=== PATIENT | female | born 1945 | race Caucasian/White ===

== ENCOUNTER 2017-01-19 19:21 | Emergency (ER) | payer MEDICARE, BC ==
[2017-01-19] MEDS ORDERED: ACETAMINOPHEN TAB 325 MG TAB PO STA (19:52)
--- NOTE | 2017-01-19 20:11 | ED ---
Lower Extremity Injury HPI - General Chief Complaint: Extremity Injury, Lower Stated Complaint: fall, rt knee pain Time Seen by Provider: 01/19/17 19:44 Source: patient, EMS Mode of arrival: EMS Limitations: no limitations - History of Present Illness Initial Comments: 71-year-old female patient presents to emergency department today for evaluation of right knee and upper leg pain after a fall 2 days ago. Patient states that she was getting into her car, states that her right leg gave out on her, and she fell striking her right knee on the door of the vehicle. She states that initially she did have some minor pain to the area however since walking on over the last 2 days the pain has increased. Patient states that she is having the most any pain to the right lateral aspect of the knee. She states that it does hurt to flex the knee. States pain worsens with ambulation and weightbearing. States that she has been feeling more weak to her lower extremities especially the right side over the last few weeks which has contributed to the increase in the number of falls. States that her last fall prior to 2 days ago was a week prior however she denies any injuries from that fall. Patient denies hitting her head or losing consciousness during the fall. Denies any other injuries. Patient denies any headache, neck pain, back pain , chest pain, shortness of breath, dizziness, abdominal pain, nausea, vomiting, or difficulties with bowel movements. - Related Data Home Medications Medication Instructions Recorded Confirmed Budesonide-Formot 160-4.5 Mcg 2 puff INHALATION RT-BID 01/19/17 01/19/17 [Symbicort 160-4.5 Mcg Inhaler] Cholecalciferol [Vitamin D3] 1,000 unit PO DAILY 01/19/17 01/19/17 Fenofibrate Nanocrystallized 48 mg PO DAILY 01/19/17 01/19/17 [Fenofibrate] Gabapentin [Neurontin] 300 mg PO BID 01/19/17 01/19/17 Glimepiride [Amaryl] 4 mg PO AC-BID 01/19/17 01/19/17 Insulin Glargine,Hum.rec.anlog 65 unit SQ HS 01/19/17 01/19/17 [Lantus Solostar] Ipratropium/Albuterol Sulfate 2 puff INHALATION RT-QID PRN 01/19/17 01/19/17 [Combivent Respimat Inhaler] Ramipril [Altace] 2.5 mg PO DAILY 01/19/17 01/19/17 Simvastatin [Zocor] 80 mg PO DAILY 01/19/17 01/19/17 metFORMIN HCL [Glucophage] 1,000 mg PO BID 01/19/17 01/19/17 Allergies Allergy/AdvReac Type Severity Reaction Status Date / Time No Known Allergies Allergy Verified 01/19/17 20:56 Review of Systems ROS Statement: Those systems with pertinent positive or pertinent negative responses have been documented in the HPI. ROS Other: All systems not noted in ROS Statement are negative. Past Medical History Past Medical History: Diabetes Mellitus, Deep Vein Thrombosis (DVT), Hyperlipidemia, Myocardial Infarction (CA) History of Any Multi-Drug Resistant Organisms: None Reported Past Surgical History: Heart Catheterization Past Psychological History: No Psychological Hx Reported Smoking Status: Current every day smoker Past Alcohol Use History: None Reported Past Drug Use History: None Reported General Exam Limitations: no limitations General appearance: alert, in no apparent distress Head exam: Present: atraumatic, normocephalic, normal inspection Eye exam: Present: normal appearance, PERRL, EOMI. Absent: scleral icterus, conjunctival injection, periorbital swelling ENT exam: Present: normal exam, normal oropharynx, mucous membranes moist Neck exam: Present: normal inspection, full ROM, other (Nontender, no step-off, no deformity to firm midline palpation of the posterior cervical spine. Full range of motion without pain or limitation.). Absent: tenderness, meningismus, lymphadenopathy Respiratory exam: Present: normal lung sounds bilaterally. Absent: respiratory distress, wheezes, rales, rhonchi, stridor Cardiovascular Exam: Present: regular rate, normal rhythm, normal heart sounds. Absent: systolic murmur, diastolic murmur, rubs, gallop, clicks GI/Abdominal exam: Present: soft, normal bowel sounds. Absent: distended, tenderness, guarding, rebound, rigid Extremities exam: Present: full ROM (Increased pain with flexion and extension of the right knee.), tenderness (Tenderness over the right lateral aspect of the right knee. Tenderness over the right femur.), normal capillary refill, other (It is pink, warm, and dry. Cap refill less than 3 seconds.). Absent: normal inspection (Small abrasion noted to the right anterior knee over the patella.), pedal edema, joint swelling, calf tenderness Back exam: Present: normal inspection, other (Nontender, no step-off, no deformity to firm midline palpation of the thoracic and lumbar vertebrae. Full range of motion without pain or limitation.). Absent: tenderness, vertebral tenderness Neurological exam: Present: alert, oriented X3, CN II-XII intact Psychiatric exam: Present: normal affect, normal mood Skin exam: Present: warm, dry, intact, normal color. Absent: rash Course Vital Signs 01/19/17 01/19/17 01/19/17 19:31 20:45 23:27 Temperature 98.9 F 97.9 F Pulse Rate 70 77 70 Respiratory 18 16 18 Rate Blood Pressure 134/63 164/92 165/78 O2 Sat by Pulse 93 L 96 93 L Oximetry Medical Decision Making - Medical Decision Making 71-year-old female patient presented to emergency department today for evaluation of right knee pain after a fall injury 2 days ago. Patient reported frequent falls at home and weakness in her legs. Lab work was performed and showed no acute abnormalities. X-ray of the right knee was obtained and showed no acute osseous abnormalities. While in the department patient did have an acute episode of vomiting, where her color turned pale. Patient states this does occur at least once per week. X-ray of the abdomen was reviewed and showed no acute intra-abdominal abnormalities and overall nonobstructive bowel gas pattern. Chest x-ray was negative for any acute cardio pulmonary process. Urinalysis did have some abnormalities however was contaminated, this has been sent for culture. Patient will be discharged home at this time with instructions to rest, ice, and elevate the right lower extremity. She is given an Yeyo wrap for support. She is instructed to follow-up with her primary care physician for recheck in 1-2 days. Did discuss with her the possibility of obtaining a walker, she agreed to discuss with her primary care physician. Patient is instructed to return immediately for any new, worsening, or concerning symptoms. Patient verbalizes understanding and agrees with this plan. - Lab Data Result diagrams: 01/19/17 20:37 01/19/17 20:37 Lab Results 01/19/17 01/19/17 01/19/17 Range/Units 20:37 20:37 20:37 WBC 12.4 H (3.8-10.6) k/uL RBC 4.86 (3.80-5.40) m/uL Hgb 15.1 (11.4-16.0) gm/dL Hct 45.8 (34.0-46.0) % MCV 94.2 (80.0-100.0) fL MCH 31.2 (25.0-35.0) pg MCHC 33.1 (31.0-37.0) g/dL RDW 14.5 (11.5-15.5) % Plt Count 254 (150-450) k/uL Neutrophils % 79 % Lymphocytes % 14 % Monocytes % 4 % Eosinophils % 1 % Basophils % 1 % Neutrophils # 9.8 H (1.3-7.7) k/uL Lymphocytes # 1.7 (1.0-4.8) k/uL Monocytes # 0.5 (0-1.0) k/uL Eosinophils # 0.2 (0-0.7) k/uL Basophils # 0.1 (0-0.2) k/uL PT (9.0-12.0) sec INR (<1.2) APTT (22.0-30.0) sec Sodium 143 (137-145) mmol/L Potassium 4.4 (3.5-5.1) mmol/L Chloride 101 (98-107) mmol/L Carbon Dioxide 31 H (22-30) mmol/L Anion Gap 11 mmol/L BUN 26 H (7-17) mg/dL Creatinine 1.50 H (0.52-1.04) mg/dL Est GFR (MDRD) Af Amer 41 (>60 ml/min/1.73 sqM) Est GFR (MDRD) Non-Af 34 (>60 ml/min/1.73 sqM) Glucose 145 H (74-99) mg/dL Calcium 9.9 (8.4-10.2) mg/dL Total Bilirubin 0.4 (0.2-1.3) mg/dL AST 19 (14-36) U/L ALT 20 (9-52) U/L Alkaline Phosphatase 102 (38-126) U/L Total Creatine Kinase 57 (30-135) U/L CK-MB (CK-2) 1.5 (0.0-2.4) ng/mL CK-MB (CK-2) Rel Index 2.6 Troponin I <0.012 (0.000-0.034) ng/mL Total Protein 6.8 (6.3-8.2) g/dL Albumin 4.0 (3.5-5.0) g/dL Amylase 41 (30-110) U/L Lipase 120 (23-300) U/L Urine Color Urine Appearance (Clear) Urine pH (5.0-8.0) Ur Specific [place] (1.001-1.035) Urine Protein (Negative) Urine Glucose (UA) (Negative) Urine Ketones (Negative) Urine Blood (Negative) Urine Nitrite (Negative) Urine Bilirubin (Negative) Urine Urobilinogen (<2.0) mg/dL Ur Leukocyte Esterase (Negative) Urine RBC (0-5) /hpf Urine WBC (0-5) /hpf Ur Squamous Epith Cells (0-4) /hpf Amorphous Sediment (None) /hpf Urine Bacteria (None) /hpf Hyaline Casts (0-2) /lpf Urine Mucus (None) /hpf 01/19/17 01/19/17 Range/Units 20:37 22:34 WBC (3.8-10.6) k/uL RBC (3.80-5.40) m/uL Hgb (11.4-16.0) gm/dL Hct (34.0-46.0) % MCV (80.0-100.0) fL MCH (25.0-35.0) pg MCHC (31.0-37.0) g/dL RDW (11.5-15.5) % Plt Count (150-450) k/uL Neutrophils % % Lymphocytes % % Monocytes % % Eosinophils % % Basophils % % Neutrophils # (1.3-7.7) k/uL Lymphocytes # (1.0-4.8) k/uL Monocytes # (0-1.0) k/uL Eosinophils # (0-0.7) k/uL Basophils # (0-0.2) k/uL PT 11.1 (9.0-12.0) sec INR 1.1 (<1.2) APTT 22.2 (22.0-30.0) sec Sodium (137-145) mmol/L Potassium (3.5-5.1) mmol/L Chloride (98-107) mmol/L Carbon Dioxide (22-30) mmol/L Anion Gap mmol/L BUN (7-17) mg/dL Creatinine (0.52-1.04) mg/dL Est GFR (MDRD) Af Amer (>60 ml/min/1.73 sqM) Est GFR (MDRD) Non-Af (>60 ml/min/1.73 sqM) Glucose (74-99) mg/dL Calcium (8.4-10.2) mg/dL Total Bilirubin (0.2-1.3) mg/dL AST (14-36) U/L ALT (9-52) U/L Alkaline Phosphatase (38-126) U/L Total Creatine Kinase (30-135) U/L CK-MB (CK-2) (0.0-2.4) ng/mL CK-MB (CK-2) Rel Index Troponin I (0.000-0.034) ng/mL Total Protein (6.3-8.2) g/dL Albumin (3.5-5.0) g/dL Amylase (30-110) U/L Lipase (23-300) U/L Urine Color Yellow Urine Appearance Cloudy H (Clear) Urine pH 7.0 (5.0-8.0) Ur Specific [place] 1.020 (1.001-1.035) Urine Protein Trace H (Negative) Urine Glucose (UA) Negative (Negative) Urine Ketones Negative (Negative) Urine Blood Trace H (Negative) Urine Nitrite Negative (Negative) Urine Bilirubin Negative (Negative) Urine Urobilinogen 2.0 (<2.0) mg/dL Ur Leukocyte Esterase Large H (Negative) Urine RBC 17 H (0-5) /hpf Urine WBC 7 H (0-5) /hpf Ur Squamous Epith Cells 6 H (0-4) /hpf Amorphous Sediment Rare H (None) /hpf Urine Bacteria Few H (None) /hpf Hyaline Casts 2 (0-2) /lpf Urine Mucus Rare H (None) /hpf - Radiology Data Radiology results: report reviewed, image reviewed 3 views of the right knee were obtained and showed no fracture or dislocation. There is a small knee joint effusion. There is mild spurring on the superior patella. There is calcification of the tibial tubercle. There is vascular calcification. Joint spaces are fairly normal. Impression by Dr. Calderon shows small joint effusion. No fracture seen. Oh tibial tubercle osteochondrosis. 4 views of the right femur were obtained and showed no fracture nor dislocation. Hip joint knee joint. Intact. There is spurring on the patella. There is vascular calcification. No acute abnormality of the right femur. Frontal and lateral views of the chest were obtained and showed the heart and mediastinum are normal. Lungs are clear. Diaphragm is normal. Bony thorax is intact. Thoracic aorta is atheromatous. Impression by Dr. Collins shows no active cardiopulmonary disease. Normal heart. No change. KUB of the abdomen was obtained and showed no sign of intestinal obstruction or pneumoperitoneum. Fecal pattern is normal. There is no sign of a mass. There are no pathologic calcifications over the kidneys. Impression by Dr. Collins shows nonacute abdomen. Disposition Clinical Impression: Effusion, right knee, Frequent falls Disposition: HOME SELF-CARE Condition: Good Instructions: Fall Prevention for Older Adults (ED), Knee Pain (ED) Additional Instructions: Follow-up with her primary care physician for recheck in 1-2 days. Rest, ice, elevate the right lower extremity. Yeyo wrap for comfort. Discussed with primary care physician the need for a walker. Return immediately for any new, worsening, or concerning symptoms. Referrals: Srinath Shepard DO [Primary Care Provider] - 1-2 days Time of Disposition: 23:09
--- NOTE | 2017-01-19 20:23 | XR ---
EXAMINATION TYPE: XR femur RT DATE OF EXAM: 01/19/2017 COMPARISON: NONE HISTORY: Fell 2 days ago. Pain. TECHNIQUE: 4 views FINDINGS: I see no fracture nor dislocation. Hip joint and knee joint appear intact. There is spurrin g on the patella. There is vascular calcification. IMPRESSION: No acute abnormality of the right femur.
--- NOTE | 2017-01-19 20:27 | XR ---
EXAMINATION TYPE: XR knee complete RT DATE OF EXAM: 01/19/2017 COMPARISON: NONE HISTORY: Fell 2 days ago with pain TECHNIQUE: 3 views FINDINGS: I see no fracture nor dislocation. There is a small knee joint effusion. There is mild spur ring on the superior patella. There is calcification at the tibial tubercle. There is vascular calcif ication. Joint spaces are fairly normal. IMPRESSION: Small joint effusion. No fracture seen. 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
--- NOTE | 2017-01-19 20:28 | XR ---
EXAMINATION TYPE: XR chest 2V DATE OF EXAM: 01/19/2017 COMPARISON: 12/28/2011 HISTORY: Fell 2 days ago TECHNIQUE: Frontal and lateral views of the chest are obtained. FINDINGS: Heart and mediastinum are normal. Lungs are clear. Diaphragm is normal. Bony thorax is int act. Thoracic aorta is atheromatous. IMPRESSION: No active cardiopulmonary disease. Normal heart. No change.
[2017-01-19] MEDS ORDERED: ONDANSETRON 4 MG/2 ML VIAL IVP STA (20:50)
[2017-01-19 21:03] LABS: Basophils # (A) 0.1 k/uL (0-0.2); Basophils % (A) 1 %; CH 32.2; CHCM 34.3; Eosinophils # (A) 0.2 k/uL (0-0.7); Eosinophils % (A) 1 %; HCT 45.8 % (34.0-46.0); HDW 2.46; HGB 15.1 gm/dL (11.4-16.0); Luc # (Auto) 0.17; Luc % (Auto) 1; Lymphocytes # (A) 1.7 k/uL (1.0-4.8); Lymphocytes % (A) 14 %; MCH 31.2 pg (25.0-35.0); MCHC 33.1 g/dL (31.0-37.0); MCV 94.2 fL (80.0-100.0); Mean Platelet Volume 8.2; Monocytes # (A) 0.5 k/uL (0-1.0); Monocytes % (A) 4 %; Neutrophils # (A) 9.8 k/uL (1.3-7.7); Neutrophils % (A) 79 %; RBC 4.86 m/uL (3.80-5.40); RDW 14.5 % (11.5-15.5); WBC 12.4 k/uL (3.8-10.6); WBC (Perox) 12.14
[2017-01-19 21:21] LABS: Calcium 9.9 mg/dL (8.4-10.2); Creatine Kinase 57 U/L (30-135); Potassium 4.4 mmol/L (3.5-5.1); Total Bilirubin 0.4 mg/dL (0.2-1.3); Total Protein 6.8 g/dL (6.3-8.2)
--- NOTE | 2017-01-19 21:23 | XR ---
EXAMINATION TYPE: XR KUB DATE OF EXAM: 01/19/2017 COMPARISON: NONE HISTORY: Vomiting TECHNIQUE: 2 views FINDINGS: There is no sign of intestinal obstruction or pneumoperitoneum. Fecal pattern is normal. Th ere is no sign of a mass. There are no pathologic calcifications over the kidneys. IMPRESSION: Nonacute abdomen.
[2017-01-19 21:27] LABS: INR 1.1 (<1.2); Partial Thromboplastin Time 22.2 sec (22.0-30.0); Prothrombin Time 11.1 sec (9.0-12.0)
[2017-01-19 21:34] LABS: Creatine Kinase MB 1.5 ng/mL (0.0-2.4); Troponin I <0.012 ng/mL (0.000-0.034)
[2017-01-19 22:45] LABS: Amorphous Sediment,Urine Rare /hpf; Appearance,Urine Cloudy (Clear); Bacteria,Urine Few /hpf; Bilirubin,Urine Negative (Negative); Glucose,Urine (UA) Negative (Negative); Ketones,Urine Negative (Negative); Leukocyte Esterase,Urine Large (Negative); Mucus,Urine Rare /hpf; Nitrite,Urine Negative (Negative); Particle Count 44047; Protein,Urine Trace (Negative); RBC,Urine 17 /hpf (0-5); Squamous Epithelial Cell,Urine 6 /hpf (0-4); UA Billing (MACRO vs. MICRO) MICRO; WBC,Urine 7 /hpf (0-5)
[2017-01-19 23:28] VITALS: BP 165/78; PULSE 70; RESP 18; TEMP 97.9
== END 2017-01-19 23:28 | disposition home or self-care (01) ==
LOC: EC 19:21 → SUPCPDRO 19:21 → EC 23:28
DX: S80.211A Abrasion, right knee, initial encounter (principal); M25.461 Effusion, right knee; M76.891 Other specified enthesopathies of right lower limb, excluding foot; R29.6 Repeated falls; I99.8 Other disorder of circulatory system; I70.0 Atherosclerosis of aorta; E78.5 Hyperlipidemia, unspecified; I25.2 Old myocardial infarction; F17.200 Nicotine dependence, unspecified, uncomplicated; Z79.4 Long term (current) use of insulin; Z79.51 Long term (current) use of inhaled steroids; Z79.84 Long term (current) use of oral hypoglycemic drugs; Z79.899 Other long term (current) drug therapy; W01.198A Fall on same level from slipping, tripping and stumbling with subsequent striking against other object, initial encounter; Y93.89 Activity, other specified; Z53.20 Procedure and treatment not carried out because of patient's decision for unspecified reasons
CPT/HCPCS: 36415; 71020; 74000; 80053; 81001; 82150; 82550; 82553; 83690; 84484; 85025; 85610; 85730; 93005; 99284

== ENCOUNTER → 2017-03-29 | Outpatient (CLI) | payer MEDICARE, BC ==
[2017-03-29 10:56] LABS: CH 31.3; HCT 46.4 % (34.0-46.0); HDW 2.47; HGB 15.1 gm/dL (11.4-16.0); MCHC 32.5 g/dL (31.0-37.0); MCV 98.4 fL (80.0-100.0); Mean Platelet Volume 7.1; RBC 4.71 m/uL (3.80-5.40); RDW 14.1 % (11.5-15.5); WBC 11.7 k/uL (3.8-10.6)
[2017-03-29 11:07] LABS: Potassium 4.5 mmol/L (3.5-5.1)
== END | disposition home or self-care (01) ==
LOC: LABPAT 10:25
PROVIDERS: ATTEND Internal Medicine Interventional Cardiology
DX: Z01.812 Encounter for preprocedural laboratory examination (principal); I25.10 Atherosclerotic heart disease of native coronary artery without angina pectoris
CPT/HCPCS: 36415; 80051; 82565; 84520; 85027

== ENCOUNTER 2017-04-02 08:47 | Day surgery (SDC) | payer MEDICARE, BC ==
[~2017-04-02 08:47] MED LIST: ALPRAZolam 0.25 MG TAB PO PRN; ALPRAZolam 0.5 MG TAB PO PRN; ASPIRIN 325 MG TAB PO STA; NITROGLYCERIN SL TABS 0.4 MG TAB SUBLINGUAL PRN; SODIUM CHLORIDE 0.9% 1,000 ML in EMPTY BAG 1 BAG IV ONE
[2017-04-02 09:28] LABS: Glucose,Whole Blood 178 mg/dL (75-99)
[2017-04-02 10:15] LABS: Calcium 9.5 mg/dL (8.4-10.2); Potassium 4.4 mmol/L (3.5-5.1)
[2017-04-02] MEDS ORDERED: diphenhydrAMINE 50 MG/ML 1 ML VIAL IVP ONE (12:35)
[2017-04-02] MEDS ORDERED: fentaNYL (PF) 50 MCG/ML 2 ML AMP IVP ONE (12:35)
[2017-04-02] MEDS: LIDOCAINE 2% INJ 20 MG/ML SQ ONE ×4 (12:38→12:49)
[2017-04-02] MEDS ORDERED: VERAPAMIL SYRINGE (5 MG/10 ML) INTRAARTER ONE (12:45)
[2017-04-02] MEDS ORDERED: HEPARIN SODIUM 1,000 UN/ML (10ML VL) IV ONE (12:59)
[2017-04-02] MEDS ORDERED: IODIXANOL 320 MG/ML 100 ML INTRAARTER ONE (13:09)
[2017-04-02] MEDS ORDERED: RX INFO: IV CONTRAST WAS GIVEN 1 EACH MISC MISCELLANE PRN (13:16)
[2017-04-02] MEDS ORDERED: IPRATROPIUM-ALBUTEROL 3 ML NEB INHALATION PRN ×2 (13:17→15:09)
[2017-04-02] MEDS ORDERED: METOPROLOL TARTRATE 25 MG TAB PO STA (13:25)
[2017-04-02] MEDS ORDERED: ATORVASTATIN 80 MG TAB PO STA (13:25)
[2017-04-02] MEDS ORDERED: ISOSORBIDE MONONITRATE ER 30 MG TAB.ER.24H PO STA (13:25)
[2017-04-02] MEDS ORDERED: SODIUM CHLORIDE 0.9% 1,000 ML IV SCH (13:30)
--- NOTE | 2017-04-02 14:25 | CC ---
CARDIAC CATHETERIZATION REPORT Mrs. Casas is a 72-year-old female with known history of hypertension, hyperlipidemia, diabetes mellitus, chronic tobacco use and a prior history of percutaneous revascularization of right coronary artery as well as peripheral venous disease, status post endarterectomy, who presented with symptoms of dyspnea and peripheral edema and was evaluated to undergo total knee arthroplasty and was found to have an abnormal myocardial perfusion imaging and in view of that recommendation made regarding cardiac catheterization. The procedure. risks and complications were discussed with the patient who is in full understanding and agreement. PROCEDURE: Patient was brought to the [facility] in a fasting semi-sedated state after receiving fentanyl and Benadryl after achieving moderate conscious sedated state. Using Xylocaine anesthesia and Seldinger technique, a 6-Grenadian sheath was introduced in the right radial artery. The wire was advanced to the ascending aorta, but there was inability to advance the catheter because of tortuosity and calcification in the right subclavian. At that time, the wire and the catheter were removed and using Xylocaine anesthesia and Seldinger technique, a 6-Grenadian sheath was introduced in the right femoral artery. Selective right and left angiography performed using 6-Grenadian right and left chest catheter. Multiple views of the coronary artery including hemiaxial views were obtained. Following that, a 6-Grenadian tight pigtail catheter was introduced into the left ventricle and a 30 degree pressure were calculated. Following that, catheter and sheaths were removed. Hemostasis was obtained with deployment of an Angio- Seal in the right femoral artery and TR band in the right radial artery. FINDINGS: 1. FLUOROSCOPY: There was severe calcification involving the coronary arteries. 2. LEFT MAIN: This is a large-sized vessel bifurcating into left circumflex, left anterior descending artery. Left main coronary artery is without any significant obstructive disease. 3. LEFT ANTERIOR DESCENDING ARTERY: This is a large-sized vessel reaching toward the apex, tapers down distal third giving rise to a small diagonal branch. Left anterior descending artery is heavily calcified, has a 95% to 99% stenosis at the ostium with moderate disease of 30% in the mid segment. The rest of the vessel has no high-grade stenosis. 4. LEFT CIRCUMFLEX: This is a nondominant vessel giving rise to two obtuse marginal branches. The first one is very proximal, has a 30% to 40% plaque proximally. The rest of the vessel has mild intimal disease without any evidence of high-grade stenosis. 5. RIGHT CORONARY ARTERY: This is a large-sized vessel, dominant, bifurcating into the PDA and PLV. The right coronary artery in mid segment. It is stented and is patent. No evidence of free stenosis. There is intimal disease in the proximal and distal segment to the stent up to 30%. 6. COLLATERALS: There is collaterals from the right PDA toward the septal kiln fireman. 7. LEFT VENTRICULOGRAM: Left ventriculogram is not performed. 8. HEMODYNAMICS: There was no gradient across the aortic valve; the left ventricular diastolic pressure is 24 mmHg. CONCLUSION: 1. Heavily calcified coronary arteries. 2. Severe stenosis involving the ostium of the left anterior descending artery. 3. Mild to moderate disease in the circumflex and mild disease in the right coronary artery. RECOMMENDATION: In view of finding anatomy, I have recommended proceeding with coronary artery bypass grafting with bypass to the LAD. Those findings and recommendations were discussed with the patient and her family who are in full understanding and agreement. Duration of the procedure is 32 minutes. MMBERHANE / HAMILTONN: [id number] /
--- NOTE | 2017-04-02 14:30 | LTR ---
DATE OF SERVICE: 04/02/2017 RE: Elenita Casas Dear Dr. Shepard; I had the pleasure to perform cardiac catheterization on Mrs. Casas at [facility] on April 02, 2017 and a full copy of the procedure note will be forwarded to you. In brief, she was found to have heavily calcified coronary artery with severe ostial LAD lesion. In view of her anatomy and her multiple risk factors, I have recommended proceeding with coronary bypass grafting. I will keep you updated on her progress and thank you again for allowing me to participate in this patient's care. Please feel free to call for any questions. Sincerely yours, MD JUNIOR Bazan / NEIDA: [id number] /
[2017-04-02 14:46] LABS: Glucose,Whole Blood 157 mg/dL (75-99)
[2017-04-02] MEDS ORDERED: MD COMMUNICATION TO PHARMACY 1 EACH MISC PO ONE (14:55)
--- NOTE | 2017-04-02 15:37 | P.GSCN ---
History of Present Illness Consult date: 04/02/17 Reason for Consult: Coronary artery disease, surgical revascularization recommendations. Requesting physician: Pauline Bee History of present illness: This 72-year-old female patient with a previous medical history of myocardial infarction and drug-eluting stent to the RCA placed in 2009, peripheral artery disease with right carotid endarterectomy in 2011, hypertension, hyperlipidemia , type 2 diabetes mellitus, current tobacco dependence, family history of early coronary artery disease, and noncompliance presented today to [facility] for heart catheterization. Apparently she needs a total knee replacement and needed cardiac clearance. She had presented to Dr. Bee's office, had a stress test which demonstrated anterior wall defect suggesting stress-induced ischemia of the left anterior descending artery. Subsequently she was recommended to have a heart catheterization which was completed today and demonstrated stenosis in the proximal LAD of 95-99%, mid LAD of 40%, mid right coronary artery with a patent stent with segments proximal and distal to the stent with 30% stenosis, and 30-40% stenosis in the first obtuse marginal artery. Dr. Dominguez from cardiothoracic surgery was consulted regarding surgical revascularization. Review of Systems 14 point review of systems was completed and was negative except as noted. - Constitutional Reports as per HPI, Reports fatigue - Cardiovascular Reports as per HPI, Reports dyspnea on exertion, Reports edema, Reports leg edema - Respiratory Reports cough - Musculoskeletal Musculoskeleta Comment(s): Walks with a walker Past Medical History Past Medical History: Coronary Artery Disease (CAD), Diabetes Mellitus, Hyperlipidemia, Hypertension, Myocardial Infarction (OR) Last Myocardial Infarction Date:: 2007 History of Any Multi-Drug Resistant Organisms: None Reported Past Surgical History: Appendectomy, Heart Catheterization With Stent, Hysterectomy Additional Past Surgical History / Comment(s): Colonoscopy. Drug-eluting stent placed to the RCA in 2009. Right carotid endarterectomy in 2011. Past Anesthesia/Blood Transfusion Reactions: No Reported Reaction Past Psychological History: No Psychological Hx Reported Smoking Status: Current every day smoker Past Alcohol Use History: None Reported Past Drug Use History: None Reported Additional Drug Use History / Comment(s): Smokes half pack per day for the last 60 years - Past Family History Mother Family Medical History: No Reported History Father Family Medical History: Coronary Artery Disease (CAD) Medications and Allergies Home Medications Medication Instructions Recorded Confirmed Type Budesonide-Formot 160-4.5 Mcg 2 puff INHALATION RT-BID 01/19/17 04/02/17 History [Symbicort 160-4.5 Mcg Inhaler] Cholecalciferol [Vitamin D3] 1,000 unit PO DAILY 01/19/17 04/02/17 History Glimepiride [Amaryl] 4 mg PO AC-BID 01/19/17 04/02/17 History Insulin Glargine,Hum.rec.anlog 65 unit SQ HS 01/19/17 04/02/17 History [Lantus Solostar] Ipratropium/Albuterol Sulfate 2 puff INHALATION RT-QID PRN 01/19/17 04/02/17 History [Combivent Respimat Inhaler] Ramipril [Altace] 2.5 mg PO DAILY 01/19/17 04/02/17 History Simvastatin [Zocor] 80 mg PO DAILY 01/19/17 04/02/17 History metFORMIN HCL [Glucophage] 1,000 mg PO BID 01/19/17 04/02/17 History Allergies Allergy/AdvReac Type Severity Reaction Status Date / Time No Known Allergies Allergy Verified 03/28/17 15:31 Surgical - Exam Vital Signs Temp Pulse Resp BP Pulse Ox 94 F L 71 16 137/65 94 L 04/02/17 09:46 04/02/17 09:46 04/02/17 09:46 04/02/17 09:46 04/02/17 09:46 - General well developed, well nourished, no distress, no pain, obese - Eyes PERRL, normal ocular movement - ENT no hearing loss - Neck no masses, trachea midline - Respiratory Lungs sounds diminished with expiratory wheezes present bilaterally. Respirations even, nonlabored. Positive coarse cough. Currently on 3 L nasal cannula oxygen saturation 96%. - Cardiovascular S1, S2 present. Regular rate and rhythm, normal sinus rhythm on telemetry. Palpable peripheral pulses bilaterally. 2+ pitting edema to bilateral lower extremities. No varicosities noted. - Abdomen Abdomen: soft, non tender, bowel sounds - Genitourinary Deferred - Rectum Deferred - Integumentary no rash, no growths - Neurologic normal coordination, normal sensation - Musculoskeletal Current and bedrest post cardiac catheterization. Equal strength bilaterally. - Psychiatric oriented to time, oriented to person, oriented to place, speech is normal, memory intact Results - Labs 04/02/17 09:45 Abnormal Lab Results - Last 24 Hours (Table) 04/02/17 04/02/17 04/02/17 Range/Units 09:25 09:45 14:20 BUN 23 H (7-17) mg/dL Creatinine 1.42 H (0.52-1.04) mg/dL Glucose 195 H (74-99) mg/dL POC Glucose (mg/dL) 178 H 157 H (75-99) mg/dL Diabetes panel 04/02/17 Range/Units 09:45 Sodium 139 (137-145) mmol/L Potassium 4.4 (3.5-5.1) mmol/L Chloride 102 (98-107) mmol/L Carbon Dioxide 27 (22-30) mmol/L BUN 23 H (7-17) mg/dL Creatinine 1.42 H (0.52-1.04) mg/dL Glucose 195 H (74-99) mg/dL Calcium 9.5 (8.4-10.2) mg/dL Calcium panel 04/02/17 Range/Units 09:45 Calcium 9.5 (8.4-10.2) mg/dL Pituitary panel 04/02/17 Range/Units 09:45 Sodium 139 (137-145) mmol/L Potassium 4.4 (3.5-5.1) mmol/L Chloride 102 (98-107) mmol/L Carbon Dioxide 27 (22-30) mmol/L BUN 23 H (7-17) mg/dL Creatinine 1.42 H (0.52-1.04) mg/dL Glucose 195 H (74-99) mg/dL Calcium 9.5 (8.4-10.2) mg/dL Adrenal panel 04/02/17 Range/Units 09:45 Sodium 139 (137-145) mmol/L Potassium 4.4 (3.5-5.1) mmol/L Chloride 102 (98-107) mmol/L Carbon Dioxide 27 (22-30) mmol/L BUN 23 H (7-17) mg/dL Creatinine 1.42 H (0.52-1.04) mg/dL Glucose 195 H (74-99) mg/dL Calcium 9.5 (8.4-10.2) mg/dL Assessment and Plan (1) Coronary artery disease Current Visit: Yes Status: Acute Code(s): I25.10 - ATHSCL HEART DISEASE OF [place] CORONARY ARTERY W/O ANG PCTRS SNOMED Code(s): 13482451 (2) Peripheral artery disease Current Visit: Yes Status: Chronic Code(s): I73.9 - PERIPHERAL VASCULAR DISEASE, UNSPECIFIED SNOMED Code(s): 699384837 (3) Hypertension Current Visit: Yes Status: Chronic Code(s): I10 - ESSENTIAL (PRIMARY) HYPERTENSION SNOMED Code(s): 28522913 (4) Type 2 diabetes mellitus Current Visit: Yes Status: Chronic Code(s): E11.9 - TYPE 2 DIABETES MELLITUS WITHOUT COMPLICATIONS SNOMED Code(s): 24825741 (5) Tobacco dependence Current Visit: Yes Status: Chronic Code(s): F17.200 - NICOTINE DEPENDENCE, UNSPECIFIED, UNCOMPLICATED SNOMED Code(s): 01408350 (6) COPD (chronic obstructive pulmonary disease) Current Visit: Yes Status: Chronic Code(s): J44.9 - CHRONIC OBSTRUCTIVE PULMONARY DISEASE, UNSPECIFIED SNOMED Code(s): 17613479 (7) History of myocardial infarction Current Visit: No Status: Resolved Code(s): I25.2 - OLD MYOCARDIAL INFARCTION SNOMED Code(s): 928695123 (8) History of heart artery stent Current Visit: Yes Status: Chronic Code(s): Z95.5 - PRESENCE OF CORONARY ANGIOPLASTY IMPLANT AND GRAFT SNOMED Code(s): 823612941 (9) Hyperlipidemia Current Visit: Yes Status: Chronic Code(s): E78.5 - HYPERLIPIDEMIA, UNSPECIFIED SNOMED Code(s): 07894137 (10) Family history of coronary artery disease Current Visit: Yes Status: Chronic Code(s): Z82.49 - FAMILY HX OF ISCHEM HEART DIS AND OTH DIS OF THE CIRC SYS SNOMED Code(s): 052333820 (11) History of right-sided carotid endarterectomy Current Visit: No Status: Resolved Code(s): Z98.890 - OTHER SPECIFIED POSTPROCEDURAL STATES SNOMED Code(s): 289503391 (12) Obesity (BMI 35.0-39.9 without comorbidity) Current Visit: Yes Status: Chronic Code(s): E66.9 - OBESITY, UNSPECIFIED SNOMED Code(s): 866044996 Plan: The patient was seen and examined at the bedside in the extended stay unit. Chart/diagnostics were reviewed. Cardiac catheterization films were reviewed by Dr. Bee with Dr. Dominguez. Preoperative teaching initiated. Preoperative testing ordered. Plan is for off-pump coronary artery bypass graft surgery with the left internal mammary artery to the left anterior descending artery early next week, pending testing results. Patient has been on Effient, last dose 04/01/2017. Needs to be off Effient for 5-7 days prior to surgery. Recommend continuing aspirin, beta apple, statin. Hold CAROLINE inhibitor 48 hours prior to surgery. Encouraged patient to quit smoking, however patient states she has no intention of quitting smoking. Thank you Dr. Bee for this consult. We look forward to working with you in the care of your patient. Time with Patient: Greater than 30
[2017-04-02 16:20] LABS: Basophils % (A) 0 %; CH 31.2; CHCM 32.9; Eosinophils # (A) 0.2 k/uL (0-0.7); Eosinophils % (A) 2 %; HCT 44.2 % (34.0-46.0); HDW 2.59; HGB 14.2 gm/dL (11.4-16.0); Luc # (Auto) 0.17; Luc % (Auto) 2; Lymphocytes # (A) 1.7 k/uL (1.0-4.8); Lymphocytes % (A) 18 %; MCH 30.7 pg (25.0-35.0); MCHC 32.2 g/dL (31.0-37.0); MCV 95.5 fL (80.0-100.0); Mean Platelet Volume 7.1; Monocytes # (A) 0.4 k/uL (0-1.0); Monocytes % (A) 4 %; Neutrophils # (A) 6.8 k/uL (1.3-7.7); Neutrophils % (A) 74 %; RBC 4.63 m/uL (3.80-5.40); RDW 14.2 % (11.5-15.5); WBC 9.2 k/uL (3.8-10.6); WBC (Perox) 9.72
[2017-04-02 16:26] LABS: INR 1.2 (<1.2); Partial Thromboplastin Time 23.8 sec (22.0-30.0); Prothrombin Time 11.8 sec (9.0-12.0)
[2017-04-02 16:40] LABS: Calcium 9.3 mg/dL (8.4-10.2); Magnesium 1.9 mg/dL (1.6-2.3); Total Bilirubin 0.4 mg/dL (0.2-1.3); Total Protein 6.5 g/dL (6.3-8.2)
--- NOTE | 2017-04-02 17:45 | P.OP ---
Date of Procedure: 04/02/17 Preoperative Diagnosis: Lung cancer, recurrent right malignant pleural effusion Postoperative Diagnosis: Same Procedure(s) Performed: Right Pleurx catheter implant with fluoroscopy guidance Implants: Pleurx catheter Anesthesia: MAC Surgeon: Devyn Dominguez Green House Manager #1: Myron Cummins Estimated Blood Loss (ml): 1 IV fluids (ml): 200 Urine output (ml): 0 Pathology: none sent Condition: stable Disposition: PACU Indications for Procedure: 72-year-old female diagnosed with adenocarcinoma of the lung with a positive cytology in the right pleural fluid in January at that time she had 500 mL of pleural fluid drained. Hence at this time with shortness of breath. She is noted to have a recurrent right pleural effusion. Options for repeat thoracentesis versus Pleurx catheter were discussed with the patient. Decision was reached usually with the patient to proceed with Pleurx catheter implant. Operative Findings: Drained 900 mL of serous pleural fluid Description of Procedure: The patient was brought to the operating room, placed supine on the operating table, IV sedation was given, the right arm was kept out at 90 and the left arm was tucked. The left chest and upper abdomen were sterilely prepped and draped. 2% lidocaine was used to anesthetize an area in the midaxillary line around the sixth interspace. Skinny needle demonstrated pleural fluid at this level. 18-gauge needle was placed into the pleural fluid and a guidewire was advanced under fluoroscopic guidance. This site was then enlarged to 1.5 cm and he counterincision was made after instillation of local anesthesia in the right upper quadrant 1 cm long. The Pleurx catheter was tunneled from the abdominal incision to the chest incision with the cuff positioned just under the skin at the exit site. Introducer and dilator were placed over the guidewire and through the introducer sheath first catheter was advanced into the right pleural space. Introducer sheath was removed. Good placement of the catheter was confirmed on fluoroscopy. The catheter was connected to suction and a total of 800 mL was drained. There was an additional 100 mL that it drained out during the placement. The chest site was closed with a 4-0 Vicryl suture and some skin glue. At the exit site with a 2-0 silk. Standard Pleurx dressing was applied. She was transferred to recovery in stable condition.
[2017-04-02 17:58] VITALS: BMI 34.0
[2017-04-02] MEDS: GLIMEPIRIDE 4 MG TAB PO SCH (18:06)
[2017-04-02 18:19] VITALS: RESP 18
[2017-04-02] MEDS: SYMBICORT 160-4.5 MCG INHALER INHALATION SCH (20:36)
[2017-04-02] MEDS ORDERED: INSULIN DETEMIR 100 UNIT/ML 10 ML VIAL SQ SCH (21:00)
[2017-04-02 21:10] LABS: Glucose,Whole Blood 259 mg/dL (75-99)
[2017-04-02] MEDS: IPRATROPIUM-ALBUTEROL 3 ML NEB INHALATION PRN (21:32)
[2017-04-03 06:01] LABS: Glucose,Whole Blood 87 mg/dL (75-99)
[2017-04-03] MEDS: GLIMEPIRIDE 4 MG TAB PO SCH (06:46)
[2017-04-03 06:56] LABS: Calcium 9.8 mg/dL (8.4-10.2); Potassium 4.3 mmol/L (3.5-5.1)
[2017-04-03] MEDS: SYMBICORT 160-4.5 MCG INHALER INHALATION SCH (08:26)
[2017-04-03] MEDS: IPRATROPIUM-ALBUTEROL 3 ML NEB INHALATION PRN (08:26)
--- NOTE | 2017-04-03 08:45 | P.PN ---
Subjective Progress Note Date: 04/03/17 Principal diagnosis: Multivessel coronary artery disease, peripheral arterial disease with history of right-sided carotid endarterectomy, diabetes mellitus type 2, tobacco dependence, chronic obstructive pulmonary disease, history of myocardial infarction, history of heart stent, hyperlipidemia, hypertension, family history of coronary artery disease less than 60 years of age, obesity with a BMI of 34.8 and obstructive sleep apnea. This is a 72-year-old female patient who is followed by Dr. Srinath Shepard on an outpatient basis. The patient has history of multiple medical problems including a history of myocardial infarction with drug-eluting stent placement to her right coronary artery in 2009, peripheral arterial disease status post right carotid endarterectomy in 2011, hypertension, hyperlipidemia, and 2 diabetes mellitus, current tobacco dependence, family history of early coronary artery disease, and noncompliance. She recently underwent a stress test which showed an anterior wall defect suggesting stress-induced ischemia. She was recommended to undergo a cardiac catheterization and on 04/02/2017 an elective left heart catheterization was performed by Dr. Bee. Her Heart catheterization results demonstrated a 95-99% stenosis to her proximal left anterior descending coronary artery, a 40% stenosis to her mid LAD, a patent stent to her right coronary artery, 30% inter-stent stenosis to her distal right coronary artery, and a 30-40% stenosis to her first obtuse marginal coronary artery. Subsequently Dr. Dominguez from cardiothoracic surgery was consulted for discussion regarding myocardial revascularization. Patient is sitting up to the bedside chair eating her breakfast. She is in no acute distress. She denies any complaints of chest pain although she does report that she possibly has episodes of shortness of breath. She also reports she has no intention of quitting smoking preoperatively or postoperatively. Objective - Vital Signs Vital signs: Vital Signs Temp 97.5 F L 04/03/17 04:00 Pulse 74 04/03/17 04:00 Resp 18 04/03/17 04:00 BP 129/74 04/03/17 04:00 Pulse Ox 94 L 04/03/17 04:00 Intake & Output 04/02/17 04/03/17 04/03/17 18:59 06:59 18:59 Intake Total 325 240 Output Total 120 1 Balance 205 239 Weight 79 kg 80.9 kg Intake: IV 325 Sodium Chloride 0.9% 1, 0 000 ml @ 100 mls/hr IV . Q10H [facility] Rx#:[id number] Oral 240 Output: Urine 120 Stool 1 Other: # Voids 1 - Constitutional General appearance: Present: cooperative, no acute distress, obese - EENT Eyes: Present: PERRLA ENT: Present: hearing grossly normal - Neck Details: No JVD, no lymphadenopathy. - Respiratory Details: Lung sounds with tight expiratory wheezes throughout, diminished her bilateral bases. Respirations are symmetrical and nonlabored. Oxygen saturation are 92% on room air. - Cardiovascular Details: Regular rhythm and rate. S1 and S2 present, negative for S3, gallop or murmur. Remote telemetry showing normal sinus rhythm heart rate 82. +2 edema and erythema to her bilateral lower extremities. - Gastrointestinal Gastrointestinal Comment(s): Abdomen is soft, nontender and nondistended. Active bowel sounds to all 4, quadrants. Tolerating oral intake. - Genitourinary Genitourinary Comment(s): Urine output adequate. - Integumentary Integumentary Comment(s): Erythema to her bilateral lower extremities. Integumentary: Present: flushed - Neurologic Neurologic Comment(s): No focal deficits. Neurologic: Present: CNII-XII intact - Musculoskeletal Musculoskeletal: Present: generalized weakness, strength equal bilaterally - Psychiatric Psychiatric: Present: A&O x's 3, appropriate affect, intact judgment & insight - Allied health notes Allied health notes reviewed: nursing - Labs CBC & Chem 7: 04/02/17 16:08 04/03/17 05:55 Labs: Abnormal Lab Results - Last 24 Hours (Table) 04/02/17 04/02/17 04/02/17 Range/Units 09:25 09:45 14:20 INR (<1.2) BUN 23 H (7-17) mg/dL Creatinine 1.42 H (0.52-1.04) mg/dL Glucose 195 H (74-99) mg/dL POC Glucose (mg/dL) 178 H 157 H (75-99) mg/dL Hemoglobin A1c (4.0-6.0) % Triglycerides (<150) mg/dL Crossmatch 04/02/17 04/02/17 04/02/17 Range/Units 16:08 16:08 16:08 INR 1.2 H (<1.2) BUN 20 H (7-17) mg/dL Creatinine 1.40 H (0.52-1.04) mg/dL Glucose 158 H (74-99) mg/dL POC Glucose (mg/dL) (75-99) mg/dL Hemoglobin A1c 8.5 H (4.0-6.0) % Triglycerides 205 H (<150) mg/dL Crossmatch 04/02/17 04/02/17 04/03/17 Range/Units 16:08 20:36 05:55 INR (<1.2) BUN 22 H (7-17) mg/dL Creatinine 1.50 H (0.52-1.04) mg/dL Glucose (74-99) mg/dL POC Glucose (mg/dL) 259 H (75-99) mg/dL Hemoglobin A1c (4.0-6.0) % Triglycerides (<150) mg/dL Crossmatch See Detail Microbiology - Last 24 Hours (Table) 04/02/17 18:00 Nasal Screen MRSA/MSSA ([facility]) - Preliminary Nasal Swab Assessment and Plan (1) Family history of premature coronary artery disease Current Visit: Yes Status: Acute Code(s): Z82.49 - FAMILY HX OF ISCHEM HEART DIS AND OTH DIS OF THE CIRC SYS SNOMED Code(s): 371129670 (2) Coronary artery disease Current Visit: Yes Status: Acute Code(s): I25.10 - ATHSCL HEART DISEASE OF [place] CORONARY ARTERY W/O ANG PCTRS SNOMED Code(s): 22694841 (3) COPD (chronic obstructive pulmonary disease) Current Visit: Yes Status: Chronic Code(s): J44.9 - CHRONIC OBSTRUCTIVE PULMONARY DISEASE, UNSPECIFIED SNOMED Code(s): 08689866 (4) History of heart artery stent Current Visit: Yes Status: Chronic Code(s): Z95.5 - PRESENCE OF CORONARY ANGIOPLASTY IMPLANT AND GRAFT SNOMED Code(s): 089147153 (5) Hyperlipidemia Current Visit: Yes Status: Chronic Code(s): E78.5 - HYPERLIPIDEMIA, UNSPECIFIED SNOMED Code(s): 09082666 (6) Hypertension Current Visit: Yes Status: Chronic Code(s): I10 - ESSENTIAL (PRIMARY) HYPERTENSION SNOMED Code(s): 06478049 (7) Obesity (BMI 35.0-39.9 without comorbidity) Current Visit: Yes Status: Chronic Code(s): E66.9 - OBESITY, UNSPECIFIED SNOMED Code(s): 316235754 (8) Peripheral artery disease Current Visit: Yes Status: Chronic Code(s): I73.9 - PERIPHERAL VASCULAR DISEASE, UNSPECIFIED SNOMED Code(s): 276682488 (9) Tobacco dependence Current Visit: Yes Status: Chronic Code(s): F17.200 - NICOTINE DEPENDENCE, UNSPECIFIED, UNCOMPLICATED SNOMED Code(s): 38293214 (10) Type 2 diabetes mellitus Current Visit: Yes Status: Chronic Code(s): E11.9 - TYPE 2 DIABETES MELLITUS WITHOUT COMPLICATIONS SNOMED Code(s): 47216356 Plan: 1. Preoperative myocardial revascularization teaching reinforced. 2. The importance of smoking cessation reviewed and discussed with the patient. 3. Preoperative workup in progress. 4. She will be scheduled for open heart surgery (CABG 1 VELARDE to the LAD) on , 04/12/2017. 5. Cardiology management and recommendations per Dr. Bee. 6. Pulmonary management and recommendations per Dr. Parsons. 7. Hold Effient. 8. Medical management per Dr. Shepard. 9. More recommendations as patient progresses. May discharge home after preoperative workup has been completed and when okay with Dr. Bee. Time with Patient: Greater than 30
[2017-04-03] MEDS ORDERED: ASPIRIN 81 MG PO SCH (09:00)
[2017-04-03] MEDS ORDERED: ATORVASTATIN 80 MG TAB PO SCH (09:00)
[2017-04-03] MEDS ORDERED: ISOSORBIDE MONONITRATE ER 30 MG TAB.ER.24H PO SCH (09:00)
[2017-04-03] MEDS ORDERED: METOPROLOL TARTRATE 25 MG TAB PO SCH (09:00)
[2017-04-03] MEDS ORDERED: LISINOPRIL 10 MG TAB PO SCH (09:00)
--- NOTE | 2017-04-03 09:25 | PN ---
PROGRESS NOTE Mrs. Casas is a 72-year-old female with known history of hypertension, hyperlipidemia, diabetes mellitus, chronic tobacco use, peripheral vascular disease who had an abnormal myocardial perfusion imaging underwent cardiac catheterization, was found to have critical ostial LAD lesion. She has been evaluated by Dr. Dominguez for surgical intervention that will be scheduled next week because the patient has been on Effient. She is doing well this morning. She denies any chest pain. Her breathing is stable. She denies any dizziness or palpitation. She denies any nausea. She continues to be at this time on aspirin once a day, Lipitor 80 mg daily, glimepiride 4 mg twice a day, insulin, isosorbide mononitrate 30 mg daily, lisinopril 10 mg daily, metoprolol tartrate 25 mg twice a day. PHYSICAL EXAMINATION: Blood pressure 129/70 with a heart rate in the 70s. LUNGS: Clear with decreased air exchange bilaterally. HEART: Regular rate and rhythm. S1, S2. No S3 with systolic murmur. ABDOMEN: Soft, obese, nontender. EXTREMITIES: +1 edema. RIGHT GROIN: No hematoma. Right radial pulse is intact. LAB DATA: Lab data revealed BUN and creatinine 22 and 1.5. Potassium 4.3. IMPRESSION: 1. Severe ostial left anterior descending artery lesion. 2. Chronic tobacco use with chronic obstructive lung disease. 3. Hypertension. 4. Hyperlipidemia. 5. Diabetes mellitus. 6. Peripheral vascular disease. 7. Chronic kidney disease. RECOMMENDATION: Patient will be discharged home today to be re-admitted to undergo coronary artery bypass grafting next week. Depending on her progress, further recommendation will be made. MMODL / IJN: [id number] /
[2017-04-03 09:40] LABS: Appearance,Urine Clear (Clear); Bacteria,Urine Occasional /hpf; Bilirubin,Urine Negative (Negative); Glucose,Urine (UA) Negative (Negative); Ketones,Urine Negative (Negative); Leukocyte Esterase,Urine Moderate (Negative); Nitrite,Urine Positive (Negative); PH, Urine 6.5 (5.0-8.0); Particle Count 47150; Protein,Urine Negative (Negative); Specific Gravity,Urine 1.008 (1.001-1.035); Squamous Epithelial Cell,Urine <1 /hpf (0-4); UA Billing (MACRO vs. MICRO) MICRO; Urobilinogen,Urine <2.0 mg/dL (<2.0); WBC,Urine 16 /hpf (0-5)
[2017-04-03 10:30] VITALS: BP 128/60; PULSE 73; TEMP 96.2
[2017-04-03 11:36] LABS: Glucose,Whole Blood 152 mg/dL (75-99)
--- NOTE | 2017-04-03 11:46 | XR ---
EXAMINATION TYPE: XR chest 2V DATE OF EXAM: 04/03/2017 COMPARISON: 01/19/2017 HISTORY: Preoperative evaluation for coronary artery bypass. TECHNIQUE: Frontal and lateral views of the chest are obtained. FINDINGS: There is no focal air space opacity, pleural effusion, or pneumothorax seen. Somewhat pro minent coarsened interstitial lung markings are similar to the prior and chronic appearing. The cardi ac silhouette size is within normal limits. Multilevel mild degenerative changes of the thoracic sp ine and acromioclavicular joints are noted as well as minimal generalized osseous demineralization. IMPRESSION: No acute cardiopulmonary process.
--- NOTE | 2017-04-03 11:49 | US ---
EXAMINATION TYPE: US carotid duplex BILAT DATE OF EXAM: 04/03/2017 COMPARISON: NONE CLINICAL HISTORY: Ankle Brachial Index (SONIA) . CABG EXAM MEASUREMENTS: RIGHT: Peak Systolic Velocity (PSV) cm/sec ----- Right CCA: 52.9 ----- Right ICA: 73.9 ----- Right ECA: 132.2 ICA/CCA ratio: 1.4 RIGHT: End Diastole cm/sec ----- Right CCA: 8.4 ----- Right ICA: 15.4 ----- Right ECA: 6.6 LEFT: Peak Systolic Velocity (PSV) cm/sec ----- Left CCA: 76.2 ----- Left ICA: 115.2 ----- Left ECA: 202.8 ICA/CCA ratio: 1.5 LEFT: End Diastole cm/sec ----- Left CCA: 11.2 ----- Left ICA: 22.9 ----- Left ECA: 9.6 VERTEBRALS (direction of flow): Right Vertebral: Antegrade Left Vertebral: Antegrade Rhythm: Normal Bilateral intimal thickening, plaque: bilateral CCA, bulb and proximal ICA, elevated velocities: righ t mid ECA and left mid ECA, no significant stenosis. IMPRESSION: 1. Bilateral moderate grayscale plaquing at the carotid bulbs and left common carotid artery without elevated velocities to indicate hemodynamically significant stenosis. Stenosis is estimated at approx imately 50%. 2. Stenosis of 50-70% of the external carotid arteries likely due to the plaquing at the carotid bulb s.
[2017-04-03] MEDS ORDERED: CHOLECALCIFEROL 1,000 UNIT TAB PO SCH (12:00)
--- NOTE | 2017-04-03 12:17 | P.CNPUL ---
History of Present Illness Consult date: 04/03/17 Requesting physician: Devyn Dominguez Reason for consult: COPD Chief complaint: Shortness of breath History of present illness: This is a very pleasant 72-year-old female patient who follows with Dr. Shepard as her primary care physician. She has a history of hypertension, hyperlipidemia, diabetes mellitus, chronic and ongoing tobacco dependence, peripheral vascular disease with previous endarterectomy. She has had complaints of knee pain and was scheduled to undergo a total knee arthroplasty and was seen at cardiology for preop clearance. Her stress test revealed reversible ischemia and she was recommended cardiac catheterization which was performed yesterday by Dr. Bee. She was found to have heavily calcified coronary arteries and severe stenosis involving the ostium of the left anterior descending artery. There is also mild to moderate disease in the circumflex and mild disease in the right coronary artery. She is recommended coronary artery bypass grafting which is to be done next week. Presently, she is seen in consultation on the selective care unit. She is awake and alert in no acute distress. She states she has been smoking for over 50 years and has no intentions of quitting at this point. She denies being oxygen dependent. She is on Symbicort and Combivent in the outpatient setting. She also takes nebulized treatments as needed. She's not been seen by a product introduction manager in the past. The average FEV1 value on the bedside spirometer revealed 58%. Her chest x-ray reveals evidence of chronic obstructive pulmonary disease but no acute cardiopulmonary process. No leukocytosis. Creatinine 1.50. Carotid Dopplers revealed less than 70% stenosis. Urine is positive for nitrates and moderate leukocytes. Review of Systems 14 point review of system was conducted. All negative other than as mentioned in the HPI. Past Medical History Past Medical History: Coronary Artery Disease (CAD), Diabetes Mellitus, Hyperlipidemia, Hypertension, Myocardial Infarction ([place]) Last Myocardial Infarction Date:: 2007 History of Any Multi-Drug Resistant Organisms: None Reported Past Surgical History: Appendectomy, Heart Catheterization With Stent, Hysterectomy Additional Past Surgical History / Comment(s): Colonoscopy. Drug-eluting stent placed to the RCA in 2009. Right carotid endarterectomy in 2011. Past Anesthesia/Blood Transfusion Reactions: No Reported Reaction Smoking Status: Current every day smoker - Past Family History Mother Family Medical History: No Reported History Father Family Medical History: Coronary Artery Disease (CAD) Medications and Allergies Home Medications Medication Instructions Recorded Confirmed Type Budesonide-Formot 160-4.5 Mcg 2 puff INHALATION RT-BID 01/19/17 04/02/17 History [Symbicort 160-4.5 Mcg Inhaler] Cholecalciferol [Vitamin D3] 1,000 unit PO DAILY 01/19/17 04/02/17 History Glimepiride [Amaryl] 4 mg PO AC-BID 01/19/17 04/02/17 History Insulin Glargine,Hum.rec.anlog 65 unit SQ HS 01/19/17 04/02/17 History [Lantus Solostar] Ipratropium/Albuterol Sulfate 2 puff INHALATION RT-QID PRN 01/19/17 04/02/17 History [Combivent Respimat Inhaler] Ramipril [Altace] 2.5 mg PO DAILY 01/19/17 04/02/17 History Aspirin 81 mg PO DAILY chew 04/03/17 Rx Atorvastatin [Lipitor] 80 mg PO DAILY #90 tab 04/03/17 Rx Isosorbide Mononitrate ER [Imdur] 30 mg PO DAILY #30 tab.er.24h 04/03/17 Rx Metoprolol Tartrate [Lopressor] 25 mg PO BID #180 tab 04/03/17 Rx Nitroglycerin Sl Tabs [Nitrostat] 0.4 mg SUBLINGUAL Q5M PRN #25 tab 04/03/17 Rx Allergies Allergy/AdvReac Type Severity Reaction Status Date / Time No Known Allergies Allergy Verified 03/28/17 15:31 Physical Exam Vitals: Vital Signs Temp Pulse Pulse Pulse Resp BP Pulse Ox 04/03/17 08:36 76 18 04/03/17 08:26 76 18 90 L 04/03/17 08:00 96.2 F L 73 18 128/60 92 L 04/03/17 04:00 97.5 F L 74 18 129/74 94 L 04/03/17 00:00 97.1 F L 82 18 140/74 93 L 04/02/17 20:59 80 04/02/17 20:40 80 04/02/17 20:00 97.4 F L 76 18 132/78 92 L 04/02/17 17:01 97.3 F L 77 18 133/54 95 04/02/17 16:29 70 16 155/73 92 L 04/02/17 15:23 70 04/02/17 15:15 68 04/02/17 15:14 70 16 98 04/02/17 15:04 68 16 150/70 97 04/02/17 14:30 70 16 150/70 97 04/02/17 14:01 71 16 164/73 96 04/02/17 13:46 70 16 164/70 97 04/02/17 13:32 71 16 173/73 97 04/02/17 13:15 75 16 186/80 97 Intake and Output 04/02/17 04/03/17 04/03/17 22:59 06:59 14:59 Intake Total 240 Output Total 120 1 Balance -120 239 Intake: Oral 240 Output: Urine 120 Stool 1 Other: # Voids 1 1 Weight 79 kg 80.9 kg GENERAL EXAM: Alert, active, comfortable in no apparent distress. HEAD: Normocephalic. EYES: Normal reaction of pupils, equal size. NOSE: Clear with pink turbinates. THROAT: No erythema or exudates. NECK: No masses, no JVD. CHEST: No chest wall deformity. LUNGS: Equal air entry with no crackles, wheeze, rhonchi or dullness. CVS: S1 and S2 normal with no audible murmur, regular rhythm. ABDOMEN: No hepatosplenomegaly, normal bowel sounds, no guarding or rigidity. SPINE: No scoliosis or deformity SKIN: No rashes CENTRAL NERVOUS SYSTEM: No focal deficits, tone is normal in all 4 extremities. EXTREMITIES: There is no peripheral edema. No clubbing, no cyanosis. Peripheral pulses are intact. Results - Laboratory Findings CBC and BMP: 04/02/17 16:08 04/03/17 05:55 PT/INR, D-dimer PT 11.8 sec (9.0-12.0) 04/02/17 16:08 INR 1.2 (<1.2) H 04/02/17 16:08 Abnormal lab findings: Abnormal Labs 04/02/17 04/02/17 04/02/17 09:25 09:45 14:20 INR BUN 23 H Creatinine 1.42 H Glucose 195 H POC Glucose (mg/dL) 178 H 157 H Hemoglobin A1c Triglycerides Urine Nitrite Ur Leukocyte Esterase Urine WBC Urine Bacteria Crossmatch 04/02/17 04/02/17 04/02/17 16:08 16:08 16:08 INR 1.2 H BUN 20 H Creatinine 1.40 H Glucose 158 H POC Glucose (mg/dL) Hemoglobin A1c 8.5 H Triglycerides 205 H Urine Nitrite Ur Leukocyte Esterase Urine WBC Urine Bacteria Crossmatch 04/02/17 04/02/17 04/03/17 16:08 20:36 05:55 INR BUN 22 H Creatinine 1.50 H Glucose POC Glucose (mg/dL) 259 H Hemoglobin A1c Triglycerides Urine Nitrite Ur Leukocyte Esterase Urine WBC Urine Bacteria Crossmatch See Detail 04/03/17 04/03/17 09:20 11:27 INR BUN Creatinine Glucose POC Glucose (mg/dL) 152 H Hemoglobin A1c Triglycerides Urine Nitrite Positive H Ur Leukocyte Esterase Moderate H Urine WBC 16 H Urine Bacteria Occasional H Crossmatch - Diagnostic Findings Chest x-ray: image reviewed Assessment and Plan Assessment: Impression: #1 Coronary artery disease with significant heavily calcified coronary arteries , stiff severe stenosis involving the ostium of the LAD, mild to moderate disease in the circumflex and mild disease in the RCA. Chronic artery bypass grafting is pending for next week. Previous history of coronary artery disease with stenting to the RCA. #2 Hypertension. #3 Hyperlipidemia. #4 Diabetes mellitus, type II. #5 Chronic and ongoing tobacco dependence of greater than 60 years 1 pack per day. #6 Chronic obstructive pulmonary disease treated with Symbicort and Combivent restroom and in the outpatient setting. #7 Peripheral vascular disease. #8 Carotid artery disease with previous right carotid endarterectomy. Plan: The patient was seen and evaluated by Dr. Parsons. Her chest x-ray and labs were reviewed. She does have significant chronic obstructive pulmonary disease secondary to chronic and ongoing tobacco dependence. She is at moderate risk for developing postoperative complications including prolonged prolonged ventilation, atelectasis, pneumonia. She is educated regarding the importance of complete smoking cessation though she is quite adamant she will not be quitting. She is also educated regarding the use of the incentive spirometer and cough and deep breathing exercises. She will continue her Symbicort, Combivent and nebulized treatments in the outpatient setting encouraged to utilize up to 4 times a day prior to her surgery. We will follow her in the postoperative period. I, the cosigning physician, have performed a history and physical examination on the patient. Lung sounds are clear. Maintaining good O2 saturations in the 90s on room air. She is educated to utilize nebulized treatments in the outpatient setting prior to her surgery. She is educated regarding the use his incentive spirometer. I have discussed the assessment and plan of care with my nurse practitioner, Eloise Mcgee. I attest the above documented note as dictated by her. Time with Patient: Greater than 30
--- NOTE | 2017-04-11 10:17 | P.VSCSTY ---
Greater Saphenous Vein Mapping This is bilateral lower extremity greater saphenous vein mapping. Date of service 04/02/2017 Vein quality and ultrasound appearance normal wall. Vein size groin right 9.6 x 8.9 groin left 7.1 x 8.5 High thigh right 8.3 x 6.9 high thigh left 8.0 x 7.6 Mid thigh right 6.2 x 5.5 mid thigh left 6.2 x 6.1 Above-knee right 5.6 x 4.6 above- knee left 6.6 x 5.6 Below knee right 4.2 x 4.3 below-knee left 4.5 x 4.8 Mid calf right 3.8 x 3.5 mid calf left 4.8 x 4.0 Ankle right 3.4 x 2.7 ankle left 3.7 x 3.3 Impression usable bilateral greater saphenous vein. Lower legs are better than thighs in size relationship to coronaries..
--- NOTE | 2017-04-25 15:39 | P.PN ---
Progress Note - Text Progress Note Date: 05/03/17 5 meter walk test completed: #1 8.04 sec #2 9.40 sec #3 8.60 sec
== END 2017-04-03 14:16 | disposition home or self-care (01) ==
LOC: CATHCVL 08:47 → 6SEL 16:09 → CATHCVL 04-03 14:16
PROVIDERS: ATTEND Internal Medicine Interventional Cardiology
DX: I25.10 Atherosclerotic heart disease of native coronary artery without angina pectoris (principal); I25.84 Coronary atherosclerosis due to calcified coronary lesion; I10 Essential (primary) hypertension; I65.22 Occlusion and stenosis of left carotid artery; F17.210 Nicotine dependence, cigarettes, uncomplicated; E78.2 Mixed hyperlipidemia; E11.51 Type 2 diabetes mellitus with diabetic peripheral angiopathy without gangrene; Z79.4 Long term (current) use of insulin; J44.9 Chronic obstructive pulmonary disease, unspecified; I25.2 Old myocardial infarction; Z95.5 Presence of coronary angioplasty implant and graft; E78.5 Hyperlipidemia, unspecified; Z82.49 Family history of ischemic heart disease and other diseases of the circulatory system; Z79.82 Long term (current) use of aspirin; Z79.51 Long term (current) use of inhaled steroids; Z79.899 Other long term (current) drug therapy
CPT/HCPCS: 94640 ×4; 94760; 94150; 93458; 86900; 86901; 83880; 80061; 80053; 80048; 80074; 84443; 83735; 85025; 85610; 85730; 86850; 86920; 81001; 87070; 87086; 87077; 87186; 83036; 71020; 93970; 93880; C1760; C1894 ×2; C1769; J2001; J1200; Q9967; J3010; J1644

== ENCOUNTER 2017-05-22 13:05 | Inpatient (IN) | payer BC, MEDICARE ==
[2017-05-22] MEDS ORDERED: SODIUM CHLORIDE 0.9% 1,000 ML IV STA ×2 (13:56)
[2017-05-22 13:58] LABS: Glucose,Whole Blood 578 mg/dL (75-99)
[2017-05-22 14:29] LABS: Basophils % (A) 0 %; Eosinophils # (A) 0.1 k/uL (0-0.7); Eosinophils % (A) 1 %; HCT 44.8 % (34.0-46.0); HGB 14.6 gm/dL (11.4-16.0); Lymphocytes # (A) 0.5 k/uL (1.0-4.8); Lymphocytes % (A) 5 %; MCH 30.7 pg (25.0-35.0); MCHC 32.6 g/dL (31.0-37.0); MCV 94.1 fL (80.0-100.0); Mean Platelet Volume 8.3; Monocytes # (A) 0.3 k/uL (0-1.0); Monocytes % (A) 3 %; Neutrophils # (A) 9.1 k/uL (1.3-7.7); Neutrophils % (A) 91 %; Platelet Count 242 k/uL (150-450); RBC 4.76 m/uL (3.80-5.40); RDW 13.2 % (11.5-15.5)
[2017-05-22] MEDS ORDERED: INSULIN REGULAR 100 UNIT/ML VIAL IV ONE (14:32)
[2017-05-22 14:37] LABS: ALT 30 U/L (9-52); AST 16 U/L (14-36); Albumin 3.7 g/dL (3.5-5.0); Alkaline Phosphatase 226 U/L (38-126); Anion Gap 12 mmol/L; Blood Urea Nitrogen 36 mg/dL (7-17); Calcium 9.7 mg/dL (8.4-10.2); Carbon Dioxide 28 mmol/L (22-30); Chloride 89 mmol/L (98-107); Sodium 129 mmol/L (137-145); Total Bilirubin 0.9 mg/dL (0.2-1.3); Total Protein 6.3 g/dL (6.3-8.2)
--- NOTE | 2017-05-22 14:44 | ED ---
Dizziness HPI - General Chief Complaint: Dizziness Stated Complaint: High Sugar Time Seen by Provider: 05/22/17 13:42 Source: patient, RN notes reviewed, old records reviewed Mode of arrival: wheelchair Limitations: no limitations - History of Present Illness Initial Comments: 72-year-old female presents emergency Department a chief complaint of dizziness and fatigue and weakness for the past 3 days. She reports she is a in splint dependent diabetic, but has not been taking her insulinfor the past week. She reports that she has no specific reason why besides forgetting take her insulin. Patient also CABG completed in March 2017. patient reports that she has had no falls, denies any specific pain or injuries at this time. She denies any worsening shortness of breath, or chest pain. - Related Data Home Medications Medication Instructions Recorded Confirmed Budesonide-Formot 160-4.5 Mcg 2 puff INHALATION RT-BID 01/19/17 05/22/17 [Symbicort 160-4.5 Mcg Inhaler] Cholecalciferol [Vitamin D3] 2,000 unit PO DAILY 01/19/17 05/22/17 Ipratropium/Albuterol Sulfate 2 puff INHALATION RT-QID PRN 01/19/17 05/22/17 [Combivent Respimat Inhaler] Aspirin 325 mg PO DAILY 04/09/17 05/22/17 Ipratropium-Albuterol Nebulize 3 ml INHALATION RT-QID PRN 04/12/17 05/22/17 [Duoneb 0.5 mg-3 mg/3 ml Soln] Benzocaine/Menthol Lozeng [Cepacol 1 lozenge MUCOUS MEM Q2H PRN 05/22/17 lozenge] HYDROcodone/APAP 5-325MG [Lamar 1 - 2 tab PO Q4HR PRN 05/22/17 05/22/17 5-325] Insulin Aspart [NovoLOG Flexpen] 10 units SQ AC-TID 05/22/17 05/22/17 Insulin Detemir [Levemir Flextouch] 65 units SQ HS 05/22/17 05/22/17 Sennosides-Docusate Sodium 2 tab PO HS 05/22/17 05/22/17 [Senokot-S] Previous Rx's Medication Instructions Recorded Atorvastatin [Lipitor] 80 mg PO DAILY #90 tab 04/03/17 Clopidogrel [Plavix] 75 mg PO DAILY tab 04/19/17 Lisinopril [Zestril] 20 mg PO DAILY@1200 tab 04/19/17 Magnesium Hydroxide [Milk of 2,400 mg PO BID PRN ml 04/19/17 Magnesia Concentrate] Metoprolol Tartrate [Lopressor] 75 mg PO BID tab 04/19/17 Nystatin 100,000 Unit/gm Powd 1 applic TOPICAL BID applic 04/19/17 [Mycostatin Powder] Pantoprazole [Protonix] 40 mg PO AC-BRKFST tablet. 04/19/17 predniSONE 40 mg PO DAILY tab 04/19/17 Allergies Allergy/AdvReac Type Severity Reaction Status Date / Time No Known Allergies Allergy Verified 05/22/17 14:15 Review of Systems ROS Statement: Those systems with pertinent positive or pertinent negative responses have been documented in the HPI. ROS Other: All systems not noted in ROS Statement are negative. Past Medical History Past Medical History: Coronary Artery Disease (CAD), COPD, Diabetes Mellitus, Hyperlipidemia, Hypertension, Myocardial Infarction ([place]), Osteoarthritis ([place]) Additional Past Medical History / Comment(s): STATES 2 "BAD" DISCS IN HER BACK, ARTHRITIS KNEE, SOB WITH ACTIVITY AND TALKING, STATES SWELLING LOWER EXTREMITIES., STATES DR. PROCTOR PRESCRIBED LEVAQUIN FOR UTI. Last Myocardial Infarction Date:: 2007 History of Any Multi-Drug Resistant Organisms: None Reported Past Surgical History: Appendectomy, Coronary Bypass/CABG, Heart Catheterization With Stent, Hysterectomy Additional Past Surgical History / Comment(s): Colonoscopy. Drug-eluting stent placed to the RCA in 2009. Right carotid endarterectomy in 2011. Past Anesthesia/Blood Transfusion Reactions: No Reported Reaction Date of Last Stent Placement:: 2009 Past Psychological History: No Psychological Hx Reported Smoking Status: Former smoker Past Alcohol Use History: None Reported Past Drug Use History: None Reported - Past Family History Mother Family Medical History: No Reported History Father Family Medical History: Coronary Artery Disease (CAD) General Exam - General Exam Comments Initial Comments: this patient is a 72-year-old female. Patient does not appear to be in any acute distress or she seems somewhat tired and fatigued playing in the bed. Limitations: no limitations General appearance: alert Head exam: Present: atraumatic, normocephalic, normal inspection Eye exam: Present: normal appearance, PERRL, EOMI. Absent: scleral icterus, conjunctival injection, periorbital swelling ENT exam: Present: normal exam, mucous membranes moist Neck exam: Present: normal inspection. Absent: tenderness, meningismus, lymphadenopathy Respiratory exam: Present: normal lung sounds bilaterally. Absent: respiratory distress, wheezes, rales, rhonchi, stridor Cardiovascular Exam: Present: regular rate, normal rhythm, normal heart sounds. Absent: systolic murmur, diastolic murmur, rubs, gallop, clicks GI/Abdominal exam: Present: soft, normal bowel sounds. Absent: distended, tenderness, guarding, rebound, rigid Neurological exam: Present: alert, oriented X3, CN II-XII intact Psychiatric exam: Present: normal affect, normal mood Skin exam: Present: warm, dry, intact, normal color. Absent: rash Course Vital Signs 05/22/17 05/22/17 05/22/17 13:29 15:00 16:00 Temperature 97.9 F Pulse Rate 86 87 88 Respiratory 18 20 20 Rate Blood Pressure 136/62 141/67 130/74 O2 Sat by Pulse 98 98 99 Oximetry 05/22/17 05/22/17 17:00 17:26 Temperature 98.0 F Pulse Rate 73 Respiratory 18 Rate Blood Pressure 134/74 O2 Sat by Pulse 99 Oximetry Medical Decision Making - Medical Decision Making This patient is a 72 year old female with CC of dizziness, fatigue, adn elevated blood sugar for one week. She reports she does not stay hydrated. She relates she has not taken her medications this week because she forgets to take them. She has no focal neurodeficits, and complains of no pain. She was given IV fluids and lab work obtained. Patient blood sugar was over 600, given IV insulin and fluid boluses. Acetone negative. Patient has elevation of BUN/CR compared to previous lab work. Patient CXR was reviewed and normal. Patient started on insulin drip. Discussed with cardiac history and dizziness, with new acute kidney injury I would like to keep the patient for monitoring. Repeat Troponins, and acess kidney function in morning. Dsicussed importance of taking her medications. She is informed and agreeable to admission. Patient case discussed with Dr. Villarreal, whom discussed with patient PCP. Patient will be admitted. - Lab Data Result diagrams: 05/22/17 14:10 05/22/17 14:10 Lab Results 05/22/17 05/22/17 05/22/17 Range/Units 13:31 14:10 14:10 WBC 10.0 (3.8-10.6) k/uL RBC 4.76 (3.80-5.40) m/uL Hgb 14.6 (11.4-16.0) gm/dL Hct 44.8 (34.0-46.0) % MCV 94.1 (80.0-100.0) fL MCH 30.7 (25.0-35.0) pg MCHC 32.6 (31.0-37.0) g/dL RDW 13.2 (11.5-15.5) % Plt Count 242 (150-450) k/uL Neutrophils % 91 % Lymphocytes % 5 % Monocytes % 3 % Eosinophils % 1 % Basophils % 0 % Neutrophils # 9.1 H (1.3-7.7) k/uL Lymphocytes # 0.5 L (1.0-4.8) k/uL Monocytes # 0.3 (0-1.0) k/uL Eosinophils # 0.1 (0-0.7) k/uL Basophils # 0.0 (0-0.2) k/uL PT (9.0-12.0) sec INR (<1.2) Sodium 129 L (137-145) mmol/L Potassium 5.0 (3.5-5.1) mmol/L Chloride 89 L (98-107) mmol/L Carbon Dioxide 28 (22-30) mmol/L Anion Gap 12 mmol/L BUN 36 H (7-17) mg/dL Creatinine 1.58 H (0.52-1.04) mg/dL Est GFR (MDRD) Af Amer 39 (>60 ml/min/1.73 sqM) Est GFR (MDRD) Non-Af 32 (>60 ml/min/1.73 sqM) Glucose 689 H* (74-99) mg/dL POC Glucose (mg/dL) 578 H (75-99) mg/dL POC Glu Burglary Investigator ID Harleen Romero Plasma Lactic Acid John (0.7-2.0) mmol/L Calcium 9.7 (8.4-10.2) mg/dL Total Bilirubin 0.9 (0.2-1.3) mg/dL AST 16 (14-36) U/L ALT 30 (9-52) U/L Alkaline Phosphatase 226 H (38-126) U/L Troponin I (0.000-0.034) ng/mL Total Protein 6.3 (6.3-8.2) g/dL Albumin 3.7 (3.5-5.0) g/dL Urine Color Urine Appearance (Clear) Urine pH (5.0-8.0) Ur Specific L[place]y (1.001-1.035) Urine Protein (Negative) Urine Glucose (UA) (Negative) Urine Ketones (Negative) Urine Blood (Negative) Urine Nitrite (Negative) Urine Bilirubin (Negative) Urine Urobilinogen (<2.0) mg/dL Ur Leukocyte Esterase (Negative) Acetone, Qual Negative (Negative) 05/22/17 05/22/17 05/22/17 Range/Units 14:10 14:10 14:10 WBC (3.8-10.6) k/uL RBC (3.80-5.40) m/uL Hgb (11.4-16.0) gm/dL Hct (34.0-46.0) % MCV (80.0-100.0) fL MCH (25.0-35.0) pg MCHC (31.0-37.0) g/dL RDW (11.5-15.5) % Plt Count (150-450) k/uL Neutrophils % % Lymphocytes % % Monocytes % % Eosinophils % % Basophils % % Neutrophils # (1.3-7.7) k/uL Lymphocytes # (1.0-4.8) k/uL Monocytes # (0-1.0) k/uL Eosinophils # (0-0.7) k/uL Basophils # (0-0.2) k/uL PT 11.4 (9.0-12.0) sec INR 1.2 H (<1.2) Sodium (137-145) mmol/L Potassium (3.5-5.1) mmol/L Chloride (98-107) mmol/L Carbon Dioxide (22-30) mmol/L Anion Gap mmol/L BUN (7-17) mg/dL Creatinine (0.52-1.04) mg/dL Est GFR (MDRD) Af Amer (>60 ml/min/1.73 sqM) Est GFR (MDRD) Non-Af (>60 ml/min/1.73 sqM) Glucose (74-99) mg/dL POC Glucose (mg/dL) (75-99) mg/dL POC Glu Burglary Investigator ID Plasma Lactic Acid John 1.4 (0.7-2.0) mmol/L Calcium (8.4-10.2) mg/dL Total Bilirubin (0.2-1.3) mg/dL AST (14-36) U/L ALT (9-52) U/L Alkaline Phosphatase (38-126) U/L Troponin I 0.027 (0.000-0.034) ng/mL Total Protein (6.3-8.2) g/dL Albumin (3.5-5.0) g/dL Urine Color Urine Appearance (Clear) Urine pH (5.0-8.0) Ur Specific [place]y (1.001-1.035) Urine Protein (Negative) Urine Glucose (UA) (Negative) Urine Ketones (Negative) Urine Blood (Negative) Urine Nitrite (Negative) Urine Bilirubin (Negative) Urine Urobilinogen (<2.0) mg/dL Ur Leukocyte Esterase (Negative) Acetone, Qual (Negative) 05/22/17 05/22/17 05/22/17 Range/Units 14:27 14:53 15:50 WBC (3.8-10.6) k/uL RBC (3.80-5.40) m/uL Hgb (11.4-16.0) gm/dL Hct (34.0-46.0) % MCV (80.0-100.0) fL MCH (25.0-35.0) pg MCHC (31.0-37.0) g/dL RDW (11.5-15.5) % Plt Count (150-450) k/uL Neutrophils % % Lymphocytes % % Monocytes % % Eosinophils % % Basophils % % Neutrophils # (1.3-7.7) k/uL Lymphocytes # (1.0-4.8) k/uL Monocytes # (0-1.0) k/uL Eosinophils # (0-0.7) k/uL Basophils # (0-0.2) k/uL PT (9.0-12.0) sec INR (<1.2) Sodium (137-145) mmol/L Potassium (3.5-5.1) mmol/L Chloride (98-107) mmol/L Carbon Dioxide (22-30) mmol/L Anion Gap mmol/L BUN (7-17) mg/dL Creatinine (0.52-1.04) mg/dL Est GFR (MDRD) Af Amer (>60 ml/min/1.73 sqM) Est GFR (MDRD) Non-Af (>60 ml/min/1.73 sqM) Glucose (74-99) mg/dL POC Glucose (mg/dL) >600 H 528 H (75-99) mg/dL POC Glu Burglary Investigator ID Pako TavarezKristofer Box Plasma Lactic Acid John (0.7-2.0) mmol/L Calcium (8.4-10.2) mg/dL Total Bilirubin (0.2-1.3) mg/dL AST (14-36) U/L ALT (9-52) U/L Alkaline Phosphatase (38-126) U/L Troponin I (0.000-0.034) ng/mL Total Protein (6.3-8.2) g/dL Albumin (3.5-5.0) g/dL Urine Color Yellow Urine Appearance Clear (Clear) Urine pH 5.0 (5.0-8.0) Ur Specific [place] 1.016 (1.001-1.035) Urine Protein Negative (Negative) Urine Glucose (UA) 4+ H (Negative) Urine Ketones Negative (Negative) Urine Blood Negative (Negative) Urine Nitrite Negative (Negative) Urine Bilirubin Negative (Negative) Urine Urobilinogen <2.0 (<2.0) mg/dL Ur Leukocyte Esterase Negative (Negative) Acetone, Qual (Negative) 05/22/17 14:44 EKG shows normal sinus rhythm, left axis deviation, septal infarct, and area infarct that are age indeterminate. A sugar of 83 bpm. DE interval 180 ms. QRS duration 84 ms. QT QTC 376/441 ms. No evidence of ST elevation at this time. - Radiology Data Radiology results: report reviewed Chest x-rays reviewed negative for any acute process. Disposition Clinical Impression: Hyperglycemia, RAMONA (acute kidney injury), Fatigue Disposition: ADMITTED IP TO THIS [facility] Condition: Stable Time of Disposition: 16:36
[2017-05-22 14:46] LABS: Glucose,Whole Blood >600 mg/dL (75-99)
[2017-05-22 14:47] LABS: Glucose 689 mg/dL (74-99)
[2017-05-22 15:01] LABS: Appearance,Urine Clear (Clear); Bilirubin,Urine Negative (Negative); Blood,Urine Negative (Negative); Color,Urine Yellow; Glucose,Urine (UA) 4+ (Negative); Ketones,Urine Negative (Negative); Leukocyte Esterase,Urine Negative (Negative); Nitrite,Urine Negative (Negative); Protein,Urine Negative (Negative); Specific Gravity,Urine 1.016 (1.001-1.035); Urobilinogen,Urine <2.0 mg/dL (<2.0)
--- NOTE | 2017-05-22 15:09 | XR ---
EXAMINATION TYPE: XR chest 2V DATE OF EXAM: 05/22/2017 COMPARISON: 04/19/2017 INDICATION: Dizziness TECHNIQUE: Frontal and lateral views of the chest are obtained. FINDINGS: The heart size is normal. The pulmonary vasculature is normal. The lungs are clear. Previous right basilar infiltrate and pleural effusion is resolved. IMPRESSION: 1. No acute pulmonary process.
[2017-05-22 15:11] LABS: INR 1.2 (<1.2); Prothrombin Time 11.4 sec (9.0-12.0)
[2017-05-22 15:51] LABS: Glucose,Whole Blood 528 mg/dL (75-99)
[2017-05-22] MEDS ORDERED: NALOXONE 0.4 MG/ML 1 ML VIAL IV PRN (16:36)
[2017-05-22] MEDS ORDERED: traMADol 50 MG TAB PO PRN (16:36)
[2017-05-22] MEDS ORDERED: ACETAMINOPHEN TAB 325 MG TAB PO PRN (16:36)
[2017-05-22] MEDS ORDERED: ONDANSETRON 4 MG/2 ML VIAL IVP PRN (16:36)
[2017-05-22] MEDS ORDERED: HYDROmorphone 2 MG/ML 1 ML SYRINGE IVP PRN (16:36)
[2017-05-22] MEDS ORDERED: Potassium Replacement Protocol 1 EACH MISC MISCELLANE PRN (16:38)
[2017-05-22] MEDS ORDERED: Magnesium Replacement Protocol 1 EACH MISC MISCELLANE PRN (16:38)
[2017-05-22] MEDS: SODIUM CHLORIDE 0.9% 1,000 ML IV SCH ×2 (17:13→21:17)
[2017-05-22] MEDS: INSULIN REGULAR 100 UNIT in SODIUM CHLORIDE 0.9% 100 ML IV SCH (17:14)
[2017-05-22 17:21] LABS: Glucose,Whole Blood 457 mg/dL (75-99)
[2017-05-22 17:55] VITALS: BMI 35.2
[2017-05-22 19:20] LABS: Glucose,Whole Blood 297 mg/dL (75-99)
[2017-05-22] MEDS ORDERED: FAMOTIDINE 20 MG TAB PO SCH (21:00)
[2017-05-22 21:13] LABS: Creatine Kinase MB 1.4 ng/mL (0.0-2.4); Troponin I 0.031 ng/mL (0.000-0.034)
[2017-05-22 21:16] LABS: Glucose,Whole Blood 154 mg/dL (75-99)
[2017-05-22 23:05] LABS: Glucose,Whole Blood 113 mg/dL (75-99)
[2017-05-23] MEDS: SODIUM CHLORIDE 0.9% 250 ML IV SCH ×8 (00:38→08:24)
[2017-05-23 01:05] LABS: Glucose,Whole Blood 107 mg/dL (75-99)
[2017-05-23 02:57] LABS: Glucose,Whole Blood 133 mg/dL (75-99)
[2017-05-23 03:52] LABS: Creatine Kinase MB 1.7 ng/mL (0.0-2.4)
[2017-05-23 05:04] LABS: Glucose,Whole Blood 142 mg/dL (75-99)
[2017-05-23] MEDS: SODIUM CHLORIDE 0.9% 1,000 ML IV SCH ×6 (05:31→22:34)
[2017-05-23 05:53] LABS: Calcium 9.1 mg/dL (8.4-10.2); Potassium 3.8 mmol/L (3.5-5.1)
[2017-05-23 06:53] LABS: Glucose,Whole Blood 100 mg/dL (75-99)
[2017-05-23 08:02] LABS: Glucose,Whole Blood 102 mg/dL (75-99)
[2017-05-23] MEDS: INSULIN REGULAR 100 UNIT in SODIUM CHLORIDE 0.9% 100 ML IV SCH (08:25)
[2017-05-23] MEDS ORDERED: MAGNESIUM HYDROXIDE 2,400 MG/10 ML CUP PO PRN (08:26)
[2017-05-23] MEDS ORDERED: NON-FORMULARY DRUG (Ipratropium/Albuterol Sulfate [Combivent Respimat Inhaler] 2 PUFF) INHALATION PRN (08:26)
[2017-05-23] MEDS ORDERED: BENZOCAINE/MENTHOL LOZENG 1 EACH LOZENGE MUCOUS MEM PRN (08:26)
[2017-05-23] MEDS ORDERED: HYDROcodone/APAP 5-325MG 1 EACH TAB PO PRN ×2 (08:26→08:32)
[2017-05-23] MEDS: ATORVASTATIN 80 MG TAB PO SCH (09:26)
[2017-05-23] MEDS: ASPIRIN 325 MG TAB PO SCH (09:26)
[2017-05-23] MEDS: CLOPIDOGREL 75 MG TAB PO SCH (09:27)
[2017-05-23] MEDS: NYSTATIN 100,000 UNIT/GM POWD 15 GM TOPICAL SCH ×2 (09:27→20:26)
[2017-05-23] MEDS: METOPROLOL TARTRATE 25 MG TAB PO SCH ×2 (09:27→20:25)
[2017-05-23 11:09] LABS: Glucose,Whole Blood 307 mg/dL (75-99)
[2017-05-23] MEDS: CHOLECALCIFEROL 1,000 UNIT TAB PO SCH (11:24)
[2017-05-23] MEDS: INSULIN ASPART 100 UNIT/ML 1 ML 10 ML VIAL SQ SCH ×5 (11:24→20:45)
[2017-05-23] MEDS: LISINOPRIL 20 MG TAB PO SCH (11:24)
--- NOTE | 2017-05-23 12:13 | P.HPIM ---
History of Present Illness H&P Date: 05/23/17 Chief Complaint: Hyperglycemia 72-year-old female presents to emergency room on 05/22/2017 with a chief complaint of generalized fatigue and dizziness. The patient does report that she quit taking all of her medications recently. In the emergency room, a chest x-ray was completed which was negative for an acute process. EKG was completed revealing sinus rhythm. Her blood sugar was found to be 689. Additional laboratory results reveal WBC of 10, hemoglobin 14.6, platelet count 242, INR 1.2, sodium 129, potassium 5.0, BUN 36, and creatinine 1.58. Troponins are 0.027, 0.031, and 0.049. Acetone was negative. Urinalysis reveals 4+ glucose but otherwise unremarkable. She was admitted to the hospital under the care of Dr. Proctor. The patient has a history of coronary artery disease with previous stent placement and also CABG in March 2017. She has a history of diabetes mellitus, hyperlipidemia, hypertension, and osteoarthritis. The patient recently quit smoking cigarettes after smoking a half a pack a day for 60 years. The patient was seen and examined at the bedside on rounds with Dr. Proctor. The patient does report that she quit taking all of her medications recently and also has stopped checking her blood sugar at home. She states that she feels she is on too many medications since her open heart surgery in March and feels that she has become too overwhelmed with her new medications. Patient does report that she feels depressed, but denies suicidal ideations and is refusing psychiatric consultation at this time. She is open to speak with a social media developer regarding her depression and noncompliance of medications. She is also open to speaking with semiautomatic stitcher operator. The patient was placed on an insulin drip and her blood sugars are now running in the 100s. She denies chest pain or pressure. Denies nausea or vomiting. Blood pressure was slightly elevated this morning at 160/72. She is on room air with an oxygen saturation of 96%. She is afebrile. Review of Systems GENERAL: Positive for generalized weakness and fatigue. Patient denies fever. Denies chills. EYES: Denies blurred vision. Denies vision changes. Denies eye pain. EARS, NOSE, MOUTH, & THROAT: Denies headache. Denies sore throat. Denies ear pain. RESPIRATORY: Denies cough. Denies shortness of breath. Denies sputum production. Denies hemoptysis. CARDIOVASCULAR: Denies chest pain or pressure. Denies palpitations. Denies arrhythmias. GASTROINTESTINAL: Denies abdominal pain. Denies diarrhea. Denies constipation. Denies nausea. Denies vomiting. Denies heartburn. Denies blood in the stool. GENITOURINARY: Denies urinary frequency. Denies burning. Denies dysuria. Denies cloudy urine. Denies blood in the urine. MUSCULOSKELETAL: Denies myalgias. Denies joint swelling. Denies decreased range of motion beyond patients baseline. INTEGUMENTARY: Denies pruitis. Denies rash. PSYCHIATRIC: Positive for feelings of being overwhelmed and depression. Denies suicidal or homicial ideations. ENDOCRINE: Denies weight change. Denies polydipsia. Denies polyuria. HEMATOLOGIC: Denies bleeding disorders. Past Medical History Past Medical History: Coronary Artery Disease (CAD), COPD, Diabetes Mellitus, Hyperlipidemia, Hypertension, Myocardial Infarction (LA), Osteoarthritis (OA) Additional Past Medical History / Comment(s): STATES 2 "BAD" DISCS IN HER BACK, ARTHRITIS KNEE, SOB WITH ACTIVITY AND TALKING, STATES SWELLING LOWER EXTREMITIES., STATES DR. PROCTOR PRESCRIBED LEVAQUIN FOR UTI. Last Myocardial Infarction Date:: 2007 History of Any Multi-Drug Resistant Organisms: None Reported Past Surgical History: Appendectomy, Coronary Bypass/CABG, Heart Catheterization With Stent, Hysterectomy Additional Past Surgical History / Comment(s): Colonoscopy. Drug-eluting stent placed to the RCA in 2009. Right carotid endarterectomy in 2011. Past Anesthesia/Blood Transfusion Reactions: No Reported Reaction Date of Last Stent Placement:: 2009 Past Psychological History: No Psychological Hx Reported Smoking Status: Former smoker Past Alcohol Use History: None Reported Past Drug Use History: None Reported - Past Family History Mother Family Medical History: No Reported History Father Family Medical History: Coronary Artery Disease (CAD) Medications and Allergies Home Medications Medication Instructions Recorded Confirmed Type Budesonide-Formot 160-4.5 Mcg 2 puff INHALATION RT-BID 01/19/17 05/22/17 History [Symbicort 160-4.5 Mcg Inhaler] Cholecalciferol [Vitamin D3] 2,000 unit PO DAILY 01/19/17 05/22/17 History Ipratropium/Albuterol Sulfate 2 puff INHALATION RT-QID PRN 01/19/17 05/22/17 History [Combivent Respimat Inhaler] Atorvastatin [Lipitor] 80 mg PO DAILY #90 tab 04/03/17 05/22/17 Rx Aspirin 325 mg PO DAILY 04/09/17 05/22/17 History Ipratropium-Albuterol Nebulize 3 ml INHALATION RT-QID PRN 04/12/17 05/22/17 History [Duoneb 0.5 mg-3 mg/3 ml Soln] Clopidogrel [Plavix] 75 mg PO DAILY tab 04/19/17 05/22/17 Rx Lisinopril [Zestril] 20 mg PO DAILY@1200 tab 04/19/17 05/22/17 Rx Magnesium Hydroxide [Milk of 2,400 mg PO BID PRN ml 04/19/17 05/22/17 Rx Magnesia Concentrate] Metoprolol Tartrate [Lopressor] 75 mg PO BID tab 04/19/17 05/22/17 Rx Nystatin 100,000 Unit/gm Powd 1 applic TOPICAL BID applic 04/19/17 05/22/17 Rx [Mycostatin Powder] Pantoprazole [Protonix] 40 mg PO AC-BRKFST tablet. 04/19/17 05/22/17 Rx predniSONE 40 mg PO DAILY tab 04/19/17 05/22/17 Rx Benzocaine/Menthol Lozeng [Cepacol 1 lozenge MUCOUS MEM Q2H PRN 05/22/17 History lozenge] HYDROcodone/APAP 5-325MG [[place] 1 - 2 tab PO Q4HR PRN 05/22/17 05/22/17 History 5-325] Insulin Aspart [NovoLOG Flexpen] 10 units SQ AC-TID 05/22/17 05/22/17 History Insulin Detemir [Levemir Flextouch] 65 units SQ HS 05/22/17 05/22/17 History Sennosides-Docusate Sodium 2 tab PO HS 05/22/17 05/22/17 History [Senokot-S] Allergies Allergy/AdvReac Type Severity Reaction Status Date / Time No Known Allergies Allergy Verified 05/22/17 14:15 Physical Exam Vitals: Vital Signs Temp Pulse Pulse Resp BP BP Pulse Ox 05/23/17 08:00 97.3 F L 92 17 160/72 96 05/23/17 00:56 97.2 F L 65 20 126/64 90 L 05/22/17 22:00 69 16 05/22/17 19:10 97.6 F 69 16 95/55 97 05/22/17 17:26 98.0 F 05/22/17 17:00 73 18 134/74 99 05/22/17 16:00 88 20 130/74 99 05/22/17 15:00 87 20 141/67 98 05/22/17 13:29 97.9 F 86 18 136/62 98 Intake and Output 05/22/17 05/23/17 05/23/17 22:59 06:59 14:59 Intake Total 2579.418 6.000 1530 Output Total 150 180 Balance 2579.418 -855.710 7111 Intake: Intake, IV Titration 2579.418 6.000 1050 Amount Insulin Regular 100 unit 30.418 6.000 In Sodium Chloride 0.9% 100 ml @ 0.1 UNITS/KG/HR 8.24 mls/hr IV .[id number] REBECCA Rx#:[id number] Sodium Chloride 0.9% 1, 200 800 000 ml @ 100 mls/hr IV . Q10H REBECCA Rx#:[id number] Sodium Chloride 0.9% 1, 1200 000 ml @ 200 mls/hr IV . Q5H REBECCA Rx#:[id number] Sodium Chloride 0.9% 1, 150 000 ml @ 75 mls/hr IV . [id number] STA Rx#:[id number] Sodium Chloride 0.9% 1, 999 000 ml @ 999 mls/hr IV . Q1H1M STA Rx#:[id number] Sodium Chloride 0.9% 250 250 ml @ 999 mls/hr IV .Q16M REBECCA Rx#:[id number] Oral 480 Output: Urine 150 180 Other: Voiding Method Bedside Commode # Voids 1 # Bowel Movements 1 Weight 81.647 kg GENERAL: This is a 72-year-old female in no apparent distress at the time of examination. Pleasant and cooperative. HEENT: Head is atraumatic, normocephalic. Pupils are equal, round, and reactive to light. Sclerae anicteric. Conjunctivae are clear. Mucus membranes of the mouth are moist. Neck is supple. RESPIRATORY: Clear to ausculation. No wheezes, rales, or rhonchi. No use of accessory muscles. Patient maintaining oxygen saturation greater than 92%. No chest wall tenderness is noted on palpation or with deep breathing. CARDIOVASCULAR: Regular rate and rhythm. S1 and S2 noted. No JVD noted. No S3 or S4 noted. GASTROINTESTINAL: No distention noted. Abdomen soft and round. Normal active bowel sounds auscultated x 4 quadrants. No pain or tenderness noted upon palpation. INTEGUMENTARY: No cyanosis. No jaundice. No rashes noted. No cellulitis noted. EXTREMITIES: 2+ peripheral pulses. No evidence of peripheral edema. No calf tenderness noted. NEUROLOGIC: Cranial nerves II-XII intact. PSYCHIATRIC: Awake, alert, and oriented X 3. Flat affect. Results CBC & Chem 7: 05/22/17 14:10 05/23/17 05:16 Labs: Abnormal Lab Results - Last 24 Hours (Table) 05/22/17 05/22/17 05/22/17 Range/Units 13:31 14:10 14:10 Neutrophils # 9.1 H (1.3-7.7) k/uL Lymphocytes # 0.5 L (1.0-4.8) k/uL INR (<1.2) Sodium 129 L (137-145) mmol/L Chloride 89 L (98-107) mmol/L BUN 36 H (7-17) mg/dL Creatinine 1.58 H (0.52-1.04) mg/dL Glucose 689 H* (74-99) mg/dL POC Glucose (mg/dL) 578 H (75-99) mg/dL Alkaline Phosphatase 226 H (38-126) U/L Troponin I (0.000-0.034) ng/mL Urine Glucose (UA) (Negative) 05/22/17 05/22/17 05/22/17 Range/Units 14:10 14:27 14:53 Neutrophils # (1.3-7.7) k/uL Lymphocytes # (1.0-4.8) k/uL INR 1.2 H (<1.2) Sodium (137-145) mmol/L Chloride (98-107) mmol/L BUN (7-17) mg/dL Creatinine (0.52-1.04) mg/dL Glucose (74-99) mg/dL POC Glucose (mg/dL) >600 H (75-99) mg/dL Alkaline Phosphatase (38-126) U/L Troponin I (0.000-0.034) ng/mL Urine Glucose (UA) 4+ H (Negative) 05/22/17 05/22/17 05/22/17 Range/Units 15:50 17:13 19:10 Neutrophils # (1.3-7.7) k/uL Lymphocytes # (1.0-4.8) k/uL INR (<1.2) Sodium (137-145) mmol/L Chloride (98-107) mmol/L BUN (7-17) mg/dL Creatinine (0.52-1.04) mg/dL Glucose (74-99) mg/dL POC Glucose (mg/dL) 528 H 457 H 297 H (75-99) mg/dL Alkaline Phosphatase (38-126) U/L Troponin I (0.000-0.034) ng/mL Urine Glucose (UA) (Negative) 05/22/17 05/22/17 05/23/17 Range/Units 21:13 23:03 01:01 Neutrophils # (1.3-7.7) k/uL Lymphocytes # (1.0-4.8) k/uL INR (<1.2) Sodium (137-145) mmol/L Chloride (98-107) mmol/L BUN (7-17) mg/dL Creatinine (0.52-1.04) mg/dL Glucose (74-99) mg/dL POC Glucose (mg/dL) 154 H 113 H 107 H (75-99) mg/dL Alkaline Phosphatase (38-126) U/L Troponin I (0.000-0.034) ng/mL Urine Glucose (UA) (Negative) 05/23/17 05/23/17 05/23/17 Range/Units 02:55 05:01 05:16 Neutrophils # (1.3-7.7) k/uL Lymphocytes # (1.0-4.8) k/uL INR (<1.2) Sodium (137-145) mmol/L Chloride (98-107) mmol/L BUN 28 H (7-17) mg/dL Creatinine 1.28 H (0.52-1.04) mg/dL Glucose 137 H (74-99) mg/dL POC Glucose (mg/dL) 133 H 142 H (75-99) mg/dL Alkaline Phosphatase (38-126) U/L Troponin I (0.000-0.034) ng/mL Urine Glucose (UA) (Negative) 05/23/17 05/23/17 05/23/17 Range/Units 05:16 06:47 07:59 Neutrophils # (1.3-7.7) k/uL Lymphocytes # (1.0-4.8) k/uL INR (<1.2) Sodium (137-145) mmol/L Chloride (98-107) mmol/L BUN (7-17) mg/dL Creatinine (0.52-1.04) mg/dL Glucose (74-99) mg/dL POC Glucose (mg/dL) 100 H 102 H (75-99) mg/dL Alkaline Phosphatase (38-126) U/L Troponin I 0.049 H* (0.000-0.034) ng/mL Urine Glucose (UA) (Negative) 05/23/17 Range/Units 11:04 Neutrophils # (1.3-7.7) k/uL Lymphocytes # (1.0-4.8) k/uL INR (<1.2) Sodium (137-145) mmol/L Chloride (98-107) mmol/L BUN (7-17) mg/dL Creatinine (0.52-1.04) mg/dL Glucose (74-99) mg/dL POC Glucose (mg/dL) 307 H (75-99) mg/dL Alkaline Phosphatase (38-126) U/L Troponin I (0.000-0.034) ng/mL Urine Glucose (UA) (Negative) Thrombosis Risk Factor Assmnt - Choose All That Apply Any of the Below Risk Factors Present?: Yes Each Factor Represents 1 point: Obesity (BMI >25) Other Risk Factors: Yes Each Risk Factor Represents 2 Points: Age 61-74 years Other congenital or acquired thrombophilia - If yes, enter type in comment: No Thrombosis Risk Factor Assessment Total Risk Factor Score: 3 Thrombosis Risk Factor Assessment Level: Moderate Risk Assessment and Plan Plan: ASSESSMENT: Hyperglycemia with blood sugars in the 600s, present on admission, secondary to noncompliance Diabetes mellitus, type II, currently uncontrolled, most recent hemoglobin A1c 8.9%, awaiting results of repeat A1c Acute on chronic kidney disease, stage III, creatinine 1.58/GFR 32 on admission , baseline 1.0-1.2 Abnormal troponins, possibly secondary to RAMONA, denies chest pain or discomfort, r/o acute coronary syndrome Hyponatremia, likely secondary to hyperglycemia, corrected sodium 138 Coronary artery disease with previous stent to RCA in 2009 and CABG in 03/2017 x1 with VELARDE to LAD Depression, unspecified Medical noncompliance Chronic obstructive pulmonary disease, no evidence of acute exacerbation Essential hypertension Hyperlipidemia History of right carotid endarterectomy in 2011 History of nicotine dependence, in remission, patient smoked half PPD for 60 years Obesity: BMI 35.2 PLAN: -Consult cardiology secondary to abnormal troponins given patient's extensive cardiac history -Discontinue insulin drip -Capillary blood glucose Accu-Cheks before meals and at bedtime -NovoLog sliding scale coverage before meals and at bedtime -Resume patient's home dose of Lantus and 10 units of NovoLog with meals -Await results of hemoglobin A1c -Recheck kidney function in a.m. -Continue normal saline at 75 mL an hour -Home meds as appropriate -Monitor labs -Monitor for worsening depression. Patient currently refusing to speak with the psychiatrist or counselor -Patient offered to begin medication for depression. Currently refusing at this time -Consult social work secondary to depression and noncompliance -Consult semiautomatic stitcher operator -GI prophylaxis: Protonix 40 mg by mouth daily -DVT prophylaxis: Heparin 5000 units subcu every 8 hours -Monitor vital signs and address as appropriate -Discharge planning: Patient currently lives independently -Further recommendations pending patient's course Nurse practitioner note has been reviewed by physician. Signing provider agrees with the documented findings, assessment, and plan of care.
[2017-05-23] MEDS: IPRATROPIUM-ALBUTEROL 3 ML NEB INHALATION PRN (12:24)
[2017-05-23] MEDS: HEPARIN SODIUM,PORCINE 5,000 UNIT/ML 1 ML VIAL SQ SCH ×2 (16:04→23:46)
[2017-05-23 17:01] LABS: Glucose,Whole Blood 169 mg/dL (75-99)
[2017-05-23 19:44] LABS: Hemoglobin A1C 11.7 % (4.0-6.0)
[2017-05-23] MEDS: SYMBICORT 160-4.5 MCG INHALER INHALATION SCH (20:18)
[2017-05-23] MEDS: SENNOSIDES-DOCUSATE SODIUM 1 EACH TAB PO SCH (20:26)
[2017-05-23 20:49] LABS: Glucose,Whole Blood 186 mg/dL (75-99)
[2017-05-23] MEDS ORDERED: INSULIN DETEMIR 100 UNIT/ML 10 ML VIAL SQ SCH (21:00)
[2017-05-24 07:31] LABS: Glucose,Whole Blood 55 mg/dL (75-99)
[2017-05-24] MEDS: SYMBICORT 160-4.5 MCG INHALER INHALATION SCH ×2 (07:35→19:26)
[2017-05-24 07:51] LABS: Glucose,Whole Blood 59 mg/dL (75-99)
[2017-05-24 08:11] LABS: Glucose,Whole Blood 113 mg/dL (75-99)
[2017-05-24] MEDS: INSULIN ASPART 100 UNIT/ML 1 ML 10 ML VIAL SQ SCH ×8 (08:23→20:29)
[2017-05-24] MEDS: PANTOPRAZOLE 40 MG TABLET PO SCH (08:24)
[2017-05-24] MEDS: HEPARIN SODIUM,PORCINE 5,000 UNIT/ML 1 ML VIAL SQ SCH ×3 (08:24→23:47)
--- NOTE | 2017-05-24 08:40 | P.PN ---
Subjective Progress Note Date: 05/24/17 72-year-old female presents to emergency room on 05/22/2017 with a chief complaint of generalized fatigue and dizziness. The patient does report that she quit taking all of her medications recently. In the emergency room, a chest x-ray was completed which was negative for an acute process. EKG was completed revealing sinus rhythm. Her blood sugar was found to be 689. Additional laboratory results reveal WBC of 10, hemoglobin 14.6, platelet count 242, INR 1.2, sodium 129, potassium 5.0, BUN 36, and creatinine 1.58. Troponins are 0.027, 0.031, and 0.049. Acetone was negative. Urinalysis reveals 4+ glucose but otherwise unremarkable. She was admitted to the hospital under the care of Dr. Shepard. The patient has a history of coronary artery disease with previous stent placement and also CABG in March 2017. She has a history of diabetes mellitus, hyperlipidemia, hypertension, and osteoarthritis. The patient recently quit smoking cigarettes after smoking a half a pack a day for 60 years. 05/23/2017 The patient was seen and examined at the bedside on rounds with Dr. Shepard. The patient does report that she quit taking all of her medications recently and also has stopped checking her blood sugar at home. She states that she feels she is on too many medications since her open heart surgery in March and feels that she has become too overwhelmed with her new medications. Patient does report that she feels depressed, but denies suicidal ideations and is refusing psychiatric consultation at this time. She is open to speak with a psych social worker regarding her depression and noncompliance of medications. She is also open to speaking with ict educator. The patient was placed on an insulin drip and her blood sugars are now running in the 100s. She denies chest pain or pressure. Denies nausea or vomiting. Blood pressure was slightly elevated this morning at 160/72. She is on room air with an oxygen saturation of 96%. She is afebrile. 05/24/2017 Patient seen and examined at the bedside in rounds with Dr. Shepard. She had an episode of hypoglycemia this morning with a blood sugar of 55. She was treated with orange juice and her repeat sugar was 113. Per nursing staff, the patient refused to get out of bed yesterday, ambulate, or bathe herself. She is currently sitting up in the chair and nursing care attendant states she is going to set the patient up to bathe herself this morning. Patient states she is annoyed with providers this morning and does not want to answer any more questions. She denies chest pain or pressure. Denies shortness of breath. Vital signs remain stable. She denies additional concerns or complaints at this time. Objective - Vital Signs Vital signs: Vital Signs Temp 98.0 F 05/24/17 08:22 Pulse 76 05/24/17 08:22 Resp 20 05/24/17 08:22 BP 112/65 05/24/17 08:22 Pulse Ox 96 05/24/17 08:22 Intake & Output 05/23/17 05/24/17 05/24/17 18:59 06:59 18:59 Intake Total 1710 1200 Output Total 180 Balance 1530 1200 Weight 81.647 kg Intake: Intake, IV Titration 1050 1200 Amount Sodium Chloride 0.9% 1, 800 000 ml @ 100 mls/hr IV . Q10H RE[facility]CCA Rx#:[id number] Sodium Chloride 0.9% 1, 1200 000 ml @ 75 mls/hr IV . [id number] REBECCA Rx#:[id number] Sodium Chloride 0.9% 250 250 ml @ 999 mls/hr IV .Q16M REBECCA Rx#:[id number] Oral 660 Output: Urine 180 Other: # Voids 1 3 1 # Bowel Movements 1 - Exam GENERAL: This is a 72-year-old female in no apparent distress at the time of examination. Pleasant and cooperative. HEENT: Head is atraumatic, normocephalic. Pupils are equal, round, and reactive to light. Sclerae anicteric. Conjunctivae are clear. Mucus membranes of the mouth are moist. Neck is supple. RESPIRATORY: Clear to ausculation. No wheezes, rales, or rhonchi. No use of accessory muscles. Patient maintaining oxygen saturation greater than 92%. No chest wall tenderness is noted on palpation or with deep breathing. CARDIOVASCULAR: Regular rate and rhythm. S1 and S2 noted. No JVD noted. No S3 or S4 noted. GASTROINTESTINAL: No distention noted. Abdomen soft and round. Normal active bowel sounds auscultated x 4 quadrants. No pain or tenderness noted upon palpation. INTEGUMENTARY: No cyanosis. No jaundice. No rashes noted. No cellulitis noted. EXTREMITIES: 2+ peripheral pulses. No evidence of peripheral edema. No calf tenderness noted. NEUROLOGIC: Cranial nerves II-XII intact. PSYCHIATRIC: Awake, alert, and oriented X 3. Flat affect. - Labs CBC & Chem 7: 05/22/17 14:10 05/23/17 05:16 Labs: Abnormal Lab Results - Last 24 Hours (Table) 05/23/17 05/23/17 05/23/17 Range/Units 05:16 11:04 16:58 POC Glucose (mg/dL) 307 H 169 H (75-99) mg/dL Hemoglobin A1c 11.7 H (4.0-6.0) % 05/23/17 05/24/17 05/24/17 Range/Units 20:29 07:28 07:47 POC Glucose (mg/dL) 186 H 55 L 59 L (75-99) mg/dL Hemoglobin A1c (4.0-6.0) % 05/24/17 Range/Units 08:09 POC Glucose (mg/dL) 113 H (75-99) mg/dL Hemoglobin A1c (4.0-6.0) % Assessment and Plan Plan: ASSESSMENT: Hyperglycemia with blood sugars in the 600s, present on admission, secondary to noncompliance, improving Diabetes mellitus, type II, currently uncontrolled, hemoglobin A1c 11.7% Isolated incident of hypoglycemia, likely secondary to decreased oral intake and insulin administration Acute on chronic kidney disease, stage III, creatinine 1.58/GFR 32 on admission , baseline 1.0-1.2 Abnormal troponins, possibly secondary to RAMONA, denies chest pain or discomfort, r/o acute coronary syndrome Hyponatremia, likely secondary to hyperglycemia, corrected sodium 138 Coronary artery disease with previous stent to RCA in 2009 and CABG in 03/2017 x1 with VELARDE to LAD Depression, unspecified Medical noncompliance Chronic obstructive pulmonary disease, no evidence of acute exacerbation Essential hypertension Hyperlipidemia History of right carotid endarterectomy in 2011 History of nicotine dependence, in remission, patient smoked half PPD for 60 years Obesity: BMI 35.2 PLAN: -Cardiology consulted secondary to abnormal troponins given patient's extensive cardiac history. Await further recommendations and input -Discontinue Levemir to 50 units at bedtime. Continue home dose of 10 units of NovoLog with meals -Capillary blood glucose Accu-Cheks before meals and at bedtime -And Lexapro [address] Shepard -Monitor for worsening depression. Patient currently refusing to speak with a psychiatrist or counselor -Continue normal saline at 75 mL an hour. Recheck Bun/Cr in AM -Home meds as appropriate -Monitor labs -Social work consulted secondary to depression and noncompliance -asthma educator consulted secondary to uncontrolled diabetes mellitus -Consult physical therapy for evaluation -GI prophylaxis: Protonix 40 mg by mouth daily -DVT prophylaxis: Heparin 5000 units subcu every 8 hours -Monitor vital signs and address as appropriate -Discharge planning: Patient currently lives independently -Further recommendations pending patient's course -Anticipate discharge home within the next 24-48 hours Nurse practitioner note has been reviewed by physician. Signing provider agrees with the documented findings, assessment, and plan of care.
[2017-05-24] MEDS: CLOPIDOGREL 75 MG TAB PO SCH (09:31)
[2017-05-24] MEDS: ATORVASTATIN 80 MG TAB PO SCH (09:31)
[2017-05-24] MEDS: ASPIRIN 325 MG TAB PO SCH (09:31)
[2017-05-24] MEDS: METOPROLOL TARTRATE 25 MG TAB PO SCH ×2 (09:32→20:28)
[2017-05-24] MEDS: NYSTATIN 100,000 UNIT/GM POWD 15 GM TOPICAL SCH ×2 (09:32→20:28)
[2017-05-24] MEDS: ESCITALOPRAM 10 MG TAB PO SCH (09:32)
[2017-05-24 11:07] LABS: Glucose,Whole Blood 248 mg/dL (75-99)
--- NOTE | 2017-05-24 12:13 | P.CRDCN ---
History of Present Illness Consult date: 05/24/17 History of present illness: Mrs. Casas is a pleasant 72-year-old female with past medical history significant for coronary artery disease with subsequent single vessel bypass graft for 90% ostial lesion of LAD with VELARDE-LAD 03/2017, previous stent placed to the mid RCA 2009, right carotid endarterectomy 2011, COPD, diabetes mellitus, dyslipidemia, hypertension and former tobacco use. She follows with Dr. Bee in the office. She presented to the hospital with complaints of generalized fatigue and dizziness. She was found to be severely hyperglycemic and admitted that she stopped taking all of her medications recently. We've been asked to see her in consultation secondary to mild rise in troponin levels. At the time of my exam she is seen sitting up in the chair resting comfortably in no acute distress. She denies chest pain, shortness of breath, dizziness, palpitations, diaphoresis, nausea or vomiting. She states she has had no symptoms suggestive of angina since her bypass surgery. She has however felt increasingly depressed and negative towards life. This she stopped taking her medications. She has followed up with Dr. Brown for routine postsurgical follow-up seems to be recovering well. Incision of the chest is clean dry and intact with no signs of infection or dehiscence. She was initially placed on insulin drip and her sugars became much better controlled she is not just receiving insulin via sliding scale. EKG on arrival reveals sinus mechanism with evidence of old septal and inferior infarct which is consistent with old EKG. There are no new ST or T-wave abnormalities evident. Chest x-ray negative for acute cardiopulmonary process. Laboratory data has been reviewed, creatinine 1.28, UUN 28, troponin values as follows 0.027, 0.031 and 0.049, potassium 3.8, hemoglobin 14.6, platelets 242. Current cardiac medications include Lopressor 75 mg twice a day, lisinopril 20 mg daily, Plavix 75 mg daily, atorvastatin 80 mg daily and aspirin 325 mg daily. Review of Systems CONSTITUTIONAL: Denies fever. Denies chills. EYES: Denies blurred vision. Denies vision changes. Denies eye pain. EARS, NOSE, MOUTH & THROAT: Denies headache. Denies sore throat. Denies ear pain. CARDIOVASCULAR: Denies chest pain. Denies shortness of breath. Denies orthopnea. Denies PND. Denies palpitations. RESPIRATORY: Denies cough. GASTROINTESTINAL: Denies abdominal pain. Denies diarrhea. Denies constipation. Denies nausea. Denies vomiting. MUSCULOSKELETAL: Denies myalgias. INTEGUMENTARY: Denies pruitis. Denies rash. NEUROLOGIC: Denies numbness. Denies tingling. Denies weakness. PSYCHIATRIC: Denies anxiety. Complains of depression. ENDOCRINE: Complains of fatigue. Denies weight change. Denies polydipsia. Denies polyurina. GENITOURINARY: Denies burning, hematuria or urgency with micturation. HEMATOLOGIC: Denies history of anemia. Denies bleeding. Past Medical History Past Medical History: Coronary Artery Disease (CAD), COPD, Diabetes Mellitus, Hyperlipidemia, Hypertension, Myocardial Infarction (LA), Osteoarthritis (OA) Additional Past Medical History / Comment(s): STATES 2 "BAD" DISCS IN HER BACK, ARTHRITIS KNEE, SOB WITH ACTIVITY AND TALKING, STATES SWELLING LOWER EXTREMITIES., STATES DR. PROCTOR PRESCRIBED LEVAQUIN FOR UTI. Last Myocardial Infarction Date:: 2007 History of Any Multi-Drug Resistant Organisms: None Reported Past Surgical History: Appendectomy, Coronary Bypass/CABG, Heart Catheterization With Stent, Hysterectomy Additional Past Surgical History / Comment(s): Colonoscopy. Drug-eluting stent placed to the RCA in 2009. Right carotid endarterectomy in 2011. Past Anesthesia/Blood Transfusion Reactions: No Reported Reaction Date of Last Stent Placement:: 2009 Past Psychological History: No Psychological Hx Reported Smoking Status: Former smoker Past Alcohol Use History: None Reported Past Drug Use History: None Reported - Past Family History Mother Family Medical History: No Reported History Father Family Medical History: Coronary Artery Disease (CAD) Medications and Allergies Home Medications Medication Instructions Recorded Confirmed Type Budesonide-Formot 160-4.5 Mcg 2 puff INHALATION RT-BID 01/19/17 05/22/17 History [Symbicort 160-4.5 Mcg Inhaler] Cholecalciferol [Vitamin D3] 2,000 unit PO DAILY 01/19/17 05/22/17 History Ipratropium/Albuterol Sulfate 2 puff INHALATION RT-QID PRN 01/19/17 05/22/17 History [Combivent Respimat Inhaler] Atorvastatin [Lipitor] 80 mg PO DAILY #90 tab 04/03/17 05/22/17 Rx Aspirin 325 mg PO DAILY 04/09/17 05/22/17 History Ipratropium-Albuterol Nebulize 3 ml INHALATION RT-QID PRN 04/12/17 05/22/17 History [Duoneb 0.5 mg-3 mg/3 ml Soln] Clopidogrel [Plavix] 75 mg PO DAILY tab 04/19/17 05/22/17 Rx Lisinopril [Zestril] 20 mg PO DAILY@1200 tab 04/19/17 05/22/17 Rx Magnesium Hydroxide [Milk of 2,400 mg PO BID PRN ml 04/19/17 05/22/17 Rx Magnesia Concentrate] Metoprolol Tartrate [Lopressor] 75 mg PO BID tab 04/19/17 05/22/17 Rx Nystatin 100,000 Unit/gm Powd 1 applic TOPICAL BID applic 04/19/17 05/22/17 Rx [Mycostatin Powder] Pantoprazole [Protonix] 40 mg PO AC-BRKFST tablet. 04/19/17 05/22/17 Rx predniSONE 40 mg PO DAILY tab 04/19/17 05/22/17 Rx Benzocaine/Menthol Lozeng [Cepacol 1 lozenge MUCOUS MEM Q2H PRN 05/22/17 History lozenge] HYDROcodone/APAP 5-325MG [[place] 1 - 2 tab PO Q4HR PRN 05/22/17 05/22/17 History 5-325] Insulin Aspart [NovoLOG Flexpen] 10 units SQ AC-TID 05/22/17 05/22/17 History Insulin Detemir [Levemir Flextouch] 65 units SQ HS 05/22/17 05/22/17 History Sennosides-Docusate Sodium 2 tab PO HS 05/22/17 05/22/17 History [Senokot-S] Allergies Allergy/AdvReac Type Severity Reaction Status Date / Time No Known Allergies Allergy Verified 05/22/17 14:15 Physical Exam Vitals: Vital Signs Temp Pulse Pulse Resp BP BP Pulse Ox 05/24/17 08:22 98.0 F 76 20 112/65 96 05/24/17 07:38 96 05/24/17 01:20 97.7 F 72 16 140/58 96 05/23/17 20:00 98.3 F 73 16 118/53 95 05/23/17 14:05 98.2 F 71 16 109/72 92 L 05/23/17 12:35 78 05/23/17 12:25 76 Intake and Output 05/23/17 05/24/17 05/24/17 22:59 06:59 14:59 Intake Total 600 600 400 Balance 600 600 400 Intake: Intake, IV Titration 600 600 Amount Sodium Chloride 0.9% 1, 600 600 000 ml @ 75 mls/hr IV . [id number] [facility] Rx#:[id number] Oral 400 Other: # Voids 3 3 1 Blood pressure 112/65 heart rate 76 afebrile GENERAL: This is a 72-year-old female in no apparent distress at the time of my examination. Obese. HEENT: Head is atraumatic, normocephalic. Pupils are equal, round. Sclerae anicteric. Conjunctivae are clear. Mucous membranes of the mouth are moist. Neck is supple. There is no jugular venous distention. No carotid bruit is heard. LUNGS: Faint expiratory wheezes bilaterally, no rales or rhonchi. No chest wall tenderness is noted on palpation or with deep breathing. Diminished bilaterally possibly secondary to body habitus. Anterior midsternal incision clean dry and intact. Minimal redness around the site secondary to healing process. HEART: Regular rate and rhythm with systolic ejection murmur at the base, no rubs or gallops. S1 and S2 heard. ABDOMEN: Soft, nontender. Bowel sounds are heard. No organomegaly noted. EXTREMITIES: 1+ peripheral pulses with 1+ pitting peripheral edema bilateral with discoloration noted and no calf tenderness noted. NEUROLOGIC: Patient is awake, alert and oriented x3. Results 05/22/17 14:10 05/23/17 05:16 Current Medications Generic Name Dose Route Start Last Admin Trade Name Freq PRN Reason Stop Dose Admin Acetaminophen 650 mg 05/22/17 16:36 Tylenol Tab PO Q6HR PRN Mild Pain or Fever > 100.5 Hydrocodone Bitart/Acetaminophen 1 each 05/23/17 08:26 [place] 5-325 PO Q4HR PRN Moderate to Severe Pain Hydrocodone Bitart/Acetaminophen 2 each 05/23/17 08:32 [place] 5-325 PO Q4HR PRN Severe Pain Albuterol/Ipratropium 3 ml 05/23/17 08:26 05/23/17 12:24 Duoneb 0.5 Mg-3 Mg/3 Ml Soln INHALATION 3 ml RT-QID PRN Administration sob Aspirin 325 mg 05/23/17 09:00 05/24/17 09:31 Aspirin PO 325 mg DAILY [facility] Administration Atorvastatin Calcium 80 mg 05/23/17 09:00 05/24/17 09:31 Lipitor PO 80 mg DAILY [facility] Administration Benzocaine/Menthol 1 each 05/23/17 08:26 Cepacol Lozenge MUCOUS MEM Q2H PRN Sore Throat Budesonide/Formoterol Fumarate 2 puff 05/23/17 20:00 05/24/17 07:35 Symbicort 160-4.5 Mcg Inhaler INHALATION Not Given RT-BID [facility] Cholecalciferol 2,000 unit 05/23/17 12:00 05/23/17 11:24 Vitamin D3 PO 2,000 unit 1200 [facility] Administration Clopidogrel Bisulfate 75 mg 05/23/17 09:00 05/24/17 09:31 Plavix PO 75 mg DAILY [facility] Administration Escitalopram Oxalate 10 mg 05/24/17 09:00 05/24/17 09:32 Lexapro PO 10 mg DAILY [facility] Administration Heparin Sodium (Porcine) 5,000 unit 05/23/17 16:00 05/24/17 08:24 Heparin SQ 5,000 unit Q8HR [facility] Administration Hydromorphone HCl 1 mg 05/22/17 16:36 Dilaudid IVP Q3HR PRN Severe Pain Sodium Chloride 1,000 mls @ 75 mls/hr 05/23/17 08:45 05/23/17 22:34 Saline 0.9% IV Not Given .[id number] [facility] Insulin Aspart 10 unit 05/23/17 12:30 05/24/17 08:23 Novolog SQ Not Given AC-TID [facility] Insulin Aspart 0 unit 05/23/17 12:30 05/24/17 08:23 Novolog SQ Not Given ACHS [facility] Protocol Insulin Detemir 50 unit 05/24/17 21:00 Levemir SQ HS [facility] Lisinopril 20 mg 05/23/17 12:00 05/23/17 11:24 Zestril PO 20 mg DAILY@1200 [facility] Administration Magnesium Hydroxide 2,400 mg 05/23/17 08:26 Milk Of Magnesia PO BID PRN Constipation Metoprolol Tartrate 75 mg 05/23/17 09:00 05/24/17 09:32 Lopressor PO 75 mg BID [facility] Administration Miscellaneous Information 1 each 05/22/17 16:38 Magnesium Per Protocol MISCELLANE DAILY PRN Per Protocol Protocol Miscellaneous Information 1 each 05/22/17 16:38 Potassium Per Protocol MISCELLANE DAILY PRN Per Protocol Naloxone HCl 0.2 mg 05/22/17 16:36 Narcan IV Q2M PRN Opioid Reversal Nystatin 1 applic 05/23/17 09:00 05/24/17 09:32 Mycostatin Powder TOPICAL Not Given BID [facility] Ondansetron HCl 4 mg 05/22/17 16:36 Zofran IVP Q8HR PRN Nausea And Vomiting Pantoprazole Sodium 40 mg 05/24/17 07:30 05/24/17 08:24 Protonix PO 40 mg AC-BRKFST [facility] Administration Senna/Docusate Sodium 2 each 05/23/17 21:00 05/23/17 20:26 Senokot-S PO Not Given HS [facility] Tramadol HCl 50 mg 05/22/17 16:36 Ultram PO Q6H PRN Moderate Pain Intake and Output 05/23/17 05/24/17 05/24/17 22:59 06:59 14:59 Intake Total 600 600 400 Balance 600 600 400 Intake: Intake, IV Titration 600 600 Amount Sodium Chloride 0.9% 1, 600 600 000 ml @ 75 mls/hr IV . [id number] [facility] Rx#:[id number] Oral 400 Other: # Voids 3 3 1 05/22/17 14:10 05/23/17 05:16 Assessment and Plan Assessment: ASSESSMENT 1. Mild troponin elevation of unclear significance 2. Hyperglycemia secondary to noncompliance 3. Diabetes mellitus 4. Coronary artery disease with recent single vessel bypass grafting 5. Hypertension 6. Dyslipidemia 7. Acute kidney injury 8. Obesity PLAN Continue with aspirin, atorvastatin, Plavix, lisinopril and the Lopressor as previously ordered. Troponin elevation of unclear significance of may be secondary to acute kidney injury. She has no symptoms suggestive of angina or coronary ischemia. Importance of medication compliance has been discussed and she is agreeable. Follow-up with Dr. Bee in 2-3 weeks. Nurse Practitioner note has been reviewed, I agree with a documented findings and plan of care. Patient was seen and examined.
[2017-05-24] MEDS: CHOLECALCIFEROL 1,000 UNIT TAB PO SCH (13:44)
[2017-05-24] MEDS: LISINOPRIL 20 MG TAB PO SCH (13:44)
[2017-05-24] MEDS: SODIUM CHLORIDE 0.9% 1,000 ML IV SCH ×2 (13:45→23:48)
[2017-05-24 16:55] LABS: Glucose,Whole Blood 92 mg/dL (75-99)
[2017-05-24 19:36] LABS: Glucose,Whole Blood 60 mg/dL (75-99)
[2017-05-24 20:02] LABS: Glucose,Whole Blood 74 mg/dL (75-99)
[2017-05-24] MEDS: SENNOSIDES-DOCUSATE SODIUM 1 EACH TAB PO SCH (20:28)
[2017-05-24] MEDS ORDERED: INSULIN DETEMIR 100 UNIT/ML 10 ML VIAL SQ SCH (21:00)
[2017-05-25 01:29] VITALS: RESP 17
[2017-05-25 07:11] LABS: Glucose,Whole Blood 103 mg/dL (75-99)
[2017-05-25 07:24] LABS: Basophils % (A) 1 %; Eosinophils # (A) 0.2 k/uL (0-0.7); Eosinophils % (A) 2 %; HCT 42.9 % (34.0-46.0); HGB 13.8 gm/dL (11.4-16.0); Lymphocytes # (A) 1.4 k/uL (1.0-4.8); Lymphocytes % (A) 23 %; MCH 30.1 pg (25.0-35.0); MCHC 32.1 g/dL (31.0-37.0); MCV 93.7 fL (80.0-100.0); Mean Platelet Volume 8.2; Monocytes # (A) 0.4 k/uL (0-1.0); Monocytes % (A) 6 %; Neutrophils # (A) 4.2 k/uL (1.3-7.7); Neutrophils % (A) 67 %; Platelet Count 205 k/uL (150-450); RBC 4.58 m/uL (3.80-5.40); RDW 13.2 % (11.5-15.5); WBC 6.4 k/uL (3.8-10.6)
[2017-05-25 07:32] LABS: Calcium 9.2 mg/dL (8.4-10.2); Potassium 4.2 mmol/L (3.5-5.1)
[2017-05-25] MEDS: INSULIN ASPART 100 UNIT/ML 1 ML 10 ML VIAL SQ SCH ×4 (07:42→12:13)
[2017-05-25] MEDS: IPRATROPIUM-ALBUTEROL 3 ML NEB INHALATION PRN (07:56)
[2017-05-25] MEDS: SYMBICORT 160-4.5 MCG INHALER INHALATION SCH (07:56)
[2017-05-25] MEDS: CLOPIDOGREL 75 MG TAB PO SCH (08:07)
[2017-05-25] MEDS: HEPARIN SODIUM,PORCINE 5,000 UNIT/ML 1 ML VIAL SQ SCH (08:07)
[2017-05-25] MEDS: METOPROLOL TARTRATE 25 MG TAB PO SCH (08:07)
[2017-05-25] MEDS: PANTOPRAZOLE 40 MG TABLET PO SCH (08:07)
[2017-05-25] MEDS: ASPIRIN 325 MG TAB PO SCH (08:07)
[2017-05-25] MEDS: NYSTATIN 100,000 UNIT/GM POWD 15 GM TOPICAL SCH (08:07)
[2017-05-25] MEDS: ESCITALOPRAM 10 MG TAB PO SCH (08:07)
[2017-05-25] MEDS: ATORVASTATIN 80 MG TAB PO SCH (08:07)
[2017-05-25 09:31] VITALS: BP 161/83; PULSE 60; TEMP 98
[2017-05-25 11:10] LABS: Glucose,Whole Blood 263 mg/dL (75-99)
--- NOTE | 2017-05-25 11:12 | P.DS ---
Providers Date of admission: 05/22/17 16:46 Expected date of discharge: 05/25/17 Attending physician: Srinath Shepard Consults: 05/23/17 12:07 Consult Physician Routine Consulting Provider: Keo Michele Consult Reason/Comments: abnormal troponins, Hx of CABG 03/2017 Do you want consulting provider notified?: Already Contacted Primary care physician: Srinath Shepard [facility] Course: 72-year-old female presents to emergency room on 05/22/2017 with a chief complaint of generalized fatigue and dizziness. The patient does report that she quit taking all of her medications recently. In the emergency room, a chest x-ray was completed which was negative for an acute process. EKG was completed revealing sinus rhythm. Her blood sugar was found to be 689. Additional laboratory results reveal WBC of 10, hemoglobin 14.6, platelet count 242, INR 1.2, sodium 129, potassium 5.0, BUN 36, and creatinine 1.58. Troponins are 0.027, 0.031, and 0.049. Acetone was negative. Urinalysis reveals 4+ glucose but otherwise unremarkable. She was admitted to the hospital under the care of Dr. Shepard. The patient has a history of coronary artery disease with previous stent placement and also CABG in March 2017. She has a history of diabetes mellitus, hyperlipidemia, hypertension, and osteoarthritis. The patient recently quit smoking cigarettes after smoking a half a pack a day for 60 years. The patient does report that she quit taking all of her medications recently and also has stopped checking her blood sugar at home. She states that she feels she is on too many medications since her open heart surgery in March and feels that she has become too overwhelmed with her new medications. Patient does report that she feels depressed, but denies suicidal ideations and is refusing psychiatric consultation at this time. Social work and software educator were consulted during hospitalization. She was started on Lexapro [address] Shepard. The patient was placed on an insulin drip secondary to hyperglycemia initially during hospitalization. She was transitioned to sliding scale along with her home dose of Lantus and 10 units of NovoLog 3 times a day with meals. She did have an episode of hypoglycemia secondary to decreased oral intake. The patient was not eating much initially but her oral intake has increased at this time. The patient Levemir dose was decreased from 65 units to 50 units. The patient will be discharged home on 50 units of Levemir at night until her oral intake is back to normal. Cardiology was consulted secondary to abnormal troponins. No intervention at this time per their service. Mild rise in troponins may be secondary to acute kidney injury. She received IV hydration during hospitalization and her creatinine is down to 1.13. The patient states she is feeling better and is agreeable to taking Lexapro on an outpatient basis. She verbalized understanding of importance of taking her medications along with checking her blood sugar and administering her insulin and states she will be complaint after discharge from the hospital. She states her depression is stable and she denied suicidal ideations. Patient was deemed stable for discharge per Dr. Shepard. The patient will be discharged home on 50 units of Levemir at night along with her normal dose of 10 units of NovoLog 3 times a day with meals until her oral intake is back to normal at which time the patient may increase her Levemir to her previous dose of 65 units. She is to follow up on an outpatient basis. Discharge diagnosis Hyperglycemia with blood sugars in the 600s, present on admission, secondary to noncompliance, resolved at time of discharge Diabetes mellitus, type II, currently uncontrolled, hemoglobin A1c 11.7% Isolated incident of hypoglycemia, likely secondary to decreased oral intake and insulin administration, resolved Acute on chronic kidney disease, stage III, creatinine 1.58/GFR 32 on admission , baseline 1.0-1.2 Abnormal troponins, possibly secondary to RAMONA, denies chest pain or discomfort, acute coronary syndrome ruled out Hyponatremia, likely secondary to hyperglycemia, corrected sodium 138 Coronary artery disease with previous stent to RCA in 2009 and CABG in 03/2017 x1 with VELARDE to LAD Depression, unspecified Medical noncompliance Chronic obstructive pulmonary disease, no evidence of acute exacerbation Essential hypertension Hyperlipidemia History of right carotid endarterectomy in 2011 History of nicotine dependence, in remission, patient smoked half PPD for 60 years Obesity: BMI 35.2 Nurse practitioner note has been reviewed by physician. Signing provider agrees with the documented findings, assessment, and plan of care. Patient Condition at Discharge: Stable Plan - Discharge Summary Discharge Rx Participant: Yes New Discharge Prescriptions: New Escitalopram [Lexapro] 10 mg PO DAILY #30 tab Insulin Detemir [Levemir] 50 unit SQ HS syr Continue Cholecalciferol [Vitamin D3] 2,000 unit PO DAILY Budesonide-Formot 160-4.5 Mcg [Symbicort 160-4.5 Mcg Inhaler] 2 puff INHALATION RT-BID Ipratropium/Albuterol Sulfate [Combivent Respimat Inhaler] 2 puff INHALATION RT-QID PRN PRN Reason: Shortness Of Breath Atorvastatin [Lipitor] 80 mg PO DAILY #90 tab Aspirin 325 mg PO DAILY Ipratropium-Albuterol Nebulize [Duoneb 0.5 mg-3 mg/3 ml Soln] 3 ml INHALATION RT-QID PRN PRN Reason: sob Clopidogrel [Plavix] 75 mg PO DAILY tab Lisinopril [Zestril] 20 mg PO DAILY@1200 tab Magnesium Hydroxide [Milk of Magnesia Concentrate] 2,400 mg PO BID PRN ml PRN Reason: Constipation Metoprolol Tartrate [Lopressor] 75 mg PO BID tab Nystatin 100,000 Unit/gm Powd [Mycostatin Powder] 1 applic TOPICAL BID applic Pantoprazole [Protonix] 40 mg PO AC-BRKFST tablet. Insulin Aspart [NovoLOG Flexpen] 10 units SQ AC-TID HYDROcodone/APAP 5-325MG [[place] 5-325] 1 - 2 tab PO Q4HR PRN PRN Reason: Severe Pain Benzocaine/Menthol Lozeng [Cepacol lozenge] 1 lozenge MUCOUS MEM Q2H PRN PRN Reason: Sore Throat Sennosides-Docusate Sodium [Senokot-S] 2 tab PO HS Discontinued predniSONE 40 mg PO DAILY tab Insulin Detemir [Levemir Flextouch] 65 units SQ HS Discharge Medication List Budesonide-Formot 160-4.5 Mcg [Symbicort 160-4.5 Mcg Inhaler] 2 puff INHALATION RT-BID 01/19/17 [History] Cholecalciferol [Vitamin D3] 2,000 unit PO DAILY 01/19/17 [History] Ipratropium/Albuterol Sulfate [Combivent Respimat Inhaler] 2 puff INHALATION RT- QID PRN 01/19/17 [History] Atorvastatin [Lipitor] 80 mg PO DAILY #90 tab 04/03/17 [Rx] Aspirin 325 mg PO DAILY 04/09/17 [History] Ipratropium-Albuterol Nebulize [Duoneb 0.5 mg-3 mg/3 ml Soln] 3 ml INHALATION RT -QID PRN 04/12/17 [History] Clopidogrel [Plavix] 75 mg PO DAILY tab 04/19/17 [Rx] Lisinopril [Zestril] 20 mg PO DAILY@1200 tab 04/19/17 [Rx] Magnesium Hydroxide [Milk of Magnesia Concentrate] 2,400 mg PO BID PRN ml 04/19 [Rx] Metoprolol Tartrate [Lopressor] 75 mg PO BID tab 04/19/17 [Rx] Nystatin 100,000 Unit/gm Powd [Mycostatin Powder] 1 applic TOPICAL BID applic 04/19/17 [Rx] Pantoprazole [Protonix] 40 mg PO AC-BRKFST tablet. 04/19/17 [Rx] Benzocaine/Menthol Lozeng [Cepacol lozenge] 1 lozenge MUCOUS MEM Q2H PRN [History] HYDROcodone/APAP 5-325MG [[place] 5-325] 1 - 2 tab PO Q4HR PRN 05/22/17 [History] Insulin Aspart [NovoLOG Flexpen] 10 units SQ AC-TID 05/22/17 [History] Sennosides-Docusate Sodium [Senokot-S] 2 tab PO HS 05/22/17 [History] Escitalopram [Lexapro] 10 mg PO DAILY #30 tab 05/25/17 [Rx] Insulin Detemir [Levemir] 50 unit SQ HS syr 05/25/17 [Rx] Follow up Appointment(s)/Referral(s): Srinath Shepard DO [Primary Care Provider] - 1 Week Activity/Diet/Wound Care/Special Instructions: Continue to check your blood sugar before meals and at night Continue to take 10 units of novolog with breakfast, lunch, and dinner Take 50 units of Levemir at night. Once your appetite improves and your oral intake increases, you may increase your dose of Levemir back to 65 units at night if your blood sugars are elevated Discharge Disposition: HOME WITH HOME HEALTH SERVICES
[2017-05-25] MEDS: LISINOPRIL 20 MG TAB PO SCH (12:13)
[2017-05-25] MEDS: CHOLECALCIFEROL 1,000 UNIT TAB PO SCH (12:13)
== END 2017-05-25 12:30 | disposition home health service (06) | DRG 638 ==
LOC: EC 13:05 → 3SUR 16:46
PROVIDERS: ADMIT Family Medicine; ATTEND Family Medicine
DX: E11.65 Type 2 diabetes mellitus with hyperglycemia (principal); N17.9 Acute kidney failure, unspecified; J44.9 Chronic obstructive pulmonary disease, unspecified; E11.22 Type 2 diabetes mellitus with diabetic chronic kidney disease; E87.1 Hypo-osmolality and hyponatremia; E66.9 Obesity, unspecified; Z68.35 Body mass index [BMI] 35.0-35.9, adult; F32.9 Major depressive disorder, single episode, unspecified; E78.5 Hyperlipidemia, unspecified; M19.91 Primary osteoarthritis, unspecified site; Z91.14 Patient's other noncompliance with medication regimen; Z91.19 Patient's noncompliance with other medical treatment and regimen; I12.9 Hypertensive chronic kidney disease with stage 1 through stage 4 chronic kidney disease, or unspecified chronic kidney disease; N18.3 Chronic kidney disease, stage 3 (moderate); I25.2 Old myocardial infarction; I25.10 Atherosclerotic heart disease of native coronary artery without angina pectoris; Z79.51 Long term (current) use of inhaled steroids; Z79.82 Long term (current) use of aspirin; Z79.02 Long term (current) use of antithrombotics/antiplatelets; Z79.52 Long term (current) use of systemic steroids; Z79.4 Long term (current) use of insulin; Z79.899 Other long term (current) drug therapy; Z87.891 Personal history of nicotine dependence; Z95.5 Presence of coronary angioplasty implant and graft; Z95.1 Presence of aortocoronary bypass graft; Z90.710 Acquired absence of both cervix and uterus
CPT/HCPCS: 36415; 71046; 80048; 80053; 81003; 82009; 82550; 82553; 83036; 83605; 84484; 85025; 85610; 93005; 94640; 94760; 96360; 96361; 99285

== ENCOUNTER 2017-06-07 09:06 | Inpatient (IN) | payer MEDICARE ==
[2017-06-07] MEDS ORDERED: IPRATROPIUM-ALBUTEROL 3 ML NEB INHALATION STA (09:09)
[2017-06-07] MEDS ORDERED: SODIUM CHLORIDE 0.9% 1,000 ML IV STA ×3 (09:09→13:13)
[2017-06-07] MEDS ORDERED: SODIUM CHLORIDE 0.9% 500 ML IV STA (09:09)
[2017-06-07 10:05] LABS: Basophils # (A) 0.1 k/uL (0-0.2); Basophils % (A) 1 %; Eosinophils # (A) 0.1 k/uL (0-0.7); Eosinophils % (A) 1 %; HCT 44.4 % (34.0-46.0); HGB 14.2 gm/dL (11.4-16.0); Hypochromasia Slight; Lymphocytes # (A) 0.3 k/uL (1.0-4.8); Lymphocytes % (A) 2 %; MCH 29.7 pg (25.0-35.0); MCV 92.9 fL (80.0-100.0); Mean Platelet Volume 8.5; Monocytes # (A) 0.3 k/uL (0-1.0); Monocytes % (A) 3 %; Neutrophils # (A) 10.6 k/uL (1.3-7.7); Neutrophils % (A) 93 %; Platelet Count 242 k/uL (150-450); RBC 4.78 m/uL (3.80-5.40); RDW 14.5 % (11.5-15.5); WBC 11.5 k/uL (3.8-10.6)
[2017-06-07 10:17] LABS: ALT 20 U/L (9-52); AST 20 U/L (14-36); Albumin 3.6 g/dL (3.5-5.0); Alkaline Phosphatase 189 U/L (38-126); Anion Gap 13 mmol/L; Blood Urea Nitrogen 20 mg/dL (7-17); Calcium 9.7 mg/dL (8.4-10.2); Carbon Dioxide 28 mmol/L (22-30); Chloride 94 mmol/L (98-107); Glucose 377 mg/dL (74-99); Magnesium 1.5 mg/dL (1.6-2.3); Potassium 3.9 mmol/L (3.5-5.1); Sodium 135 mmol/L (137-145); Total Bilirubin 1.1 mg/dL (0.2-1.3); Total Protein 6.3 g/dL (6.3-8.2)
[2017-06-07 10:40] LABS: Poikilocytosis (M) Present
[2017-06-07 10:47] LABS: Creatine Kinase MB 1.6 ng/mL (0.0-2.4)
--- NOTE | 2017-06-07 11:17 | XR ---
EXAMINATION TYPE: XR chest 1V portable DATE OF EXAM: 06/07/2017 COMPARISON: Prior chest x-ray 05/22/2017 HISTORY: Pain TECHNIQUE: Single frontal view of the chest is obtained. FINDINGS: Patient is rotated. Heart remains enlarged. Patient is post median sternotomy and there ar e overlying cardiac leads. No evident pneumothorax or pleural effusion. Interstitium is increased. Di fficult to exclude retrocardiac density. IMPRESSION: Findings may be indicative of pulmonary venous hypertension and interstitial edema in a patient with COPD. Correlate, consider follow-up PA and lateral chest x-ray to exclude left lower lob e airspace disease.
--- NOTE | 2017-06-07 11:20 | CT ---
EXAMINATION TYPE: CT brain titi whitley DATE OF EXAM: 06/07/2017 COMPARISON: January 11, 2016 HISTORY: Pain (patient not responsive) CT DLP: [address] of the brain was performed. The ventricles, basal cisterns and sulci overlying the cerebral convexities demonstrate moderate to s evere enlargement. Correlate for normal pressure hydrocephalus. There is no evidence for intracranial hemorrhage or sulcal effacement. There is decreased attenuatio n about the periventricular white matter and deep white matter of both cerebral hemispheres, compatib le with chronic small vessel ischemia. No mass effects are seen. If symptoms persist consider MRI. Osseous calvarium is intact. IMPRESSION: 1. Age related atrophic and chronic small vessel ischemic change without acute intracranial process seen at this time. 2. Correlate for normal pressure hydrocephalus. CT Cervical Spine: Unenhanced CT of the cervical spine was performed with bone and soft tissue window settings submitted . Coronal and sagittal reconstruction is obtained. There is normal alignment and prevertebral soft tissues. No evidence for acute cervical fracture . Scattered degenerative disc disease and spondylosis. Biapical scarring. IMPRESSION: 1. No evidence for acute fracture or subluxation of the cervical spine.
[2017-06-07 11:28] LABS: Appearance,Urine Clear (Clear); Bilirubin,Urine Negative (Negative); Blood,Urine Negative (Negative); Color,Urine Yellow; Glucose,Urine (UA) 4+ (Negative); Hyaline Casts,Urine 6 /lpf (0-2); Ketones,Urine Negative (Negative); Leukocyte Esterase,Urine Negative (Negative); Mucus,Urine Rare /hpf; Nitrite,Urine Negative (Negative); PH, Urine 6.5 (5.0-8.0); Protein,Urine 1+ (Negative); RBC,Urine 1 /hpf (0-5); Specific Gravity,Urine 1.018 (1.001-1.035); Squamous Epithelial Cell,Urine 1 /hpf (0-4); Urobilinogen,Urine <2.0 mg/dL (<2.0); WBC,Urine 6 /hpf (0-5); White Blood Cell Casts,Urine 4 /lpf (0)
--- NOTE | 2017-06-07 11:40 | ED ---
Altered Mental Status HPI - General Chief Complaint: Altered Mental Status Stated Complaint: Altered Mental Status Time Seen by Provider: 06/07/17 09:06 Source: patient, family, EMS, RN notes reviewed Mode of arrival: EMS Limitations: altered mental status - History of Present Illness Initial Comments: This is a 72-year-old female was brought in by EMS for evaluation of weakness and confusion. Patient apparently found by family members landing on the kitchen floor naked that. Patient is not sure how she got there. She was found sitting on a stool when EMS arrived. She was very slow to respond normally she is awake and alert as time progressed in route the patient did recover some of her mentation. She was found have a blood glucose of 365. She apparently had cardiac bypass surgery and 04/12/17. She complains of no chest pain fevers chills or sweats she is having history of COPD and does complain shortness of breath. She denies any headache or neck pain at this time. No back or hip pain. MD Complaint: altered mental status, weakness, other - Related Data Home Medications Medication Instructions Recorded Confirmed Budesonide-Formot 160-4.5 Mcg 2 puff INHALATION RT-BID 01/19/17 06/07/17 [Symbicort 160-4.5 Mcg Inhaler] Cholecalciferol [Vitamin D3] 2,000 unit PO DAILY 01/19/17 06/07/17 Ipratropium/Albuterol Sulfate 2 puff INHALATION RT-QID PRN 01/19/17 06/07/17 [Combivent Respimat Inhaler] Aspirin 325 mg PO DAILY 04/09/17 06/07/17 Ipratropium-Albuterol Nebulize 3 ml INHALATION RT-QID PRN 04/12/17 06/07/17 [Duoneb 0.5 mg-3 mg/3 ml Soln] Benzocaine/Menthol Lozeng [Cepacol 1 lozenge MUCOUS MEM Q2H PRN 05/22/17 lozenge] HYDROcodone/APAP 5-325MG [[place] 1 - 2 tab PO Q4HR PRN 05/22/17 06/07/17 5-325] Insulin Aspart [NovoLOG Flexpen] 10 units SQ AC-TID 05/22/17 06/07/17 Sennosides-Docusate Sodium 2 tab PO HS 05/22/17 06/07/17 [Senokot-S] Previous Rx's Medication Instructions Recorded Atorvastatin [Lipitor] 80 mg PO DAILY #90 tab 04/03/17 Clopidogrel [Plavix] 75 mg PO DAILY tab 04/19/17 Lisinopril [Zestril] 20 mg PO DAILY@1200 tab 04/19/17 Magnesium Hydroxide [Milk of 2,400 mg PO BID PRN ml 04/19/17 Magnesia Concentrate] Metoprolol Tartrate [Lopressor] 75 mg PO BID tab 04/19/17 Nystatin 100,000 Unit/gm Powd 1 applic TOPICAL BID applic 04/19/17 [Mycostatin Powder] Pantoprazole [Protonix] 40 mg PO AC-BRKFST tablet. 04/19/17 Escitalopram [Lexapro] 10 mg PO DAILY #30 tab 05/25/17 Insulin Detemir [Levemir] 50 unit SQ HS syr 05/25/17 Allergies Allergy/AdvReac Type Severity Reaction Status Date / Time No Known Allergies Allergy Verified 06/07/17 09:17 Review of Systems ROS Statement: Those systems with pertinent positive or pertinent negative responses have been documented in the HPI. ROS Other: All systems not noted in ROS Statement are negative. Limitations: ROS unobtainable due to patients medical condition Past Medical History Past Medical History: Coronary Artery Disease (CAD), COPD, Diabetes Mellitus, Hyperlipidemia, Hypertension, Myocardial Infarction ([place]), Osteoarthritis (OA) Additional Past Medical History / Comment(s): STATES 2 "BAD" DISCS IN HER BACK, ARTHRITIS KNEE, SOB WITH ACTIVITY AND TALKING, STATES SWELLING LOWER EXTREMITIES., STATES DR. PROCTOR PRESCRIBED LEVAQUIN FOR UTI. Last Myocardial Infarction Date:: 2007 History of Any Multi-Drug Resistant Organisms: None Reported Past Surgical History: Appendectomy, Coronary Bypass/CABG, Heart Catheterization With Stent, Hysterectomy Additional Past Surgical History / Comment(s): Colonoscopy. Drug-eluting stent placed to the RCA in 2009. Right carotid endarterectomy in 2011. Past Anesthesia/Blood Transfusion Reactions: No Reported Reaction Date of Last Stent Placement:: 2009 Past Psychological History: No Psychological Hx Reported Smoking Status: Former smoker Past Alcohol Use History: None Reported Past Drug Use History: None Reported - Past Family History Mother Family Medical History: No Reported History Father Family Medical History: Coronary Artery Disease (CAD) General Exam - General Exam Comments Initial Comments: Is a well-developed elderly appearing female she is awake and alert at this time. She is somewhat lethargic Limitations: altered mental status General appearance: alert, lethargic Head exam: Present: atraumatic, normocephalic, normal inspection Eye exam: Present: normal appearance, PERRL, EOMI. Absent: scleral icterus, conjunctival injection, periorbital swelling ENT exam: Present: mucous membranes dry Neck exam: Present: normal inspection. Absent: tenderness, meningismus, lymphadenopathy Respiratory exam: Present: decreased breath sounds Cardiovascular Exam: Present: tachycardia GI/Abdominal exam: Present: soft, normal bowel sounds. Absent: distended, tenderness, guarding, rebound, rigid Extremities exam: Present: normal inspection, full ROM, normal capillary refill. Absent: tenderness, pedal edema, joint swelling, calf tenderness Back exam: Present: normal inspection Neurological exam: Present: alert, oriented X3, CN II-XII intact Psychiatric exam: Present: normal affect, normal mood Skin exam: Present: warm, dry, intact, normal color. Absent: rash Course Vital Signs 06/07/17 06/07/17 06/07/17 09:15 09:52 10:00 Temperature 96.8 F L Pulse Rate 113 H 114 H 115 H Respiratory 20 16 Rate Blood Pressure 111/54 O2 Sat by Pulse Oximetry 06/07/17 11:08 Temperature Pulse Rate 116 H Respiratory 16 Rate Blood Pressure 126/62 O2 Sat by Pulse 93 L Oximetry - Reevaluation(s) Reevaluation #1: 06/07/17 12:45 I did reevaluate the patient she'll occasionally she is more alert and feels somewhat better. Reevaluation #2: 06/07/17 13:05 Patient remains stable at this time she states she does feel improved from my previous evaluation. Medical Decision Making - Medical Decision Making I did discuss findings with the patient and with Dr. Proctor patient will be admitted - Lab Data Result diagrams: 06/07/17 09:53 06/07/17 09:53 Lab Results 06/07/17 06/07/17 06/07/17 Range/Units 09:53 09:53 09:53 WBC 11.5 H (3.8-10.6) k/uL RBC 4.78 (3.80-5.40) m/uL Hgb 14.2 (11.4-16.0) gm/dL Hct 44.4 (34.0-46.0) % MCV 92.9 (80.0-100.0) fL MCH 29.7 (25.0-35.0) pg MCHC 32.0 (31.0-37.0) g/dL RDW 14.5 (11.5-15.5) % Plt Count 242 (150-450) k/uL Neutrophils % 93 % Lymphocytes % 2 % Monocytes % 3 % Eosinophils % 1 % Basophils % 1 % Neutrophils # 10.6 H (1.3-7.7) k/uL Lymphocytes # 0.3 L (1.0-4.8) k/uL Monocytes # 0.3 (0-1.0) k/uL Eosinophils # 0.1 (0-0.7) k/uL Basophils # 0.1 (0-0.2) k/uL Manual Slide Review Performed Hypochromasia Slight Poikilocytosis (manual Present Sodium 135 L (137-145) mmol/L Potassium 3.9 (3.5-5.1) mmol/L Chloride 94 L (98-107) mmol/L Carbon Dioxide 28 (22-30) mmol/L Anion Gap 13 mmol/L BUN 20 H (7-17) mg/dL Creatinine 1.07 H (0.52-1.04) mg/dL Est GFR (MDRD) Af Amer >60 (>60 ml/min/1.73 sqM) Est GFR (MDRD) Non-Af 50 (>60 ml/min/1.73 sqM) Glucose 377 H (74-99) mg/dL Plasma Lactic Acid John 2.7 H* (0.7-2.0) mmol/L Calcium 9.7 (8.4-10.2) mg/dL Magnesium 1.5 L (1.6-2.3) mg/dL Total Bilirubin 1.1 (0.2-1.3) mg/dL AST 20 (14-36) U/L ALT 20 (9-52) U/L Alkaline Phosphatase 189 H (38-126) U/L Total Creatine Kinase (30-135) U/L CK-MB (CK-2) (0.0-2.4) ng/mL CK-MB (CK-2) Rel Index Total Protein 6.3 (6.3-8.2) g/dL Albumin 3.6 (3.5-5.0) g/dL Urine Color Urine Appearance (Clear) Urine pH (5.0-8.0) Ur Specific [place] (1.001-1.035) Urine Protein (Negative) Urine Glucose (UA) (Negative) Urine Ketones (Negative) Urine Blood (Negative) Urine Nitrite (Negative) Urine Bilirubin (Negative) Urine Urobilinogen (<2.0) mg/dL Ur Leukocyte Esterase (Negative) Urine RBC (0-5) /hpf Urine WBC (0-5) /hpf Ur Squamous Epith Cells (0-4) /hpf Hyaline Casts (0-2) /lpf WBC Casts (0) /lpf Urine Mucus (None) /hpf Acetone, Qual (Negative) 06/07/17 06/07/17 06/07/17 Range/Units 09:53 09:53 11:08 WBC (3.8-10.6) k/uL RBC (3.80-5.40) m/uL Hgb (11.4-16.0) gm/dL Hct (34.0-46.0) % MCV (80.0-100.0) fL MCH (25.0-35.0) pg MCHC (31.0-37.0) g/dL RDW (11.5-15.5) % Plt Count (150-450) k/uL Neutrophils % % Lymphocytes % % Monocytes % % Eosinophils % % Basophils % % Neutrophils # (1.3-7.7) k/uL Lymphocytes # (1.0-4.8) k/uL Monocytes # (0-1.0) k/uL Eosinophils # (0-0.7) k/uL Basophils # (0-0.2) k/uL Manual Slide Review Hypochromasia Poikilocytosis (manual Sodium (137-145) mmol/L Potassium (3.5-5.1) mmol/L Chloride (98-107) mmol/L Carbon Dioxide (22-30) mmol/L Anion Gap mmol/L BUN (7-17) mg/dL Creatinine (0.52-1.04) mg/dL Est GFR (MDRD) Af Amer (>60 ml/min/1.73 sqM) Est GFR (MDRD) Non-Af (>60 ml/min/1.73 sqM) Glucose (74-99) mg/dL Plasma Lactic Acid John (0.7-2.0) mmol/L Calcium (8.4-10.2) mg/dL Magnesium (1.6-2.3) mg/dL Total Bilirubin (0.2-1.3) mg/dL AST (14-36) U/L ALT (9-52) U/L Alkaline Phosphatase (38-126) U/L Total Creatine Kinase 63 (30-135) U/L CK-MB (CK-2) 1.6 (0.0-2.4) ng/mL CK-MB (CK-2) Rel Index 2.5 Total Protein (6.3-8.2) g/dL Albumin (3.5-5.0) g/dL Urine Color Yellow Urine Appearance Clear (Clear) Urine pH 6.5 (5.0-8.0) Ur Specific [place] 1.018 (1.001-1.035) Urine Protein 1+ H (Negative) Urine Glucose (UA) 4+ H (Negative) Urine Ketones Negative (Negative) Urine Blood Negative (Negative) Urine Nitrite Negative (Negative) Urine Bilirubin Negative (Negative) Urine Urobilinogen <2.0 (<2.0) mg/dL Ur Leukocyte Esterase Negative (Negative) Urine RBC 1 (0-5) /hpf Urine WBC 6 H (0-5) /hpf Ur Squamous Epith Cells 1 (0-4) /hpf Hyaline Casts 6 H (0-2) /lpf WBC Casts 4 (0) /lpf Urine Mucus Rare H (None) /hpf Acetone, Qual Negative (Negative) - EKG Data -: EKG Interpreted by Ak EKG shows normal: sinus rhythm (Sinus rhythm with a rate of 110 MS interval 168 QRS 72 QT since QTC 322/435 left atrial enlargement nonspecific inferior changes poor R-wave progression. Some artifact is present.) - Radiology Data Radiology results: report reviewed (Review the imaging shows no definite acute findings. There is some question of NPH on the CAT scan.), image reviewed Critical Care Time Critical Care Time: Yes Critical Care Time: 32 minutes of critical care time which includes monitoring the EMS run and discussed with paramedics history physical labs x-rays several reevaluation of the patient. Review of old charting that was available. Discussion with the admitting physician admission orders and documentation of the above. Patient does have elevated lactic acid also evidence of dehydration COPD exacerbation and hyperglycemia. Disposition Clinical Impression: Altered mental status, Encephalopathy, COPD exacerbation, Dehydration, Lactic acidosis, Hypomagnesemia syndrome, Hyperglycemia Disposition: ADMITTED IP TO THIS [facility] Condition: Stable Referrals: Srinath Proctor DO [Primary Care Provider] - 1-2 days
[2017-06-07] MEDS ORDERED: MAGNESIUM SULFATE-D5W PMX 1 GM in DEXTROSE/WATER 1 100ML.BAG IVPB ONE (12:21)
[2017-06-07] MEDS ORDERED: cefTRIAXone IN SWFI 1,000 MG/10 ML SYRINGE IVP STA (12:21)
[2017-06-07] MEDS ORDERED: BENZOCAINE/MENTHOL LOZENG 1 EACH LOZENGE MUCOUS MEM PRN (13:10)
[2017-06-07] MEDS ORDERED: HYDROcodone/APAP 5-325MG 1 EACH TAB PO PRN (13:10)
[2017-06-07] MEDS ORDERED: MAGNESIUM HYDROXIDE 2,400 MG/10 ML CUP PO PRN (13:10)
[2017-06-07 14:44] LABS: Ammonia <9 umol/L (<30)
[2017-06-07] MEDS ORDERED: ONDANSETRON 4 MG/2 ML VIAL IVP PRN (14:57)
[2017-06-07 14:59] LABS: Lactic Acid, Venous 3.6 mmol/L (0.7-2.0)
[2017-06-07] MEDS: IPRATROPIUM-ALBUTEROL 3 ML NEB INHALATION SCH ×2 (16:28→20:59)
[2017-06-07 16:41] LABS: Glucose,Whole Blood 321 mg/dL (75-99)
--- NOTE | 2017-06-07 17:17 | P.CNPUL ---
History of Present Illness Consult date: 06/07/17 History of present illness: This is a 72-year-old female was brought in by EMS for evaluation of weakness and confusion. Patient apparently found by family members landing on the kitchen floor naked that. Patient is not sure how she got there. She was found sitting on a stool when EMS arrived. She was very slow to respond normally she is awake and alert as time progressed in route the patient did recover some of her mentation. She was found have a blood glucose of 365. I saw the patient and I also interviewed the daughter. Apparently the patient is not getting the appropriate medical care and since her bypass surgery in her health has been declining to the point where the patient has not been very strict blood pressure control and she has been taken and her vacation on a regular basis. In the emergency department, the patient had a CAT scan of the head that showed no acute abnormalities. Computed tomography scan of the spine showed no evidence of any acute fracture. Chest x-ray showed pulmonary vascular congestion and some interstitial edema. Pneumonia is doubtful although it's a possibility left lower lobe. The patient has some mild leukocytosis. Her initial lactic acid level was 2.5 and came up to 3.6. UA is negative. Influenza screen is negative. White cell count is minimally elevated at 11.5 and there is 93% neutrophilia. No significant anion gap metabolic acidosis. Anion gap is a 13. Bicarb level is at 28. Patient was awake. At a time of my evaluation she was moving all 4 extremities. No slurred speech. She was slow in answering questions. She denied having any chest pain. She was having some labored breathing over this improved as I was evaluating this patient and she became progressively more comfortable. No cough. No chest pain. No pleurisy. No hemoptysis. There is some swelling in the lower extremity especially on the right. No evidence of cellulitis. No evidence of any open wounds. No reported aspiration by family members. No head trauma. Review of Systems Constitutional: Reports fatigue, Reports lethargy, Reports weakness Eyes: denies blurred vision, denies bulging eye, denies decreased vision Ears: deny: decreased hearing, ear discharge, earache Ears, nose, mouth and throat: Denies headache, Denies sore throat Cardiovascular: Reports decreased exercise tolerance, Reports dyspnea on exertion, Reports shortness of breath Respiratory: Reports dyspnea Gastrointestinal: Reports diarrhea Genitourinary: Denies dysuria, Denies hematuria Musculoskeletal: Reports muscle weakness Musculoskeletal: bilateral: ankle swelling, absent: ankle pain, ankle stiffness Integumentary: Denies pruritus, Denies rash Neurological: Reports change in mentation, Reports gait dysfunction, Reports weakness Psychiatric: Denies anxiety, Denies depression Endocrine: Reports high blood sugars, Reports polydipsia Hematologic/Lymphatic: Reports as per HPI Allergic/Immunologic: Reports as per HPI Past Medical History Past Medical History: Asthma, Coronary Artery Disease (CAD), COPD, Diabetes Mellitus, Hyperlipidemia, Hypertension, Memory Impairment, Myocardial Infarction ([place]), Osteoarthritis (OA), Renal Disease Additional Past Medical History / Comment(s): Coronary artery disease with previous bypass surgery, the patient underwent VELARDE to LAD and she has also had previous stent to RCA. The surgery was done in March 2017, stage III chronic kidney disease/failure, diabetes mellitus type 2 poorly controlled, medical noncompliance, depression, COPD FEV1 of 57% of predicted, hypertension, hyperlipidemia, carotid artery disease with previous endarterectomy on the right back in 2011, obesity with BMI of 35.2, smoker, degenerative arthritis, chronic back pain, history of urine checked infections, Last Myocardial Infarction Date:: 2009 History of Any Multi-Drug Resistant Organisms: None Reported Past Surgical History: Appendectomy, Coronary Bypass/CABG, Heart Catheterization , Heart Catheterization With Stent, Hysterectomy Additional Past Surgical History / Comment(s): 04/12/17 CABG 1 vessel, drug- eluting stent placed to the RCA in 2009, right carotid endarterectomy in 2011, colonoscopy.. Past Anesthesia/Blood Transfusion Reactions: No Reported Reaction Date of Last Stent Placement:: 2009 Smoking Status: Former smoker - Past Family History Mother Family Medical History: No Reported History Father Family Medical History: Coronary Artery Disease (CAD) Medications and Allergies Home Medications Medication Instructions Recorded Confirmed Type Budesonide-Formot 160-4.5 Mcg 2 puff INHALATION RT-BID 01/19/17 06/07/17 History [Symbicort 160-4.5 Mcg Inhaler] Cholecalciferol [Vitamin D3] 2,000 unit PO DAILY 01/19/17 06/07/17 History Ipratropium/Albuterol Sulfate 2 puff INHALATION RT-QID PRN 01/19/17 06/07/17 History [Combivent Respimat Inhaler] Atorvastatin [Lipitor] 80 mg PO DAILY #90 tab 04/03/17 06/07/17 Rx Aspirin 325 mg PO DAILY 04/09/17 06/07/17 History Ipratropium-Albuterol Nebulize 3 ml INHALATION RT-QID PRN 04/12/17 06/07/17 History [Duoneb 0.5 mg-3 mg/3 ml Soln] Clopidogrel [Plavix] 75 mg PO DAILY tab 04/19/17 06/07/17 Rx Lisinopril [Zestril] 20 mg PO DAILY@1200 tab 04/19/17 06/07/17 Rx Magnesium Hydroxide [Milk of 2,400 mg PO BID PRN ml 04/19/17 06/07/17 Rx Magnesia Concentrate] Metoprolol Tartrate [Lopressor] 75 mg PO BID tab 04/19/17 06/07/17 Rx Nystatin 100,000 Unit/gm Powd 1 applic TOPICAL BID applic 04/19/17 06/07/17 Rx [Mycostatin Powder] Pantoprazole [Protonix] 40 mg PO AC-BRKFST tablet. 04/19/17 06/07/17 Rx Benzocaine/Menthol Lozeng [Cepacol 1 lozenge MUCOUS MEM Q2H PRN 05/22/17 History lozenge] HYDROcodone/APAP 5-325MG [[place] 1 - 2 tab PO Q4HR PRN 05/22/17 06/07/17 History 5-325] Insulin Aspart [NovoLOG Flexpen] 10 units SQ AC-TID 05/22/17 06/07/17 History Sennosides-Docusate Sodium 2 tab PO HS 05/22/17 06/07/17 History [Senokot-S] Escitalopram [Lexapro] 10 mg PO DAILY #30 tab 05/25/17 06/07/17 Rx Insulin Detemir [Levemir] 50 unit SQ HS syr 05/25/17 06/07/17 Rx Allergies Allergy/AdvReac Type Severity Reaction Status Date / Time No Known Allergies Allergy Verified 06/07/17 09:17 Physical Exam Vitals: Vital Signs Temp Pulse Pulse Resp BP BP Pulse Ox 06/07/17 16:00 88 20 06/07/17 14:52 99.3 F 88 20 114/67 98 06/07/17 13:23 114 H 18 114/55 94 L 06/07/17 11:08 116 H 16 126/62 93 L 06/07/17 10:00 115 H 16 06/07/17 09:52 114 H 06/07/17 09:15 96.8 F L 113 H 20 111/54 Intake and Output 06/07/17 06/07/17 06/07/17 06:59 14:59 22:59 Other: Weight 81.647 kg Patient Weight 06/08/17 06:59 Weight 81.647 kg Gen. appearance the patient seemed to be quite lethargic and weak at this point. She was communicating hours she was slow in answering questions. She did not know why she was there and she did not know the exact sequence of events that led her come to the hospital. She was able to recognize her daughter the bedside. She is moving all 4 extremities.Head exam was generally normal. There was no scleral icterus or corneal arcus. Mucous membranes were moist.Neck was supple and without jugular venous distension, thyromegaly, or carotid bruits. Carotids were easily palpable bilaterally. There was no adenopathy. Patient has a Mallampati class IV and there is no goiter or neck masses. Lungs sounds are diminished otherwise clear. No crackles or wheezes or rhonchi. Heart sounds are regular, sternum stable clean and intact. Normal S1-S2. No cervical murmurs appreciated.Abdominal exam revealed normal bowel sounds. The abdomen was soft, non-tender, and without masses, organomegaly, or appreciable enlargement of the abdominal aorta. Extremities are swollen especially in the right lower extremity with +1 pitting edema. No cyanosis. No clubbing. No open wounds or sores. Neurologically, or OA1 at best and the patient is moving all 4 extremities and the neurologic exam is nonfocal and the patient is following some simple commands. No facial asymmetry. Tongue is midline. Pupils are equal and reactive to light. Results - Laboratory Findings CBC and BMP: 06/07/17 09:53 06/07/17 09:53 Abnormal lab findings: Abnormal Labs 06/07/17 06/07/17 06/07/17 09:53 09:53 09:53 WBC 11.5 H Neutrophils # 10.6 H Lymphocytes # 0.3 L Sodium 135 L Chloride 94 L BUN 20 H Creatinine 1.07 H Glucose 377 H Plasma Lactic Acid John 2.7 H* Magnesium 1.5 L Alkaline Phosphatase 189 H Urine Protein Urine Glucose (UA) Urine WBC Hyaline Casts Urine Mucus 06/07/17 06/07/17 11:08 13:56 WBC Neutrophils # Lymphocytes # Sodium Chloride BUN Creatinine Glucose Plasma Lactic Acid John 3.6 H* Magnesium Alkaline Phosphatase Urine Protein 1+ H Urine Glucose (UA) 4+ H Urine WBC 6 H Hyaline Casts 6 H Urine Mucus Rare H - Diagnostic Findings Chest x-ray: image reviewed Assessment and Plan Plan: Assessment 1 altered mentation currently under investigation. Rule out underlying septic event. Possibilities may include a left lower lobe early pneumonia. Patient had also bout of diarrhea an underlying C. diff colitis may be a consideration. Altered mentation due to a TIA/CVA cannot be completely excluded. Currently The Head Was Negative. At This Point in Time the Patient Is Resting Comfortably in Bed. Neurologic Exam Is Nonfocal. The Patient Will Be Covered with Empiric Antibiotics. 2 COPD with an FEV1 of 57% of Predicted 3 Obesity with a BMI of 35.2 4 Coronary Artery Disease with Bypass Surgery in 2017 with VELARDE to LAD 5 Previous Coronary Intervention and Stenting to RCA 6 Diabetes Mellitus with Poor Blood Sugar Control 7 Dementia 8 Poor Medication Compliance Possibly Secondary to Underlying Dementia 9 hypertension 10 hyperlipidemia 11 that disease with previous endarterectomy on the right 12 degenerative arthritis 13 chronic back pain 14 lactic acidosis Plan IV fluids. IV Zosyn as an empiric antibiotic coverage. Blood cultures. Urine culture. Follow-up chest x-ray in a.m. Monitor respiratory status. Monitor lactic acid level. Blood sugar control with a sliding scale coverage. This continued IV Solu-Medrol. We'll continue to follow.
[2017-06-07 17:59] LABS: Glucose,Whole Blood 315 mg/dL (75-99)
[2017-06-07] MEDS ORDERED: methylPREDNISolone SOD SUCCI 125 MG/2 ML VIAL IV SCH (18:00)
[2017-06-07] MEDS: INSULIN ASPART 100 UNIT/ML 1 ML 10 ML VIAL SQ SCH ×4 (18:23→22:26)
[2017-06-07] MEDS: PIPERACILLIN-TAZOBACTAM 3.375 GM in DEXTROSE/WATER 1 50ML.BAG IVPB SCH (19:07)
[2017-06-07 20:00] LABS: Glucose,Whole Blood 432 mg/dL (75-99)
[2017-06-07 20:29] LABS: Glucose,Whole Blood 331 mg/dL (75-99)
[2017-06-07] MEDS: SYMBICORT 160-4.5 MCG INHALER INHALATION SCH ×2 (20:59→21:18)
[2017-06-07] MEDS: INSULIN DETEMIR 100 UNIT/ML 10 ML VIAL SQ SCH (22:24)
[2017-06-07 22:26] LABS: Glucose,Whole Blood 273 mg/dL (75-99)
[2017-06-07] MEDS: METOPROLOL TARTRATE 25 MG TAB PO SCH (22:29)
[2017-06-07] MEDS: SENNOSIDES-DOCUSATE SODIUM 1 EACH TAB PO SCH (22:32)
[2017-06-07] MEDS ORDERED: NALOXONE 0.4 MG/ML 1 ML VIAL IV PRN (23:32)
[2017-06-08] MEDS: IPRATROPIUM-ALBUTEROL 3 ML NEB INHALATION SCH ×6 (00:16→20:44)
[2017-06-08] MEDS: NYSTATIN 100,000 UNIT/GM POWD 15 GM TOPICAL SCH ×3 (00:28→22:06)
[2017-06-08] MEDS ORDERED: MAGNESIUM SULFATE-D5W PMX 1 GM in DEXTROSE/WATER 1 100ML.BAG IVPB ONE (01:00)
[2017-06-08] MEDS: PIPERACILLIN-TAZOBACTAM 3.375 GM in DEXTROSE/WATER 1 50ML.BAG IVPB SCH ×3 (03:15→17:46)
[2017-06-08] MEDS: SODIUM CHLORIDE 0.9% 1,000 ML IV SCH ×2 (03:54→12:22)
[2017-06-08 04:47] LABS: HCT 37.5 % (34.0-46.0); HGB 12.3 gm/dL (11.4-16.0); Hypochromasia Slight; MCH 30.5 pg (25.0-35.0); MCHC 32.9 g/dL (31.0-37.0); MCV 92.8 fL (80.0-100.0); Mean Platelet Volume 8.5; Platelet Count 206 k/uL (150-450); RBC 4.04 m/uL (3.80-5.40); RDW 14.5 % (11.5-15.5); WBC 15.1 k/uL (3.8-10.6)
[2017-06-08 04:58] LABS: Calcium 8.7 mg/dL (8.4-10.2); Magnesium 2.2 mg/dL (1.6-2.3); Phosphorus 4.1 mg/dL (2.5-4.5); Potassium 4.5 mmol/L (3.5-5.1)
[2017-06-08 06:23] LABS: Anisocytosis (M) Present; Band Neutrophils % 55 %; Eosinophils # (M) 0.15 k/uL (0-0.7); Lymphocytes # (M) 1.06 k/uL (1.0-4.8); Metamyelocytes % 2 %; Myelocytes # (M) 0.15 k/uL (0); Myelocytes % 1 %; Neutrophils % (M) 32 %; Nucleated Red Blood Cells 0 /100 WBC (0-0); Total Cells Counted 200
[2017-06-08 06:24] LABS: Polychromasia Present
[2017-06-08 06:26] LABS: Toxic Vacuolation Present
[2017-06-08] MEDS: SYMBICORT 160-4.5 MCG INHALER INHALATION SCH ×2 (07:20→20:44)
[2017-06-08 07:36] LABS: Glucose,Whole Blood 134 mg/dL (75-99)
[2017-06-08] MEDS: CHOLECALCIFEROL 1,000 UNIT TAB PO SCH (08:08)
[2017-06-08] MEDS: ATORVASTATIN 80 MG TAB PO SCH (08:08)
[2017-06-08] MEDS: ASPIRIN 325 MG TAB PO SCH (08:08)
[2017-06-08] MEDS: PANTOPRAZOLE 40 MG TABLET PO SCH (08:09)
[2017-06-08] MEDS: CLOPIDOGREL 75 MG TAB PO SCH (08:09)
[2017-06-08] MEDS: ESCITALOPRAM 10 MG TAB PO SCH (08:09)
[2017-06-08] MEDS: METOPROLOL TARTRATE 25 MG TAB PO SCH ×2 (08:10→22:06)
[2017-06-08] MEDS: INSULIN ASPART 100 UNIT/ML 1 ML 10 ML VIAL SQ SCH ×7 (08:11→21:18)
--- NOTE | 2017-06-08 09:02 | XR ---
EXAMINATION TYPE: XR chest 1V portable DATE OF EXAM: 06/08/2017 COMPARISON: 06/07/2017 HISTORY: Chest pain TECHNIQUE: Single frontal view of the chest is obtained. FINDINGS: There is redemonstration of mild pulmonary vascular congestion and cardiomegaly with left basilar retrocardiac opacity favored to represent a small left pleural effusion. Old healed right lat eral rib fracture is noted. Post CABG changes the chest are seen. Mild acromio clavicular arthropathy is present. IMPRESSION: Mild pulmonary vascular congestion and left basilar opacity favored to represent a small pleural effusion with associated atelectasis are likely on the basis of congestive heart failure. Le ft basilar opacity could alternatively represent pneumonia.
[2017-06-08] MEDS ORDERED: VANCOMYCIN IV PER PHARMACY 1 EACH MISC MISCELLANE PRN (10:53)
[2017-06-08] MEDS ORDERED: VANCOMYCIN 1,250 MG in SODIUM CHLORIDE 0.9% 250 ML IVPB ONE (12:00)
[2017-06-08] MEDS ORDERED: LISINOPRIL 20 MG TAB PO SCH (12:00)
--- NOTE | 2017-06-08 12:16 | HP ---
HISTORY AND PHYSICAL DATE OF ADMISSION: 06/08/2017 The patient is a pleasant debilitated 72-year-old white female who I had to move from the floor to the intensive care last evening for weakness, confusion, apparent lactic acidosis and impending sepsis. The patient was apparently found by a son lying on her kitchen floor naked. The patient is not sure how she got there and does not remember passing out. She was subsequently brought to the emergency via EMS and admitted to the hospital. She has recovered some of her mental status, but does not know the circumstances leading up to this situation. She was found to have blood sugars greater than 365, which I suspect the patient has continued her noncompliant diabetic control. I am not sure if patient had been taking her medications appropriately and she has not followed up in the office since her last discharge from the hospital. The patient has recently undergone a thoracotomy with coronary artery bypass graft. Of note on admission, her lactic acid was 2.5 and climbed to 3.6. Influenza screen has been negative so far. Urinalysis is negative. Blood cultures had grown out a gram-positive cocci at this time with no significant nidus of infection. REVIEW OF SYSTEMS: Review of systems is taken from the chart. Patient is answering questions, but is half sleeping this morning. She reported fatigue, weakness, and not ambulating well since her bypass surgery. EYES: Denies any blurred vision. EARS: Denies any hearing loss. Denies any sore throat, cough, or congestion. Admits to shortness of breath. Is a long-time smoker. Denies any gastrointestinal bleeding or hemorrhaging. Denies any urinary tract infection. She does admit when her sugars are high, she does urinate more frequently. She admits to weakness and poor ambulation. She has been doing a lot of sitting. PAST MEDICAL HISTORY: Past medical history is significant for diabetes, coronary artery disease, COPD, neuropathy, osteoarthritis, recent myocardial infarction, hyperlipidemia, chronic kidney disease. PAST SURGICAL HISTORY: Past surgical history is coronary artery bypass graft, heart catheterization, hysterectomy, appendectomy, colonoscopy. SOCIAL: Positive for tobacco. She states she has quit, but she was a heavy smoker up to 2 packs a day for many years. She denies any alcohol. She is currently . FAMILY HISTORY: Father no reported history. Mother had coronary artery disease and diabetes. MEDICATIONS: 1. Symbicort. 2. Vitamin D. 3. Combivent. 4. Lipitor. 5. DuoNeb. 6. Plavix. 7. Zestril. 8. Milk of magnesia. 9. Lopressor. 10.Nystatin powder to skin folds. 11.Protonix. 12.Cepacol lozenges. 13.Gunlock. 14.NovoLog 10 units a.c. meals t.i.d. 15.Senokot. 16.Lexapro. 17.Levemir. PHYSICAL EXAM: VITALS: Reported T-max of 99.3 with increased pulse up to 116 with blood pressure 114/55 and pulse ox as low as 93%. GENERAL: She is awake, but quite lethargic and weak. She seems to be sleeping a lot and slow to answer. She is answering appropriately, however. She did not remember how she got on the kitchen floor, but she did remember being on the floor. She states she was too weak to regain ambulation at that point. NECK: Supple. No JVD. HEART: Regular rate and rhythm. Mid-line sternotomy scar looks intact. She has minimal complaint about where the wires are located. EXTREMITIES: No cyanosis, clubbing or jaundice. LUNGS: Diminished breath sounds bilateral. ABDOMEN: Obese, nontender. Patient is moving all 4 extremities and there is no localized neurological deficit noted. IMPRESSION: 1. Status post syncope with fall. 2. Lactic acidosis. 3. Left lower lobe pneumonia. 4. Acute sepsis with gram positive cocci. 5. Chronic obstructive pulmonary disease. 6. Coronary artery bypass graft with coronary artery disease in March 2017. 7. Diabetes type 2, insulin requiring with very poor noncompliant diabetic control. 8. Acute depression secondary to multiple comorbidities and general failing health. PLAN: Admit patient to the ICU with ICU management by Dr. Parsons. Infectious Disease consultation. Continue to follow patient's overall guarded prognosis. Panculture. Empiric antibiotics in the form of Zosyn. Continue to follow patient's overall poor condition. May need outreach and education social worker consultation for placement until patient is well. Dr. Green's group will be covering at 4:00 today 06/08/2017. MMODL / IJN: [id number] /
[2017-06-08 12:48] LABS: Glucose,Whole Blood 114 mg/dL (75-99)
--- NOTE | 2017-06-08 15:44 | P.PN ---
Subjective Progress Note Date: 06/08/17 This is a 72-year-old female was brought in by EMS for evaluation of weakness and confusion. Patient apparently found by family members landing on the kitchen floor naked that. Patient is not sure how she got there. She was found sitting on a stool when EMS arrived. She was very slow to respond normally she is awake and alert as time progressed in route the patient did recover some of her mentation. She was found have a blood glucose of 365. I saw the patient and I also interviewed the daughter. Apparently the patient is not getting the appropriate medical care and since her bypass surgery in her health has been declining to the point where the patient has not been very strict blood pressure control and she has been taken and her vacation on a regular basis. In the emergency department, the patient had a CAT scan of the head that showed no acute abnormalities. Computed tomography scan of the spine showed no evidence of any acute fracture. Chest x-ray showed pulmonary vascular congestion and some interstitial edema. Pneumonia is doubtful although it's a possibility left lower lobe. The patient has some mild leukocytosis. Her initial lactic acid level was 2.5 and came up to 3.6. UA is negative. Influenza screen is negative. White cell count is minimally elevated at 11.5 and there is 93% neutrophilia. No significant anion gap metabolic acidosis. Anion gap is a 13. Bicarb level is at 28. Patient was awake. At a time of my evaluation she was moving all 4 extremities. No slurred speech. She was slow in answering questions. She denied having any chest pain. She was having some labored breathing over this improved as I was evaluating this patient and she became progressively more comfortable. No cough. No chest pain. No pleurisy. No hemoptysis. There is some swelling in the lower extremity especially on the right. No evidence of cellulitis. No evidence of any open wounds. No reported aspiration by family members. No head trauma. On 06/08/2017 I'm seeing this patient for a follow-up. As mentioned, the patient was seen on the medical floor and subsequently she got transferred to the intensive care unit due to concerns of her elevated lactic acid level. The patient got resuscitated IV fluids. The patient was covered with IV Zosyn. The patient felt much more alert and awake during this morning evaluation. In fact upon talking to her she did not remember that I saw yesterday evening. However today, she was able to recognize me and she was much more alert and communicative and verbal and lucid. She denied having any specific complaints. No cough or sputum production. No chest pain. Legs were swollen and there was some erythema over the anterior aspect of the lower extremities bilaterally which raises the possibility of questionable cellulitis. The blood cultures showing gram-positive cocci in chains. Urine analysis was negative and urine cultures are still pending for now. The chest x-ray showing cardiomegaly with some limited retrocardiac left basilar pulmonary infiltration. The white cell count is slightly elevated at 15.1. That is however significant bandemia up to 55%. There is also an acute kidney injury with a creatinine came up to 1.4. In terms of her fluid balance the patient has received more than 3 L of IV fluids and she is currently on 100 mL an hour of normal saline. The lactic acid level is down to 1.9 Objective - Vital Signs Vital signs: Vital Signs Temp 98.2 F 06/08/17 08:00 Pulse 83 06/08/17 12:00 Resp 20 06/08/17 12:00 BP 93/48 06/08/17 12:00 Pulse Ox 94 L 06/08/17 12:00 Intake & Output 06/07/17 06/08/17 06/08/17 18:59 06:59 18:59 Intake Total 1087.5 800 Output Total 595 110 Balance 492.5 690 Weight 81.647 kg 73.9 kg Intake: IV 700 Sodium Chloride 0.9% 1, 700 000 ml @ 100 mls/hr IV . Q10H REBECCA Rx#:[id number] Intake, IV Titration 837.5 100 Amount Magnesium Sulfate-D5w Pmx 100 1 gm In Dextrose/Water 1 100ml.bag @ 100 mls/hr IVPB ONCE ONE Rx#: [id number] Piperacillin-Tazobactam 3 37.5 .375 gm In Dextrose/Water 1 50ml.bag @ 12.5 mls/hr IVPB Q8H REBECCA Rx#: [id number] Sodium Chloride 0.9% 1, 700 100 000 ml @ 100 mls/hr IV . Q10H REBECCA Rx#:[id number] Oral 250 Output: Urine 595 110 Other: Voiding Method Indwelling Catheter Indwelling Catheter # Bowel Movements 2 - Exam Gen. appearance the patient is alert and awake and following commands and answering questions appropriately. Head exam was generally normal. There was no scleral icterus or corneal arcus. Mucous membranes were moist.Neck was supple and without jugular venous distension, thyromegaly, or carotid bruits. Carotids were easily palpable bilaterally. There was no adenopathy. Patient has a Mallampati class IV and there is no goiter or neck masses. Lungs sounds are diminished otherwise clear. No crackles or wheezes or rhonchi. Heart sounds are regular, sternum stable clean and intact. Normal S1-S2. No cervical murmurs appreciated.Abdominal exam revealed normal bowel sounds. The abdomen was soft, non-tender, and without masses, organomegaly, or appreciable enlargement of the abdominal aorta. Extremities are swollen especially in the right lower extremity with +1 pitting edema. No cyanosis. No clubbing. No open wounds or sores. Neurologically, o awake and alert and the patient's encephalopathy is present much recovered. - Labs CBC & Chem 7: 06/08/17 04:23 06/08/17 04:23 Labs: Abnormal Lab Results - Last 24 Hours (Table) 06/07/17 06/07/17 06/07/17 Range/Units 16:26 17:50 19:28 WBC (3.8-10.6) k/uL Neutrophils # (Manual) (1.3-7.7) k/uL Metamyelocytes # (Man) (0) k/uL Myelocytes # (Manual) (0) k/uL Sodium (137-145) mmol/L BUN (7-17) mg/dL Creatinine (0.52-1.04) mg/dL Glucose (74-99) mg/dL POC Glucose (mg/dL) 321 H 315 H (75-99) mg/dL Plasma Lactic Acid John 3.9 H* (0.7-2.0) mmol/L 06/07/17 06/07/17 06/07/17 Range/Units 19:53 20:26 22:23 WBC (3.8-10.6) k/uL Neutrophils # (Manual) (1.3-7.7) k/uL Metamyelocytes # (Man) (0) k/uL Myelocytes # (Manual) (0) k/uL Sodium (137-145) mmol/L BUN (7-17) mg/dL Creatinine (0.52-1.04) mg/dL Glucose (74-99) mg/dL POC Glucose (mg/dL) 432 H 331 H 273 H (75-99) mg/dL Plasma Lactic Acid John (0.7-2.0) mmol/L 06/08/17 06/08/17 06/08/17 Range/Units 04:23 04:23 07:34 WBC 15.1 H (3.8-10.6) k/uL Neutrophils # (Manual) 13.10 H (1.3-7.7) k/uL Metamyelocytes # (Man) 0.30 H (0) k/uL Myelocytes # (Manual) 0.15 H (0) k/uL Sodium 135 L (137-145) mmol/L BUN 29 H (7-17) mg/dL Creatinine 1.40 H (0.52-1.04) mg/dL Glucose 172 H (74-99) mg/dL POC Glucose (mg/dL) 134 H (75-99) mg/dL Plasma Lactic Acid John (0.7-2.0) mmol/L 06/08/17 Range/Units 12:45 WBC (3.8-10.6) k/uL Neutrophils # (Manual) (1.3-7.7) k/uL Metamyelocytes # (Man) (0) k/uL Myelocytes # (Manual) (0) k/uL Sodium (137-145) mmol/L BUN (7-17) mg/dL Creatinine (0.52-1.04) mg/dL Glucose (74-99) mg/dL POC Glucose (mg/dL) 114 H (75-99) mg/dL Plasma Lactic Acid John (0.7-2.0) mmol/L Microbiology - Last 24 Hours (Table) 06/07/17 22:50 Urine Culture - Preliminary Urine,Catheterized 06/07/17 09:53 Blood Culture Gram Stain - Preliminary Blood 06/07/17 09:53 Blood Culture - Final Blood Assessment and Plan Plan: Assessment 1 altered mentation currently under investigation. Rule out underlying septic event. Possibilities may include a left lower lobe early pneumonia. Patient had also bout of diarrhea an underlying C. diff colitis may be a consideration. Altered mentation due to a TIA/CVA cannot be completely excluded. Currently The Head Was Negative. At This Point in Time the Patient Is Resting Comfortably in Bed. Neurologic Exam Is Nonfocal. The Patient Will Be Covered with Empiric Antibiotics. On the patient's mentation is completely improved. It is suspected that the altered mentation was probably related to underlying septic event. Infected finger patient was septic knowing that on today's blood work she has developed some leukocytosis and bandemia and furthermore the blood cultures positive for gram-positive cocci. She has been adequately resuscitated. She was given IV Zosyn and the patient will be also started on vancomycin as an empiric antibiotic coverage. Meanwhile, the exact source of the sepsis is not known. Pneumonia is likely possibility. Soft tissue infection/cellulitis is another possibility. Urinary source is a possibility although is felt to be less likely. 2 COPD with an FEV1 of 57% of Predicted 3 acute kidney injury, nonoliguric, we'll monitor renal function and urine output 4 Coronary Artery Disease with Bypass Surgery in 2017 with VELARDE to LAD, Previous Coronary Intervention and Stenting to RCA 5 acute lactic acidosis, improving 6 Diabetes Mellitus with Poor Blood Sugar Control 7 Dementia 8 Poor Medication Compliance Possibly Secondary to Underlying Dementia 9 hypertension 10 hyperlipidemia 11 carotid artery disease with previous endarterectomy on the right 12 degenerative arthritis 13 chronic back pain 14 lactic acidosis, improving 15 Obesity with a BMI of 35.2 Plan IV fluids. Continue the IV fluids at 100 mL an hour. Monitor urine output. Continue Zosyn. Add vancomycin. Stop lisinopril and monitor renal function. Obtain ultrasound the kidneys. Monitor mentation. Obtain Doppler of the lower extremity. Consider Sinemet for lower extremity and monitor the legs closely. We'll continue to follow make further recommendations based on her overall progress.
[2017-06-08 16:55] LABS: Hemoglobin A1C 12.2 % (4.0-6.0)
[2017-06-08 17:36] LABS: Glucose,Whole Blood 108 mg/dL (75-99)
--- NOTE | 2017-06-08 19:06 | P.CONS ---
History of Present Illness - Reason for Consult Consult date: 06/08/17 - Chief Complaint Patient found unconscious on the floor - History of Present Illness 72-year-old woman who presents to the emergency center by EMS after the family found the patient confused laying naked on the kitchen floor. The patient was unable to relate how she got it kitchen because a family was concerned EMS was called. Apparently the family had gotten her sitting up the time EMS arrived. She was still very confused and had evidence of an elevated blood sugar. The patient has a known history of coronary artery disease status post coronary artery bypass grafting procedure in March 2017. Apparently she has not been taking good care of herself and that she is not compliant with her medications and has not been monitoring her blood sugars or her blood pressure. Upon arrival stat computed tomography scan failed reveal evidence of any acute intracranial abnormalities. Patient was given some resuscitation was having initial some improvement. However she had worsening lactic acidosis and her mental status was still somewhat poor and constantly was transferred to the intensive care unit. With further fluid resuscitation she resolved her lactic acidosis and since then has had some improvement of her mental status. She is regaining some appetite is denying nausea but has developed several loose stools. The patient remains a poor historian does not relate to the events of what happened at the time of her admission. But does relate she feels somewhat better. Does not recall fevers, chills or rigors before becoming ill. No notation of any pain in her chest, sputum production or other acute change Review of Systems ROS unobtainable: due to mental status Past Medical History Past Medical History: Asthma, Coronary Artery Disease (CAD), COPD, Diabetes Mellitus, Hyperlipidemia, Hypertension, Memory Impairment, Myocardial Infarction (VA), Osteoarthritis (OA), Renal Disease Additional Past Medical History / Comment(s): Coronary artery disease with previous bypass surgery, the patient underwent VELARDE to LAD and she has also had previous stent to RCA. The surgery was done in March 2017, stage III chronic kidney disease/failure, diabetes mellitus type 2 poorly controlled, medical noncompliance, depression, COPD FEV1 of 57% of predicted, hypertension, hyperlipidemia, carotid artery disease with previous endarterectomy on the right back in 2011, obesity with BMI of 35.2, smoker, degenerative arthritis, chronic back pain, history of urine checked infections, Last Myocardial Infarction Date:: 2009 History of Any Multi-Drug Resistant Organisms: None Reported Past Surgical History: Appendectomy, Coronary Bypass/CABG, Heart Catheterization , Heart Catheterization With Stent, Hysterectomy Additional Past Surgical History / Comment(s): 04/12/17 CABG 1 vessel, drug- eluting stent placed to the RCA in 2009, right carotid endarterectomy in 2011, colonoscopy.. Past Anesthesia/Blood Transfusion Reactions: No Reported Reaction Date of Last Stent Placement:: 2009 Smoking Status: Former smoker - Past Family History Mother Family Medical History: No Reported History Father Family Medical History: Coronary Artery Disease (CAD) Medications and Allergies Home Medications and Allergies Comment(s): Current Medications Hydrocodone Bitart/Acetaminophen ([place] 5-325) 1 each PO Q4HR PRN PRN Reason: Severe Pain Albuterol/Ipratropium (Duoneb 0.5 Mg-3 Mg/3 Ml Soln) 3 ml INHALATION RT-Q4H [facility] Last Admin: 06/08/17 16:17 Dose: Not Given Aspirin (Aspirin) 325 mg PO DAILY [facility] Last Admin: 06/08/17 08:08 Dose: 325 mg Atorvastatin Calcium (Lipitor) 80 mg PO DAILY [facility] Last Admin: 06/08/17 08:08 Dose: 80 mg Benzocaine/Menthol (Cepacol Lozenge) 1 each MUCOUS MEM Q2H PRN PRN Reason: Sore Throat Budesonide/Formoterol Fumarate (Symbicort 160-4.5 Mcg Inhaler) 2 puff INHALATION RT-BID [facility] Last Admin: 06/08/17 07:20 Dose: Not Given Cholecalciferol (Vitamin D3) 2,000 unit PO DAILY [facility] Last Admin: 06/08/17 08:08 Dose: 2,000 unit Clopidogrel Bisulfate (Plavix) 75 mg PO DAILY [facility] Last Admin: 06/08/17 08:09 Dose: 75 mg Escitalopram Oxalate (Lexapro) 10 mg PO DAILY [facility] Last Admin: 06/08/17 08:09 Dose: 10 mg Piperacillin/Tazobactam/ (Dextrose 3.375 gm/ IV Solution) 50 mls @ 12.5 mls/hr IVPB Q8H [facility] Last Admin: 06/08/17 17:46 Dose: 12.5 mls/hr Sodium Chloride (Saline 0.9%) 1,000 mls @ 100 mls/hr IV .Q10H [facility] Last Admin: 06/08/17 12:22 Dose: 100 mls/hr Vancomycin HCl 1,250 mg/ (Sodium Chloride) 250 mls @ 125 mls/hr IVPB Q48H [facility] Insulin Aspart (Novolog) 10 unit SQ AC-TID [facility] Last Admin: 06/08/17 17:46 Dose: 10 unit Insulin Aspart (Novolog) 0 unit SQ ACHS REBECCA PRN Reason: Protocol Last Admin: 06/08/17 17:38 Dose: Not Given Insulin Detemir (Levemir) 50 unit SQ [facility] Last Admin: 06/07/17 22:24 Dose: 50 unit Magnesium Hydroxide (Milk Of Magnesia) 2,400 mg PO BID PRN PRN Reason: Constipation Metoprolol Tartrate (Lopressor) 75 mg PO BID [facility] Last Admin: 06/08/17 08:10 Dose: 75 mg Naloxone HCl (Narcan) 0.2 mg IV Q2M PRN PRN Reason: Opioid Reversal Nystatin (Mycostatin Powder) 1 applic TOPICAL BID [facility] Last Admin: 06/08/17 08:10 Dose: 1 applic Ondansetron HCl (Zofran) 4 mg IVP Q6HR PRN PRN Reason: Nausea And Vomiting Pantoprazole Sodium (Protonix) 40 mg PO AC-BRKFST [facility] Last Admin: 06/08/17 08:09 Dose: 40 mg Senna/Docusate Sodium (Senokot-S) 2 each PO [facility] Last Admin: 06/07/17 22:32 Dose: 2 each Home Medications Medication Instructions Recorded Confirmed Type Budesonide-Formot 160-4.5 Mcg 2 puff INHALATION RT-BID 01/19/17 06/07/17 History [Symbicort 160-4.5 Mcg Inhaler] Cholecalciferol [Vitamin D3] 2,000 unit PO DAILY 01/19/17 06/07/17 History Ipratropium/Albuterol Sulfate 2 puff INHALATION RT-QID PRN 01/19/17 06/07/17 History [Combivent Respimat Inhaler] Atorvastatin [Lipitor] 80 mg PO DAILY #90 tab 04/03/17 06/07/17 Rx Aspirin 325 mg PO DAILY 04/09/17 06/07/17 History Ipratropium-Albuterol Nebulize 3 ml INHALATION RT-QID PRN 04/12/17 06/07/17 History [Duoneb 0.5 mg-3 mg/3 ml Soln] Clopidogrel [Plavix] 75 mg PO DAILY tab 04/19/17 06/07/17 Rx Lisinopril [Zestril] 20 mg PO DAILY@1200 tab 04/19/17 06/07/17 Rx Magnesium Hydroxide [Milk of 2,400 mg PO BID PRN ml 04/19/17 06/07/17 Rx Magnesia Concentrate] Metoprolol Tartrate [Lopressor] 75 mg PO BID tab 04/19/17 06/07/17 Rx Nystatin 100,000 Unit/gm Powd 1 applic TOPICAL BID applic 04/19/17 06/07/17 Rx [Mycostatin Powder] Pantoprazole [Protonix] 40 mg PO AC-BRKFST tablet. 04/19/17 06/07/17 Rx Benzocaine/Menthol Lozeng [Cepacol 1 lozenge MUCOUS MEM Q2H PRN 05/22/17 History lozenge] HYDROcodone/APAP 5-325MG [[place] 1 - 2 tab PO Q4HR PRN 05/22/17 06/07/17 History 5-325] Insulin Aspart [NovoLOG Flexpen] 10 units SQ AC-TID 05/22/17 06/07/17 History Sennosides-Docusate Sodium 2 tab PO HS 05/22/17 06/07/17 History [Senokot-S] Escitalopram [Lexapro] 10 mg PO DAILY #30 tab 05/25/17 06/07/17 Rx Insulin Detemir [Levemir] 50 unit SQ HS syr 05/25/17 06/07/17 Rx Allergies Allergy/AdvReac Type Severity Reaction Status Date / Time No Known Allergies Allergy Verified 06/07/17 09:17 Physical Exam Vitals: Vital Signs Temp Pulse Pulse Resp BP BP BP 06/08/17 18:40 97.3 F L 75 18 109/60 06/08/17 15:53 98.6 F 85 20 123/66 06/08/17 12:00 83 20 93/48 06/08/17 11:00 101 H 27 H 119/63 06/08/17 10:00 80 17 124/58 06/08/17 09:00 83 15 127/60 06/08/17 08:00 98.2 F 84 18 127/65 06/08/17 07:00 90 17 113/58 18 06:50 87 23 113/58 06/08/17 06:40 91 20 113/58 18 06:30 81 17 113/58 18 06:20 83 16 113/58 06/08/17 06:10 94 22 121/62 06/08/17 06:00 87 28 H 113/58 06/08/17 05:50 86 17 18 05:40 87 15 90/49 18 05:30 92 17 90/49 06/08/17 05:20 88 8 L 90/49 06/08/17 05:10 85 16 100/58 06/08/17 05:00 88 33 H 100/58 06/08/17 04:50 87 15 100/58 06/08/17 04:40 86 16 105/49 06/08/17 04:30 87 15 105/49 06/08/17 04:20 92 33 H 105/49 06/08/17 04:10 96 32 H 115/58 18 04:00 98.8 F 87 16 115/58 18 03:50 88 17 115/58 18 03:40 87 16 97/44 06/08/17 03:30 89 16 97/44 06/08/17 03:20 85 17 78/41 06/08/17 03:10 87 18 110/51 06/08/17 03:00 88 17 110/51 06/08/17 02:50 90 16 110/51 06/08/17 02:40 87 17 98/56 06/08/17 02:30 87 15 98/56 06/08/17 02:20 83 16 71/41 06/08/17 02:10 84 16 103/46 06/08/17 02:00 82 16 103/46 06/08/17 01:50 85 17 103/46 06/08/17 01:40 85 16 86/50 06/08/17 01:30 87 16 86/50 06/08/17 01:20 92 22 86/50 06/08/17 01:10 86 18 75/38 06/08/17 01:00 87 20 75/38 06/08/17 00:50 86 17 84/36 06/08/17 00:40 90 17 125/65 06/08/17 00:31 96 06/08/17 00:30 96 19 125/65 06/08/17 00:20 92 16 125/65 06/08/17 00:17 96 06/08/17 00:10 96 17 116/57 06/08/17 00:00 98.5 F 96 20 116/57 06/07/17 23:50 102 H 18 116/57 06/07/17 23:46 100 19 116/57 06/07/17 23:40 96 18 104/47 06/07/17 23:30 100 21 104/47 06/07/17 23:20 96 17 104/47 06/07/17 23:10 101 H 17 123/58 06/07/17 23:00 101 H 16 123/58 06/07/17 22:50 104 H 18 123/58 06/07/17 22:40 105 H 17 110/48 06/07/17 22:30 103 H 17 110/48 06/07/17 22:20 102 H 17 98/46 06/07/17 22:10 103 H 17 97/43 06/07/17 22:00 97.3 F L 109 H 23 97/43 06/07/17 21:50 111 H 17 97/43 06/07/17 21:40 112 H 18 93/49 06/07/17 21:30 113 H 18 93/49 06/07/17 21:21 115 H 20 93/49 06/07/17 21:04 110 H 06/07/17 21:03 06/07/17 20:00 114 H 102/56 06/07/17 19:49 99.3 F 116 H 18 91/58 06/07/17 19:35 99.3 F 118 H 14 81/47 06/07/17 19:30 118 H 06/07/17 19:25 116 H 88/49 06/07/17 19:20 98.8 F 112 H 88/54 06/07/17 19:09 90 24 Pulse Ox 06/08/17 18:40 92 L 06/08/17 15:53 95 06/08/17 12:00 94 L 06/08/17 11:00 96 06/08/17 10:00 94 L 06/08/17 09:00 93 L 06/08/17 08:00 95 06/08/17 07:00 94 L 06/08/17 06:50 96 06/08/17 06:40 96 06/08/17 06:30 94 L 06/08/17 06:20 93 L 06/08/17 06:10 92 L 06/08/17 06:00 92 L 06/08/17 05:50 93 L 06/08/17 05:40 94 L 06/08/17 05:30 94 L 06/08/17 05:20 97 06/08/17 05:10 96 06/08/17 05:00 95 06/08/17 04:50 96 06/08/17 04:40 95 06/08/17 04:30 94 L 06/08/17 04:20 06/08/17 04:10 94 L 06/08/17 04:00 94 L 06/08/17 03:50 95 06/08/17 03:40 95 06/08/17 03:30 96 06/08/17 03:20 94 L 06/08/17 03:10 95 06/08/17 03:00 95 06/08/17 02:50 96 06/08/17 02:40 96 06/08/17 02:30 06/08/17 02:20 94 L 06/08/17 02:10 94 L 06/08/17 02:00 94 L 06/08/17 01:50 96 06/08/17 01:40 95 06/08/17 01:30 94 L 06/08/17 01:20 93 L 06/08/17 01:10 92 L 06/08/17 01:00 94 L 06/08/17 00:50 95 06/08/17 00:40 94 L 06/08/17 00:31 06/08/17 00:30 97 06/08/17 00:20 98 06/08/17 00:17 06/08/17 00:10 94 L 06/08/17 00:00 94 L 06/07/17 23:50 94 L 06/07/17 23:46 94 L 06/07/17 23:40 95 06/07/17 23:30 96 06/07/17 23:20 97 06/07/17 23:10 95 06/07/17 23:00 96 06/07/17 22:50 96 06/07/17 22:40 96 06/07/17 22:30 96 06/07/17 22:20 96 06/07/17 22:10 97 06/07/17 22:00 94 L 06/07/17 21:50 95 06/07/17 21:40 93 L 06/07/17 21:30 95 06/07/17 21:21 94 L 06/07/17 21:04 06/07/17 21:03 98 06/07/17 20:00 92 L 06/07/17 19:49 95 06/07/17 19:35 95 06/07/17 19:30 06/07/17 19:25 94 L 06/07/17 19:20 95 06/07/17 19:09 Intake and Output 06/08/17 06/08/17 06/08/17 06:59 14:59 22:59 Intake Total 1087.5 800 Output Total 245 110 175 Balance 842.5 690 -175 Intake: IV 700 Sodium Chloride 0.9% 1, 700 000 ml @ 100 mls/hr IV . Q10H [facility] Rx#:[id number] Intake, IV Titration 837.5 100 Amount Magnesium Sulfate-D5w Pmx 100 1 gm In Dextrose/Water 1 100ml.bag @ 100 mls/hr IVPB ONCE ONE Rx#: [id number] Piperacillin-Tazobactam 3 37.5 .375 gm In Dextrose/Water 1 50ml.bag @ 12.5 mls/hr IVPB Q8H [facility] Rx#: [id number] Sodium Chloride 0.9% 1, 700 100 000 ml @ 100 mls/hr IV . Q10H [facility] Rx#:[id number] Oral 250 Output: Urine 245 110 175 Other: Voiding Method Indwelling Catheter Indwelling Catheter Indwelling Catheter # Bowel Movements 2 1 Weight 73.9 kg 72-year-old woman who has mild obesity is sitting up in the intensive care unit sipping some T stating that she feels somewhat better remains a very poor historian HEENT: Anicteric conjunctiva are pink and moist nasal mucosa grossly intact without significant lesions, there is no thrush. Neck: The neck is supple without significant lymphadenopathy or thyromegaly. Lungs: Symmetrical air entry is noted. Crackles at left base are noted. No bronchial sounds are noted or egophony. Heart: Irregular with an audible S1 and S2 soft S4 no murmur click or rub. , PMI was nondisplaced. Abdomen: Mildly obese, Positive bowel sounds soft and nontender without palpable masses or organomegaly. There was no guarding or rebound. Has a liquid stool while being examined without complaints of pain Extremities: The upper extremities have excellent pulses they are symmetric, no significant petechiae or telangiectasia. No splinter hemorrhages were noted. Lower extremity is evidence of some chronic venous stasis evidence of some chronic skin changes especially in the right lower extremity. There is evidence of some mild erythema with no open ulcerations or drainage on the right pretibial area. Very dry skin to the heels is noted and there is a fissure on the right heel without drainage or tenderness. Neuro: Awake alert oriented to person person and place. Does not have gross focal sensory motor deficits on exam. Still has vague personality Results CBC & Chem 7: 06/08/17 04:23 06/08/17 04:23 Labs: Abnormal Lab Results - Last 24 Hours (Table) 06/07/17 06/07/17 06/07/17 Range/Units 19:28 19:53 20:26 WBC (3.8-10.6) k/uL Neutrophils # (Manual) (1.3-7.7) k/uL Metamyelocytes # (Man) (0) k/uL Myelocytes # (Manual) (0) k/uL Sodium (137-145) mmol/L BUN (7-17) mg/dL Creatinine (0.52-1.04) mg/dL Glucose (74-99) mg/dL POC Glucose (mg/dL) 432 H 331 H (75-99) mg/dL Plasma Lactic Acid John 3.9 H* (0.7-2.0) mmol/L 06/07/17 06/08/17 06/08/17 Range/Units 22:23 04:23 04:23 WBC 15.1 H (3.8-10.6) k/uL Neutrophils # (Manual) 13.10 H (1.3-7.7) k/uL Metamyelocytes # (Man) 0.30 H (0) k/uL Myelocytes # (Manual) 0.15 H (0) k/uL Sodium 135 L (137-145) mmol/L BUN 29 H (7-17) mg/dL Creatinine 1.40 H (0.52-1.04) mg/dL Glucose 172 H (74-99) mg/dL POC Glucose (mg/dL) 273 H (75-99) mg/dL Plasma Lactic Acid John (0.7-2.0) mmol/L 06/08/17 06/08/17 06/08/17 Range/Units 07:34 12:45 17:33 WBC (3.8-10.6) k/uL Neutrophils # (Manual) (1.3-7.7) k/uL Metamyelocytes # (Man) (0) k/uL Myelocytes # (Manual) (0) k/uL Sodium (137-145) mmol/L BUN (7-17) mg/dL Creatinine (0.52-1.04) mg/dL Glucose (74-99) mg/dL POC Glucose (mg/dL) 134 H 114 H 108 H (75-99) mg/dL Plasma Lactic Acid John (0.7-2.0) mmol/L Microbiology - Last 24 Hours (Table) 06/07/17 09:53 Blood Culture Gram Stain - Preliminary Blood 06/07/17 22:50 Urine Culture - Preliminary Urine,Catheterized 06/07/17 09:53 Blood Culture - Final Blood Laboratory Results WBC 15.1 k/uL (3.8-10.6) H 06/08/17 04:23 RBC 4.04 m/uL (3.80-5.40) 06/08/17 04:23 Hgb 12.3 gm/dL (11.4-16.0) 06/08/17 04:23 Hct 37.5 % (34.0-46.0) 06/08/17 04:23 MCV 92.8 fL (80.0-100.0) 06/08/17 04:23 MCH 30.5 pg (25.0-35.0) 06/08/17 04:23 MCHC 32.9 g/dL (31.0-37.0) 06/08/17 04:23 RDW 14.5 % (11.5-15.5) 06/08/17 04:23 Plt Count 206 k/uL (150-450) 06/08/17 04:23 Neutrophils % 93 % 06/07/17 09:53 Neutrophils % (Manual) 32 % 06/08/17 04:23 Band Neutrophils % 55 % 06/08/17 04:23 Lymphocytes % 2 % 06/07/17 09:53 Lymphocytes % (Manual) 7 % 06/08/17 04:23 Monocytes % 3 % 06/07/17 09:53 Monocytes % (Manual) 4 % 06/08/17 04:23 Eosinophils % 1 % 06/07/17 09:53 Eosinophils % (Manual) 1 % 06/08/17 04:23 Basophils % 1 % 06/07/17 09:53 Metamyelocytes % 2 % 06/08/17 04:23 Myelocytes % 1 % 06/08/17 04:23 Neutrophils # 10.6 k/uL (1.3-7.7) H 06/07/17 09:53 Neutrophils # (Manual) 13.10 k/uL (1.3-7.7) H 06/08/17 04:23 Lymphocytes # 0.3 k/uL (1.0-4.8) L 06/07/17 09:53 Lymphocytes # (Manual) 1.06 k/uL (1.0-4.8) 06/08/17 04:23 Monocytes # 0.3 k/uL (0-1.0) 06/07/17 09:53 Monocytes # (Manual) 0.60 k/uL (0-1.0) 06/08/17 04:23 Eosinophils # 0.1 k/uL (0-0.7) 06/07/17 09:53 Eosinophils # (Manual) 0.15 k/uL (0-0.7) 06/08/17 04:23 Basophils # 0.1 k/uL (0-0.2) 06/07/17 09:53 Metamyelocytes # (Man) 0.30 k/uL (0) H 06/08/17 04:23 Myelocytes # (Manual) 0.15 k/uL (0) H 06/08/17 04:23 Nucleated RBCs 0 /100 WBC (0-0) 06/08/17 04:23 Manual Slide Review Performed 06/07/17 09:53 Toxic Vacuolation Present 06/08/17 04:23 Polychromasia Present 06/08/17 04:23 Hypochromasia Slight 06/08/17 04:23 Poikilocytosis (manual Present 06/07/17 09:53 Anisocytosis (manual) Present 06/08/17 04:23 Sodium 135 mmol/L (137-145) L 06/08/17 04:23 Potassium 4.5 mmol/L (3.5-5.1) 06/08/17 04:23 Chloride 98 mmol/L (98-107) 06/08/17 04:23 Carbon Dioxide 28 mmol/L (22-30) 06/08/17 04:23 Anion Gap 9 mmol/L 06/08/17 04:23 BUN 29 mg/dL (7-17) H 06/08/17 04:23 Creatinine 1.40 mg/dL (0.52-1.04) H 06/08/17 04:23 Est GFR (MDRD) Af Amer 45 (>60 ml/min/1.73 sqM) 06/08/17 04:23 Est GFR (MDRD) Non-Af 37 (>60 ml/min/1.73 sqM) 06/08/17 04:23 Glucose 172 mg/dL (74-99) H 06/08/17 04:23 POC Glucose (mg/dL) 108 mg/dL (75-99) H 06/08/17 17:33 POC Glu Scanner Operator ID Marli Tavarez 06/08/17 17:33 Lactic Ac Sepsis Rflx Y 06/07/17 14:59 Plasma Lactic Acid John 1.9 mmol/L (0.7-2.0) 06/08/17 04:23 Calcium 8.7 mg/dL (8.4-10.2) 06/08/17 04:23 Phosphorus 4.1 mg/dL (2.5-4.5) 06/08/17 04:23 Magnesium 2.2 mg/dL (1.6-2.3) 06/08/17 04:23 Total Bilirubin 1.1 mg/dL (0.2-1.3) 06/07/17 09:53 AST 20 U/L (14-36) 06/07/17 09:53 ALT 20 U/L (9-52) 06/07/17 09:53 Alkaline Phosphatase 189 U/L (38-126) H 06/07/17 09:53 Ammonia <9 umol/L (<30) 06/07/17 13:56 Total Creatine Kinase 63 U/L (30-135) 06/07/17 09:53 CK-MB (CK-2) 1.6 ng/mL (0.0-2.4) 06/07/17 09:53 CK-MB (CK-2) Rel Index 2.5 06/07/17 09:53 Total Protein 6.3 g/dL (6.3-8.2) 06/07/17 09:53 Albumin 3.6 g/dL (3.5-5.0) 06/07/17 09:53 TSH 0.995 mIU/L (0.465-4.680) 06/08/17 04:23 Urine Color Yellow 06/07/17 11:08 Urine Appearance Clear (Clear) 06/07/17 11:08 Urine pH 6.5 (5.0-8.0) 06/07/17 11:08 Ur Specific [place] 1.018 (1.001-1.035) 06/07/17 11:08 Urine Protein 1+ (Negative) H 06/07/17 11:08 Urine Glucose (UA) 4+ (Negative) H 06/07/17 11:08 Urine Ketones Negative (Negative) 06/07/17 11:08 Urine Blood Negative (Negative) 06/07/17 11:08 Urine Nitrite Negative (Negative) 06/07/17 11:08 Urine Bilirubin Negative (Negative) 06/07/17 11:08 Urine Urobilinogen <2.0 mg/dL (<2.0) 06/07/17 11:08 Ur Leukocyte Esterase Negative (Negative) 06/07/17 11:08 Urine RBC 1 /hpf (0-5) 06/07/17 11:08 Urine WBC 6 /hpf (0-5) H 06/07/17 11:08 Ur Squamous Epith Cells 1 /hpf (0-4) 06/07/17 11:08 Hyaline Casts 6 /lpf (0-2) H 06/07/17 11:08 WBC Casts 4 /lpf (0) 06/07/17 11:08 Urine Mucus Rare /hpf (None) H 06/07/17 11:08 Acetone, Qual Negative (Negative) 06/07/17 09:53 Influenza Type A RNA Not Detected (Not Detectd) 06/07/17 14:44 Influenza Type B (PCR) Not Detected (Not Detectd) 06/07/17 14:44 Microbiology 06/07/17 09:53 Blood Blood Culture Gram Stain - Preliminary 06/07/17 22:50 Urine,Catheterized Urine Culture - Preliminary 06/07/17 09:53 Blood Blood Culture - Final Assessment and Plan (1) Sepsis Narrative/Plan: 72-year-old female presents to Hospital via EMS after being found by her family laying on the floor. The patient has no recollection of the event of the time frame around it. Is showing some improvement at this point in time. Distal somewhat vague. However does not have any lateralizing focal deficits at this time. Computed tomography scan of brain was negative. The patient however did become progressively more septic with elevated lactic acid with good response to fluid resuscitation. She requires no vasopressor therapy. She is improved at this point in time but is having some difficulties with some loose stool for C. diff testing was canceled because of stool consistency. She does have a leukocytosis but no significant fever or hypothermia. The patient does however have evidence of possible blood culture with gram- positive cocci likely streptococcal in nature.. Thus there are concerns to Streptococcus pneumoniae pneumonia and sepsis as a cause of her current illness. This has some mild erythema to the right lower extremity however does not appear to be significantly tender, there is no open lesions are draining ulcers. Is also of potential concern to a source of sepsis. Culture results will help further direct course of antibiotic therapy. We will streamline antibiotic therapy to Rocephin which may hopefully also help her diarrhea that could be worsening from the Zosyn. We'll continue vancomycin for a short time further until laboratory gives further data is the potential for streptococci versus enterococcus. Follow blood cultures are requested. Patient does not have a noted history of C. diff and current stool or is not consistent will be monitored closely. Leukocytosis due to her current sepsis. Current Visit: Yes Status: Acute Code(s): A41.9 - SEPSIS, UNSPECIFIED ORGANISM SNOMED Code(s): 42383794 (2) Encephalopathy Current Visit: Yes Status: Acute Code(s): G93.40 - ENCEPHALOPATHY, UNSPECIFIED SNOMED Code(s): 57603453 (3) Lactic acidosis Current Visit: Yes Status: Acute Code(s): E87.2 - ACIDOSIS SNOMED Code(s) : 63151026 (4) Gram-positive cocci bacteremia Current Visit: Yes Status: Acute Code(s): R78.81 - BACTEREMIA SNOMED Code( s): 837300354451
--- NOTE | 2017-06-08 20:39 | US ---
EXAMINATION TYPE: US carotid duplex BILAT DATE OF EXAM: 06/08/2017 COMPARISON: US 2017 CLINICAL HISTORY: AMS. EXAM MEASUREMENTS: RIGHT: Peak Systolic Velocity (PSV) cm/sec ----- Right CCA: 93.2 ----- Right ICA: 91.9 ----- Right ECA: 176.5 ICA/CCA ratio: 1.0 RIGHT: End Diastole cm/sec ----- Right CCA: 13.6 ----- Right ICA: 17.5 ----- Right ECA: 8.5 LEFT: Peak Systolic Velocity (PSV) cm/sec ----- Left CCA: 79.1 ----- Left ICA: 103.4 ----- Left ECA: 202.9 ICA/CCA ratio: 1.3 LEFT: End Diastole cm/sec ----- Left CCA: 9.8 ----- Left ICA: 22.6 ----- Left ECA: 12.4 VERTEBRALS (direction of flow): Right Vertebral: Antegrade Left Vertebral: Antegrade Rhythm: Normal Limitation: Technically difficult and limited study due to patient heavy breathing and coughing, exam done portable. IMPRESSION: 1. NO SIGNIFICANT STENOSIS. 2. BILATERAL INTIMAL THICKENING PLAQUE SEEN THROUGHOUT BILATERAL CAROTIDS. 3. ELEVATED RIGHT ECA AND LEFT ECA VELOCITIES.
--- NOTE | 2017-06-08 20:51 | US ---
EXAMINATION TYPE: US kidneys/renal and bladder DATE OF EXAM: 06/08/2017 COMPARISON: NONE CLINICAL HISTORY: RAMONA. RAMONA, exam done portable. EXAM MEASUREMENTS: Right Kidney: 10.8 x 4.8 x 4.8 cm Left Kidney: 10.3 x 5.2 x 4.4 cm Right Kidney: no hydro or masses seen Left Kidney: 1.9 x 1.6 x 1.3cm isoechoic area anterior mid pole, inconsistent with cyst. Bladder: limited visualization, not fully distended Bilateral Jets seen: no There is no evidence for hydronephrosis. No nephrolithiasis is seen. No masses are identified. The urinary bladder is anechoic. Bilateral ureteral jets are seen. IMPRESSION: 1. NO OBSTRUCTIVE UROPATHY OR OTHER ACUTE PROCESS. 2. LEFT RENAL MIDPOLE SOFT TISSUE LESION MEASURING 1.9 X 1.6 X 1.3 CM. THERE ARE NO PREVIOUS CROS S-SECTIONAL ABDOMINAL IMAGING STUDIES ON PACS, WOULD ADVISE DEDICATED RENAL CT OR MRI CHARACTERIZATIO N.
--- NOTE | 2017-06-08 20:52 | US ---
EXAMINATION TYPE: US venous doppler duplex LE DATE OF EXAM: 06/08/2017 8:13 PM COMPARISON: NONE CLINICAL HISTORY: cellulitis, redness, warmth. Patient on blood thinners, exam done portable. SIDE PERFORMED: Bilateral TECHNIQUE: The lower extremity deep venous system is examined utilizing real time linear array sonog armen with graded compression, doppler sonography and color-flow sonography. VESSELS IMAGED: External Iliac Vein (EIV) Common Femoral Vein Deep Femoral Vein Greater Saphenous Vein * Femoral Vein Popliteal Vein Small Saphenous Vein * Proximal Calf Veins (* superficial vessels) DESCRIPTION: Grayscale, color doppler, spectral doppler imaging performed of the deep veins of the lo wer extremities. There is normal flow, compressibility, vascular waveforms. IMPRESSION: RIGHT LOWER EXTREMITY: NEGATIVE FOR DVT LEFT LOWER EXTREMITY: NEGATIVE FOR DVT
[2017-06-08 20:54] LABS: Glucose,Whole Blood 113 mg/dL (75-99)
[2017-06-08] MEDS: INSULIN DETEMIR 100 UNIT/ML 10 ML VIAL SQ SCH (22:03)
[2017-06-08] MEDS: SENNOSIDES-DOCUSATE SODIUM 1 EACH TAB PO SCH (22:06)
--- NOTE | 2017-06-08 22:35 | P.CNNES ---
History of Present Illness Consult date: 06/08/17 Requesting physician: Srinath Shepard Reason for Consult: altered mental status Chief complaint: Confusion History of Present Illness: Neurology is consulting on a 72-year-old female brought to the ED for evaluation for weakness and confusion. Patient was brought to the ED on . She was found by family confused and on the kitchen floor naked. Imaging for fracture was negative Patient has been largely noncompliant with her medical care post CABG and is diabetic with unmanaged glucose of 365. Patient has also failed to manage her hypertension status and blood pressure control. Patient's laboratory bloodwork was noted to have elevated WBC at 15, elevated BUN/creatinine, elevated glucose, elevated lactic acid. She does have a history of acute kidney injury in the past. EEG has been ordered, carotid Doppler noted a significant stenosis, bilateral intimal thickening plaque seen throughout the bilateral carotids, elevated right ECA and left ECA velocities. On contact, the patient was seated in bedside chair with family present, in no acute distress in the ICU. Patient was alert but somewhat confused. Review of Systems systems not noted in HPI are negative Past Medical History Past Medical History: Asthma, Coronary Artery Disease (CAD), COPD, Diabetes Mellitus, Hyperlipidemia, Hypertension, Memory Impairment, Myocardial Infarction ([place]), Osteoarthritis (OA), Renal Disease Additional Past Medical History / Comment(s): Coronary artery disease with previous bypass surgery, the patient underwent VELARDE to LAD and she has also had previous stent to RCA. The surgery was done in March 2017, stage III chronic kidney disease/failure, diabetes mellitus type 2 poorly controlled, medical noncompliance, depression, COPD FEV1 of 57% of predicted, hypertension, hyperlipidemia, carotid artery disease with previous endarterectomy on the right back in 2011, obesity with BMI of 35.2, smoker, degenerative arthritis, chronic back pain, history of urine checked infections, Last Myocardial Infarction Date:: 2009 History of Any Multi-Drug Resistant Organisms: None Reported Past Surgical History: Appendectomy, Coronary Bypass/CABG, Heart Catheterization , Heart Catheterization With Stent, Hysterectomy Additional Past Surgical History / Comment(s): 04/12/17 CABG 1 vessel, drug- eluting stent placed to the RCA in 2009, right carotid endarterectomy in 2011, colonoscopy.. Past Anesthesia/Blood Transfusion Reactions: No Reported Reaction Date of Last Stent Placement:: 2009 Smoking Status: Former smoker - Past Family History Mother Family Medical History: No Reported History Father Family Medical History: Coronary Artery Disease (CAD) Medications and Allergies Home Medications Medication Instructions Recorded Confirmed Type Budesonide-Formot 160-4.5 Mcg 2 puff INHALATION RT-BID 01/19/17 06/07/17 History [Symbicort 160-4.5 Mcg Inhaler] Cholecalciferol [Vitamin D3] 2,000 unit PO DAILY 01/19/17 06/07/17 History Ipratropium/Albuterol Sulfate 2 puff INHALATION RT-QID PRN 01/19/17 06/07/17 History [Combivent Respimat Inhaler] Atorvastatin [Lipitor] 80 mg PO DAILY #90 tab 04/03/17 06/07/17 Rx Aspirin 325 mg PO DAILY 04/09/17 06/07/17 History Ipratropium-Albuterol Nebulize 3 ml INHALATION RT-QID PRN 04/12/17 06/07/17 History [Duoneb 0.5 mg-3 mg/3 ml Soln] Clopidogrel [Plavix] 75 mg PO DAILY tab 04/19/17 06/07/17 Rx Lisinopril [Zestril] 20 mg PO DAILY@1200 tab 04/19/17 06/07/17 Rx Magnesium Hydroxide [Milk of 2,400 mg PO BID PRN ml 04/19/17 06/07/17 Rx Magnesia Concentrate] Metoprolol Tartrate [Lopressor] 75 mg PO BID tab 04/19/17 06/07/17 Rx Nystatin 100,000 Unit/gm Powd 1 applic TOPICAL BID applic 04/19/17 06/07/17 Rx [Mycostatin Powder] Pantoprazole [Protonix] 40 mg PO AC-BRKFST tablet. 04/19/17 06/07/17 Rx Benzocaine/Menthol Lozeng [Cepacol 1 lozenge MUCOUS MEM Q2H PRN 05/22/17 History lozenge] HYDROcodone/APAP 5-325MG [[place] 1 - 2 tab PO Q4HR PRN 05/22/17 06/07/17 History 5-325] Insulin Aspart [NovoLOG Flexpen] 10 units SQ AC-TID 05/22/17 06/07/17 History Sennosides-Docusate Sodium 2 tab PO HS 05/22/17 06/07/17 History [Senokot-S] Escitalopram [Lexapro] 10 mg PO DAILY #30 tab 05/25/17 06/07/17 Rx Insulin Detemir [Levemir] 50 unit SQ HS syr 05/25/17 06/07/17 Rx Allergies Allergy/AdvReac Type Severity Reaction Status Date / Time No Known Allergies Allergy Verified 06/07/17 09:17 Physical Examination - Vital Signs Vital Signs: Vital Signs Temp Pulse Pulse Resp BP BP BP 06/08/17 21:24 75 132/70 06/08/17 18:40 97.3 F L 75 18 109/60 06/08/17 15:53 98.6 F 85 20 123/66 06/08/17 12:00 83 20 93/48 06/08/17 11:00 101 H 27 H 119/63 06/08/17 10:00 80 17 124/58 06/08/17 09:00 83 15 127/60 06/08/17 08:00 98.2 F 84 18 127/65 06/08/17 07:00 90 17 113/58 06/08/17 06:50 87 23 113/58 06/08/17 06:40 91 20 113/58 06/08/17 06:30 81 17 113/58 06/08/17 06:20 83 16 113/58 06/08/17 06:10 94 22 121/62 06/08/17 06:00 87 28 H 113/58 06/08/17 05:50 86 17 06/08/17 05:40 87 15 90/49 06/08/17 05:30 92 17 90/49 06/08/17 05:20 88 8 L 90/49 06/08/17 05:10 85 16 100/58 06/08/17 05:00 88 33 H 100/58 06/08/17 04:50 87 15 100/58 06/08/17 04:40 86 16 105/49 06/08/17 04:30 87 15 105/49 06/08/17 04:20 92 33 H 105/49 06/08/17 04:10 96 32 H 115/58 06/08/17 04:00 98.8 F 87 16 115/58 06/08/17 03:50 88 17 115/58 06/08/17 03:40 87 16 97/44 06/08/17 03:30 89 16 97/44 06/08/17 03:20 85 17 78/41 06/08/17 03:10 87 18 110/51 06/08/17 03:00 88 17 110/51 06/08/17 02:50 90 16 110/51 06/08/17 02:40 87 17 98/56 06/08/17 02:30 87 15 98/56 06/08/17 02:20 83 16 71/41 06/08/17 02:10 84 16 103/46 06/08/17 02:00 82 16 103/46 06/08/17 01:50 85 17 103/46 06/08/17 01:40 85 16 86/50 06/08/17 01:30 87 16 86/50 06/08/17 01:20 92 22 86/50 06/08/17 01:10 86 18 75/38 06/08/17 01:00 87 20 75/38 06/08/17 00:50 86 17 84/36 06/08/17 00:40 90 17 125/65 06/08/17 00:31 96 06/08/17 00:30 96 19 125/65 06/08/17 00:20 92 16 125/65 06/08/17 00:17 96 06/08/17 00:10 96 17 116/57 06/08/17 00:00 98.5 F 96 20 116/57 06/07/17 23:50 102 H 18 116/57 06/07/17 23:46 100 19 116/57 06/07/17 23:40 96 18 104/47 06/07/17 23:30 100 21 104/47 06/07/17 23:20 96 17 104/47 06/07/17 23:10 101 H 17 123/58 06/07/17 23:00 101 H 16 123/58 06/07/17 22:50 104 H 18 123/58 06/07/17 22:40 105 H 17 110/48 06/07/17 22:30 103 H 17 110/48 Pulse Ox 06/08/17 21:24 95 06/08/17 18:40 92 L 06/08/17 15:53 95 06/08/17 12:00 94 L 06/08/17 11:00 96 06/08/17 10:00 94 L 06/08/17 09:00 93 L 06/08/17 08:00 95 06/08/17 07:00 94 L 06/08/17 06:50 96 06/08/17 06:40 96 06/08/17 06:30 94 L 06/08/17 06:20 93 L 06/08/17 06:10 92 L 06/08/17 06:00 92 L 06/08/17 05:50 93 L 06/08/17 05:40 94 L 06/08/17 05:30 94 L 06/08/17 05:20 97 06/08/17 05:10 96 06/08/17 05:00 95 06/08/17 04:50 96 06/08/17 04:40 95 06/08/17 04:30 94 L 06/08/17 04:20 06/08/17 04:10 94 L 06/08/17 04:00 94 L 06/08/17 03:50 95 06/08/17 03:40 95 06/08/17 03:30 96 06/08/17 03:20 94 L 06/08/17 03:10 95 06/08/17 03:00 95 06/08/17 02:50 96 06/08/17 02:40 96 06/08/17 02:30 06/08/17 02:20 94 L 06/08/17 02:10 94 L 06/08/17 02:00 94 L 06/08/17 01:50 96 06/08/17 01:40 95 06/08/17 01:30 94 L 06/08/17 01:20 93 L 06/08/17 01:10 92 L 06/08/17 01:00 94 L 06/08/17 00:50 95 06/08/17 00:40 94 L 06/08/17 00:31 06/08/17 00:30 97 06/08/17 00:20 98 06/08/17 00:17 06/08/17 00:10 94 L 06/08/17 00:00 94 L 06/07/17 23:50 94 L 06/07/17 23:46 94 L 06/07/17 23:40 95 06/07/17 23:30 96 06/07/17 23:20 97 06/07/17 23:10 95 06/07/17 23:00 96 06/07/17 22:50 96 06/07/17 22:40 96 06/07/17 22:30 96 Intake and Output 06/08/17 06/08/17 06/08/17 06:59 14:59 22:59 Intake Total 1087.5 800 Output Total 245 110 175 Balance 842.5 690 -175 Intake: IV 700 Sodium Chloride 0.9% 1, 700 000 ml @ 100 mls/hr IV . Q10H [facility] Rx#:[id number] Intake, IV Titration 837.5 100 Amount Magnesium Sulfate-D5w Pmx 100 1 gm In Dextrose/Water 1 100ml.bag @ 100 mls/hr IVPB ONCE ONE Rx#: [id number] Piperacillin-Tazobactam 3 37.5 .375 gm In Dextrose/Water 1 50ml.bag @ 12.5 mls/hr IVPB Q8H [facility] Rx#: [id number] Sodium Chloride 0.9% 1, 700 100 000 ml @ 100 mls/hr IV . Q10H [facility] Rx#:[id number] Oral 250 Output: Urine 245 110 175 Other: Voiding Method Indwelling Catheter Indwelling Catheter Indwelling Catheter # Bowel Movements 2 1 Weight 73.9 kg General appearance: Alert, no apparent distress. Head: Atraumatic, normocephalic, normal inspection Eyes: Well appearance, PERRLA, EOMI. Absent scleral icterus, conjunctival injection, nystagmus, periorbital swelling. Ear, nose and throat: Normal exam, mucous membranes moist Neck: Normal inspection, absent tenderness, lymphadenopathy. Respiratory: No increased work of breathing Cardiovascular: Regular rate, normal rhythm, normal heart sounds. Absent systolic murmur, diastolic murmur, rubs, gallops, clicks. GI/abdominal: Normal bowel sounds, nondistended, no tenderness, no guarding, no rebound, no rigidity. Extremities: All range of motion, normal capillary refill, no tenderness, pedal edema joint swelling, calf tenderness. Neurological: Alert but confused, cranial nerves II through XII intact, no lateralizing weakness, no seizure activity noted on physical exam, no pronator drift and no nystagmus. Psychological: Confused. Results - Laboratory Findings CBC and BMP: 06/08/17 04:23 06/08/17 04:23 Abnormal Lab Findings: Abnormal Labs 06/07/17 06/07/17 06/07/17 09:53 09:53 09:53 WBC 11.5 H Neutrophils # 10.6 H Neutrophils # (Manual) Lymphocytes # 0.3 L Metamyelocytes # (Man) Myelocytes # (Manual) Sodium 135 L Chloride 94 L BUN 20 H Creatinine 1.07 H Glucose 377 H POC Glucose (mg/dL) Plasma Lactic Acid John 2.7 H* Magnesium 1.5 L Alkaline Phosphatase 189 H Urine Protein Urine Glucose (UA) Urine WBC Hyaline Casts Urine Mucus 06/07/17 06/07/17 06/07/17 11:08 13:56 16:26 WBC Neutrophils # Neutrophils # (Manual) Lymphocytes # Metamyelocytes # (Man) Myelocytes # (Manual) Sodium Chloride BUN Creatinine Glucose POC Glucose (mg/dL) 321 H Plasma Lactic Acid John 3.6 H* Magnesium Alkaline Phosphatase Urine Protein 1+ H Urine Glucose (UA) 4+ H Urine WBC 6 H Hyaline Casts 6 H Urine Mucus Rare H 06/07/17 06/07/17 06/07/17 17:50 19:28 19:53 WBC Neutrophils # Neutrophils # (Manual) Lymphocytes # Metamyelocytes # (Man) Myelocytes # (Manual) Sodium Chloride BUN Creatinine Glucose POC Glucose (mg/dL) 315 H 432 H Plasma Lactic Acid John 3.9 H* Magnesium Alkaline Phosphatase Urine Protein Urine Glucose (UA) Urine WBC Hyaline Casts Urine Mucus 06/07/17 06/07/17 06/08/17 20:26 22:23 04:23 WBC 15.1 H Neutrophils # Neutrophils # (Manual) 13.10 H Lymphocytes # Metamyelocytes # (Man) 0.30 H Myelocytes # (Manual) 0.15 H Sodium Chloride BUN Creatinine Glucose POC Glucose (mg/dL) 331 H 273 H Plasma Lactic Acid John Magnesium Alkaline Phosphatase Urine Protein Urine Glucose (UA) Urine WBC Hyaline Casts Urine Mucus 06/08/17 06/08/17 06/08/17 04:23 07:34 12:45 WBC Neutrophils # Neutrophils # (Manual) Lymphocytes # Metamyelocytes # (Man) Myelocytes # (Manual) Sodium 135 L Chloride BUN 29 H Creatinine 1.40 H Glucose 172 H POC Glucose (mg/dL) 134 H 114 H Plasma Lactic Acid John Magnesium Alkaline Phosphatase Urine Protein Urine Glucose (UA) Urine WBC Hyaline Casts Urine Mucus 06/08/17 06/08/17 17:33 20:53 WBC Neutrophils # Neutrophils # (Manual) Lymphocytes # Metamyelocytes # (Man) Myelocytes # (Manual) Sodium Chloride BUN Creatinine Glucose POC Glucose (mg/dL) 108 H 113 H Plasma Lactic Acid John Magnesium Alkaline Phosphatase Urine Protein Urine Glucose (UA) Urine WBC Hyaline Casts Urine Mucus Assessment and Plan (1) Altered mental status Current Visit: Yes Status: Acute Code(s): R41.82 - ALTERED MENTAL STATUS, UNSPECIFIED SNOMED Code(s): 040674701 (2) Dehydration Current Visit: Yes Status: Acute Code(s): E86.0 - DEHYDRATION SNOMED Code( s): 56876645 (3) Encephalopathy Current Visit: Yes Status: Acute Code(s): G93.40 - ENCEPHALOPATHY, UNSPECIFIED SNOMED Code(s): 68546919 (4) Lactic acidosis Current Visit: Yes Status: Acute Code(s): E87.2 - ACIDOSIS SNOMED Code(s) : 59670080 (5) Sepsis Current Visit: Yes Status: Acute Code(s): A41.9 - SEPSIS, UNSPECIFIED ORGANISM SNOMED Code(s): 24801564 (6) RAMONA (acute kidney injury) Current Visit: No Status: Acute Code(s): N17.9 - ACUTE KIDNEY FAILURE, UNSPECIFIED SNOMED Code(s): 96457478 Plan: 1. Encephalopathy secondary to infectious process 2. Acute kidney injury 3. Sepsis 4. Lactic acidosis 5. Dehydration 6. altered mental status Patient does appear to be experiencing encephalopathy secondary to infectious process as her primary underlying etiology. However, specific infectious processes yet to be determined. Infectious disease is consulted. EEG is currently pending. B12 and TSH are also pending. Patient is known to have significant diabetic history with unmanaged blood glucose levels and is also noted to have glucosuria. Patient does have extensive cardiac disease with CABG in March 2017. continue correct underlying etiologyinfectious process, continue antibiotic therapy, continue neurological checks and notify neurology with any changes. Status: Neurology will continue to follow and provide updates as needed or warranted. Contact our office with any questions or concerns. Patient to follow up in our office within 10 days of discharge. SHIRA Becerra-C Neurology For DR Denzel Norris MD I discussed the patients history, physical exam, diagnostic testing, lab work and imaging with Dr Norris prior to implementing the plan above. He agrees with the plan as implemented prior to implementation.
[2017-06-09] MEDS: SODIUM CHLORIDE 0.9% 1,000 ML IV SCH ×3 (00:29→21:19)
[2017-06-09 02:18] LABS: Glucose,Whole Blood 82 mg/dL (75-99)
[2017-06-09] MEDS: PIPERACILLIN-TAZOBACTAM 3.375 GM in DEXTROSE/WATER 1 50ML.BAG IVPB SCH ×2 (02:42→10:32)
[2017-06-09] MEDS: IPRATROPIUM-ALBUTEROL 3 ML NEB INHALATION SCH ×5 (03:53→19:43)
[2017-06-09] MEDS ORDERED: VANCOMYCIN 1,250 MG in SODIUM CHLORIDE 0.9% 250 ML IVPB SCH (06:00)
[2017-06-09] MEDS: SYMBICORT 160-4.5 MCG INHALER INHALATION SCH ×2 (07:49→23:55)
[2017-06-09 07:52] LABS: Glucose,Whole Blood 68 mg/dL (75-99)
[2017-06-09 07:52] LABS: Glucose,Whole Blood 86 mg/dL (75-99)
[2017-06-09] MEDS: INSULIN ASPART 100 UNIT/ML 1 ML 10 ML VIAL SQ SCH ×7 (07:58→21:18)
[2017-06-09] MEDS: PANTOPRAZOLE 40 MG TABLET PO SCH (08:30)
[2017-06-09] MEDS: ASPIRIN 325 MG TAB PO SCH (08:30)
[2017-06-09] MEDS: ATORVASTATIN 80 MG TAB PO SCH (08:30)
[2017-06-09] MEDS: CLOPIDOGREL 75 MG TAB PO SCH (08:30)
[2017-06-09] MEDS: METOPROLOL TARTRATE 25 MG TAB PO SCH ×2 (08:30→21:47)
[2017-06-09] MEDS: ESCITALOPRAM 10 MG TAB PO SCH (08:30)
[2017-06-09] MEDS: CHOLECALCIFEROL 1,000 UNIT TAB PO SCH (08:30)
[2017-06-09] MEDS: NYSTATIN 100,000 UNIT/GM POWD 15 GM TOPICAL SCH ×2 (08:32→21:48)
[2017-06-09 09:00] LABS: Basophils # (A) 0.1 k/uL (0-0.2); Basophils % (A) 0 %; Eosinophils # (A) 0.3 k/uL (0-0.7); Eosinophils % (A) 2 %; HCT 36.6 % (34.0-46.0); HGB 11.7 gm/dL (11.4-16.0); Hypochromasia Slight; Lymphocytes % (A) 7 %; MCH 30.2 pg (25.0-35.0); MCHC 31.9 g/dL (31.0-37.0); MCV 94.7 fL (80.0-100.0); Mean Platelet Volume 7.8; Monocytes # (A) 0.4 k/uL (0-1.0); Monocytes % (A) 3 %; Neutrophils # (A) 11.7 k/uL (1.3-7.7); Neutrophils % (A) 86 %; Platelet Count 250 k/uL (150-450); RBC 3.86 m/uL (3.80-5.40); RDW 13.5 % (11.5-15.5); WBC 13.6 k/uL (3.8-10.6)
[2017-06-09 09:28] LABS: Calcium 8.3 mg/dL (8.4-10.2); Magnesium 1.9 mg/dL (1.6-2.3); Phosphorus 3.7 mg/dL (2.5-4.5)
[2017-06-09 12:09] LABS: Glucose,Whole Blood 239 mg/dL (75-99)
--- NOTE | 2017-06-09 14:23 | P.PN ---
Subjective Progress Note Date: 06/09/17 This is a 72-year-old female was brought in by EMS for evaluation of weakness and confusion. Patient apparently found by family members landing on the kitchen floor naked that. Patient is not sure how she got there. She was found sitting on a stool when EMS arrived. She was very slow to respond normally she is awake and alert as time progressed in route the patient did recover some of her mentation. She was found have a blood glucose of 365. I saw the patient and I also interviewed the daughter. Apparently the patient is not getting the appropriate medical care and since her bypass surgery in her health has been declining to the point where the patient has not been very strict blood pressure control and she has been taken and her vacation on a regular basis. In the emergency department, the patient had a CAT scan of the head that showed no acute abnormalities. Computed tomography scan of the spine showed no evidence of any acute fracture. Chest x-ray showed pulmonary vascular congestion and some interstitial edema. Pneumonia is doubtful although it's a possibility left lower lobe. The patient has some mild leukocytosis. Her initial lactic acid level was 2.5 and came up to 3.6. UA is negative. Influenza screen is negative. White cell count is minimally elevated at 11.5 and there is 93% neutrophilia. No significant anion gap metabolic acidosis. Anion gap is a 13. Bicarb level is at 28. Patient was awake. At a time of my evaluation she was moving all 4 extremities. No slurred speech. She was slow in answering questions. She denied having any chest pain. She was having some labored breathing over this improved as I was evaluating this patient and she became progressively more comfortable. No cough. No chest pain. No pleurisy. No hemoptysis. There is some swelling in the lower extremity especially on the right. No evidence of cellulitis. No evidence of any open wounds. No reported aspiration by family members. No head trauma. On 06/08/2017 I'm seeing this patient for a follow-up. As mentioned, the patient was seen on the medical floor and subsequently she got transferred to the intensive care unit due to concerns of her elevated lactic acid level. The patient got resuscitated IV fluids. The patient was covered with IV Zosyn. The patient felt much more alert and awake during this morning evaluation. In fact upon talking to her she did not remember that I saw yesterday evening. However today, she was able to recognize me and she was much more alert and communicative and verbal and lucid. She denied having any specific complaints. No cough or sputum production. No chest pain. Legs were swollen and there was some erythema over the anterior aspect of the lower extremities bilaterally which raises the possibility of questionable cellulitis. The blood cultures showing gram-positive cocci in chains. Urine analysis was negative and urine cultures are still pending for now. The chest x-ray showing cardiomegaly with some limited retrocardiac left basilar pulmonary infiltration. The white cell count is slightly elevated at 15.1. That is however significant bandemia up to 55%. There is also an acute kidney injury with a creatinine came up to 1.4. In terms of her fluid balance the patient has received more than 3 L of IV fluids and she is currently on 100 mL an hour of normal saline. The lactic acid level is down to 1.9 On 06/09/2017 the patient is being seen for a follow-up. Has no specific complaint that she is resting comfortably in bed. No respiratory distress. No cough or sputum production. The patient was treated for acute sepsis with a combination of Zosyn and vancomycin. Subsequent blood cultures revealed strep pneumo. This is likely than a pneumonia that resulted to septicemia. The patient's renal function is improving. Creatinine is down to 1.1. Once echo is at 13.6. Slightly improved compared to yesterday. No other significant events over the past 24 hours. She is resting comfortably in bed. Receiving antibiotics. The ultrasound the kidneys showed no obstructive uropathy. Left renal mid pole soft tissue lesion measuring 1.9 x 1.6 x 1.3 cm. Advised to get a CAT scan or an MRI at later stage. Meanwhile, the Doppler of the lower extremity was also done that showed no evidence of any DVT. Objective - Vital Signs Vital signs: Vital Signs Temp 97.6 F 06/09/17 07:00 Pulse 84 06/09/17 07:00 Resp 20 06/09/17 07:00 BP 129/60 06/09/17 07:00 Pulse Ox 96 06/09/17 07:00 Intake & Output 06/08/17 06/09/17 06/09/17 18:59 06:59 18:59 Intake Total 800 Output Total 285 Balance 515 Intake: IV 700 Sodium Chloride 0.9% 1, 700 000 ml @ 100 mls/hr IV . Q10H [facility] Rx#:[id number] Intake, IV Titration 100 Amount Sodium Chloride 0.9% 1, 100 000 ml @ 100 mls/hr IV . Q10H [facility] Rx#:[id number] Output: Urine 285 Other: Voiding Method Indwelling Catheter Incontinent Bedside Commode # Voids 2 # Bowel Movements 1 - Exam Gen. appearance the patient is alert and awake and following commands and answering questions appropriately. Head exam was generally normal. There was no scleral icterus or corneal arcus. Mucous membranes were moist.Neck was supple and without jugular venous distension, thyromegaly, or carotid bruits. Carotids were easily palpable bilaterally. There was no adenopathy. Patient has a Mallampati class IV and there is no goiter or neck masses. Lungs sounds are diminished otherwise clear. No crackles or wheezes or rhonchi. Heart sounds are regular, sternum stable clean and intact. Normal S1-S2. No cervical murmurs appreciated.Abdominal exam revealed normal bowel sounds. The abdomen was soft, non-tender, and without masses, organomegaly, or appreciable enlargement of the abdominal aorta. Extremities are swollen especially in the right lower extremity with +1 pitting edema. No cyanosis. No clubbing. No open wounds or sores. Neurologically, o awake and alert and the patient's encephalopathy is present much recovered. - Labs CBC & Chem 7: 06/09/17 08:15 06/09/17 08:15 Labs: Abnormal Lab Results - Last 24 Hours (Table) 06/07/17 06/08/17 06/08/17 Range/Units 19:28 17:33 20:53 WBC (3.8-10.6) k/uL Neutrophils # (1.3-7.7) k/uL Sodium (137-145) mmol/L Carbon Dioxide (22-30) mmol/L BUN (7-17) mg/dL Creatinine (0.52-1.04) mg/dL Glucose (74-99) mg/dL POC Glucose (mg/dL) 108 H 113 H (75-99) mg/dL Hemoglobin A1c 12.2 H (4.0-6.0) % Calcium (8.4-10.2) mg/dL 06/09/17 06/09/17 06/09/17 Range/Units 07:01 08:15 08:15 WBC 13.6 H (3.8-10.6) k/uL Neutrophils # 11.7 H (1.3-7.7) k/uL Sodium 136 L (137-145) mmol/L Carbon Dioxide 19 L (22-30) mmol/L BUN 25 H (7-17) mg/dL Creatinine 1.16 H (0.52-1.04) mg/dL Glucose 110 H (74-99) mg/dL POC Glucose (mg/dL) 68 L (75-99) mg/dL Hemoglobin A1c (4.0-6.0) % Calcium 8.3 L (8.4-10.2) mg/dL 06/09/17 Range/Units 11:54 WBC (3.8-10.6) k/uL Neutrophils # (1.3-7.7) k/uL Sodium (137-145) mmol/L Carbon Dioxide (22-30) mmol/L BUN (7-17) mg/dL Creatinine (0.52-1.04) mg/dL Glucose (74-99) mg/dL POC Glucose (mg/dL) 239 H (75-99) mg/dL Hemoglobin A1c (4.0-6.0) % Calcium (8.4-10.2) mg/dL Microbiology - Last 24 Hours (Table) 06/07/17 22:50 Urine Culture - Final Urine,Catheterized 06/07/17 09:53 Blood Culture Gram Stain - Preliminary Blood Blood Culture - Preliminary Streptococcus pneumoniae Assessment and Plan Plan: Assessment 1 altered mentation currently under investigation secondary to underlying sepsis. The patient or not to have a strep pneumonia septicemia which probably is resulting from an underlying lung infection/pneumonia. Currently on a combine and Zosyn and vancomycin combination. Mental status improved. Hemodynamically improved. The patient is currently on a medical floor. 2 COPD with an FEV1 of 57% of Predicted 3 acute kidney injury, improving and the renal function is also improving. 4 Coronary Artery Disease with Bypass Surgery in 2017 with VELARDE to LAD, Previous Coronary Intervention and Stenting to RCA 5 acute lactic acidosis, improving 6 Diabetes Mellitus with Poor Blood Sugar Control 7 Dementia 8 Poor Medication Compliance Possibly Secondary to Underlying Dementia 9 hypertension 10 hyperlipidemia 11 carotid artery disease with previous endarterectomy on the right 12 degenerative arthritis 13 chronic back pain 14 lactic acidosis, improving 15 Obesity with a BMI of 35.2 16 renal lesion not consistent of a cystic structure. Will need a CAT scan/MRI later stage. Plan IV fluids. Continue the IV fluids at 100 mL an hour. Monitor urine output. Continue Zosyn/ vancomycin. Kept on the IV fluids to 50 mL an hour. Rest of the medication be kept unchanged. We'll continue to follow. ID is on the case.
--- NOTE | 2017-06-09 14:36 | P.PN ---
Subjective Progress Note Date: 06/09/17 Principal diagnosis: Altered Mental Status Neurology is following on a 72-year-old female brought to the ED for evaluation of weakness and confusion. She was found on the kitchen floor naked. Imaging for fracture was negative. Patient is largely noncompliant with her medical post CABG. She isn't diabetic is unmanaged the glucose at 365. Mrs. Townsend manage her hypertension status and blood pressure control actively. He was, elevated lactic acid admission. She does have acute kidney injury in the past. EEG is taken not read. Doppler noted significant stenosis, bilateral thickening with plaque seen throughout the bilateral carotids, elevated right ECA and left ECA velocity. Interval update: (06/09/17): Patient was alert and oriented 3, acute distress, at bedside chair. Patient is still having intermittent confusion per nursing staff. Objective - Vital Signs Vital signs: Vital Signs Temp 97.6 F 06/09/17 07:00 Pulse 84 06/09/17 07:00 Resp 20 06/09/17 07:00 BP 129/60 06/09/17 07:00 Pulse Ox 96 06/09/17 07:00 Intake & Output 06/08/17 06/09/17 06/09/17 18:59 06:59 18:59 Intake Total 800 Output Total 285 Balance 515 Intake: IV 700 Sodium Chloride 0.9% 1, 700 000 ml @ 100 mls/hr IV . Q10H [facility] Rx#:[id number] Intake, IV Titration 100 Amount Sodium Chloride 0.9% 1, 100 000 ml @ 100 mls/hr IV . Q10H [facility] Rx#:[id number] Output: Urine 285 Other: Voiding Method Indwelling Catheter Incontinent Bedside Commode # Voids 2 # Bowel Movements 1 - Exam Gen. appearance: Alert, in no apparent distress Head: Atraumatic normocephalic, normal inspection Eyes: Well appearance, PERRL, EOMI. absent: Scleral icterus, conjunctival injection, nystagmus, periorbital swelling. Ear nose and throat: Normal exam, mucous membranes moist Neck: Normal inspection. Absent tenderness, lymphadenopathy Respiratory: No increased work of breathing. Cardiovascular: Regular rate, normal rhythm, normal heart sounds. Absent systolic murmur, diastolic murmur, rubs, gallops, clicks GIabdominal: Normal bowel sounds, non distended, no tenderness, no guarding, no rebound, no rigidity. Extremities: All range of motion, normal capillary refill, no tenderness, pedal edema, joint swelling, calf tenderness Neurological: Alert and oriented, cranial nerves II through XII intact, no unilateral lateralizing weakness, no seizure activity noted on physical exam, no pronator drift and no nystagmus. Psychological: Mood and affect appropriate setting - Labs CBC & Chem 7: 06/09/17 08:15 06/09/17 08:15 Labs: Abnormal Lab Results - Last 24 Hours (Table) 06/07/17 06/08/17 06/08/17 Range/Units 19:28 17:33 20:53 WBC (3.8-10.6) k/uL Neutrophils # (1.3-7.7) k/uL Sodium (137-145) mmol/L Carbon Dioxide (22-30) mmol/L BUN (7-17) mg/dL Creatinine (0.52-1.04) mg/dL Glucose (74-99) mg/dL POC Glucose (mg/dL) 108 H 113 H (75-99) mg/dL Hemoglobin A1c 12.2 H (4.0-6.0) % Calcium (8.4-10.2) mg/dL 06/09/17 06/09/17 06/09/17 Range/Units 07:01 08:15 08:15 WBC 13.6 H (3.8-10.6) k/uL Neutrophils # 11.7 H (1.3-7.7) k/uL Sodium 136 L (137-145) mmol/L Carbon Dioxide 19 L (22-30) mmol/L BUN 25 H (7-17) mg/dL Creatinine 1.16 H (0.52-1.04) mg/dL Glucose 110 H (74-99) mg/dL POC Glucose (mg/dL) 68 L (75-99) mg/dL Hemoglobin A1c (4.0-6.0) % Calcium 8.3 L (8.4-10.2) mg/dL 06/09/17 Range/Units 11:54 WBC (3.8-10.6) k/uL Neutrophils # (1.3-7.7) k/uL Sodium (137-145) mmol/L Carbon Dioxide (22-30) mmol/L BUN (7-17) mg/dL Creatinine (0.52-1.04) mg/dL Glucose (74-99) mg/dL POC Glucose (mg/dL) 239 H (75-99) mg/dL Hemoglobin A1c (4.0-6.0) % Calcium (8.4-10.2) mg/dL Microbiology - Last 24 Hours (Table) 06/07/17 22:50 Urine Culture - Final Urine,Catheterized 06/07/17 09:53 Blood Culture Gram Stain - Preliminary Blood Blood Culture - Preliminary Streptococcus pneumoniae Assessment and Plan (1) Altered mental status Current Visit: Yes Status: Acute Code(s): R41.82 - ALTERED MENTAL STATUS, UNSPECIFIED SNOMED Code(s): 866915186 (2) Dehydration Current Visit: Yes Status: Acute Code(s): E86.0 - DEHYDRATION SNOMED Code( s): 70447094 (3) Encephalopathy Current Visit: Yes Status: Acute Code(s): G93.40 - ENCEPHALOPATHY, UNSPECIFIED SNOMED Code(s): 31751174 (4) Lactic acidosis Current Visit: Yes Status: Acute Code(s): E87.2 - ACIDOSIS SNOMED Code(s) : 53546955 (5) Sepsis Current Visit: Yes Status: Acute Code(s): A41.9 - SEPSIS, UNSPECIFIED ORGANISM SNOMED Code(s): 12038686 (6) RAMONA (acute kidney injury) Current Visit: No Status: Acute Code(s): N17.9 - ACUTE KIDNEY FAILURE, UNSPECIFIED SNOMED Code(s): 75293609 Plan: 1. Encephalopathy secondary to infectious process 2. Acute kidney injury 3. Sepsis 4. Lactic acidosis 5. Dehydration 6. altered mental status Patient does appear to be experiencing encephalopathy secondary to infectious process as her primary underlying etiology. However, specific infectious processes yet to be determined. Infectious disease is consulted and currently managing. EEG is currently pending. B12 pending. TSH is normal. Patient is known to have significant diabetic history with unmanaged blood glucose levels and is also noted to have glucosuria. Patient does have extensive cardiac disease with CABG in March 2017. Continue correct underlying etiologyinfectious process, continue antibiotic therapy, continue neurological checks and notify neurology with any changes. Status: Neurology will continue to follow on an as-needed basis.. Contact our office with any questions or concerns. Patient to follow up in our office within 10 days of discharge. Cliff Vasquez, DRAW[employer]-C Neurology For DR Denzel Andres MD I discussed the patients history, physical exam, diagnostic testing, lab work and imaging with Dr Andres prior to implementing the plan above. He agrees with the plan as implemented prior to implementation.
--- NOTE | 2017-06-09 16:09 | P.PN ---
Subjective 68-year-old female was admitted secondary to sepsis and bacteremia with Streptococcus pneumoniae patient appears to have infiltrate in the left lung pneumonia may be the source of infection. Patient is both on vancomycin and Zosyn patient may just need Rocephin all infectious disease is following the patient because of which I'm not changing the antibiotic regimen at this point of time. Patient although feeling little bit better but still not doing well still remains on 3 L of oxygen. Constitutional: As mentioned in HPI Cardio vascular: denied any chest pain, palpitations Gastrointestinal denied any nausea vomiting Pulmonary: Does have shortness of breath and cough Neurologic denied any new focal deficits Objective - Vital Signs Vital signs: Vital Signs Temp 97.7 F 06/09/17 14:30 Pulse 64 06/09/17 14:30 Resp 20 06/09/17 14:30 BP 99/51 06/09/17 14:30 Pulse Ox 95 06/09/17 14:30 Intake & Output 06/08/17 06/09/17 06/09/17 18:59 06:59 18:59 Intake Total 800 Output Total 285 Balance 515 Intake: IV 700 Sodium Chloride 0.9% 1, 700 000 ml @ 50 mls/hr IV . Q20H [facility] Rx#:[id number] Intake, IV Titration 100 Amount Sodium Chloride 0.9% 1, 100 000 ml @ 50 mls/hr IV . Q20H [facility] Rx#:[id number] Output: Urine 285 Other: Voiding Method Indwelling Catheter Incontinent Bedside Commode # Voids 2 2 # Bowel Movements 1 4 - Exam PHYSICAL EXAMINATION: GENERAL: The patient is alert and oriented x3, not in any acute distress. Well developed, well nourished. HEENT: Pupils are round and equally reacting to light. EOMI. No scleral icterus. No conjunctival pallor. Normocephalic, atraumatic. No pharyngeal erythema. No thyromegaly. CARDIOVASCULAR: S1 and S2 present. No murmurs, rubs, or gallops. PULMONARY: Chest is clear to auscultation, no wheezing or crackles. ABDOMEN: Soft, nontender, nondistended, normoactive bowel sounds. No palpable organomegaly. MUSCULOSKELETAL: No joint swelling or deformity. EXTREMITIES: No cyanosis, clubbing, or pedal edema. NEUROLOGICAL: Gross neurological examination did not reveal any focal deficits. SKIN: No rashes. - Labs CBC & Chem 7: 06/09/17 08:15 06/09/17 08:15 Labs: Abnormal Lab Results - Last 24 Hours (Table) 06/07/17 06/08/17 06/08/17 Range/Units 19:28 17:33 20:53 WBC (3.8-10.6) k/uL Neutrophils # (1.3-7.7) k/uL Sodium (137-145) mmol/L Carbon Dioxide (22-30) mmol/L BUN (7-17) mg/dL Creatinine (0.52-1.04) mg/dL Glucose (74-99) mg/dL POC Glucose (mg/dL) 108 H 113 H (75-99) mg/dL Hemoglobin A1c 12.2 H (4.0-6.0) % Calcium (8.4-10.2) mg/dL 06/09/17 06/09/17 06/09/17 Range/Units 07:01 08:15 08:15 WBC 13.6 H (3.8-10.6) k/uL Neutrophils # 11.7 H (1.3-7.7) k/uL Sodium 136 L (137-145) mmol/L Carbon Dioxide 19 L (22-30) mmol/L BUN 25 H (7-17) mg/dL Creatinine 1.16 H (0.52-1.04) mg/dL Glucose 110 H (74-99) mg/dL POC Glucose (mg/dL) 68 L (75-99) mg/dL Hemoglobin A1c (4.0-6.0) % Calcium 8.3 L (8.4-10.2) mg/dL 06/09/17 Range/Units 11:54 WBC (3.8-10.6) k/uL Neutrophils # (1.3-7.7) k/uL Sodium (137-145) mmol/L Carbon Dioxide (22-30) mmol/L BUN (7-17) mg/dL Creatinine (0.52-1.04) mg/dL Glucose (74-99) mg/dL POC Glucose (mg/dL) 239 H (75-99) mg/dL Hemoglobin A1c (4.0-6.0) % Calcium (8.4-10.2) mg/dL Microbiology - Last 24 Hours (Table) 06/07/17 22:50 Urine Culture - Final Urine,Catheterized 06/07/17 09:53 Blood Culture Gram Stain - Preliminary Blood Blood Culture - Preliminary Streptococcus pneumoniae Assessment and Plan Plan: -Sepsis and bacteremia possibility of left lower lobe pneumonia, antibiotic management as mentioned above. -COPD with acute exacerbation leading to acute hypoxic as well as acute hypercapnic respiratory failure patient is on oxygen which will be continued patient is also on systemic steroids which will be continued -Acute kidney injury with possibility of acute tubular necrosis which is improving at this time -Coronary artery disease and CABG in the past -Type 2 diabetes mellitus -Hypertension -Hyperlipidemia -Hyperlipidemia -Chronic low back pain -Obesity. For above-mentioned chronic medical problems patient will be continued on appropriate home medications -
[2017-06-09 17:25] LABS: Glucose,Whole Blood 165 mg/dL (75-99)
[2017-06-09] MEDS: cefTRIAXone IN SWFI 2,000 MG/20 ML SYRINGE IVP SCH (18:00)
[2017-06-09 20:29] LABS: Glucose,Whole Blood 152 mg/dL (75-99)
[2017-06-09] MEDS: INSULIN DETEMIR 100 UNIT/ML 10 ML VIAL SQ SCH (21:18)
[2017-06-09] MEDS: SENNOSIDES-DOCUSATE SODIUM 1 EACH TAB PO SCH (21:48)
[2017-06-10] MEDS: IPRATROPIUM-ALBUTEROL 3 ML NEB INHALATION SCH ×6 (00:42→20:41)
[2017-06-10] MEDS ORDERED: VANCOMYCIN 1,250 MG in SODIUM CHLORIDE 0.9% 250 ML IVPB SCH (07:00)
[2017-06-10] MEDS: INSULIN ASPART 100 UNIT/ML 1 ML 10 ML VIAL SQ SCH ×7 (07:43→20:45)
[2017-06-10] MEDS: SYMBICORT 160-4.5 MCG INHALER INHALATION SCH ×2 (07:47→20:41)
[2017-06-10 08:03] LABS: Glucose,Whole Blood 69 mg/dL (75-99)
[2017-06-10 08:03] LABS: Glucose,Whole Blood 53 mg/dL (75-99)
[2017-06-10 08:19] LABS: Glucose,Whole Blood 83 mg/dL (75-99)
[2017-06-10 08:31] LABS: Basophils # (A) 0.1 k/uL (0-0.2); Basophils % (A) 1 %; Eosinophils # (A) 0.3 k/uL (0-0.7); Eosinophils % (A) 3 %; HCT 36.6 % (34.0-46.0); HGB 11.5 gm/dL (11.4-16.0); Hypochromasia Moderate; Lymphocytes # (A) 1.1 k/uL (1.0-4.8); Lymphocytes % (A) 11 %; MCH 30.2 pg (25.0-35.0); MCHC 31.4 g/dL (31.0-37.0); MCV 95.9 fL (80.0-100.0); Mean Platelet Volume 8.6; Monocytes # (A) 0.6 k/uL (0-1.0); Monocytes % (A) 6 %; Neutrophils # (A) 7.6 k/uL (1.3-7.7); Neutrophils % (A) 78 %; Platelet Count 221 k/uL (150-450); RBC 3.82 m/uL (3.80-5.40); RDW 14.2 % (11.5-15.5); WBC 9.8 k/uL (3.8-10.6)
[2017-06-10] MEDS: ASPIRIN 325 MG TAB PO SCH (08:32)
[2017-06-10] MEDS: CHOLECALCIFEROL 1,000 UNIT TAB PO SCH (08:32)
[2017-06-10] MEDS: PANTOPRAZOLE 40 MG TABLET PO SCH (08:32)
[2017-06-10] MEDS: ATORVASTATIN 80 MG TAB PO SCH (08:32)
[2017-06-10] MEDS: ESCITALOPRAM 10 MG TAB PO SCH (08:32)
[2017-06-10] MEDS: CLOPIDOGREL 75 MG TAB PO SCH (08:32)
[2017-06-10] MEDS: NYSTATIN 100,000 UNIT/GM POWD 15 GM TOPICAL SCH ×2 (08:32→21:23)
[2017-06-10] MEDS: METOPROLOL TARTRATE 25 MG TAB PO SCH ×2 (08:32→21:24)
[2017-06-10] MEDS ORDERED: LOPERAMIDE 2 MG CAP PO STA (08:48)
--- NOTE | 2017-06-10 08:48 | P.PN ---
Subjective Progress Note Date: 06/09/17 Principal diagnosis: Confusion 72-year-old woman who presents to the emergency center by EMS after the family found the patient confused laying naked on the kitchen floor. The patient was unable to relate how she got it kitchen because a family was concerned EMS was called. Apparently the family had gotten her sitting up the time EMS arrived. She was still very confused and had evidence of an elevated blood sugar. The patient has a known history of coronary artery disease status post coronary artery bypass grafting procedure in March 2017. Apparently she has not been taking good care of herself and that she is not compliant with her medications and has not been monitoring her blood sugars or her blood pressure. Upon arrival stat computed tomography scan failed reveal evidence of any acute intracranial abnormalities. Patient was given some resuscitation was having initial some improvement. However she had worsening lactic acidosis and her mental status was still somewhat poor and constantly was transferred to the intensive care unit. With further fluid resuscitation she resolved her lactic acidosis and since then has had some improvement of her mental status. She is regaining some appetite is denying nausea but has developed several loose stools. The patient remains a poor historian does not relate to the events of what happened at the time of her admission. But does relate she feels somewhat better. Does not recall fevers, chills or rigors before becoming ill. No notation of any pain in her chest, sputum production or other acute change Patient is feeling considerably better today. Is moving out of the ICU. Less short of breath. Is able to eat. Objective - Vital Signs Vital signs: Vital Signs Temp 97.1 F L 06/10/17 06:36 Pulse 86 06/10/17 07:59 Resp 16 06/10/17 06:36 BP 143/69 06/10/17 06:36 Pulse Ox 96 06/10/17 07:50 Intake & Output 06/09/17 06/10/17 06/10/17 18:59 06:59 18:59 Intake Total 600 Balance 600 Intake: IV 600 Sodium Chloride 0.9% 1, 600 000 ml @ 50 mls/hr IV . Q20H [facility] Rx#:[id number] Other: Voiding Method Bedside Commode # Voids 1 1 # Bowel Movements 4 - Exam 72-year-old woman who has mild obesity is sitting up in the intensive care unit sipping some T stating that she feels somewhat better remains a very poor historian HEENT: Anicteric conjunctiva are pink and moist nasal mucosa grossly intact without significant lesions, there is no thrush. Neck: The neck is supple without significant lymphadenopathy or thyromegaly. Lungs: Symmetrical air entry is noted. Crackles at left base are noted. No bronchial sounds are noted or egophony. Heart: Irregular with an audible S1 and S2 soft S4 no murmur click or rub. , PMI was nondisplaced. Abdomen: Mildly obese, Positive bowel sounds soft and nontender without palpable masses or organomegaly. There was no guarding or rebound. Has a liquid stool while being examined without complaints of pain Extremities: The upper extremities have excellent pulses they are symmetric, no significant petechiae or telangiectasia. No splinter hemorrhages were noted. Lower extremity is evidence of some chronic venous stasis evidence of some chronic skin changes especially in the right lower extremity. There is evidence of some mild erythema with no open ulcerations or drainage on the right pretibial area. Very dry skin to the heels is noted and there is a fissure on the right heel without drainage or tenderness. Neuro: Awake alert oriented to person person and place. Does not have gross focal sensory motor deficits on exam. Mentation is slightly clearer today. - Labs CBC & Chem 7: 06/10/17 07:56 06/09/17 08:15 Labs: Abnormal Lab Results - Last 24 Hours (Table) 06/07/17 06/09/17 06/09/17 Range/Units 19:28 08:15 08:15 WBC 13.6 H (3.8-10.6) k/uL Neutrophils # 11.7 H (1.3-7.7) k/uL Sodium 136 L (137-145) mmol/L Carbon Dioxide 19 L (22-30) mmol/L BUN 25 H (7-17) mg/dL Creatinine 1.16 H (0.52-1.04) mg/dL Glucose 110 H (74-99) mg/dL POC Glucose (mg/dL) (75-99) mg/dL Hemoglobin A1c 12.2 H (4.0-6.0) % Calcium 8.3 L (8.4-10.2) mg/dL 06/09/17 06/09/17 06/09/17 Range/Units 11:54 17:17 20:26 WBC (3.8-10.6) k/uL Neutrophils # (1.3-7.7) k/uL Sodium (137-145) mmol/L Carbon Dioxide (22-30) mmol/L BUN (7-17) mg/dL Creatinine (0.52-1.04) mg/dL Glucose (74-99) mg/dL POC Glucose (mg/dL) 239 H 165 H 152 H (75-99) mg/dL Hemoglobin A1c (4.0-6.0) % Calcium (8.4-10.2) mg/dL 06/10/17 06/10/17 Range/Units 07:42 08:02 WBC (3.8-10.6) k/uL Neutrophils # (1.3-7.7) k/uL Sodium (137-145) mmol/L Carbon Dioxide (22-30) mmol/L BUN (7-17) mg/dL Creatinine (0.52-1.04) mg/dL Glucose (74-99) mg/dL POC Glucose (mg/dL) 53 L 69 L (75-99) mg/dL Hemoglobin A1c (4.0-6.0) % Calcium (8.4-10.2) mg/dL Microbiology - Last 24 Hours (Table) 06/07/17 09:53 Blood Culture Gram Stain - Final Blood Blood Culture - Final Streptococcus pneumoniae 06/07/17 22:50 Urine Culture - Final Urine,Catheterized Laboratory Results WBC 9.8 k/uL (3.8-10.6) 06/10/17 07:56 RBC 3.82 m/uL (3.80-5.40) 06/10/17 07:56 Hgb 11.5 gm/dL (11.4-16.0) 06/10/17 07:56 Hct 36.6 % (34.0-46.0) 06/10/17 07:56 MCV 95.9 fL (80.0-100.0) 06/10/17 07:56 MCH 30.2 pg (25.0-35.0) 06/10/17 07:56 MCHC 31.4 g/dL (31.0-37.0) 06/10/17 07:56 RDW 14.2 % (11.5-15.5) 06/10/17 07:56 Plt Count 221 k/uL (150-450) 06/10/17 07:56 Neutrophils % 78 % 06/10/17 07:56 Neutrophils % (Manual) 32 % 06/08/17 04:23 Band Neutrophils % 55 % 06/08/17 04:23 Lymphocytes % 11 % 06/10/17 07:56 Lymphocytes % (Manual) 7 % 06/08/17 04:23 Monocytes % 6 % 06/10/17 07:56 Monocytes % (Manual) 4 % 06/08/17 04:23 Eosinophils % 3 % 06/10/17 07:56 Eosinophils % (Manual) 1 % 06/08/17 04:23 Basophils % 1 % 06/10/17 07:56 Metamyelocytes % 2 % 06/08/17 04:23 Myelocytes % 1 % 06/08/17 04:23 Neutrophils # 7.6 k/uL (1.3-7.7) 06/10/17 07:56 Neutrophils # (Manual) 13.10 k/uL (1.3-7.7) H 06/08/17 04:23 Lymphocytes # 1.1 k/uL (1.0-4.8) 06/10/17 07:56 Lymphocytes # (Manual) 1.06 k/uL (1.0-4.8) 06/08/17 04:23 Monocytes # 0.6 k/uL (0-1.0) 06/10/17 07:56 Monocytes # (Manual) 0.60 k/uL (0-1.0) 06/08/17 04:23 Eosinophils # 0.3 k/uL (0-0.7) 06/10/17 07:56 Eosinophils # (Manual) 0.15 k/uL (0-0.7) 06/08/17 04:23 Basophils # 0.1 k/uL (0-0.2) 06/10/17 07:56 Metamyelocytes # (Man) 0.30 k/uL (0) H 06/08/17 04:23 Myelocytes # (Manual) 0.15 k/uL (0) H 06/08/17 04:23 Nucleated RBCs 0 /100 WBC (0-0) 06/08/17 04:23 Manual Slide Review Performed 06/07/17 09:53 Toxic Vacuolation Present 06/08/17 04:23 Polychromasia Present 06/08/17 04:23 Hypochromasia Moderate 06/10/17 07:56 Poikilocytosis (manual Present 06/07/17 09:53 Anisocytosis (manual) Present 06/08/17 04:23 Sodium 136 mmol/L (137-145) L 06/09/17 08:15 Potassium 4.0 mmol/L (3.5-5.1) 06/09/17 08:15 Chloride 106 mmol/L (98-107) 06/09/17 08:15 Carbon Dioxide 19 mmol/L (22-30) L 06/09/17 08:15 Anion Gap 11 mmol/L 06/09/17 08:15 BUN 25 mg/dL (7-17) H 06/09/17 08:15 Creatinine 1.16 mg/dL (0.52-1.04) H 06/09/17 08:15 Est GFR (MDRD) Af Amer 55 (>60 ml/min/1.73 sqM) 06/09/17 08:15 Est GFR (MDRD) Non-Af 46 (>60 ml/min/1.73 sqM) 06/09/17 08:15 Glucose 110 mg/dL (74-99) H 06/09/17 08:15 POC Glucose (mg/dL) 83 mg/dL (75-99) 06/10/17 08:16 POC Glu Trim Line Worker ID Tricia Mckeon 06/10/17 08:[address] Glu mg/dL 303 06/07/17 19:28 Hemoglobin A1c 12.2 % (4.0-6.0) H 06/07/17 19:28 Lactic Ac Sepsis Rflx Y 06/07/17 14:59 Plasma Lactic Acid John 1.9 mmol/L (0.7-2.0) 06/08/17 04:23 Calcium 8.3 mg/dL (8.4-10.2) L 06/09/17 08:15 Phosphorus 3.7 mg/dL (2.5-4.5) 06/09/17 08:15 Magnesium 1.9 mg/dL (1.6-2.3) 06/09/17 08:15 Total Bilirubin 1.1 mg/dL (0.2-1.3) 06/07/17 09:53 AST 20 U/L (14-36) 06/07/17 09:53 ALT 20 U/L (9-52) 06/07/17 09:53 Alkaline Phosphatase 189 U/L (38-126) H 06/07/17 09:53 Ammonia <9 umol/L (<30) 06/07/17 13:56 Total Creatine Kinase 63 U/L (30-135) 06/07/17 09:53 CK-MB (CK-2) 1.6 ng/mL (0.0-2.4) 06/07/17 09:53 CK-MB (CK-2) Rel Index 2.5 06/07/17 09:53 Total Protein 6.3 g/dL (6.3-8.2) 06/07/17 09:53 Albumin 3.6 g/dL (3.5-5.0) 06/07/17 09:53 TSH 0.995 mIU/L (0.465-4.680) 06/08/17 04:23 Urine Color Yellow 06/07/17 11:08 Urine Appearance Clear (Clear) 06/07/17 11:08 Urine pH 6.5 (5.0-8.0) 06/07/17 11:[address] 1.018 (1.001-1.035) 06/07/17 11:08 Urine Protein 1+ (Negative) H 06/07/17 11:08 Urine Glucose (UA) 4+ (Negative) H 06/07/17 11:08 Urine Ketones Negative (Negative) 06/07/17 11:08 Urine Blood Negative (Negative) 06/07/17 11:08 Urine Nitrite Negative (Negative) 06/07/17 11:08 Urine Bilirubin Negative (Negative) 06/07/17 11:08 Urine Urobilinogen <2.0 mg/dL (<2.0) 06/07/17 11:08 Ur Leukocyte Esterase Negative (Negative) 06/07/17 11:08 Urine RBC 1 /hpf (0-5) 06/07/17 11:08 Urine WBC 6 /hpf (0-5) H 06/07/17 11:08 Ur Squamous Epith Cells 1 /hpf (0-4) 06/07/17 11:08 Hyaline Casts 6 /lpf (0-2) H 06/07/17 11:08 WBC Casts 4 /lpf (0) 06/07/17 11:08 Urine Mucus Rare /hpf (None) H 06/07/17 11:08 Acetone, Qual Negative (Negative) 06/07/17 09:53 C. difficile (EIA) Intrp Negative (Negative) 06/09/17 14:20 Influenza Type A RNA Not Detected (Not Detectd) 06/07/17 14:44 Influenza Type B (PCR) Not Detected (Not Detectd) 06/07/17 14:44 Microbiology 06/07/17 09:53 Blood Blood Culture Gram Stain - Final 06/07/17 09:53 Blood Blood Culture - Final Streptococcus pneumoniae 06/07/17 22:50 Urine,Catheterized Urine Culture - Final 06/07/17 09:53 Blood Blood Culture - Final Assessment and Plan (1) Sepsis Narrative/Plan: 72-year-old female presents to Hospital via EMS after being found by her family laying on the floor. The patient has no recollection of the event of the time frame around it. Is showing some improvement at this point in time. Distal somewhat vague. However does not have any lateralizing focal deficits at this time. Computed tomography scan of brain was negative. The patient however did become progressively more septic with elevated lactic acid with good response to fluid resuscitation. She requires no vasopressor therapy. She is improved at this point in time but is having some difficulties with some loose stool for C. diff testing was canceled because of stool consistency. She does have a leukocytosis but no significant fever or hypothermia. The patient does however have evidence of possible blood culture with gram- positive cocci likely streptococcal in nature.. Thus there are concerns to Streptococcus pneumoniae pneumonia and sepsis as a cause of her current illness. The blood culture has been clarified as Streptococcus pneumoniae and chest x- ray does show evidence of infiltrate and constantly underlying pneumonia with sepsis appears to be the etiology for current sepsis and illness. She 12 starting show some improvement. Antimicrobial therapy is to Rocephin at this time. Continue ongoing supportive care. This has some mild erythema to the right lower extremity however does not appear to be significantly tender, there is no open lesions are draining ulcers. Patient does not have a noted history of C. diff and current stool or is not consistent will be monitored closely. Leukocytosis due to her current sepsis. Is having some loose stools does not appear to be C. diff some Imodium can be added. Current Visit: Yes Status: Acute Code(s): A41.9 - SEPSIS, UNSPECIFIED ORGANISM SNOMED Code(s): 53390729 (2) Encephalopathy Current Visit: Yes Status: Acute Code(s): G93.40 - ENCEPHALOPATHY, UNSPECIFIED SNOMED Code(s): 93978102 (3) Lactic acidosis Current Visit: Yes Status: Acute Code(s): E87.2 - ACIDOSIS SNOMED Code(s) : 64743827 (4) Gram-positive cocci bacteremia Current Visit: Yes Status: Acute Code(s): R78.81 - BACTEREMIA SNOMED Code( s): 024783868773
[2017-06-10 08:55] LABS: Calcium 8.9 mg/dL (8.4-10.2)
[2017-06-10 09:02] LABS: Magnesium 1.8 mg/dL (1.6-2.3); Phosphorus 3.6 mg/dL (2.5-4.5); Potassium 4.6 mmol/L (3.5-5.1)
[2017-06-10] MEDS: cefTRIAXone IN SWFI 2,000 MG/20 ML SYRINGE IVP SCH (09:16)
--- NOTE | 2017-06-10 10:38 | P.PN ---
Subjective 68-year-old female was admitted secondary to sepsis and bacteremia with Streptococcus pneumoniae patient appears to have infiltrate in the left lung pneumonia may be the source of infection. Patient is both on vancomycin and Zosyn patient may just need Rocephin all infectious disease is following the patient because of which I'm not changing the antibiotic regimen at this point of time. Patient although feeling little bit better but still not doing well still remains on 3 L of oxygen. 06/10/2017 Patient feels better than yesterday patient will obtain PT and OT consultation and patient's antibiotics were switched to Rocephin as patient has pneumococcal bacteremia. Constitutional: As mentioned in HPI Cardio vascular: denied any chest pain, palpitations Gastrointestinal denied any nausea vomiting Pulmonary: Does have shortness of breath and cough Neurologic denied any new focal deficits Objective - Vital Signs Vital signs: Vital Signs Temp 97.1 F L 06/10/17 06:36 Pulse 86 06/10/17 07:59 Resp 16 06/10/17 06:36 BP 143/69 06/10/17 06:36 Pulse Ox 96 06/10/17 07:50 Intake & Output 06/09/17 06/10/17 06/10/17 18:59 06:59 18:59 Intake Total 600 Balance 600 Intake: IV 600 Sodium Chloride 0.9% 1, 600 000 ml @ 50 mls/hr IV . Q20H [facility] Rx#:[id number] Other: Voiding Method Bedside Commode # Voids 1 1 # Bowel Movements 4 - Exam PHYSICAL EXAMINATION: GENERAL: The patient is alert and oriented x3, not in any acute distress. Well developed, well nourished. HEENT: Pupils are round and equally reacting to light. EOMI. No scleral icterus. No conjunctival pallor. Normocephalic, atraumatic. No pharyngeal erythema. No thyromegaly. CARDIOVASCULAR: S1 and S2 present. No murmurs, rubs, or gallops. PULMONARY: Chest is clear to auscultation, no wheezing or crackles. ABDOMEN: Soft, nontender, nondistended, normoactive bowel sounds. No palpable organomegaly. MUSCULOSKELETAL: No joint swelling or deformity. EXTREMITIES: No cyanosis, clubbing, or pedal edema. NEUROLOGICAL: Gross neurological examination did not reveal any focal deficits. SKIN: No rashes. - Labs CBC & Chem 7: 06/10/17 07:56 06/10/17 07:56 Labs: Abnormal Lab Results - Last 24 Hours (Table) 06/07/17 06/09/17 06/09/17 Range/Units 19:28 11:54 17:17 BUN (7-17) mg/dL Creatinine (0.52-1.04) mg/dL Glucose (74-99) mg/dL POC Glucose (mg/dL) 239 H 165 H (75-99) mg/dL Hemoglobin A1c 12.2 H (4.0-6.0) % 06/09/17 06/10/17 06/10/17 Range/Units 20:26 07:42 07:56 BUN 19 H (7-17) mg/dL Creatinine 1.17 H (0.52-1.04) mg/dL Glucose 71 L (74-99) mg/dL POC Glucose (mg/dL) 152 H 53 L (75-99) mg/dL Hemoglobin A1c (4.0-6.0) % 06/10/17 Range/Units 08:02 BUN (7-17) mg/dL Creatinine (0.52-1.04) mg/dL Glucose (74-99) mg/dL POC Glucose (mg/dL) 69 L (75-99) mg/dL Hemoglobin A1c (4.0-6.0) % Microbiology - Last 24 Hours (Table) 06/07/17 09:53 Blood Culture Gram Stain - Final Blood Blood Culture - Final Streptococcus pneumoniae 06/07/17 22:50 Urine Culture - Final Urine,Catheterized Assessment and Plan Plan: -Sepsis and bacteremia possibility of left lower lobe pneumonia, antibiotic management as mentioned above. -COPD with acute exacerbation leading to acute hypoxic as well as acute hypercapnic respiratory failure patient is on oxygen which will be continued patient is also on systemic steroids which will be continued -Acute kidney injury with possibility of acute tubular necrosis which is improving at this time -Coronary artery disease and CABG in the past -Type 2 diabetes mellitus -Hypertension -Hyperlipidemia -Hyperlipidemia -Chronic low back pain -Obesity. For above-mentioned chronic medical problems patient will be continued on appropriate home medications -Covering Dr. Shepard for the weekend and patient will be followed by Dr. Shepard from tomorrow
[2017-06-10 12:29] LABS: Glucose,Whole Blood 177 mg/dL (75-99)
[2017-06-10] MEDS: SODIUM CHLORIDE 0.9% 1,000 ML IV SCH (16:25)
--- NOTE | 2017-06-10 16:32 | P.PN ---
Subjective Progress Note Date: 06/10/17 This is a 72-year-old female was brought in by EMS for evaluation of weakness and confusion. Patient apparently found by family members landing on the kitchen floor naked that. Patient is not sure how she got there. She was found sitting on a stool when EMS arrived. She was very slow to respond normally she is awake and alert as time progressed in route the patient did recover some of her mentation. She was found have a blood glucose of 365. I saw the patient and I also interviewed the daughter. Apparently the patient is not getting the appropriate medical care and since her bypass surgery in her health has been declining to the point where the patient has not been very strict blood pressure control and she has been taken and her vacation on a regular basis. In the emergency department, the patient had a CAT scan of the head that showed no acute abnormalities. Computed tomography scan of the spine showed no evidence of any acute fracture. Chest x-ray showed pulmonary vascular congestion and some interstitial edema. Pneumonia is doubtful although it's a possibility left lower lobe. The patient has some mild leukocytosis. Her initial lactic acid level was 2.5 and came up to 3.6. UA is negative. Influenza screen is negative. White cell count is minimally elevated at 11.5 and there is 93% neutrophilia. No significant anion gap metabolic acidosis. Anion gap is a 13. Bicarb level is at 28. Patient was awake. At a time of my evaluation she was moving all 4 extremities. No slurred speech. She was slow in answering questions. She denied having any chest pain. She was having some labored breathing over this improved as I was evaluating this patient and she became progressively more comfortable. No cough. No chest pain. No pleurisy. No hemoptysis. There is some swelling in the lower extremity especially on the right. No evidence of cellulitis. No evidence of any open wounds. No reported aspiration by family members. No head trauma. On 06/08/2017 I'm seeing this patient for a follow-up. As mentioned, the patient was seen on the medical floor and subsequently she got transferred to the intensive care unit due to concerns of her elevated lactic acid level. The patient got resuscitated IV fluids. The patient was covered with IV Zosyn. The patient felt much more alert and awake during this morning evaluation. In fact upon talking to her she did not remember that I saw yesterday evening. However today, she was able to recognize me and she was much more alert and communicative and verbal and lucid. She denied having any specific complaints. No cough or sputum production. No chest pain. Legs were swollen and there was some erythema over the anterior aspect of the lower extremities bilaterally which raises the possibility of questionable cellulitis. The blood cultures showing gram-positive cocci in chains. Urine analysis was negative and urine cultures are still pending for now. The chest x-ray showing cardiomegaly with some limited retrocardiac left basilar pulmonary infiltration. The white cell count is slightly elevated at 15.1. That is however significant bandemia up to 55%. There is also an acute kidney injury with a creatinine came up to 1.4. In terms of her fluid balance the patient has received more than 3 L of IV fluids and she is currently on 100 mL an hour of normal saline. The lactic acid level is down to 1.9 On 06/09/2017 the patient is being seen for a follow-up. Has no specific complaint that she is resting comfortably in bed. No respiratory distress. No cough or sputum production. The patient was treated for acute sepsis with a combination of Zosyn and vancomycin. Subsequent blood cultures revealed strep pneumo. This is likely than a pneumonia that resulted to septicemia. The patient's renal function is improving. Creatinine is down to 1.1. Once echo is at 13.6. Slightly improved compared to yesterday. No other significant events over the past 24 hours. She is resting comfortably in bed. Receiving antibiotics. The ultrasound the kidneys showed no obstructive uropathy. Left renal mid pole soft tissue lesion measuring 1.9 x 1.6 x 1.3 cm. Advised to get a CAT scan or an MRI at later stage. Meanwhile, the Doppler of the lower extremity was also done that showed no evidence of any DVT. On 06/10/2017, the patient is still being treated for pneumococcal septicemia which is most likely related to an underlying pneumonia. Mental status back to normal. Energy level is gradually improving. The patient will need IV antibiotics and the patient is currently on IV Rocephin 2 g every 24 hours. ID is on the case. Renal function is normalized. No respiratory difficulties at this point. Objective - Vital Signs Vital signs: Vital Signs Temp 98.1 F 06/10/17 15:00 Pulse 79 06/10/17 15:00 Resp 20 06/10/17 15:00 BP 141/65 06/10/17 15:00 Pulse Ox 95 06/10/17 15:00 Intake & Output 06/09/17 06/10/17 06/10/17 18:59 06:59 18:59 Intake Total 600 Balance 600 Intake: IV 600 Sodium Chloride 0.9% 1, 600 000 ml @ 50 mls/hr IV . Q20H [facility] Rx#:[id number] Other: Voiding Method Bedside Commode Bedside Commode Incontinent # Voids 1 1 4 # Bowel Movements 4 0 - Exam Gen. appearance the patient is alert and awake and following commands and answering questions appropriately. Head exam was generally normal. There was no scleral icterus or corneal arcus. Mucous membranes were moist.Neck was supple and without jugular venous distension, thyromegaly, or carotid bruits. Carotids were easily palpable bilaterally. There was no adenopathy. Patient has a Mallampati class IV and there is no goiter or neck masses. Lungs sounds are diminished otherwise clear. No crackles or wheezes or rhonchi. Heart sounds are regular, sternum stable clean and intact. Normal S1-S2. No cervical murmurs appreciated.Abdominal exam revealed normal bowel sounds. The abdomen was soft, non-tender, and without masses, organomegaly, or appreciable enlargement of the abdominal aorta. Extremities are swollen especially in the right lower extremity with +1 pitting edema. No cyanosis. No clubbing. No open wounds or sores. Neurologically, o awake and alert and the patient's encephalopathy is present much recovered. - Labs CBC & Chem 7: 06/10/17 07:56 06/10/17 07:56 Labs: Abnormal Lab Results - Last 24 Hours (Table) 06/09/17 06/09/17 06/10/17 Range/Units 17:17 20:26 07:42 BUN (7-17) mg/dL Creatinine (0.52-1.04) mg/dL Glucose (74-99) mg/dL POC Glucose (mg/dL) 165 H 152 H 53 L (75-99) mg/dL 06/10/17 06/10/17 06/10/17 Range/Units 07:56 08:02 12:26 BUN 19 H (7-17) mg/dL Creatinine 1.17 H (0.52-1.04) mg/dL Glucose 71 L (74-99) mg/dL POC Glucose (mg/dL) 69 L 177 H (75-99) mg/dL Microbiology - Last 24 Hours (Table) 06/07/17 09:53 Blood Culture Gram Stain - Final Blood Blood Culture - Final Streptococcus pneumoniae Assessment and Plan Plan: Assessment 1 altered mentation currently under investigation secondary to underlying sepsis. The patient or not to have a strep pneumonia septicemia which probably is resulting from an underlying lung infection/pneumonia. Currently on a combine and Zosyn and vancomycin combination. Mental status improved. Hemodynamically improved. The patient is currently on a medical floor. 2 COPD with an FEV1 of 57% of Predicted 3 acute kidney injury, improving and the renal function is also improving. 4 Coronary Artery Disease with Bypass Surgery in 2017 with VELARDE to LAD, Previous Coronary Intervention and Stenting to RCA 5 acute lactic acidosis, improving 6 Diabetes Mellitus with Poor Blood Sugar Control 7 Dementia 8 Poor Medication Compliance Possibly Secondary to Underlying Dementia 9 hypertension 10 hyperlipidemia 11 carotid artery disease with previous endarterectomy on the right 12 degenerative arthritis 13 chronic back pain 14 lactic acidosis, improving 15 Obesity with a BMI of 35.2 16 renal lesion not consistent of a cystic structure. Will need a CAT scan/MRI later stage. Plan IV fluids to 50 mL an hour. IV Rocephin 2 g every 24 hours. Pulmonate toileting. Physical therapy. Increased mobility. Renal function is normalized and the creatinine is down to 1.1. Outpatient follow-up regarding the renal cyst findings. We'll continue to follow.
[2017-06-10 16:56] LABS: Glucose,Whole Blood 161 mg/dL (75-99)
[2017-06-10 20:38] LABS: Glucose,Whole Blood 123 mg/dL (75-99)
[2017-06-10] MEDS: SENNOSIDES-DOCUSATE SODIUM 1 EACH TAB PO SCH (21:23)
[2017-06-10] MEDS: INSULIN DETEMIR 100 UNIT/ML 10 ML VIAL SQ SCH (21:24)
--- NOTE | 2017-06-10 23:07 | P.PN ---
Subjective Progress Note Date: 06/10/17 Principal diagnosis: Confusion 72-year-old woman who presents to the emergency center by EMS after the family found the patient confused laying naked on the kitchen floor. The patient was unable to relate how she got it kitchen because a family was concerned EMS was called. Apparently the family had gotten her sitting up the time EMS arrived. She was still very confused and had evidence of an elevated blood sugar. The patient has a known history of coronary artery disease status post coronary artery bypass grafting procedure in March 2017. Apparently she has not been taking good care of herself and that she is not compliant with her medications and has not been monitoring her blood sugars or her blood pressure. Upon arrival stat computed tomography scan failed reveal evidence of any acute intracranial abnormalities. Patient was given some resuscitation was having initial some improvement. However she had worsening lactic acidosis and her mental status was still somewhat poor and constantly was transferred to the intensive care unit. With further fluid resuscitation she resolved her lactic acidosis and since then has had some improvement of her mental status. She is regaining some appetite is denying nausea but has developed several loose stools. The patient remains a poor historian does not relate to the events of what happened at the time of her admission. But does relate she feels somewhat better. Does not recall fevers, chills or rigors before becoming ill. No notation of any pain in her chest, sputum production or other acute change Patient is feeling better today. Less short of breath. Is able to eat. Objective - Vital Signs Vital signs: Vital Signs Temp 98.1 F 06/10/17 15:00 Pulse 79 06/10/17 15:00 Resp 20 06/10/17 16:00 BP 141/65 06/10/17 15:00 Pulse Ox 95 06/10/17 15:00 Intake & Output 06/10/17 06/10/17 06/11/17 06:59 18:59 06:59 Intake Total 600 Balance 600 Intake: IV 600 Sodium Chloride 0.9% 1, 600 000 ml @ 50 mls/hr IV . Q20H [facility] Rx#:[id number] Other: Voiding Method Bedside Commode Incontinent # Voids 1 2 1 # Bowel Movements 1 - Exam 72-year-old woman who is more comfortable today. HEENT: Anicteric conjunctiva are pink and moist nasal mucosa grossly intact without significant lesions, there is no thrush. Neck: The neck is supple without significant lymphadenopathy or thyromegaly. Lungs: Symmetrical air entry is noted. Crackles at left base are noted. No bronchial sounds are noted or egophony. Heart: Irregular with an audible S1 and S2 soft S4 no murmur click or rub. , PMI was nondisplaced. Abdomen: Mildly obese, Positive bowel sounds soft and nontender without palpable masses or organomegaly. There was no guarding or rebound. Has a liquid stool while being examined without complaints of pain Extremities: The upper extremities have excellent pulses they are symmetric, no significant petechiae or telangiectasia. No splinter hemorrhages were noted. Lower extremity is evidence of some chronic venous stasis evidence of some chronic skin changes especially in the right lower extremity. There is evidence of some mild erythema with no open ulcerations or drainage on the right pretibial area. Very dry skin to the heels is noted and there is a fissure on the right heel without drainage or tenderness. Neuro: Awake alert oriented to person person and place. Does not have gross focal sensory motor deficits on exam. Mentation is slightly clearer today. - Labs CBC & Chem 7: 06/10/17 07:56 06/10/17 07:56 Labs: Abnormal Lab Results - Last 24 Hours (Table) 06/10/17 06/10/17 06/10/17 Range/Units 07:42 07:56 08:02 BUN 19 H (7-17) mg/dL Creatinine 1.17 H (0.52-1.04) mg/dL Glucose 71 L (74-99) mg/dL POC Glucose (mg/dL) 53 L 69 L (75-99) mg/dL 06/10/17 06/10/17 06/10/17 Range/Units 12:26 16:54 20:37 BUN (7-17) mg/dL Creatinine (0.52-1.04) mg/dL Glucose (74-99) mg/dL POC Glucose (mg/dL) 177 H 161 H 123 H (75-99) mg/dL Microbiology - Last 24 Hours (Table) 06/07/17 09:53 Blood Culture Gram Stain - Final Blood Blood Culture - Final Streptococcus pneumoniae Laboratory Results WBC 9.8 k/uL (3.8-10.6) 06/10/17 07:56 RBC 3.82 m/uL (3.80-5.40) 06/10/17 07:56 Hgb 11.5 gm/dL (11.4-16.0) 06/10/17 07:56 Hct 36.6 % (34.0-46.0) 06/10/17 07:56 MCV 95.9 fL (80.0-100.0) 06/10/17 07:56 MCH 30.2 pg (25.0-35.0) 06/10/17 07:56 MCHC 31.4 g/dL (31.0-37.0) 06/10/17 07:56 RDW 14.2 % (11.5-15.5) 06/10/17 07:56 Plt Count 221 k/uL (150-450) 06/10/17 07:56 Neutrophils % 78 % 06/10/17 07:56 Neutrophils % (Manual) 32 % 06/08/17 04:23 Band Neutrophils % 55 % 06/08/17 04:23 Lymphocytes % 11 % 06/10/17 07:56 Lymphocytes % (Manual) 7 % 06/08/17 04:23 Monocytes % 6 % 06/10/17 07:56 Monocytes % (Manual) 4 % 06/08/17 04:23 Eosinophils % 3 % 06/10/17 07:56 Eosinophils % (Manual) 1 % 06/08/17 04:23 Basophils % 1 % 06/10/17 07:56 Metamyelocytes % 2 % 06/08/17 04:23 Myelocytes % 1 % 06/08/17 04:23 Neutrophils # 7.6 k/uL (1.3-7.7) 06/10/17 07:56 Neutrophils # (Manual) 13.10 k/uL (1.3-7.7) H 06/08/17 04:23 Lymphocytes # 1.1 k/uL (1.0-4.8) 06/10/17 07:56 Lymphocytes # (Manual) 1.06 k/uL (1.0-4.8) 06/08/17 04:23 Monocytes # 0.6 k/uL (0-1.0) 06/10/17 07:56 Monocytes # (Manual) 0.60 k/uL (0-1.0) 06/08/17 04:23 Eosinophils # 0.3 k/uL (0-0.7) 06/10/17 07:56 Eosinophils # (Manual) 0.15 k/uL (0-0.7) 06/08/17 04:23 Basophils # 0.1 k/uL (0-0.2) 06/10/17 07:56 Metamyelocytes # (Man) 0.30 k/uL (0) H 06/08/17 04:23 Myelocytes # (Manual) 0.15 k/uL (0) H 06/08/17 04:23 Nucleated RBCs 0 /100 WBC (0-0) 06/08/17 04:23 Manual Slide Review Performed 06/07/17 09:53 Toxic Vacuolation Present 06/08/17 04:23 Polychromasia Present 06/08/17 04:23 Hypochromasia Moderate 06/10/17 07:56 Poikilocytosis (manual Present 06/07/17 09:53 Anisocytosis (manual) Present 06/08/17 04:23 Sodium 138 mmol/L (137-145) 06/10/17 07:56 Potassium 4.6 mmol/L (3.5-5.1) 06/10/17 07:56 Chloride 107 mmol/L (98-107) 06/10/17 07:56 Carbon Dioxide 24 mmol/L (22-30) 06/10/17 07:56 Anion Gap 7 mmol/L 06/10/17 07:56 BUN 19 mg/dL (7-17) H 06/10/17 07:56 Creatinine 1.17 mg/dL (0.52-1.04) H 06/10/17 07:56 Est GFR (MDRD) Af Amer 55 (>60 ml/min/1.73 sqM) 06/10/17 07:56 Est GFR (MDRD) Non-Af 45 (>60 ml/min/1.73 sqM) 06/10/17 07:56 Glucose 71 mg/dL (74-99) L 06/10/17 07:56 POC Glucose (mg/dL) 123 mg/dL (75-99) H 06/10/17 20:37 POC Glu Pool Hand ID Amelia Chung 06/10/17 20:[address] Glu mg/dL 303 06/07/17 19:28 Hemoglobin A1c 12.2 % (4.0-6.0) H 06/07/17 19:28 Lactic Ac Sepsis Rflx Y 06/07/17 14:59 Plasma Lactic Acid John 1.9 mmol/L (0.7-2.0) 06/08/17 04:23 Calcium 8.9 mg/dL (8.4-10.2) 06/10/17 07:56 Phosphorus 3.6 mg/dL (2.5-4.5) 06/10/17 07:56 Magnesium 1.8 mg/dL (1.6-2.3) 06/10/17 07:56 Total Bilirubin 1.1 mg/dL (0.2-1.3) 06/07/17 09:53 AST 20 U/L (14-36) 06/07/17 09:53 ALT 20 U/L (9-52) 06/07/17 09:53 Alkaline Phosphatase 189 U/L (38-126) H 06/07/17 09:53 Ammonia <9 umol/L (<30) 06/07/17 13:56 Total Creatine Kinase 63 U/L (30-135) 06/07/17 09:53 CK-MB (CK-2) 1.6 ng/mL (0.0-2.4) 06/07/17 09:53 CK-MB (CK-2) Rel Index 2.5 06/07/17 09:53 Total Protein 6.3 g/dL (6.3-8.2) 06/07/17 09:53 Albumin 3.6 g/dL (3.5-5.0) 06/07/17 09:53 Vitamin B12 393.0 pg/mL (200.0-944.0) 06/08/17 04:23 TSH 0.995 mIU/L (0.465-4.680) 06/08/17 04:23 Urine Color Yellow 06/07/17 11:08 Urine Appearance Clear (Clear) 06/07/17 11:08 Urine pH 6.5 (5.0-8.0) 06/07/17 11:08 Ur Specific [place]ett 1.018 (1.001-1.035) 06/07/17 11:08 Urine Protein 1+ (Negative) H 06/07/17 11:08 Urine Glucose (UA) 4+ (Negative) H 06/07/17 11:08 Urine Ketones Negative (Negative) 06/07/17 11:08 Urine Blood Negative (Negative) 06/07/17 11:08 Urine Nitrite Negative (Negative) 06/07/17 11:08 Urine Bilirubin Negative (Negative) 06/07/17 11:08 Urine Urobilinogen <2.0 mg/dL (<2.0) 06/07/17 11:08 Ur Leukocyte Esterase Negative (Negative) 06/07/17 11:08 Urine RBC 1 /hpf (0-5) 06/07/17 11:08 Urine WBC 6 /hpf (0-5) H 06/07/17 11:08 Ur Squamous Epith Cells 1 /hpf (0-4) 06/07/17 11:08 Hyaline Casts 6 /lpf (0-2) H 06/07/17 11:08 WBC Casts 4 /lpf (0) 06/07/17 11:08 Urine Mucus Rare /hpf (None) H 06/07/17 11:08 Acetone, Qual Negative (Negative) 06/07/17 09:53 C. difficile (EIA) Intrp Negative (Negative) 06/09/17 14:20 Influenza Type A RNA Not Detected (Not Detectd) 06/07/17 14:44 Influenza Type B (PCR) Not Detected (Not Detectd) 06/07/17 14:44 Microbiology 06/07/17 09:53 Blood Blood Culture Gram Stain - Final 06/07/17 09:53 Blood Blood Culture - Final Streptococcus pneumoniae 06/07/17 22:50 Urine,Catheterized Urine Culture - Final 06/07/17 09:53 Blood Blood Culture - Final Assessment and Plan (1) Sepsis Narrative/Plan: 72-year-old female presents to Hospital via EMS after being found by her family laying on the floor. The patient has no recollection of the event of the time frame around it. Is showing some improvement at this point in time. Distal somewhat vague. However does not have any lateralizing focal deficits at this time. Computed tomography scan of brain was negative. The patient however did become progressively more septic with elevated lactic acid with good response to fluid resuscitation. She requires no vasopressor therapy. She is improved at this point in time but is having some difficulties with some loose stool for C. diff testing was canceled because of stool consistency. She does have a leukocytosis but no significant fever or hypothermia. The patient does however have evidence of possible blood culture with gram- positive cocci likely streptococcal in nature.. Thus there are concerns to Streptococcus pneumoniae pneumonia and sepsis as a cause of her current illness. The blood culture has been clarified as Streptococcus pneumoniae and chest x- ray does show evidence of infiltrate and constantly underlying pneumonia with sepsis appears to be the etiology for current sepsis and illness. She is starting show some improvement. Antimicrobial therapy with Rocephin at this time. Continue ongoing supportive care. This has some mild erythema to the right lower extremity however does not appear to be significantly tender, there is no open lesions are draining ulcers. Patient does not have a noted history of C. diff and current stool is without diarrhea. Leukocytosis due to her current sepsis. Is having some loose stools does not appear to be C. diff some Imodium can be added. Will assist with discharge plan when she has further improvement. Current Visit: Yes Status: Acute Code(s): A41.9 - SEPSIS, UNSPECIFIED ORGANISM SNOMED Code(s): 45272472 (2) Encephalopathy Current Visit: Yes Status: Acute Code(s): G93.40 - ENCEPHALOPATHY, UNSPECIFIED SNOMED Code(s): 60575359 (3) Lactic acidosis Current Visit: Yes Status: Acute Code(s): E87.2 - ACIDOSIS SNOMED Code(s) : 34664242 (4) Gram-positive cocci bacteremia Current Visit: Yes Status: Acute Code(s): R78.81 - BACTEREMIA SNOMED Code( s): 826025038488
[2017-06-11] MEDS: IPRATROPIUM-ALBUTEROL 3 ML NEB INHALATION SCH ×6 (00:37→20:39)
[2017-06-11 07:39] LABS: Glucose,Whole Blood 106 mg/dL (75-99)
[2017-06-11] MEDS: INSULIN ASPART 100 UNIT/ML 1 ML 10 ML VIAL SQ SCH ×7 (07:41→21:27)
[2017-06-11] MEDS: SYMBICORT 160-4.5 MCG INHALER INHALATION SCH ×2 (08:45→20:39)
[2017-06-11] MEDS: cefTRIAXone IN SWFI 2,000 MG/20 ML SYRINGE IVP SCH (08:46)
[2017-06-11] MEDS: CLOPIDOGREL 75 MG TAB PO SCH (08:47)
[2017-06-11] MEDS: ASPIRIN 325 MG TAB PO SCH (08:47)
[2017-06-11] MEDS: CHOLECALCIFEROL 1,000 UNIT TAB PO SCH (08:47)
[2017-06-11] MEDS: METOPROLOL TARTRATE 25 MG TAB PO SCH ×2 (08:47→21:29)
[2017-06-11] MEDS: ATORVASTATIN 80 MG TAB PO SCH (08:47)
[2017-06-11] MEDS: NYSTATIN 100,000 UNIT/GM POWD 15 GM TOPICAL SCH ×2 (08:48→21:36)
[2017-06-11] MEDS: ESCITALOPRAM 10 MG TAB PO SCH (08:48)
[2017-06-11] MEDS: PANTOPRAZOLE 40 MG TABLET PO SCH (08:48)
[2017-06-11] MEDS: SODIUM CHLORIDE 0.9% 1,000 ML IV SCH (08:58)
[2017-06-11 09:17] LABS: Basophils % (A) 1 %; Eosinophils # (A) 0.2 k/uL (0-0.7); Eosinophils % (A) 3 %; HGB 12.4 gm/dL (11.4-16.0); Hypochromasia Slight; Lymphocytes % (A) 13 %; MCH 29.6 pg (25.0-35.0); MCHC 31.7 g/dL (31.0-37.0); MCV 93.6 fL (80.0-100.0); Mean Platelet Volume 7.6; Monocytes # (A) 0.4 k/uL (0-1.0); Monocytes % (A) 6 %; Neutrophils # (A) 5.7 k/uL (1.3-7.7); Neutrophils % (A) 76 %; Platelet Count 271 k/uL (150-450); RBC 4.17 m/uL (3.80-5.40); RDW 13.2 % (11.5-15.5); WBC 7.6 k/uL (3.8-10.6)
[2017-06-11 09:29] LABS: Anion Gap 8 mmol/L; Blood Urea Nitrogen 11 mg/dL (7-17); Calcium 9.4 mg/dL (8.4-10.2); Carbon Dioxide 25 mmol/L (22-30); Chloride 106 mmol/L (98-107); Glucose 130 mg/dL (74-99); Magnesium 1.7 mg/dL (1.6-2.3); Phosphorus 3.9 mg/dL (2.5-4.5); Potassium 4.2 mmol/L (3.5-5.1); Sodium 139 mmol/L (137-145)
[2017-06-11 12:18] LABS: Glucose,Whole Blood 185 mg/dL (75-99)
--- NOTE | 2017-06-11 13:08 | P.PN ---
Subjective Progress Note Date: 06/11/17 Principal diagnosis: Acute pneumococcal pneumonia and pneumococcal sepsis with bacteremia. This is a 72-year-old female was brought in by EMS for evaluation of weakness and confusion. Patient apparently found by family members landing on the kitchen floor naked that. Patient is not sure how she got there. She was found sitting on a stool when EMS arrived. She was very slow to respond normally she is awake and alert as time progressed in route the patient did recover some of her mentation. She was found have a blood glucose of 365. I saw the patient and I also interviewed the daughter. Apparently the patient is not getting the appropriate medical care and since her bypass surgery in her health has been declining to the point where the patient has not been very strict blood pressure control and she has been taken and her vacation on a regular basis. In the emergency department, the patient had a CAT scan of the head that showed no acute abnormalities. Computed tomography scan of the spine showed no evidence of any acute fracture. Chest x-ray showed pulmonary vascular congestion and some interstitial edema. Pneumonia is doubtful although it's a possibility left lower lobe. The patient has some mild leukocytosis. Her initial lactic acid level was 2.5 and came up to 3.6. UA is negative. Influenza screen is negative. White cell count is minimally elevated at 11.5 and there is 93% neutrophilia. No significant anion gap metabolic acidosis. Anion gap is a 13. Bicarb level is at 28. Patient was awake. At a time of my evaluation she was moving all 4 extremities. No slurred speech. She was slow in answering questions. She denied having any chest pain. She was having some labored breathing over this improved as I was evaluating this patient and she became progressively more comfortable. No cough. No chest pain. No pleurisy. No hemoptysis. There is some swelling in the lower extremity especially on the right. No evidence of cellulitis. No evidence of any open wounds. No reported aspiration by family members. No head trauma. On 06/08/2017 I'm seeing this patient for a follow-up. As mentioned, the patient was seen on the medical floor and subsequently she got transferred to the intensive care unit due to concerns of her elevated lactic acid level. The patient got resuscitated IV fluids. The patient was covered with IV Zosyn. The patient felt much more alert and awake during this morning evaluation. In fact upon talking to her she did not remember that I saw yesterday evening. However today, she was able to recognize me and she was much more alert and communicative and verbal and lucid. She denied having any specific complaints. No cough or sputum production. No chest pain. Legs were swollen and there was some erythema over the anterior aspect of the lower extremities bilaterally which raises the possibility of questionable cellulitis. The blood cultures showing gram-positive cocci in chains. Urine analysis was negative and urine cultures are still pending for now. The chest x-ray showing cardiomegaly with some limited retrocardiac left basilar pulmonary infiltration. The white cell count is slightly elevated at 15.1. That is however significant bandemia up to 55%. There is also an acute kidney injury with a creatinine came up to 1.4. In terms of her fluid balance the patient has received more than 3 L of IV fluids and she is currently on 100 mL an hour of normal saline. The lactic acid level is down to 1.9 On 06/09/2017 the patient is being seen for a follow-up. Has no specific complaint that she is resting comfortably in bed. No respiratory distress. No cough or sputum production. The patient was treated for acute sepsis with a combination of Zosyn and vancomycin. Subsequent blood cultures revealed strep pneumo. This is likely than a pneumonia that resulted to septicemia. The patient's renal function is improving. Creatinine is down to 1.1. Once echo is at 13.6. Slightly improved compared to yesterday. No other significant events over the past 24 hours. She is resting comfortably in bed. Receiving antibiotics. The ultrasound the kidneys showed no obstructive uropathy. Left renal mid pole soft tissue lesion measuring 1.9 x 1.6 x 1.3 cm. Advised to get a CAT scan or an MRI at later stage. Meanwhile, the Doppler of the lower extremity was also done that showed no evidence of any DVT. On 06/10/2017, the patient is still being treated for pneumococcal septicemia which is most likely related to an underlying pneumonia. Mental status back to normal. Energy level is gradually improving. The patient will need IV antibiotics and the patient is currently on IV Rocephin 2 g every 24 hours. ID is on the case. Renal function is normalized. No respiratory difficulties at this point. Patient was reevaluated today on 06/11/2017, still being treated for pneumococcal sepsis, and septicemia. Most likely secondary to underlying pneumonia. Patient's mental status seems to be improving, she seems to be very appropriate today, new the place, time, and year. Patient remains on IV Rocephin and being followed by infectious disease. Labs showed relatively normal CBC and normal basic metabolic profile. Objective - Vital Signs Vital signs: Vital Signs Temp 98.4 F 06/11/17 07:00 Pulse 68 06/11/17 08:55 Resp 20 06/11/17 08:45 BP 158/74 06/11/17 07:00 Pulse Ox 93 L 06/11/17 11:46 Intake & Output 06/10/17 06/11/17 06/11/17 18:59 06:59 18:59 Other: Voiding Method Bedside Commode Incontinent # Voids 2 2 1 # Bowel Movements 1 1 - Exam Physical Exam: Revealed a 72-year-old female in no distress. HEENT:[Neck is supple.] [No neck masses.] [No thyromegaly.] [No JVD.] Chest: [Clear throughout, no crackles, no rhonchi, no wheezes.] Cardiac Exam: [Normal S1 and S2, no S3 gallop, no murmur.] Abdomen: [Soft, nontender, no megaly, no rebound, no guarding, normal bowel sounds.] Extremities: [No clubbing, no edema, no cyanosis.] Neurological Exam: [No focal neurologic deficit.] - Labs CBC & Chem 7: 06/11/17 08:29 06/11/17 08:29 Labs: Abnormal Lab Results - Last 24 Hours (Table) 06/10/17 06/10/17 06/11/17 Range/Units 16:54 20:37 07:27 Glucose (74-99) mg/dL POC Glucose (mg/dL) 161 H 123 H 106 H (75-99) mg/dL 06/11/17 06/11/17 Range/Units 08:29 12:11 Glucose 130 H (74-99) mg/dL POC Glucose (mg/dL) 185 H (75-99) mg/dL Assessment and Plan Assessment: altered mentation currently under investigation secondary to underlying sepsis. The patient or not to have a strep pneumonia septicemia which probably is resulting from an underlying lung infection/pneumonia. Based on the chest x- ray I suspect is mostly in the left lower lobe. Currently on a combine and Zosyn and vancomycin combination. Mental status improved. Hemodynamically improved. The patient is currently on a medical floor. 2 COPD with an FEV1 of 57% of Predicted 3 acute kidney injury, improving and the renal function is also improving. 4 Coronary Artery Disease with Bypass Surgery in 2017 with VELARDE to LAD, Previous Coronary Intervention and Stenting to RCA 5 acute lactic acidosis, improving 6 Diabetes Mellitus with Poor Blood Sugar Control 7 Dementia 8 Poor Medication Compliance Possibly Secondary to Underlying Dementia 9 hypertension 10 hyperlipidemia 11 carotid artery disease with previous endarterectomy on the right 12 degenerative arthritis 13 chronic back pain 14 lactic acidosis, improving 15 Obesity with a BMI of 35.2 16 renal lesion not consistent of a cystic structure. Will need a CAT scan/MRI later stage. Recommendation: Continue antibiotics, continue bronchodilators, labs were all reviewed, consider discharge planning in the next 48 hours. Once cleared by infectious disease on the case. Time with Patient: Less than 30
[2017-06-11 15:50] VITALS: BMI 31.8
[2017-06-11 17:35] LABS: Glucose,Whole Blood 160 mg/dL (75-99)
[2017-06-11 20:45] LABS: Glucose,Whole Blood 156 mg/dL (75-99)
[2017-06-11] MEDS: SENNOSIDES-DOCUSATE SODIUM 1 EACH TAB PO SCH (21:29)
[2017-06-11] MEDS: INSULIN DETEMIR 100 UNIT/ML 10 ML VIAL SQ SCH (21:29)
--- NOTE | 2017-06-11 22:52 | P.PN ---
Subjective Progress Note Date: 06/11/17 Principal diagnosis: Confusion 72-year-old woman who presents to the emergency center by EMS after the family found the patient confused laying naked on the kitchen floor. The patient was unable to relate how she got it kitchen because a family was concerned EMS was called. Apparently the family had gotten her sitting up the time EMS arrived. She was still very confused and had evidence of an elevated blood sugar. The patient has a known history of coronary artery disease status post coronary artery bypass grafting procedure in March 2017. Apparently she has not been taking good care of herself and that she is not compliant with her medications and has not been monitoring her blood sugars or her blood pressure. Upon arrival stat computed tomography scan failed reveal evidence of any acute intracranial abnormalities. Patient was given some resuscitation was having initial some improvement. However she had worsening lactic acidosis and her mental status was still somewhat poor and constantly was transferred to the intensive care unit. With further fluid resuscitation she resolved her lactic acidosis and since then has had some improvement of her mental status. She is regaining some appetite is denying nausea but has developed several loose stools. The patient remains a poor historian does not relate to the events of what happened at the time of her admission. But does relate she feels somewhat better. Does not recall fevers, chills or rigors before becoming ill. No notation of any pain in her chest, sputum production or other acute change Patient is feeling better today. Less short of breath. Is able to eat. Objective - Vital Signs Vital signs: Vital Signs Temp 97.6 F 06/11/17 15:00 Pulse 88 06/11/17 21:21 Resp 16 06/11/17 15:00 BP 158/77 06/11/17 21:21 Pulse Ox 94 L 06/11/17 15:00 Intake & Output 06/11/17 06/11/17 06/12/17 06:59 18:59 06:59 Weight 73.9 kg Other: # Voids 2 4 1 # Bowel Movements 1 1 0 - Exam 72-year-old woman who is more comfortable today. HEENT: Anicteric conjunctiva are pink and moist nasal mucosa grossly intact without significant lesions, there is no thrush. Neck: The neck is supple without significant lymphadenopathy or thyromegaly. Lungs: Symmetrical air entry is noted. Crackles at left base are noted. No bronchial sounds are noted or egophony. Heart: Irregular with an audible S1 and S2 soft S4 no murmur click or rub. , PMI was nondisplaced. Abdomen: Mildly obese, Positive bowel sounds soft and nontender without palpable masses or organomegaly. There was no guarding or rebound. Has a liquid stool while being examined without complaints of pain Extremities: The upper extremities have excellent pulses they are symmetric, no significant petechiae or telangiectasia. No splinter hemorrhages were noted. Lower extremity is evidence of some chronic venous stasis evidence of some chronic skin changes especially in the right lower extremity. There is evidence of some mild erythema with no open ulcerations or drainage on the right pretibial area. Very dry skin to the heels is noted and there is a fissure on the right heel without drainage or tenderness. Neuro: Awake alert oriented to person person and place. Does not have gross focal sensory motor deficits on exam. Mentation is slightly clearer today. - Labs CBC & Chem 7: 06/11/17 08:29 06/11/17 08:29 Labs: Abnormal Lab Results - Last 24 Hours (Table) 06/11/17 06/11/17 06/11/17 Range/Units 07:27 08:29 12:11 Glucose 130 H (74-99) mg/dL POC Glucose (mg/dL) 106 H 185 H (75-99) mg/dL 06/11/17 06/11/17 Range/Units 17:05 20:44 Glucose (74-99) mg/dL POC Glucose (mg/dL) 160 H 156 H (75-99) mg/dL Laboratory Results WBC 7.6 k/uL (3.8-10.6) 06/11/17 08: RBC 4.17 m/uL (3.80-5.40) 06/11/17 08: Hgb 12.4 gm/dL (11.4-16.0) 06/11/17 08: Hct 39.0 % (34.0-46.0) 06/11/17 08: MCV 93.6 fL (80.0-100.0) 06/11/17 08: MCH 29.6 pg (25.0-35.0) 06/11/17 08: MCHC 31.7 g/dL (31.0-37.0) 06/11/17 08:29 RDW 13.2 % (11.5-15.5) 06/11/17 08:29 Plt Count 271 k/uL (150-450) 06/11/17 08:29 Neutrophils % 76 % 06/11/17 08:29 Neutrophils % (Manual) 32 % 06/08/17 04:23 Band Neutrophils % 55 % 06/08/17 04:23 Lymphocytes % 13 % 06/11/17 08:29 Lymphocytes % (Manual) 7 % 06/08/17 04:23 Monocytes % 6 % 06/11/17 08:29 Monocytes % (Manual) 4 % 06/08/17 04:23 Eosinophils % 3 % 06/11/17 08:29 Eosinophils % (Manual) 1 % 06/08/17 04:23 Basophils % 1 % 06/11/17 08:29 Metamyelocytes % 2 % 06/08/17 04:23 Myelocytes % 1 % 06/08/17 04:23 Neutrophils # 5.7 k/uL (1.3-7.7) 06/11/17 08:29 Neutrophils # (Manual) 13.10 k/uL (1.3-7.7) H 06/08/17 04:23 Lymphocytes # 1.0 k/uL (1.0-4.8) 06/11/17 08:29 Lymphocytes # (Manual) 1.06 k/uL (1.0-4.8) 06/08/17 04:23 Monocytes # 0.4 k/uL (0-1.0) 06/11/17 08:29 Monocytes # (Manual) 0.60 k/uL (0-1.0) 06/08/17 04:23 Eosinophils # 0.2 k/uL (0-0.7) 06/11/17 08:29 Eosinophils # (Manual) 0.15 k/uL (0-0.7) 06/08/17 04:23 Basophils # 0.0 k/uL (0-0.2) 06/11/17 08:29 Metamyelocytes # (Man) 0.30 k/uL (0) H 06/08/17 04:23 Myelocytes # (Manual) 0.15 k/uL (0) H 06/08/17 04:23 Nucleated RBCs 0 /100 WBC (0-0) 06/08/17 04:23 Manual Slide Review Performed 06/07/17 09:53 Toxic Vacuolation Present 06/08/17 04:23 Polychromasia Present 06/08/17 04:23 Hypochromasia Slight 06/11/17 08:29 Poikilocytosis (manual Present 06/07/17 09:53 Anisocytosis (manual) Present 06/08/17 04:23 Sodium 139 mmol/L (137-145) 06/11/17 08:29 Potassium 4.2 mmol/L (3.5-5.1) 06/11/17 08:29 Chloride 106 mmol/L (98-107) 06/11/17 08:29 Carbon Dioxide 25 mmol/L (22-30) 06/11/17 08:29 Anion Gap 8 mmol/L 06/11/17 08:29 BUN 11 mg/dL (7-17) 06/11/17 08:29 Creatinine 1.02 mg/dL (0.52-1.04) 06/11/17 08:29 Est GFR (MDRD) Af Amer >60 (>60 ml/min/1.73 sqM) 06/11/17 08:29 Est GFR (MDRD) Non-Af 53 (>60 ml/min/1.73 sqM) 06/11/17 08:29 Glucose 130 mg/dL (74-99) H 06/11/17 08:29 POC Glucose (mg/dL) 156 mg/dL (75-99) H 06/11/17 20:44 POC Glu Polystyrene Bead Molder Sofi Dawn 06/11/17 20:[address] Glu mg/dL 303 06/07/17 19:28 Hemoglobin A1c 12.2 % (4.0-6.0) H 06/07/17 19:28 Lactic Ac Sepsis Rflx Y 06/07/17 14:59 Plasma Lactic Acid John 1.9 mmol/L (0.7-2.0) 06/08/17 04:23 Calcium 9.4 mg/dL (8.4-10.2) 06/11/17 08:29 Phosphorus 3.9 mg/dL (2.5-4.5) 06/11/17 08:29 Magnesium 1.7 mg/dL (1.6-2.3) 06/11/17 08:29 Total Bilirubin 1.1 mg/dL (0.2-1.3) 06/07/17 09:53 AST 20 U/L (14-36) 06/07/17 09:53 ALT 20 U/L (9-52) 06/07/17 09:53 Alkaline Phosphatase 189 U/L (38-126) H 06/07/17 09:53 Ammonia <9 umol/L (<30) 06/07/17 13:56 Total Creatine Kinase 63 U/L (30-135) 06/07/17 09:53 CK-MB (CK-2) 1.6 ng/mL (0.0-2.4) 06/07/17 09:53 CK-MB (CK-2) Rel Index 2.5 06/07/17 09:53 Total Protein 6.3 g/dL (6.3-8.2) 06/07/17 09:53 Albumin 3.6 g/dL (3.5-5.0) 06/07/17 09:53 Vitamin B12 393.0 pg/mL (200.0-944.0) 06/08/17 04:23 TSH 0.995 mIU/L (0.465-4.680) 06/08/17 04:23 Urine Color Yellow 06/07/17 11:08 Urine Appearance Clear (Clear) 06/07/17 11:08 Urine pH 6.5 (5.0-8.0) 06/07/17 11:08 Ur Specific [place] 1.018 (1.001-1.035) 06/07/17 11:08 Urine Protein 1+ (Negative) H 06/07/17 11:08 Urine Glucose (UA) 4+ (Negative) H 06/07/17 11:08 Urine Ketones Negative (Negative) 06/07/17 11:08 Urine Blood Negative (Negative) 06/07/17 11:08 Urine Nitrite Negative (Negative) 06/07/17 11:08 Urine Bilirubin Negative (Negative) 06/07/17 11:08 Urine Urobilinogen <2.0 mg/dL (<2.0) 06/07/17 11:08 Ur Leukocyte Esterase Negative (Negative) 06/07/17 11:08 Urine RBC 1 /hpf (0-5) 06/07/17 11:08 Urine WBC 6 /hpf (0-5) H 06/07/17 11:08 Ur Squamous Epith Cells 1 /hpf (0-4) 06/07/17 11:08 Hyaline Casts 6 /lpf (0-2) H 06/07/17 11:08 WBC Casts 4 /lpf (0) 06/07/17 11:08 Urine Mucus Rare /hpf (None) H 06/07/17 11:08 Acetone, Qual Negative (Negative) 06/07/17 09:53 C. difficile (EIA) Intrp Negative (Negative) 06/09/17 14:20 Influenza Type A RNA Not Detected (Not Detectd) 06/07/17 14:44 Influenza Type B (PCR) Not Detected (Not Detectd) 06/07/17 14:44 Microbiology 06/07/17 09:53 Blood Blood Culture Gram Stain - Final 06/07/17 09:53 Blood Blood Culture - Final Streptococcus pneumoniae 06/07/17 22:50 Urine,Catheterized Urine Culture - Final 06/07/17 09:53 Blood Blood Culture - Final Assessment and Plan (1) Sepsis Narrative/Plan: 72-year-old female presents to Hospital via EMS after being found by her family laying on the floor. The patient has no recollection of the event of the time frame around it. Is showing some improvement at this point in time. Distal somewhat vague. However does not have any lateralizing focal deficits at this time. Computed tomography scan of brain was negative. The patient however did become progressively more septic with elevated lactic acid with good response to fluid resuscitation. She requires no vasopressor therapy. She is improved at this point in time but is having some difficulties with some loose stool for C. diff testing was canceled because of stool consistency. She does have a leukocytosis but no significant fever or hypothermia. The patient does however have evidence of possible blood culture with gram- positive cocci likely streptococcal in nature.. Thus there are concerns to Streptococcus pneumoniae pneumonia and sepsis as a cause of her current illness. The blood culture has been clarified as Streptococcus pneumoniae and chest x- ray does show evidence of infiltrate and constantly underlying pneumonia with sepsis appears to be the etiology for current sepsis and illness. She is starting show some improvement. Antimicrobial therapy with Rocephin at this time. Continue ongoing supportive care. This has some mild erythema to the right lower extremity however does not appear to be significantly tender, there is no open lesions are draining ulcers. Patient does not have a noted history of C. diff and current stool is without diarrhea. Leukocytosis due to her current sepsis. Is having some loose stools does not appear to be C. diff some Imodium was added. Patient is further improved and likely be discharged home soon. Would complete a course of 5 days of cefuroxime 500 mg every 12 hours at her discharge. Current Visit: Yes Status: Acute Code(s): A41.9 - SEPSIS, UNSPECIFIED ORGANISM SNOMED Code(s): 55680828 (2) Encephalopathy Current Visit: Yes Status: Acute Code(s): G93.40 - ENCEPHALOPATHY, UNSPECIFIED SNOMED Code(s): 68314289 (3) Lactic acidosis Current Visit: Yes Status: Acute Code(s): E87.2 - ACIDOSIS SNOMED Code(s) : 20601770 (4) Gram-positive cocci bacteremia Current Visit: Yes Status: Acute Code(s): R78.81 - BACTEREMIA SNOMED Code( s): 265440699045
--- NOTE | 2017-06-11 23:46 | PN ---
PROGRESS NOTE DATE OF SERVICE: 06/11/2017 HISTORY: This is a pleasantly debilitated 72-year-old white female who has moved to the general medical floor with a telemetry device. The patient appears much better than 2 days ago when I last saw her. She was diagnosed with status post open thoracotomy with coronary artery bypass graft in the previous admission. She returned to the hospital with acute confusion, mental status changes, lactic acidosis because of impending sepsis. She seems to be doing better. She states she is still weak, difficulty moving and ambulating. PHYSICAL EXAM: Vital signs are stable. She is afebrile. HEENT. Head is normocephalic, atraumatic. NECK: Supple. No JVD. HEART: Regular rate and rhythm. LUNGS: Diminished breath sounds bilateral. HEART: Regular rate and rhythm with midline sternotomy scar intact. EXTREMITIES: No cyanosis, clubbing or jaundice. Her edema in the pretibial area has improved. NEUROLOGIC: Cranial nerves 2 through 12 are grossly intact without any lateralizing deficits. IMPRESSION: 1. Status post syncope with fall. 2. Lactic acidosis. 3. Left lower lobe pneumonia. 4. Coronary artery disease with coronary artery bypass in March 2017. 5. Type 2 diabetes. 6. Acute depression secondary to multiple comorbidities. PLAN: The patient will continue with IV antibiotics. Sepsis is improving, however, she remains very weak. Her culture grew out Staphylococcus pneumonia as the current cause of her sepsis. Continue to follow patient's overall hospital course. She may need extended care facility placement. We will continue to work on that in the next few days. MMODL / IJN: [id number] /
[2017-06-12] MEDS: IPRATROPIUM-ALBUTEROL 3 ML NEB INHALATION SCH ×6 (00:05→19:24)
[2017-06-12 07:29] LABS: Glucose,Whole Blood 121 mg/dL (75-99)
[2017-06-12] MEDS: INSULIN ASPART 100 UNIT/ML 1 ML 10 ML VIAL SQ SCH ×7 (08:32→23:04)
[2017-06-12] MEDS: SYMBICORT 160-4.5 MCG INHALER INHALATION SCH ×2 (08:38→19:24)
[2017-06-12] MEDS: cefTRIAXone IN SWFI 2,000 MG/20 ML SYRINGE IVP SCH (08:59)
[2017-06-12] MEDS: ASPIRIN 325 MG TAB PO SCH (09:01)
[2017-06-12] MEDS: METOPROLOL TARTRATE 25 MG TAB PO SCH ×2 (09:01→23:10)
[2017-06-12] MEDS: CLOPIDOGREL 75 MG TAB PO SCH (09:01)
[2017-06-12] MEDS: CHOLECALCIFEROL 1,000 UNIT TAB PO SCH (09:01)
[2017-06-12] MEDS: PANTOPRAZOLE 40 MG TABLET PO SCH (09:02)
[2017-06-12] MEDS: ESCITALOPRAM 10 MG TAB PO SCH (09:02)
[2017-06-12] MEDS: SODIUM CHLORIDE 0.9% 1,000 ML IV SCH (09:02)
[2017-06-12] MEDS: NYSTATIN 100,000 UNIT/GM POWD 15 GM TOPICAL SCH ×2 (09:02→23:16)
[2017-06-12] MEDS: ATORVASTATIN 80 MG TAB PO SCH (09:02)
[2017-06-12 10:08] LABS: Basophils # (A) 0.1 k/uL (0-0.2); Basophils % (A) 1 %; Eosinophils # (A) 0.2 k/uL (0-0.7); Eosinophils % (A) 3 %; HCT 35.4 % (34.0-46.0); HGB 11.3 gm/dL (11.4-16.0); Hypochromasia Slight; Lymphocytes # (A) 0.8 k/uL (1.0-4.8); Lymphocytes % (A) 10 %; MCH 29.9 pg (25.0-35.0); MCHC 31.9 g/dL (31.0-37.0); MCV 93.7 fL (80.0-100.0); Mean Platelet Volume 8.4; Monocytes # (A) 0.6 k/uL (0-1.0); Monocytes % (A) 8 %; Neutrophils # (A) 6.3 k/uL (1.3-7.7); Neutrophils % (A) 76 %; Platelet Count 247 k/uL (150-450); RBC 3.77 m/uL (3.80-5.40); RDW 13.7 % (11.5-15.5); WBC 8.2 k/uL (3.8-10.6)
[2017-06-12 10:30] LABS: Anion Gap 9 mmol/L; Blood Urea Nitrogen 11 mg/dL (7-17); Calcium 8.9 mg/dL (8.4-10.2); Carbon Dioxide 28 mmol/L (22-30); Chloride 100 mmol/L (98-107); Glucose 229 mg/dL (74-99); Magnesium 1.6 mg/dL (1.6-2.3); Phosphorus 3.7 mg/dL (2.5-4.5); Potassium 4.2 mmol/L (3.5-5.1); Sodium 137 mmol/L (137-145)
[2017-06-12 11:35] LABS: Glucose,Whole Blood 271 mg/dL (75-99)
--- NOTE | 2017-06-12 12:06 | P.PN ---
Subjective Progress Note Date: 06/12/17 Principal diagnosis: Acute pneumococcal pneumonia and pneumococcal sepsis with bacteremia This is a 72-year-old female was brought in by EMS for evaluation of weakness and confusion. Patient apparently found by family members landing on the kitchen floor naked. Patient is not sure how she got there. She was found sitting on a stool when EMS arrived. She was very slow to respond normally she is awake and alert as time progressed in route the patient did recover some of her mentation. She was found have a blood glucose of 365. I saw the patient and I also interviewed the daughter. Apparently the patient is not getting the appropriate medical care and since her bypass surgery in her health has been declining to the point where the patient has not been very strict blood pressure control and she has been taken and her vacation on a regular basis. In the emergency department, the patient had a CAT scan of the head that showed no acute abnormalities. Computed tomography scan of the spine showed no evidence of any acute fracture. Chest x-ray showed pulmonary vascular congestion and some interstitial edema. Pneumonia is doubtful although it's a possibility left lower lobe. The patient has some mild leukocytosis. Her initial lactic acid level was 2.5 and came up to 3.6. UA is negative. Influenza screen is negative. White cell count is minimally elevated at 11.5 and there is 93% neutrophilia. No significant anion gap metabolic acidosis. Anion gap is a 13. Bicarb level is at 28. Patient was awake. At a time of my evaluation she was moving all 4 extremities. No slurred speech. She was slow in answering questions. She denied having any chest pain. She was having some labored breathing over this improved as I was evaluating this patient and she became progressively more comfortable. No cough. No chest pain. No pleurisy. No hemoptysis. There is some swelling in the lower extremity especially on the right. No evidence of cellulitis. No evidence of any open wounds. No reported aspiration by family members. No head trauma. On 06/08/2017 I'm seeing this patient for a follow-up. As mentioned, the patient was seen on the medical floor and subsequently she got transferred to the intensive care unit due to concerns of her elevated lactic acid level. The patient got resuscitated IV fluids. The patient was covered with IV Zosyn. The patient felt much more alert and awake during this morning evaluation. In fact upon talking to her she did not remember that I saw yesterday evening. However today, she was able to recognize me and she was much more alert and communicative and verbal and lucid. She denied having any specific complaints. No cough or sputum production. No chest pain. Legs were swollen and there was some erythema over the anterior aspect of the lower extremities bilaterally which raises the possibility of questionable cellulitis. The blood cultures showing gram-positive cocci in chains. Urine analysis was negative and urine cultures are still pending for now. The chest x-ray showing cardiomegaly with some limited retrocardiac left basilar pulmonary infiltration. The white cell count is slightly elevated at 15.1. That is however significant bandemia up to 55%. There is also an acute kidney injury with a creatinine came up to 1.4. In terms of her fluid balance the patient has received more than 3 L of IV fluids and she is currently on 100 mL an hour of normal saline. The lactic acid level is down to 1.9 On 06/09/2017 the patient is being seen for a follow-up. Has no specific complaint that she is resting comfortably in bed. No respiratory distress. No cough or sputum production. The patient was treated for acute sepsis with a combination of Zosyn and vancomycin. Subsequent blood cultures revealed strep pneumo. This is likely than a pneumonia that resulted to septicemia. The patient's renal function is improving. Creatinine is down to 1.1. Once echo is at 13.6. Slightly improved compared to yesterday. No other significant events over the past 24 hours. She is resting comfortably in bed. Receiving antibiotics. The ultrasound the kidneys showed no obstructive uropathy. Left renal mid pole soft tissue lesion measuring 1.9 x 1.6 x 1.3 cm. Advised to get a CAT scan or an MRI at later stage. Meanwhile, the Doppler of the lower extremity was also done that showed no evidence of any DVT. On 06/10/2017, the patient is still being treated for pneumococcal septicemia which is most likely related to an underlying pneumonia. Mental status back to normal. Energy level is gradually improving. The patient will need IV antibiotics and the patient is currently on IV Rocephin 2 g every 24 hours. ID is on the case. Renal function is normalized. No respiratory difficulties at this point. Patient was reevaluated today on 06/11/2017, still being treated for pneumococcal sepsis, and septicemia. Most likely secondary to underlying pneumonia. Patient's mental status seems to be improving, she seems to be very appropriate today, new the place, time, and year. Patient remains on IV Rocephin and being followed by infectious disease. Labs showed relatively normal CBC and normal basic metabolic profile. The patient is seen again today 06/12/2017 in follow-up in the regular medical floor. She is awake and alert in no acute distress. She denies any worsening shortness of breath, cough or congestion. No chills or night sweats. No leukocytosis. Hemoglobin 11.3, creatinine 1.07. She remains on ceftriaxone, Symbicort and DuoNeb inhalations. She remains afebrile. Hemodynamically stable. Maintaining good O2 saturations in the 90s on 3 L/m per nasal cannula. She does desaturate into the 80s on room air. Objective - Vital Signs Vital signs: Vital Signs Temp 98.0 F 06/12/17 07:00 Pulse 85 06/12/17 07:00 Resp 18 06/12/17 07:00 BP 163/71 06/12/17 07:00 Pulse Ox 93 L 06/12/17 08:39 Intake & Output 06/11/17 06/12/17 06/12/17 18:59 06:59 18:59 Weight 73.9 kg Other: Voiding Method Bedside Commode Incontinent # Voids 4 3 # Bowel Movements 1 0 - Exam Gen. appearance the patient is alert and awake and following commands and answering questions appropriately. Head exam was generally normal. There was no scleral icterus or corneal arcus. Mucous membranes were moist.Neck was supple and without jugular venous distension, thyromegaly, or carotid bruits. Carotids were easily palpable bilaterally. There was no adenopathy. Patient has a Mallampati class IV and there is no goiter or neck masses. Lungs sounds are diminished otherwise clear. No crackles or wheezes or rhonchi. Heart sounds are regular, sternum stable clean and intact. Normal S1-S2. No cervical murmurs appreciated.Abdominal exam revealed normal bowel sounds. The abdomen was soft, non-tender, and without masses, organomegaly, or appreciable enlargement of the abdominal aorta. Extremities are swollen especially in the right lower extremity with +1 pitting edema. No cyanosis. No clubbing. No open wounds or sores. Neurologically, o awake and alert and the patient's encephalopathy is present much recovered. - Labs CBC & Chem 7: 06/12/17 09:47 06/12/17 09:47 Labs: Abnormal Lab Results - Last 24 Hours (Table) 06/11/17 06/11/17 06/11/17 Range/Units 12:11 17:05 20:44 RBC (3.80-5.40) m/uL Hgb (11.4-16.0) gm/dL Lymphocytes # (1.0-4.8) k/uL Creatinine (0.52-1.04) mg/dL Glucose (74-99) mg/dL POC Glucose (mg/dL) 185 H 160 H 156 H (75-99) mg/dL 06/12/17 06/12/17 06/12/17 Range/Units 07:28 09:47 09:47 RBC 3.77 L (3.80-5.40) m/uL Hgb 11.3 L (11.4-16.0) gm/dL Lymphocytes # 0.8 L (1.0-4.8) k/uL Creatinine 1.07 H (0.52-1.04) mg/dL Glucose 229 H (74-99) mg/dL POC Glucose (mg/dL) 121 H (75-99) mg/dL 06/12/17 Range/Units 11:32 RBC (3.80-5.40) m/uL Hgb (11.4-16.0) gm/dL Lymphocytes # (1.0-4.8) k/uL Creatinine (0.52-1.04) mg/dL Glucose (74-99) mg/dL POC Glucose (mg/dL) 271 H (75-99) mg/dL Assessment and Plan Assessment: Assessment 1 altered mentation currently under investigation secondary to underlying sepsis. The patient was found to have strep pneumonia septicemia which probably is resulting from an underlying lung infection/pneumonia. Currently on ceftriaxone. Mental status improved. Hemodynamically improved. The patient is currently on a medical floor. 2 COPD with an FEV1 of 57% of Predicted 3 acute kidney injury, improving and the renal function is also improving. 4 Coronary Artery Disease with Bypass Surgery in 2017 with VELARDE to LAD, Previous Coronary Intervention and Stenting to RCA 5 acute lactic acidosis, improving 6 Diabetes Mellitus with Poor Blood Sugar Control 7 Dementia 8 Poor Medication Compliance Possibly Secondary to Underlying Dementia 9 hypertension 10 hyperlipidemia 11 carotid artery disease with previous endarterectomy on the right 12 degenerative arthritis 13 chronic back pain 14 lactic acidosis, improving 15 Obesity with a BMI of 35.2 16 renal lesion not consistent of a cystic structure. Will need a CAT scan/MRI later stage. Plan The patient was seen and evaluated by Dr. Aldrich. She is currently stable from the pulmonary standpoint. We will increase her activity as tolerated. Continue with her current medications. Probable discharge in the a.m. to an extended care facility. Will continue to follow. I, the cosigning physician, performed a history & physical examination of the patient. Lungs sounds have few scattered rhonchi. Maintaining good O2 saturations in the 90s on 3 L/m per nasal cannula. I discussed the assessment and plan of care with my nurse practitioner, Eloise Mcgee. I attest to the above note as dictated by her.
[2017-06-12 17:23] LABS: Glucose,Whole Blood 119 mg/dL (75-99)
[2017-06-12 20:48] LABS: Glucose,Whole Blood 154 mg/dL (75-99)
--- NOTE | 2017-06-12 22:52 | P.PN ---
Subjective Progress Note Date: 06/12/17 Principal diagnosis: Confusion 72-year-old woman who presents to the emergency center by EMS after the family found the patient confused laying naked on the kitchen floor. The patient was unable to relate how she got it kitchen because a family was concerned EMS was called. Apparently the family had gotten her sitting up the time EMS arrived. She was still very confused and had evidence of an elevated blood sugar. The patient has a known history of coronary artery disease status post coronary artery bypass grafting procedure in March 2017. Apparently she has not been taking good care of herself and that she is not compliant with her medications and has not been monitoring her blood sugars or her blood pressure. Upon arrival stat computed tomography scan failed reveal evidence of any acute intracranial abnormalities. Patient was given some resuscitation was having initial some improvement. However she had worsening lactic acidosis and her mental status was still somewhat poor and constantly was transferred to the intensive care unit. With further fluid resuscitation she resolved her lactic acidosis and since then has had some improvement of her mental status. She is regaining some appetite is denying nausea but has developed several loose stools. The patient remains a poor historian does not relate to the events of what happened at the time of her admission. But does relate she feels somewhat better. Does not recall fevers, chills or rigors before becoming ill. No notation of any pain in her chest, sputum production or other acute change 06/12/2017, the patient continues to feel better. Less short of breath. Able to easily transfer from bed to chair to eat her lunch. Objective - Vital Signs Vital signs: Vital Signs Temp 97.2 F L 06/12/17 15:00 Pulse 74 06/12/17 15:00 Resp 16 06/12/17 15:00 BP 159/83 06/12/17 15:00 Pulse Ox 95 06/12/17 16:04 Intake & Output 06/12/17 06/12/17 06/13/17 06:59 18:59 06:59 Other: Voiding Method Bedside Commode Incontinent # Voids 3 3 # Bowel Movements 0 2 - Exam 72-year-old woman who is more comfortable today. HEENT: Anicteric conjunctiva are pink and moist nasal mucosa grossly intact without significant lesions, there is no thrush. Neck: The neck is supple without significant lymphadenopathy or thyromegaly. Lungs: Symmetrical air entry is noted. Crackles at left base are noted. No bronchial sounds are noted or egophony. Heart: Irregular with an audible S1 and S2 soft S4 no murmur click or rub. , PMI was nondisplaced. Abdomen: Mildly obese, Positive bowel sounds soft and nontender without palpable masses or organomegaly. There was no guarding or rebound. Has a liquid stool while being examined without complaints of pain Extremities: The upper extremities have excellent pulses they are symmetric, no significant petechiae or telangiectasia. No splinter hemorrhages were noted. Lower extremity is evidence of some chronic venous stasis evidence of some chronic skin changes especially in the right lower extremity. There is evidence of some mild erythema with no open ulcerations or drainage on the right pretibial area. Very dry skin to the heels is noted and there is a fissure on the right heel without drainage or tenderness. Neuro: Awake alert oriented to person person and place. Does not have gross focal sensory motor deficits on exam. Mentation is much clearer today. - Labs CBC & Chem 7: 06/12/17 09:47 06/12/17 09:47 Labs: Abnormal Lab Results - Last 24 Hours (Table) 06/12/17 06/12/17 06/12/17 Range/Units 07:28 09:47 09:47 RBC 3.77 L (3.80-5.40) m/uL Hgb 11.3 L (11.4-16.0) gm/dL Lymphocytes # 0.8 L (1.0-4.8) k/uL Creatinine 1.07 H (0.52-1.04) mg/dL Glucose 229 H (74-99) mg/dL POC Glucose (mg/dL) 121 H (75-99) mg/dL 06/12/17 06/12/17 06/12/17 Range/Units 11:32 17:05 20:46 RBC (3.80-5.40) m/uL Hgb (11.4-16.0) gm/dL Lymphocytes # (1.0-4.8) k/uL Creatinine (0.52-1.04) mg/dL Glucose (74-99) mg/dL POC Glucose (mg/dL) 271 H 119 H 154 H (75-99) mg/dL Laboratory Results WBC 8.2 k/uL (3.8-10.6) 06/12/17 09:47 RBC 3.77 m/uL (3.80-5.40) L 06/12/17 09:47 Hgb 11.3 gm/dL (11.4-16.0) L 06/12/17 09:47 Hct 35.4 % (34.0-46.0) 06/12/17 09:47 MCV 93.7 fL (80.0-100.0) 06/12/17 09:47 MCH 29.9 pg (25.0-35.0) 06/12/17 09:47 MCHC 31.9 g/dL (31.0-37.0) 06/12/17 09:47 RDW 13.7 % (11.5-15.5) 06/12/17 09:47 Plt Count 247 k/uL (150-450) 06/12/17 09:47 Neutrophils % 76 % 06/12/17 09:47 Neutrophils % (Manual) 32 % 06/08/17 04:23 Band Neutrophils % 55 % 06/08/17 04:23 Lymphocytes % 10 % 06/12/17 09:47 Lymphocytes % (Manual) 7 % 06/08/17 04:23 Monocytes % 8 % 06/12/17 09:47 Monocytes % (Manual) 4 % 06/08/17 04:23 Eosinophils % 3 % 06/12/17 09:47 Eosinophils % (Manual) 1 % 06/08/17 04:23 Basophils % 1 % 06/12/17 09:47 Metamyelocytes % 2 % 06/08/17 04:23 Myelocytes % 1 % 06/08/17 04:23 Neutrophils # 6.3 k/uL (1.3-7.7) 06/12/17 09:47 Neutrophils # (Manual) 13.10 k/uL (1.3-7.7) H 06/08/17 04:23 Lymphocytes # 0.8 k/uL (1.0-4.8) L 06/12/17 09:47 Lymphocytes # (Manual) 1.06 k/uL (1.0-4.8) 06/08/17 04:23 Monocytes # 0.6 k/uL (0-1.0) 06/12/17 09:47 Monocytes # (Manual) 0.60 k/uL (0-1.0) 06/08/17 04:23 Eosinophils # 0.2 k/uL (0-0.7) 06/12/17 09:47 Eosinophils # (Manual) 0.15 k/uL (0-0.7) 06/08/17 04:23 Basophils # 0.1 k/uL (0-0.2) 06/12/17 09:47 Metamyelocytes # (Man) 0.30 k/uL (0) H 06/08/17 04:23 Myelocytes # (Manual) 0.15 k/uL (0) H 06/08/17 04:23 Nucleated RBCs 0 /100 WBC (0-0) 06/08/17 04:23 Manual Slide Review Performed 06/07/17 09:53 Toxic Vacuolation Present 06/08/17 04:23 Polychromasia Present 06/08/17 04:23 Hypochromasia Slight 06/12/17 09:47 Poikilocytosis (manual Present 06/07/17 09:53 Anisocytosis (manual) Present 06/08/17 04:23 Sodium 137 mmol/L (137-145) 06/12/17 09:47 Potassium 4.2 mmol/L (3.5-5.1) 06/12/17 09:47 Chloride 100 mmol/L (98-107) 06/12/17 09:47 Carbon Dioxide 28 mmol/L (22-30) 06/12/17 09:47 Anion Gap 9 mmol/L 06/12/17 09:47 BUN 11 mg/dL (7-17) 06/12/17 09:47 Creatinine 1.07 mg/dL (0.52-1.04) H 06/12/17 09:47 Est GFR (MDRD) Af Amer >60 (>60 ml/min/1.73 sqM) 06/12/17 09:47 Est GFR (MDRD) Non-Af 50 (>60 ml/min/1.73 sqM) 06/12/17 09:47 Glucose 229 mg/dL (74-99) H 06/12/17 09:47 POC Glucose (mg/dL) 154 mg/dL (75-99) H 06/12/17 20:46 POC Glu Caddie QUAN Sofi Irizarry 06/12/17 20:[address] Glu mg/dL 303 06/07/17 19:28 Hemoglobin A1c 12.2 % (4.0-6.0) H 06/07/17 19:28 Lactic Ac Sepsis Rflx Y 06/07/17 14:59 Plasma Lactic Acid John 1.9 mmol/L (0.7-2.0) 06/08/17 04:23 Calcium 8.9 mg/dL (8.4-10.2) 06/12/17 09:47 Phosphorus 3.7 mg/dL (2.5-4.5) 06/12/17 09:47 Magnesium 1.6 mg/dL (1.6-2.3) 06/12/17 09:47 Total Bilirubin 1.1 mg/dL (0.2-1.3) 06/07/17 09:53 AST 20 U/L (14-36) 06/07/17 09:53 ALT 20 U/L (9-52) 06/07/17 09:53 Alkaline Phosphatase 189 U/L (38-126) H 06/07/17 09:53 Ammonia <9 umol/L (<30) 06/07/17 13:56 Total Creatine Kinase 63 U/L (30-135) 06/07/17 09:53 CK-MB (CK-2) 1.6 ng/mL (0.0-2.4) 06/07/17 09:53 CK-MB (CK-2) Rel Index 2.5 06/07/17 09:53 Total Protein 6.3 g/dL (6.3-8.2) 06/07/17 09:53 Albumin 3.6 g/dL (3.5-5.0) 06/07/17 09:53 Vitamin B12 393.0 pg/mL (200.0-944.0) 06/08/17 04:23 TSH 0.995 mIU/L (0.465-4.680) 06/08/17 04:23 Urine Color Yellow 06/07/17 11:08 Urine Appearance Clear (Clear) 06/07/17 11:08 Urine pH 6.5 (5.0-8.0) 06/07/17 11:08 Ur Specific Angela 1.018 (1.001-1.035) 06/07/17 11:08 Urine Protein 1+ (Negative) H 06/07/17 11:08 Urine Glucose (UA) 4+ (Negative) H 06/07/17 11:08 Urine Ketones Negative (Negative) 06/07/17 11:08 Urine Blood Negative (Negative) 06/07/17 11:08 Urine Nitrite Negative (Negative) 06/07/17 11:08 Urine Bilirubin Negative (Negative) 06/07/17 11:08 Urine Urobilinogen <2.0 mg/dL (<2.0) 06/07/17 11:08 Ur Leukocyte Esterase Negative (Negative) 06/07/17 11:08 Urine RBC 1 /hpf (0-5) 06/07/17 11:08 Urine WBC 6 /hpf (0-5) H 06/07/17 11:08 Ur Squamous Epith Cells 1 /hpf (0-4) 06/07/17 11:08 Hyaline Casts 6 /lpf (0-2) H 06/07/17 11:08 WBC Casts 4 /lpf (0) 06/07/17 11:08 Urine Mucus Rare /hpf (None) H 06/07/17 11:08 Acetone, Qual Negative (Negative) 06/07/17 09:53 C. difficile (EIA) Intrp Negative (Negative) 06/09/17 14:20 Influenza Type A RNA Not Detected (Not Detectd) 06/07/17 14:44 Influenza Type B (PCR) Not Detected (Not Detectd) 06/07/17 14:44 Assessment and Plan (1) Sepsis Narrative/Plan: 72-year-old female presents to Hospital via EMS after being found by her family laying on the floor. The patient has no recollection of the event of the time frame around it. Is showing some improvement at this point in time. Distal somewhat vague. However does not have any lateralizing focal deficits at this time. Computed tomography scan of brain was negative. The patient however did become progressively more septic with elevated lactic acid with good response to fluid resuscitation. She requires no vasopressor therapy. She is improved at this point in time but is having some difficulties with some loose stool for C. diff testing was canceled because of stool consistency. She does have a leukocytosis but no significant fever or hypothermia. The patient does however have evidence of possible blood culture with gram- positive cocci likely streptococcal in nature.. Thus there are concerns to Streptococcus pneumoniae pneumonia and sepsis as a cause of her current illness. The blood culture has been clarified as Streptococcus pneumoniae and chest x- ray does show evidence of infiltrate and constantly underlying pneumonia with sepsis appears to be the etiology for current sepsis and illness. She is starting show some improvement. Antimicrobial therapy with Rocephin at this time. Continue ongoing supportive care. This has some mild erythema to the right lower extremity however does not appear to be significantly tender, there is no open lesions are draining ulcers. Patient does not have a noted history of C. diff and current stool is without diarrhea. Leukocytosis due to her current sepsis. Is having some loose stools does not appear to be C. diff some Imodium was added. Loose stools resolved. Patient is further improved and likely be discharged home soon. Would complete a course of 5 days of cefuroxime 500 mg every 12 hours at her discharge. Current Visit: Yes Status: Acute Code(s): A41.9 - SEPSIS, UNSPECIFIED ORGANISM SNOMED Code(s): 65305389 (2) Encephalopathy Current Visit: Yes Status: Acute Code(s): G93.40 - ENCEPHALOPATHY, UNSPECIFIED SNOMED Code(s): 75149612 (3) Lactic acidosis Current Visit: Yes Status: Acute Code(s): E87.2 - ACIDOSIS SNOMED Code(s) : 13444746 (4) Gram-positive cocci bacteremia Current Visit: Yes Status: Acute Code(s): R78.81 - BACTEREMIA SNOMED Code( s): 171206533733
--- NOTE | 2017-06-12 23:08 | PN ---
PROGRESS NOTE The patient is a pleasant 72-year-old white female who was seen on the floor. She is actually up with Physical Therapy right now and she looks pretty good. She is moving with minimal support. Her antibiotics are going to be turned off today and she is going to be switched over to p.o. for her left lower lobe pneumonia. Her mental status has improved significantly. She has no particular complaints this morning. PHYSICAL EXAMINATION: Patient is alert and orientated x3. She is answering questions appropriately. HEART: Regular rate and rhythm. LUNGS: Clear to auscultation. ABDOMEN: Soft, nontender. No rebound, rigidity, guarding. EXTREMITIES: No cyanosis, clubbing or jaundice. Midline sternotomy scar is intact without any problems. IMPRESSIONS: 1. Acute pneumonia with streptococcus as the offending agent. 2. Sepsis, which is resolving. 3. Altered mental status due to an infectious encephalopathy/metabolic encephalopathy. 4. Lactic acidosis, resolved. 5. Status post coronary artery bypass graft. 6. Diabetes, type 2, with poor control. PLAN: Switch over to p.o. antibiotics 24 hours. Consider discharge. Will continue to follow patient's overall guarded prognosis. MMODL / IJN: [id number] /
[2017-06-12] MEDS: INSULIN DETEMIR 100 UNIT/ML 10 ML VIAL SQ SCH (23:10)
[2017-06-12] MEDS: SENNOSIDES-DOCUSATE SODIUM 1 EACH TAB PO SCH (23:10)
[2017-06-13] MEDS: IPRATROPIUM-ALBUTEROL 3 ML NEB INHALATION SCH ×6 (00:36→19:43)
[2017-06-13] MEDS: SODIUM CHLORIDE 0.9% 1,000 ML IV SCH ×2 (05:49→23:58)
[2017-06-13] MEDS: SYMBICORT 160-4.5 MCG INHALER INHALATION SCH ×2 (07:12→19:43)
[2017-06-13 07:52] LABS: Glucose,Whole Blood 182 mg/dL (75-99)
[2017-06-13] MEDS: cefTRIAXone IN SWFI 2,000 MG/20 ML SYRINGE IVP SCH (07:56)
[2017-06-13] MEDS: ATORVASTATIN 80 MG TAB PO SCH (07:57)
[2017-06-13] MEDS: PANTOPRAZOLE 40 MG TABLET PO SCH (07:57)
[2017-06-13] MEDS: METOPROLOL TARTRATE 25 MG TAB PO SCH ×2 (07:57→20:57)
[2017-06-13] MEDS: ASPIRIN 325 MG TAB PO SCH (07:57)
[2017-06-13] MEDS: CLOPIDOGREL 75 MG TAB PO SCH (07:57)
[2017-06-13] MEDS: ESCITALOPRAM 10 MG TAB PO SCH (07:57)
[2017-06-13] MEDS: CHOLECALCIFEROL 1,000 UNIT TAB PO SCH (07:57)
[2017-06-13] MEDS: INSULIN ASPART 100 UNIT/ML 1 ML 10 ML VIAL SQ SCH ×7 (07:57→20:58)
[2017-06-13] MEDS: NYSTATIN 100,000 UNIT/GM POWD 15 GM TOPICAL SCH ×2 (07:58→20:58)
[2017-06-13 12:28] LABS: Glucose,Whole Blood 226 mg/dL (75-99)
--- NOTE | 2017-06-13 13:34 | P.PN ---
Subjective Progress Note Date: 06/13/17 Principal diagnosis: Acute pneumococcal pneumonia and pneumococcal sepsis with bacteremia This is a 72-year-old female was brought in by EMS for evaluation of weakness and confusion. Patient apparently found by family members landing on the kitchen floor naked. Patient is not sure how she got there. She was found sitting on a stool when EMS arrived. She was very slow to respond normally she is awake and alert as time progressed in route the patient did recover some of her mentation. She was found have a blood glucose of 365. I saw the patient and I also interviewed the daughter. Apparently the patient is not getting the appropriate medical care and since her bypass surgery in her health has been declining to the point where the patient has not been very strict blood pressure control and she has been taken and her vacation on a regular basis. In the emergency department, the patient had a CAT scan of the head that showed no acute abnormalities. Computed tomography scan of the spine showed no evidence of any acute fracture. Chest x-ray showed pulmonary vascular congestion and some interstitial edema. Pneumonia is doubtful although it's a possibility left lower lobe. The patient has some mild leukocytosis. Her initial lactic acid level was 2.5 and came up to 3.6. UA is negative. Influenza screen is negative. White cell count is minimally elevated at 11.5 and there is 93% neutrophilia. No significant anion gap metabolic acidosis. Anion gap is a 13. Bicarb level is at 28. Patient was awake. At a time of my evaluation she was moving all 4 extremities. No slurred speech. She was slow in answering questions. She denied having any chest pain. She was having some labored breathing over this improved as I was evaluating this patient and she became progressively more comfortable. No cough. No chest pain. No pleurisy. No hemoptysis. There is some swelling in the lower extremity especially on the right. No evidence of cellulitis. No evidence of any open wounds. No reported aspiration by family members. No head trauma. On 06/08/2017 I'm seeing this patient for a follow-up. As mentioned, the patient was seen on the medical floor and subsequently she got transferred to the intensive care unit due to concerns of her elevated lactic acid level. The patient got resuscitated IV fluids. The patient was covered with IV Zosyn. The patient felt much more alert and awake during this morning evaluation. In fact upon talking to her she did not remember that I saw yesterday evening. However today, she was able to recognize me and she was much more alert and communicative and verbal and lucid. She denied having any specific complaints. No cough or sputum production. No chest pain. Legs were swollen and there was some erythema over the anterior aspect of the lower extremities bilaterally which raises the possibility of questionable cellulitis. The blood cultures showing gram-positive cocci in chains. Urine analysis was negative and urine cultures are still pending for now. The chest x-ray showing cardiomegaly with some limited retrocardiac left basilar pulmonary infiltration. The white cell count is slightly elevated at 15.1. That is however significant bandemia up to 55%. There is also an acute kidney injury with a creatinine came up to 1.4. In terms of her fluid balance the patient has received more than 3 L of IV fluids and she is currently on 100 mL an hour of normal saline. The lactic acid level is down to 1.9 On 06/09/2017 the patient is being seen for a follow-up. Has no specific complaint that she is resting comfortably in bed. No respiratory distress. No cough or sputum production. The patient was treated for acute sepsis with a combination of Zosyn and vancomycin. Subsequent blood cultures revealed strep pneumo. This is likely than a pneumonia that resulted to septicemia. The patient's renal function is improving. Creatinine is down to 1.1. Once echo is at 13.6. Slightly improved compared to yesterday. No other significant events over the past 24 hours. She is resting comfortably in bed. Receiving antibiotics. The ultrasound the kidneys showed no obstructive uropathy. Left renal mid pole soft tissue lesion measuring 1.9 x 1.6 x 1.3 cm. Advised to get a CAT scan or an MRI at later stage. Meanwhile, the Doppler of the lower extremity was also done that showed no evidence of any DVT. On 06/10/2017, the patient is still being treated for pneumococcal septicemia which is most likely related to an underlying pneumonia. Mental status back to normal. Energy level is gradually improving. The patient will need IV antibiotics and the patient is currently on IV Rocephin 2 g every 24 hours. ID is on the case. Renal function is normalized. No respiratory difficulties at this point. Patient was reevaluated today on 06/11/2017, still being treated for pneumococcal sepsis, and septicemia. Most likely secondary to underlying pneumonia. Patient's mental status seems to be improving, she seems to be very appropriate today, new the place, time, and year. Patient remains on IV Rocephin and being followed by infectious disease. Labs showed relatively normal CBC and normal basic metabolic profile. The patient is seen again today 06/12/2017 in follow-up in the regular medical floor. She is awake and alert in no acute distress. She denies any worsening shortness of breath, cough or congestion. No chills or night sweats. No leukocytosis. Hemoglobin 11.3, creatinine 1.07. She remains on ceftriaxone, Symbicort and DuoNeb inhalations. She remains afebrile. Hemodynamically stable. Maintaining good O2 saturations in the 90s on 3 L/m per nasal cannula. She does desaturate into the 80s on room air. The patient is seen again today generally 2017 in follow-up on the regular medical floor. She is currently sitting up in a chair at the bedside. She is awake and alert in no acute distress. Oriented 3. Denies any fever chills or night sweats. She is maintaining good O2 saturations in the 90s on 3 L/m per nasal cannula. She's been afebrile. No tachycardia. No tachypnea. ID has recommended cefuroxime 500 mg every 12 hours post discharge. Objective - Vital Signs Vital signs: Vital Signs Temp 98.1 F 06/13/17 07:05 Pulse 90 06/13/17 11:22 Resp 20 06/13/17 08:00 BP 186/81 06/13/17 07:10 Pulse Ox 95 06/13/17 07:05 Intake & Output 06/12/17 06/13/17 06/13/17 18:59 06:59 18:59 Other: Voiding Method Bedside Commode Bedside Commode Incontinent Incontinent # Voids 3 3 # Bowel Movements 2 1 - Exam Gen. appearance the patient is alert and awake and following commands and answering questions appropriately. Head exam was generally normal. There was no scleral icterus or corneal arcus. Mucous membranes were moist.Neck was supple and without jugular venous distension, thyromegaly, or carotid bruits. Carotids were easily palpable bilaterally. There was no adenopathy. Patient has a Mallampati class IV and there is no goiter or neck masses. Lungs sounds are diminished otherwise clear. No crackles or wheezes or rhonchi. Heart sounds are regular, sternum stable clean and intact. Normal S1-S2. No cervical murmurs appreciated.Abdominal exam revealed normal bowel sounds. The abdomen was soft, non-tender, and without masses, organomegaly, or appreciable enlargement of the abdominal aorta. Extremities are swollen especially in the right lower extremity with +1 pitting edema. No cyanosis. No clubbing. No open wounds or sores. Neurologically, o awake and alert and the patient's encephalopathy is present much recovered. - Labs CBC & Chem 7: 06/12/17 09:47 06/12/17 09:47 Labs: Abnormal Lab Results - Last 24 Hours (Table) 06/12/17 06/12/17 06/13/17 Range/Units 17:05 20:46 07:36 POC Glucose (mg/dL) 119 H 154 H 182 H (75-99) mg/dL 06/13/17 Range/Units 12:12 POC Glucose (mg/dL) 226 H (75-99) mg/dL Assessment and Plan Assessment: Assessment 1 altered mentation currently under investigation secondary to underlying sepsis. The patient was found to have strep pneumonia septicemia which probably is resulting from an underlying lung infection/pneumonia. Currently on ceftriaxone. Mental status improved. Hemodynamically improved. The patient is currently on a medical floor. 2 COPD with an FEV1 of 57% of Predicted 3 acute kidney injury, improving and the renal function is also improving. 4 Coronary Artery Disease with Bypass Surgery in 2017 with VELARDE to LAD, Previous Coronary Intervention and Stenting to RCA 5 acute lactic acidosis, improving 6 Diabetes Mellitus with Poor Blood Sugar Control 7 Dementia 8 Poor Medication Compliance Possibly Secondary to Underlying Dementia 9 hypertension 10 hyperlipidemia 11 carotid artery disease with previous endarterectomy on the right 12 degenerative arthritis 13 chronic back pain 14 lactic acidosis, improving 15 Obesity with a BMI of 35.2 16 renal lesion not consistent of a cystic structure. Will need a CAT scan/MRI later stage. Plan The patient was seen and evaluated by Dr. Aldrich. She is currently stable from the pulmonary standpoint. We will increase her activity as tolerated. Continue with her current medications. She'll be discharged on cefuroxime 500 mg every 12 hours as recommended per ID. Probable discharge in the a.m. to an extended care facility. I, the cosigning physician, performed a history & physical examination of the patient. Lungs sounds have few scattered rhonchi. Maintaining good O2 saturations in the 90s on 3 L/m per nasal cannula. I discussed the assessment and plan of care with my nurse practitioner, Eloise Mcgee. I attest to the above note as dictated by her.
--- NOTE | 2017-06-13 15:02 | P.PN ---
Subjective Progress Note Date: 06/13/17 Patient seen and examined at the bedside on rounds with Dr. Shepard. Patient states she is not feeling well overall. She states she is tired. She is sitting up in the chair and states she is going to get washed up shortly. She denies shortness of breath. Continues to have a cough. She remains on nasal cannula at 3L to maintain oxygen saturations greater than 92% Denies chest pain or pressure. She states she had a little nausea this morning but it has subsided. She denies vomiting. Denies abdominal pain. Blood pressure this morning is elevated at 186/81. SBP has been running 150-180s. Objective - Vital Signs Vital signs: Vital Signs Temp 98.1 F 06/13/17 07:05 Pulse 84 06/13/17 08:00 Resp 20 06/13/17 08:00 BP 186/81 06/13/17 07:10 Pulse Ox 95 06/13/17 07:05 Intake & Output 06/12/17 06/13/17 06/13/17 18:59 06:59 18:59 Other: Voiding Method Bedside Commode Bedside Commode Incontinent Incontinent # Voids 3 3 # Bowel Movements 2 1 - Exam GENERAL: This is a 72-year-old female in no apparent distress at the time of examination. Pleasant and cooperative. HEENT: Head is atraumatic, normocephalic. Pupils are equal, round, and reactive to light. Sclerae anicteric. Conjunctivae are clear. Mucus membranes of the mouth are moist. Neck is supple. RESPIRATORY: Clear to ausculation. No wheezes, rales, or rhonchi. No use of accessory muscles. Patient maintaining oxygen saturation greater than 92% on 3 L nasal cannula. No chest wall tenderness is noted on palpation or with deep breathing. CARDIOVASCULAR: Regular rate and rhythm. S1 and S2 noted. No JVD noted. No S3 or S4 noted. GASTROINTESTINAL: No distention noted. Abdomen soft and round. Normal active bowel sounds auscultated x 4 quadrants. No pain or tenderness noted upon palpation. INTEGUMENTARY: Midline chest incision without erythema or drainage. Chronic discoloration noted to bilateral lower extremities. No cyanosis. No jaundice. No rashes noted. No cellulitis noted. EXTREMITIES: 2+ peripheral pulses. No evidence of peripheral edema. No calf tenderness noted. NEUROLOGIC: Cranial nerves II-XII intact. PSYCHIATRIC: Awake, alert, and oriented X 3. Flat affect. - Labs CBC & Chem 7: 06/12/17 09:47 06/12/17 09:47 Labs: Abnormal Lab Results - Last 24 Hours (Table) 06/12/17 06/12/17 06/12/17 Range/Units 11:32 17:05 20:46 POC Glucose (mg/dL) 271 H 119 H 154 H (75-99) mg/dL 06/13/17 Range/Units 07:36 POC Glucose (mg/dL) 182 H (75-99) mg/dL Assessment and Plan Plan: ASSESSMENT: Acute pneumonia secondary to Streptococcus pneumoniae Streptococcus pneumoniae septicemia Altered mental status due to infectious encephalopathy/metabolic encephalopathy Lactic acidosis, resolved Diabetes mellitus, type II, poorly controlled Chronic obstructive pulmonary disease Acute kidney injury, improving S/P coronary artery bypass graft with VELARDE to LAD Medical noncompliance Essential hypertension Hyperlipidemia Carotid artery disease with previous right endarterectomy Obesity: BMI 31.8 Renal lesion, not consistent with cystic structure, CT/MRI in the future PLAN: -Pulmonary on consult. Appreciate recommendations and input -Infectious disease on consult. Appreciate recommendations and input -ID recommends Cefuroxime 500mg Q 12 hours x 5 days at time of discharge -Patient will require CT/MRI of renal lesion on an outpatient basis -Home meds as appropriate -Monitor labs -GI prophylaxis: Protonix 40 mg by mouth daily -DVT prophylaxis: Venodyne's to bilateral lower extremities -Monitor vital signs and address as appropriate -Discharge planning: ECF at the time of discharge. Possibly [facility] [place] -Further recommendations pending patient's course -Possible discharge tomorrow to ECF Nurse practitioner note has been reviewed by physician. Signing provider agrees with the documented findings, assessment, and plan of care.
[2017-06-13 17:15] LABS: Glucose,Whole Blood 151 mg/dL (75-99)
[2017-06-13] MEDS: SENNOSIDES-DOCUSATE SODIUM 1 EACH TAB PO SCH (20:58)
[2017-06-13] MEDS: INSULIN DETEMIR 100 UNIT/ML 10 ML VIAL SQ SCH (20:58)
[2017-06-13 21:00] LABS: Glucose,Whole Blood 137 mg/dL (75-99)
--- NOTE | 2017-06-13 23:35 | P.PN ---
Subjective Progress Note Date: 06/13/17 Principal diagnosis: Confusion 72-year-old woman who presents to the emergency center by EMS after the family found the patient confused laying naked on the kitchen floor. The patient was unable to relate how she got it kitchen because a family was concerned EMS was called. Apparently the family had gotten her sitting up the time EMS arrived. She was still very confused and had evidence of an elevated blood sugar. The patient has a known history of coronary artery disease status post coronary artery bypass grafting procedure in March 2017. Apparently she has not been taking good care of herself and that she is not compliant with her medications and has not been monitoring her blood sugars or her blood pressure. Upon arrival stat computed tomography scan failed reveal evidence of any acute intracranial abnormalities. Patient was given some resuscitation was having initial some improvement. However she had worsening lactic acidosis and her mental status was still somewhat poor and constantly was transferred to the intensive care unit. With further fluid resuscitation she resolved her lactic acidosis and since then has had some improvement of her mental status. She is regaining some appetite is denying nausea but has developed several loose stools. The patient remains a poor historian does not relate to the events of what happened at the time of her admission. But does relate she feels somewhat better. Does not recall fevers, chills or rigors before becoming ill. No notation of any pain in her chest, sputum production or other acute change 06/12/2017, the patient continues to feel better. Less short of breath. Able to easily transfer from bed to chair to eat her lunch. I 06/13/2017 patient is sitting in the chair, as had her dinner with no difficulties. She is awaiting her transfer to extended care to complete her rehab course of antibiotic therapy. Objective - Vital Signs Vital signs: Vital Signs Temp 98.2 F 06/13/17 23:00 Pulse 77 06/13/17 23:00 Resp 24 06/13/17 23:00 BP 136/79 06/13/17 23:00 Pulse Ox 97 06/13/17 23:00 Intake & Output 06/13/17 06/13/17 06/14/17 06:59 18:59 06:59 Intake Total 240 Balance 240 Intake: Oral 240 Other: Voiding Method Bedside Commode Bedside Commode Incontinent Incontinent # Voids 3 1 # Bowel Movements 1 0 - Exam 72-year-old woman who is more comfortable today. HEENT: Anicteric conjunctiva are pink and moist nasal mucosa grossly intact without significant lesions, there is no thrush. Neck: The neck is supple without significant lymphadenopathy or thyromegaly. Lungs: Symmetrical air entry is noted. Crackles at left base are noted. No bronchial sounds are noted or egophony. Heart: Irregular with an audible S1 and S2 soft S4 no murmur click or rub. , PMI was nondisplaced. Abdomen: Mildly obese, Positive bowel sounds soft and nontender without palpable masses or organomegaly. There was no guarding or rebound. Has a liquid stool while being examined without complaints of pain Extremities: The upper extremities have excellent pulses they are symmetric, no significant petechiae or telangiectasia. No splinter hemorrhages were noted. Lower extremity is evidence of some chronic venous stasis evidence of some chronic skin changes especially in the right lower extremity. There is evidence of some mild erythema with no open ulcerations or drainage on the right pretibial area. Very dry skin to the heels is noted and there is a fissure on the right heel without drainage or tenderness. Neuro: Awake alert oriented to person person and place. Does not have gross focal sensory motor deficits on exam. Mentation is much clearer today. - Labs CBC & Chem 7: 06/12/17 09:47 06/12/17 09:47 Labs: Abnormal Lab Results - Last 24 Hours (Table) 06/13/17 06/13/17 06/13/17 Range/Units 07:36 12:12 16:49 POC Glucose (mg/dL) 182 H 226 H 151 H (75-99) mg/dL 06/13/17 Range/Units 20:48 POC Glucose (mg/dL) 137 H (75-99) mg/dL Laboratory Results WBC 8.2 k/uL (3.8-10.6) 06/12/17 09:47 RBC 3.77 m/uL (3.80-5.40) L 06/12/17 09:47 Hgb 11.3 gm/dL (11.4-16.0) L 06/12/17 09:47 Hct 35.4 % (34.0-46.0) 06/12/17 09:47 MCV 93.7 fL (80.0-100.0) 06/12/17 09:47 MCH 29.9 pg (25.0-35.0) 06/12/17 09:47 MCHC 31.9 g/dL (31.0-37.0) 06/12/17 09:47 RDW 13.7 % (11.5-15.5) 06/12/17 09:47 Plt Count 247 k/uL (150-450) 06/12/17 09:47 Neutrophils % 76 % 06/12/17 09:47 Neutrophils % (Manual) 32 % 06/08/17 04:23 Band Neutrophils % 55 % 06/08/17 04:23 Lymphocytes % 10 % 06/12/17 09:47 Lymphocytes % (Manual) 7 % 06/08/17 04:23 Monocytes % 8 % 06/12/17 09:47 Monocytes % (Manual) 4 % 06/08/17 04:23 Eosinophils % 3 % 06/12/17 09:47 Eosinophils % (Manual) 1 % 06/08/17 04:23 Basophils % 1 % 06/12/17 09:47 Metamyelocytes % 2 % 06/08/17 04:23 Myelocytes % 1 % 06/08/17 04:23 Neutrophils # 6.3 k/uL (1.3-7.7) 06/12/17 09:47 Neutrophils # (Manual) 13.10 k/uL (1.3-7.7) H 06/08/17 04:23 Lymphocytes # 0.8 k/uL (1.0-4.8) L 06/12/17 09:47 Lymphocytes # (Manual) 1.06 k/uL (1.0-4.8) 06/08/17 04:23 Monocytes # 0.6 k/uL (0-1.0) 06/12/17 09:47 Monocytes # (Manual) 0.60 k/uL (0-1.0) 06/08/17 04:23 Eosinophils # 0.2 k/uL (0-0.7) 06/12/17 09:47 Eosinophils # (Manual) 0.15 k/uL (0-0.7) 06/08/17 04:23 Basophils # 0.1 k/uL (0-0.2) 06/12/17 09:47 Metamyelocytes # (Man) 0.30 k/uL (0) H 06/08/17 04:23 Myelocytes # (Manual) 0.15 k/uL (0) H 06/08/17 04:23 Nucleated RBCs 0 /100 WBC (0-0) 06/08/17 04:23 Manual Slide Review Performed 06/07/17 09:53 Toxic Vacuolation Present 06/08/17 04:23 Polychromasia Present 06/08/17 04:23 Hypochromasia Slight 06/12/17 09:47 Poikilocytosis (manual Present 06/07/17 09:53 Anisocytosis (manual) Present 06/08/17 04:23 Sodium 137 mmol/L (137-145) 06/12/17 09:47 Potassium 4.2 mmol/L (3.5-5.1) 06/12/17 09:47 Chloride 100 mmol/L (98-107) 06/12/17 09:47 Carbon Dioxide 28 mmol/L (22-30) 06/12/17 09:47 Anion Gap 9 mmol/L 06/12/17 09:47 BUN 11 mg/dL (7-17) 06/12/17 09:47 Creatinine 1.07 mg/dL (0.52-1.04) H 06/12/17 09:47 Est GFR (MDRD) Af Amer >60 (>60 ml/min/1.73 sqM) 06/12/17 09:47 Est GFR (MDRD) Non-Af 50 (>60 ml/min/1.73 sqM) 06/12/17 09:47 Glucose 229 mg/dL (74-99) H 06/12/17 09:47 POC Glucose (mg/dL) 137 mg/dL (75-99) H 06/13/17 20:48 POC Glu Protection Consultant ID Connie Poole 06/13/17 20:[address] Glu mg/dL 303 06/07/17 19:28 Hemoglobin A1c 12.2 % (4.0-6.0) H 06/07/17 19:28 Lactic Ac Sepsis Rflx Y 06/07/17 14:59 Plasma Lactic Acid John 1.9 mmol/L (0.7-2.0) 06/08/17 04:23 Calcium 8.9 mg/dL (8.4-10.2) 06/12/17 09:47 Phosphorus 3.7 mg/dL (2.5-4.5) 06/12/17 09:47 Magnesium 1.6 mg/dL (1.6-2.3) 06/12/17 09:47 Total Bilirubin 1.1 mg/dL (0.2-1.3) 06/07/17 09:53 AST 20 U/L (14-36) 06/07/17 09:53 ALT 20 U/L (9-52) 06/07/17 09:53 Alkaline Phosphatase 189 U/L (38-126) H 06/07/17 09:53 Ammonia <9 umol/L (<30) 06/07/17 13:56 Total Creatine Kinase 63 U/L (30-135) 06/07/17 09:53 CK-MB (CK-2) 1.6 ng/mL (0.0-2.4) 06/07/17 09:53 CK-MB (CK-2) Rel Index 2.5 06/07/17 09:53 Total Protein 6.3 g/dL (6.3-8.2) 06/07/17 09:53 Albumin 3.6 g/dL (3.5-5.0) 06/07/17 09:53 Vitamin B12 393.0 pg/mL (200.0-944.0) 06/08/17 04:23 TSH 0.995 mIU/L (0.465-4.680) 06/08/17 04:23 Urine Color Yellow 06/07/17 11:08 Urine Appearance Clear (Clear) 06/07/17 11:08 Urine pH 6.5 (5.0-8.0) 06/07/17 11:08 Ur Specific Wesley 1.018 (1.001-1.035) 06/07/17 11:08 Urine Protein 1+ (Negative) H 06/07/17 11:08 Urine Glucose (UA) 4+ (Negative) H 06/07/17 11:08 Urine Ketones Negative (Negative) 06/07/17 11:08 Urine Blood Negative (Negative) 06/07/17 11:08 Urine Nitrite Negative (Negative) 06/07/17 11:08 Urine Bilirubin Negative (Negative) 06/07/17 11:08 Urine Urobilinogen <2.0 mg/dL (<2.0) 06/07/17 11:08 Ur Leukocyte Esterase Negative (Negative) 06/07/17 11:08 Urine RBC 1 /hpf (0-5) 06/07/17 11:08 Urine WBC 6 /hpf (0-5) H 06/07/17 11:08 Ur Squamous Epith Cells 1 /hpf (0-4) 06/07/17 11:08 Hyaline Casts 6 /lpf (0-2) H 06/07/17 11:08 WBC Casts 4 /lpf (0) 06/07/17 11:08 Urine Mucus Rare /hpf (None) H 06/07/17 11:08 Acetone, Qual Negative (Negative) 06/07/17 09:53 C. difficile (EIA) Intrp Negative (Negative) 06/09/17 14:20 Influenza Type A RNA Not Detected (Not Detectd) 06/07/17 14:44 Influenza Type B (PCR) Not Detected (Not Detectd) 06/07/17 14:44 Microbiology 06/07/17 09:53 Blood Blood Culture Gram Stain - Final 06/07/17 09:53 Blood Blood Culture - Final Streptococcus pneumoniae 06/07/17 22:50 Urine,Catheterized Urine Culture - Final 06/07/17 09:53 Blood Blood Culture - Final Assessment and Plan (1) Sepsis Narrative/Plan: 72-year-old female presents to Hospital via EMS after being found by her family laying on the floor. The patient has no recollection of the event of the time frame around it. Is showing some improvement at this point in time. Distal somewhat vague. However does not have any lateralizing focal deficits at this time. Computed tomography scan of brain was negative. The patient however did become progressively more septic with elevated lactic acid with good response to fluid resuscitation. She requires no vasopressor therapy. She is improved at this point in time but is having some difficulties with some loose stool for C. diff testing was canceled because of stool consistency. She does have a leukocytosis but no significant fever or hypothermia. The patient does however have evidence of possible blood culture with gram- positive cocci likely streptococcal in nature.. Thus there are concerns to Streptococcus pneumoniae pneumonia and sepsis as a cause of her current illness. The blood culture has been clarified as Streptococcus pneumoniae and chest x- ray does show evidence of infiltrate and constantly underlying pneumonia with sepsis appears to be the etiology for current sepsis and illness. She is starting show some improvement. Antimicrobial therapy with Rocephin at this time. Continue ongoing supportive care. This has some mild erythema to the right lower extremity however does not appear to be significantly tender, there is no open lesions are draining ulcers. Patient does not have a noted history of C. diff and current stool is without diarrhea. Leukocytosis due to her current sepsis. Is having some loose stools does not appear to be C. diff some Imodium was added. Loose stools resolved. Patient is further improved and likely be discharged home soon. Would complete a course of 5 days of cefuroxime 500 mg every 12 hours at her discharge. Current Visit: Yes Status: Acute Code(s): A41.9 - SEPSIS, UNSPECIFIED ORGANISM SNOMED Code(s): 83485348 (2) Encephalopathy Current Visit: Yes Status: Acute Code(s): G93.40 - ENCEPHALOPATHY, UNSPECIFIED SNOMED Code(s): 44502380 (3) Lactic acidosis Current Visit: Yes Status: Acute Code(s): E87.2 - ACIDOSIS SNOMED Code(s) : 36342625 (4) Gram-positive cocci bacteremia Current Visit: Yes Status: Acute Code(s): R78.81 - BACTEREMIA SNOMED Code( s): 329227677043
[2017-06-14 02:18] LABS: Glucose,Whole Blood 141 mg/dL (75-99)
[2017-06-14] MEDS: IPRATROPIUM-ALBUTEROL 3 ML NEB INHALATION SCH ×6 (04:32→23:29)
[2017-06-14 07:48] LABS: Glucose,Whole Blood 124 mg/dL (75-99)
[2017-06-14] MEDS: INSULIN ASPART 100 UNIT/ML 1 ML 10 ML VIAL SQ SCH ×7 (07:52→21:15)
[2017-06-14] MEDS: ASPIRIN 325 MG TAB PO SCH (08:01)
[2017-06-14] MEDS: METOPROLOL TARTRATE 25 MG TAB PO SCH ×2 (08:01→20:14)
[2017-06-14] MEDS: ESCITALOPRAM 10 MG TAB PO SCH (08:01)
[2017-06-14] MEDS: CLOPIDOGREL 75 MG TAB PO SCH (08:01)
[2017-06-14] MEDS: CHOLECALCIFEROL 1,000 UNIT TAB PO SCH (08:01)
[2017-06-14] MEDS: ATORVASTATIN 80 MG TAB PO SCH (08:01)
[2017-06-14] MEDS: PANTOPRAZOLE 40 MG TABLET PO SCH (08:01)
[2017-06-14] MEDS: NYSTATIN 100,000 UNIT/GM POWD 15 GM TOPICAL SCH ×2 (08:02→20:15)
[2017-06-14] MEDS: cefTRIAXone IN SWFI 2,000 MG/20 ML SYRINGE IVP SCH ×2 (08:02→08:06)
[2017-06-14] MEDS: SYMBICORT 160-4.5 MCG INHALER INHALATION SCH ×2 (08:08→20:23)
[2017-06-14] MEDS: CEFUROXIME 250 MG TAB PO SCH ×2 (10:29→20:14)
[2017-06-14] MEDS: LISINOPRIL 20 MG TAB PO SCH (10:29)
--- NOTE | 2017-06-14 11:11 | P.DS ---
Providers Date of admission: 06/07/17 13:07 Expected date of discharge: 06/14/17 Attending physician: Srinath Shepard Consults: 06/07/17 15:08 Consult Physician Routine Consulting Provider: Kirstie Parsons Consult Reason/Comments: sob Do you want consulting provider notified?: Yes 06/07/17 19:53 Consult Physician Stat Consulting Provider: Kirstie Parsons Consult Reason/Comments: ICU management Do you want consulting provider notified?: Yes 06/08/17 08:32 Consult Physician Routine Consulting Provider: Burt Cuadra Consult Reason/Comments: positive blood cultures Do you want consulting provider notified?: Already Contacted 06/08/17 12:38 Consult Physician Routine Consulting Provider: Denzel Norris Consult Reason/Comments: metabolic encephalopathy Do you want consulting provider notified?: Already Contacted Primary care physician: Srinath Shepard [facility] Course: 72-year-old female who was out into the emergency room for weakness and confusion. The patient was currently found her son lying on the floor in her kitchen naked. Patient is not sure how she got there does not remember passing out. She was brought to the emergency room via EMS and admitted to the hospital. She was found to be septic and and lactic acidosis with a lactic acid of 3.0. She was initially admitted to the intensive care unit and has since been transferred to a general medical floor where she continues to improve. Her blood sugars were found to be in the high 300s upon admission. The patient has been noncompliant with her diabetes since her CABG in 2017. Influenza screening was negative. Urinalysis was negative. An ultrasound of the kidneys was performed which was negative for obstructive process but did reveal a left renal mid pole soft tissue lesion and recommended CT or MRI follow -up when stable. She was found to have left lower lobe pneumonia. Blood cultures were positive for Streptococcus pneumoniae. She was followed by charge poster and infectious disease during hospitalization. Infectious disease recommends Ceftin 500 mg twice a day for 5 days at the time of discharge. After receiving antibiotics and IV fluids, the patient has improved significantly. Her mentation is back to her baseline. Respiratory status is improved. She is still requiring supplemental oxygen via nasal cannula. Her lactic acidosis has resolved. Her appetite is slowly improving. She has been working with physical therapy during hospitalization. She remains overall weak. Physical therapy recommended subacute rehab at the time of discharge. The patient was deemed stable for discharge to subacute rehab per Dr. Shepard. Due to the patient's decreased appetite, she will be discharged on 35 units of Levemir. The patient was previously prescribed 50 units at bedtime. Once the patient's appetite improves, she may increase her Levemir to 50 units at bedtime. The patient is to take Ceftin 500mg BID for 5 days. She is to continue to wear oxygen as needed to maintain oxygen saturations greater than 92%. The patient is to follow up with Dr. Shepard one week after discharge from [facility]. At that time Dr. Shepard will discuss CT/MRI follow up for renal lesion seen on abdominal ultrasound. Discharge diagnosis Acute pneumonia secondary to Streptococcus pneumoniae Streptococcus pneumoniae septicemia Altered mental status due to infectious encephalopathy/metabolic encephalopathy Lactic acidosis, resolved Diabetes mellitus, type II, poorly controlled Chronic obstructive pulmonary disease Acute kidney injury, improving S/P coronary artery bypass graft with VELARDE to LAD Medical noncompliance Essential hypertension Hyperlipidemia Carotid artery disease with previous right endarterectomy Obesity: BMI 31.8 Renal lesion, not consistent with cystic structure, CT/MRI in the future Nurse practitioner note has been reviewed by physician. Signing provider agrees with the documented findings, assessment, and plan of care. Patient Condition at Discharge: Stable Plan - Discharge Summary Discharge Rx Participant: Yes New Discharge Prescriptions: New Cefuroxime [Ceftin] 500 mg PO BID #20 tab Insulin Aspart [NovoLOG (formulary)] 0 unit SQ ACHS vial Insulin Detemir [Levemir] 35 unit SQ HS syr Continue Cholecalciferol [Vitamin D3] 2,000 unit PO DAILY Budesonide-Formot 160-4.5 Mcg [Symbicort 160-4.5 Mcg Inhaler] 2 puff INHALATION RT-BID Ipratropium/Albuterol Sulfate [Combivent Respimat Inhaler] 2 puff INHALATION RT-QID PRN PRN Reason: Shortness Of Breath Atorvastatin [Lipitor] 80 mg PO DAILY #90 tab Aspirin 325 mg PO DAILY Ipratropium-Albuterol Nebulize [Duoneb 0.5 mg-3 mg/3 ml Soln] 3 ml INHALATION RT-QID PRN PRN Reason: sob Clopidogrel [Plavix] 75 mg PO DAILY tab Lisinopril [Zestril] 20 mg PO DAILY@1200 tab Magnesium Hydroxide [Milk of Magnesia Concentrate] 2,400 mg PO BID PRN ml PRN Reason: Constipation Metoprolol Tartrate [Lopressor] 75 mg PO BID tab Nystatin 100,000 Unit/gm Powd [Mycostatin Powder] 1 applic TOPICAL BID applic Pantoprazole [Protonix] 40 mg PO AC-BRKFST tablet. Insulin Aspart [NovoLOG Flexpen] 10 units SQ AC-TID HYDROcodone/APAP 5-325MG [[place] 5-325] 1 - 2 tab PO Q4HR PRN PRN Reason: Severe Pain Benzocaine/Menthol Lozeng [Cepacol lozenge] 1 lozenge MUCOUS MEM Q2H PRN PRN Reason: Sore Throat Sennosides-Docusate Sodium [Senokot-S] 2 tab PO HS Escitalopram [Lexapro] 10 mg PO DAILY #30 tab Discontinued Insulin Detemir [Levemir] 50 unit SQ HS syr Discharge Medication List Budesonide-Formot 160-4.5 Mcg [Symbicort 160-4.5 Mcg Inhaler] 2 puff INHALATION RT-BID 01/19/17 [History] Cholecalciferol [Vitamin D3] 2,000 unit PO DAILY 01/19/17 [History] Ipratropium/Albuterol Sulfate [Combivent Respimat Inhaler] 2 puff INHALATION RT- QID PRN 01/19/17 [History] Atorvastatin [Lipitor] 80 mg PO DAILY #90 tab 04/03/17 [Rx] Aspirin 325 mg PO DAILY 04/09/17 [History] Ipratropium-Albuterol Nebulize [Duoneb 0.5 mg-3 mg/3 ml Soln] 3 ml INHALATION RT -QID PRN 04/12/17 [History] Clopidogrel [Plavix] 75 mg PO DAILY tab 04/19/17 [Rx] Lisinopril [Zestril] 20 mg PO DAILY@1200 tab 04/19/17 [Rx] Magnesium Hydroxide [Milk of Magnesia Concentrate] 2,400 mg PO BID PRN ml 04/19 [Rx] Metoprolol Tartrate [Lopressor] 75 mg PO BID tab 04/19/17 [Rx] Nystatin 100,000 Unit/gm Powd [Mycostatin Powder] 1 applic TOPICAL BID applic 04/19/17 [Rx] Pantoprazole [Protonix] 40 mg PO AC-BRKFST tablet. 04/19/17 [Rx] Benzocaine/Menthol Lozeng [Cepacol lozenge] 1 lozenge MUCOUS MEM Q2H PRN [History] HYDROcodone/APAP 5-325MG [[place] 5-325] 1 - 2 tab PO Q4HR PRN 05/22/17 [History] Insulin Aspart [NovoLOG Flexpen] 10 units SQ AC-TID 05/22/17 [History] Sennosides-Docusate Sodium [Senokot-S] 2 tab PO HS 05/22/17 [History] Escitalopram [Lexapro] 10 mg PO DAILY #30 tab 05/25/17 [Rx] Cefuroxime [Ceftin] 500 mg PO BID #20 tab 06/14/17 [Rx] Insulin Aspart [NovoLOG (formulary)] 0 unit SQ ACHS vial 06/14/17 [Rx] Insulin Detemir [Levemir] 35 unit SQ HS syr 06/14/17 [Rx] Follow up Appointment(s)/Referral(s): Aditi Aldrich MD [STAFF PHYSICIAN] - 2 Weeks Srinath Shepard DO [Primary Care Provider] - 1 Week (one week after DC from ECF) Chandra Cramer [NON-STAFF] - 1 Week Patient Instructions/Handouts: COPD (Chronic Obstructive Pulmonary Disease) (DC ) Activity/Diet/Wound Care/Special Instructions: Diabetic, cardiac diet. Activity as tolerated, fall precautions. NO smoking, cessation information provided. Oxygen via nasal cannula to maintain oxygen saturations 92% or greater Patient will need CT/MRI in the future secondary to renal lesion visualized on ultrasound. Patient will discuss this further with Dr. Shepard at her followup appointment after DC from ECF Discharge Disposition: TRANSFER TO SNF/ECF
--- NOTE | 2017-06-14 11:24 | P.PN ---
Subjective Progress Note Date: 06/14/17 Principal diagnosis: Acute pneumococcal pneumonia and pneumococcal sepsis with bacteremia This is a 72-year-old female was brought in by EMS for evaluation of weakness and confusion. Patient apparently found by family members landing on the kitchen floor naked. Patient is not sure how she got there. She was found sitting on a stool when EMS arrived. She was very slow to respond normally she is awake and alert as time progressed in route the patient did recover some of her mentation. She was found have a blood glucose of 365. I saw the patient and I also interviewed the daughter. Apparently the patient is not getting the appropriate medical care and since her bypass surgery in her health has been declining to the point where the patient has not been very strict blood pressure control and she has been taken and her vacation on a regular basis. In the emergency department, the patient had a CAT scan of the head that showed no acute abnormalities. Computed tomography scan of the spine showed no evidence of any acute fracture. Chest x-ray showed pulmonary vascular congestion and some interstitial edema. Pneumonia is doubtful although it's a possibility left lower lobe. The patient has some mild leukocytosis. Her initial lactic acid level was 2.5 and came up to 3.6. UA is negative. Influenza screen is negative. White cell count is minimally elevated at 11.5 and there is 93% neutrophilia. No significant anion gap metabolic acidosis. Anion gap is a 13. Bicarb level is at 28. Patient was awake. At a time of my evaluation she was moving all 4 extremities. No slurred speech. She was slow in answering questions. She denied having any chest pain. She was having some labored breathing over this improved as I was evaluating this patient and she became progressively more comfortable. No cough. No chest pain. No pleurisy. No hemoptysis. There is some swelling in the lower extremity especially on the right. No evidence of cellulitis. No evidence of any open wounds. No reported aspiration by family members. No head trauma. On 06/08/2017 I'm seeing this patient for a follow-up. As mentioned, the patient was seen on the medical floor and subsequently she got transferred to the intensive care unit due to concerns of her elevated lactic acid level. The patient got resuscitated IV fluids. The patient was covered with IV Zosyn. The patient felt much more alert and awake during this morning evaluation. In fact upon talking to her she did not remember that I saw yesterday evening. However today, she was able to recognize me and she was much more alert and communicative and verbal and lucid. She denied having any specific complaints. No cough or sputum production. No chest pain. Legs were swollen and there was some erythema over the anterior aspect of the lower extremities bilaterally which raises the possibility of questionable cellulitis. The blood cultures showing gram-positive cocci in chains. Urine analysis was negative and urine cultures are still pending for now. The chest x-ray showing cardiomegaly with some limited retrocardiac left basilar pulmonary infiltration. The white cell count is slightly elevated at 15.1. That is however significant bandemia up to 55%. There is also an acute kidney injury with a creatinine came up to 1.4. In terms of her fluid balance the patient has received more than 3 L of IV fluids and she is currently on 100 mL an hour of normal saline. The lactic acid level is down to 1.9 On 06/09/2017 the patient is being seen for a follow-up. Has no specific complaint that she is resting comfortably in bed. No respiratory distress. No cough or sputum production. The patient was treated for acute sepsis with a combination of Zosyn and vancomycin. Subsequent blood cultures revealed strep pneumo. This is likely than a pneumonia that resulted to septicemia. The patient's renal function is improving. Creatinine is down to 1.1. Once echo is at 13.6. Slightly improved compared to yesterday. No other significant events over the past 24 hours. She is resting comfortably in bed. Receiving antibiotics. The ultrasound the kidneys showed no obstructive uropathy. Left renal mid pole soft tissue lesion measuring 1.9 x 1.6 x 1.3 cm. Advised to get a CAT scan or an MRI at later stage. Meanwhile, the Doppler of the lower extremity was also done that showed no evidence of any DVT. On 06/10/2017, the patient is still being treated for pneumococcal septicemia which is most likely related to an underlying pneumonia. Mental status back to normal. Energy level is gradually improving. The patient will need IV antibiotics and the patient is currently on IV Rocephin 2 g every 24 hours. ID is on the case. Renal function is normalized. No respiratory difficulties at this point. Patient was reevaluated today on 06/11/2017, still being treated for pneumococcal sepsis, and septicemia. Most likely secondary to underlying pneumonia. Patient's mental status seems to be improving, she seems to be very appropriate today, new the place, time, and year. Patient remains on IV Rocephin and being followed by infectious disease. Labs showed relatively normal CBC and normal basic metabolic profile. The patient is seen again today 06/12/2017 in follow-up in the regular medical floor. She is awake and alert in no acute distress. She denies any worsening shortness of breath, cough or congestion. No chills or night sweats. No leukocytosis. Hemoglobin 11.3, creatinine 1.07. She remains on ceftriaxone, Symbicort and DuoNeb inhalations. She remains afebrile. Hemodynamically stable. Maintaining good O2 saturations in the 90s on 3 L/m per nasal cannula. She does desaturate into the 80s on room air. The patient is seen again today June 13 2017 in follow-up on the regular medical floor. She is currently sitting up in a chair at the bedside. She is awake and alert in no acute distress. Oriented 3. Denies any fever chills or night sweats. She is maintaining good O2 saturations in the 90s on 3 L/m per nasal cannula. She's been afebrile. No tachycardia. No tachypnea. ID has recommended cefuroxime 500 mg every 12 hours post discharge. Patient is seen again today 06/14/2017 in follow-up on the regular medical floor. She is currently sitting up in a chair at the bedside. She is awake and alert in no acute distress. She denies any worsening shortness of breath, cough or congestion. She continues to maintain good O2 saturations in the 90s on 2 L/m per nasal cannula. She's been afebrile. No tachycardia. No tachypnea. Hemodynamically stable. The plan is for transfer to an extended care facility today. Objective - Vital Signs Vital signs: Vital Signs Temp 98.1 F 06/14/17 07:00 Pulse 86 06/14/17 07:00 Resp 18 06/14/17 07:00 BP 145/62 06/14/17 07:00 Pulse Ox 93 L 06/14/17 07:00 Intake & Output 06/13/17 06/14/17 06/14/17 18:59 06:59 18:59 Intake Total 240 300 Balance 240 300 Intake: Oral 240 300 Other: Voiding Method Bedside Commode Incontinent # Voids 1 2 1 # Bowel Movements 0 - Exam Gen. appearance the patient is alert and awake and following commands and answering questions appropriately. Head exam was generally normal. There was no scleral icterus or corneal arcus. Mucous membranes were moist.Neck was supple and without jugular venous distension, thyromegaly, or carotid bruits. Carotids were easily palpable bilaterally. There was no adenopathy. Patient has a Mallampati class IV and there is no goiter or neck masses. Lungs sounds are diminished otherwise clear. No crackles or wheezes or rhonchi. Heart sounds are regular, sternum stable clean and intact. Normal S1-S2. No cervical murmurs appreciated.Abdominal exam revealed normal bowel sounds. The abdomen was soft, non-tender, and without masses, organomegaly, or appreciable enlargement of the abdominal aorta. Extremities are swollen especially in the right lower extremity with +1 pitting edema. No cyanosis. No clubbing. No open wounds or sores. Neurologically, o awake and alert and the patient's encephalopathy is present much recovered. - Labs CBC & Chem 7: 06/12/17 09:47 06/12/17 09:47 Labs: Abnormal Lab Results - Last 24 Hours (Table) 06/13/17 06/13/17 06/13/17 Range/Units 12:12 16:49 20:48 POC Glucose (mg/dL) 226 H 151 H 137 H (75-99) mg/dL 06/14/17 06/14/17 Range/Units 02:07 07:24 POC Glucose (mg/dL) 141 H 124 H (75-99) mg/dL Assessment and Plan Assessment: Assessment 1 altered mentation currently under investigation secondary to underlying sepsis. The patient was found to have strep pneumonia septicemia which probably is resulting from an underlying lung infection/pneumonia. Currently on ceftriaxone. Mental status improved. Hemodynamically improved. The patient is currently on a medical floor. 2 COPD with an FEV1 of 57% of Predicted 3 acute kidney injury, improving and the renal function is also improving. 4 Coronary Artery Disease with Bypass Surgery in 2017 with VELARDE to LAD, Previous Coronary Intervention and Stenting to RCA 5 acute lactic acidosis, improving 6 Diabetes Mellitus with Poor Blood Sugar Control 7 Dementia 8 Poor Medication Compliance Possibly Secondary to Underlying Dementia 9 hypertension 10 hyperlipidemia 11 carotid artery disease with previous endarterectomy on the right 12 degenerative arthritis 13 chronic back pain 14 lactic acidosis, improving 15 Obesity with a BMI of 35.2 16 renal lesion not consistent of a cystic structure. Will need a CAT scan/MRI later stage. Plan The patient was seen and evaluated by Dr. Aldrich. She is currently stable from the pulmonary standpoint. She'll be discharged on cefuroxime 500 mg every 12 hours as recommended per ID. Probable discharge today to an extended care facility. I, the cosigning physician, performed a history & physical examination of the patient. Lungs sounds have few scattered rhonchi. Maintaining good O2 saturations in the 90s on 3 L/m per nasal cannula. I discussed the assessment and plan of care with my nurse practitioner, Eloise Mcgee. I attest to the above note as dictated by her.
[2017-06-14 12:07] LABS: Glucose,Whole Blood 145 mg/dL (75-99)
[2017-06-14 17:17] LABS: Glucose,Whole Blood 101 mg/dL (75-99)
[2017-06-14] MEDS: SODIUM CHLORIDE 0.9% 1,000 ML IV SCH (20:15)
[2017-06-14] MEDS: SENNOSIDES-DOCUSATE SODIUM 1 EACH TAB PO SCH (20:15)
[2017-06-14] MEDS: INSULIN DETEMIR 100 UNIT/ML 10 ML VIAL SQ SCH (21:15)
[2017-06-14 21:18] LABS: Glucose,Whole Blood 85 mg/dL (75-99)
--- NOTE | 2017-06-14 22:43 | P.PN ---
Subjective Progress Note Date: 06/14/17 Principal diagnosis: Confusion 72-year-old woman who presents to the emergency center by EMS after the family found the patient confused laying naked on the kitchen floor. The patient was unable to relate how she got it kitchen because a family was concerned EMS was called. Apparently the family had gotten her sitting up the time EMS arrived. She was still very confused and had evidence of an elevated blood sugar. The patient has a known history of coronary artery disease status post coronary artery bypass grafting procedure in March 2017. Apparently she has not been taking good care of herself and that she is not compliant with her medications and has not been monitoring her blood sugars or her blood pressure. Upon arrival stat computed tomography scan failed reveal evidence of any acute intracranial abnormalities. Patient was given some resuscitation was having initial some improvement. However she had worsening lactic acidosis and her mental status was still somewhat poor and constantly was transferred to the intensive care unit. With further fluid resuscitation she resolved her lactic acidosis and since then has had some improvement of her mental status. She is regaining some appetite is denying nausea but has developed several loose stools. The patient remains a poor historian does not relate to the events of what happened at the time of her admission. But does relate she feels somewhat better. Does not recall fevers, chills or rigors before becoming ill. No notation of any pain in her chest, sputum production or other acute change 06/12/2017, the patient continues to feel better. Less short of breath. Able to easily transfer from bed to chair to eat her lunch. 06/13/2017 patient is sitting in the chair, as had her dinner with no difficulties. She is awaiting her transfer to extended care to complete her rehab course of antibiotic therapy. 06/14/2017 patient sitting upright area which is a bit sleepy. Her shortness of breath is improved. Looks forward to rehab to increase her strength. Objective - Vital Signs Vital signs: Vital Signs Temp 97.2 F L 06/14/17 14:53 Pulse 78 06/14/17 14:53 Resp 20 06/14/17 14:53 BP 120/56 06/14/17 14:53 Pulse Ox 93 L 06/14/17 14:53 Intake & Output 06/14/17 06/14/17 06/15/17 06:59 18:59 06:59 Intake Total 300 Balance 300 Intake: Oral 300 Other: Voiding Method Bedside Commode Incontinent # Voids 2 3 - Exam 72-year-old woman who is more comfortable today. HEENT: Anicteric conjunctiva are pink and moist nasal mucosa grossly intact without significant lesions, there is no thrush. Neck: The neck is supple without significant lymphadenopathy or thyromegaly. Lungs: Symmetrical air entry is noted. Crackles at left base are noted. No bronchial sounds are noted or egophony. Heart: Irregular with an audible S1 and S2 soft S4 no murmur click or rub. , PMI was nondisplaced. Abdomen: Mildly obese, Positive bowel sounds soft and nontender without palpable masses or organomegaly. There was no guarding or rebound. Has a liquid stool while being examined without complaints of pain Extremities: The upper extremities have excellent pulses they are symmetric, no significant petechiae or telangiectasia. No splinter hemorrhages were noted. Lower extremity is evidence of some chronic venous stasis evidence of some chronic skin changes especially in the right lower extremity. There is evidence of some mild erythema with no open ulcerations or drainage on the right pretibial area. Very dry skin to the heels is noted and there is a fissure on the right heel without drainage or tenderness. Neuro: Awake alert oriented to person person and place. Does not have gross focal sensory motor deficits on exam. Mentation is quite clear. - Labs CBC & Chem 7: 06/12/17 09:47 06/12/17 09:47 Labs: Abnormal Lab Results - Last 24 Hours (Table) 06/14/17 06/14/17 06/14/17 Range/Units 02:07 07:24 12:05 POC Glucose (mg/dL) 141 H 124 H 145 H (75-99) mg/dL 06/14/17 Range/Units 17:16 POC Glucose (mg/dL) 101 H (75-99) mg/dL Laboratory Results WBC 8.2 k/uL (3.8-10.6) 06/12/17 09:47 RBC 3.77 m/uL (3.80-5.40) L 06/12/17 09:47 Hgb 11.3 gm/dL (11.4-16.0) L 06/12/17 09:47 Hct 35.4 % (34.0-46.0) 06/12/17 09:47 MCV 93.7 fL (80.0-100.0) 06/12/17 09:47 MCH 29.9 pg (25.0-35.0) 06/12/17 09:47 MCHC 31.9 g/dL (31.0-37.0) 06/12/17 09:47 RDW 13.7 % (11.5-15.5) 06/12/17 09:47 Plt Count 247 k/uL (150-450) 06/12/17 09:47 Neutrophils % 76 % 06/12/17 09:47 Neutrophils % (Manual) 32 % 06/08/17 04:23 Band Neutrophils % 55 % 06/08/17 04:23 Lymphocytes % 10 % 06/12/17 09:47 Lymphocytes % (Manual) 7 % 06/08/17 04:23 Monocytes % 8 % 06/12/17 09:47 Monocytes % (Manual) 4 % 06/08/17 04:23 Eosinophils % 3 % 06/12/17 09:47 Eosinophils % (Manual) 1 % 06/08/17 04:23 Basophils % 1 % 06/12/17 09:47 Metamyelocytes % 2 % 06/08/17 04:23 Myelocytes % 1 % 06/08/17 04:23 Neutrophils # 6.3 k/uL (1.3-7.7) 06/12/17 09:47 Neutrophils # (Manual) 13.10 k/uL (1.3-7.7) H 06/08/17 04:23 Lymphocytes # 0.8 k/uL (1.0-4.8) L 06/12/17 09:47 Lymphocytes # (Manual) 1.06 k/uL (1.0-4.8) 06/08/17 04:23 Monocytes # 0.6 k/uL (0-1.0) 06/12/17 09:47 Monocytes # (Manual) 0.60 k/uL (0-1.0) 06/08/17 04:23 Eosinophils # 0.2 k/uL (0-0.7) 06/12/17 09:47 Eosinophils # (Manual) 0.15 k/uL (0-0.7) 06/08/17 04:23 Basophils # 0.1 k/uL (0-0.2) 06/12/17 09:47 Metamyelocytes # (Man) 0.30 k/uL (0) H 06/08/17 04:23 Myelocytes # (Manual) 0.15 k/uL (0) H 06/08/17 04:23 Nucleated RBCs 0 /100 WBC (0-0) 06/08/17 04:23 Manual Slide Review Performed 06/07/17 09:53 Toxic Vacuolation Present 06/08/17 04:23 Polychromasia Present 06/08/17 04:23 Hypochromasia Slight 06/12/17 09:47 Poikilocytosis (manual Present 06/07/17 09:53 Anisocytosis (manual) Present 06/08/17 04:23 Sodium 137 mmol/L (137-145) 06/12/17 09:47 Potassium 4.2 mmol/L (3.5-5.1) 06/12/17 09:47 Chloride 100 mmol/L (98-107) 06/12/17 09:47 Carbon Dioxide 28 mmol/L (22-30) 06/12/17 09:47 Anion Gap 9 mmol/L 06/12/17 09:47 BUN 11 mg/dL (7-17) 06/12/17 09:47 Creatinine 1.07 mg/dL (0.52-1.04) H 06/12/17 09:47 Est GFR (MDRD) Af Amer >60 (>60 ml/min/1.73 sqM) 06/12/17 09:47 Est GFR (MDRD) Non-Af 50 (>60 ml/min/1.73 sqM) 06/12/17 09:47 Glucose 229 mg/dL (74-99) H 06/12/17 09:47 POC Glucose (mg/dL) 85 mg/dL (75-99) 06/14/17 21:12 POC Glu Chemical Project Engineer ID Connie Poole 06/14/17 21:[address] Glu mg/dL 303 06/07/17 19:28 Hemoglobin A1c 12.2 % (4.0-6.0) H 06/07/17 19:28 Lactic Ac Sepsis Rflx Y 06/07/17 14:59 Plasma Lactic Acid John 1.9 mmol/L (0.7-2.0) 06/08/17 04:23 Calcium 8.9 mg/dL (8.4-10.2) 06/12/17 09:47 Phosphorus 3.7 mg/dL (2.5-4.5) 06/12/17 09:47 Magnesium 1.6 mg/dL (1.6-2.3) 06/12/17 09:47 Total Bilirubin 1.1 mg/dL (0.2-1.3) 06/07/17 09:53 AST 20 U/L (14-36) 06/07/17 09:53 ALT 20 U/L (9-52) 06/07/17 09:53 Alkaline Phosphatase 189 U/L (38-126) H 06/07/17 09:53 Ammonia <9 umol/L (<30) 06/07/17 13:56 Total Creatine Kinase 63 U/L (30-135) 06/07/17 09:53 CK-MB (CK-2) 1.6 ng/mL (0.0-2.4) 06/07/17 09:53 CK-MB (CK-2) Rel Index 2.5 06/07/17 09:53 Total Protein 6.3 g/dL (6.3-8.2) 06/07/17 09:53 Albumin 3.6 g/dL (3.5-5.0) 06/07/17 09:53 Vitamin B12 393.0 pg/mL (200.0-944.0) 06/08/17 04:23 TSH 0.995 mIU/L (0.465-4.680) 06/08/17 04:23 Urine Color Yellow 06/07/17 11:08 Urine Appearance Clear (Clear) 06/07/17 11:08 Urine pH 6.5 (5.0-8.0) 06/07/17 11:08 Ur Specific [place] 1.018 (1.001-1.035) 06/07/17 11:08 Urine Protein 1+ (Negative) H 06/07/17 11:08 Urine Glucose (UA) 4+ (Negative) H 06/07/17 11:08 Urine Ketones Negative (Negative) 06/07/17 11:08 Urine Blood Negative (Negative) 06/07/17 11:08 Urine Nitrite Negative (Negative) 06/07/17 11:08 Urine Bilirubin Negative (Negative) 06/07/17 11:08 Urine Urobilinogen <2.0 mg/dL (<2.0) 06/07/17 11:08 Ur Leukocyte Esterase Negative (Negative) 06/07/17 11:08 Urine RBC 1 /hpf (0-5) 06/07/17 11:08 Urine WBC 6 /hpf (0-5) H 06/07/17 11:08 Ur Squamous Epith Cells 1 /hpf (0-4) 06/07/17 11:08 Hyaline Casts 6 /lpf (0-2) H 06/07/17 11:08 WBC Casts 4 /lpf (0) 06/07/17 11:08 Urine Mucus Rare /hpf (None) H 06/07/17 11:08 Acetone, Qual Negative (Negative) 06/07/17 09:53 C. difficile (EIA) Intrp Negative (Negative) 06/09/17 14:20 Influenza Type A RNA Not Detected (Not Detectd) 06/07/17 14:44 Influenza Type B (PCR) Not Detected (Not Detectd) 06/07/17 14:44 Microbiology 06/07/17 09:53 Blood Blood Culture Gram Stain - Final 06/07/17 09:53 Blood Blood Culture - Final Streptococcus pneumoniae 06/07/17 22:50 Urine,Catheterized Urine Culture - Final 06/07/17 09:53 Blood Blood Culture - Final Assessment and Plan (1) Sepsis Narrative/Plan: 72-year-old female presents to Hospital via EMS after being found by her family laying on the floor. The patient has no recollection of the event of the time frame around it. Is showing some improvement at this point in time. Distal somewhat vague. However does not have any lateralizing focal deficits at this time. Computed tomography scan of brain was negative. The patient however did become progressively more septic with elevated lactic acid with good response to fluid resuscitation. She requires no vasopressor therapy. She is improved at this point in time but is having some difficulties with some loose stool for C. diff testing was canceled because of stool consistency. She does have a leukocytosis but no significant fever or hypothermia. The patient does however have evidence of possible blood culture with gram- positive cocci likely streptococcal in nature.. Thus there are concerns to Streptococcus pneumoniae pneumonia and sepsis as a cause of her current illness. The blood culture has been clarified as Streptococcus pneumoniae and chest x- ray does show evidence of infiltrate and constantly underlying pneumonia with sepsis appears to be the etiology for current sepsis and illness. She is starting show some improvement. Antimicrobial therapy with Rocephin at this time. Continue ongoing supportive care. This has some mild erythema to the right lower extremity however does not appear to be significantly tender, there is no open lesions are draining ulcers. Patient does not have a noted history of C. diff and current stool is without diarrhea. Leukocytosis due to her current sepsis. Loose stools have resolved. Patient is further improved and likely be discharged to extended care in the morning. Would complete a course of 5 days of cefuroxime 500 mg every 12 hours at her discharge for completion of the treatment of her Streptococcus pneumoniae pneumonia and bacteremia. Current Visit: Yes Status: Acute Code(s): A41.9 - SEPSIS, UNSPECIFIED ORGANISM SNOMED Code(s): 52290408 (2) Encephalopathy Current Visit: Yes Status: Acute Code(s): G93.40 - ENCEPHALOPATHY, UNSPECIFIED SNOMED Code(s): 59354908 (3) Lactic acidosis Current Visit: Yes Status: Acute Code(s): E87.2 - ACIDOSIS SNOMED Code(s) : 75221209 (4) Gram-positive cocci bacteremia Current Visit: Yes Status: Acute Code(s): R78.81 - BACTEREMIA SNOMED Code( s): 188182086191
[2017-06-15 02:05] LABS: Glucose,Whole Blood 127 mg/dL (75-99)
[2017-06-15] MEDS: IPRATROPIUM-ALBUTEROL 3 ML NEB INHALATION SCH ×5 (03:35→19:35)
[2017-06-15 07:54] LABS: Glucose,Whole Blood 175 mg/dL (75-99)
[2017-06-15] MEDS: INSULIN ASPART 100 UNIT/ML 1 ML 10 ML VIAL SQ SCH ×7 (08:22→21:07)
[2017-06-15] MEDS: PANTOPRAZOLE 40 MG TABLET PO SCH (08:22)
[2017-06-15] MEDS: LISINOPRIL 20 MG TAB PO SCH (08:22)
[2017-06-15] MEDS: CLOPIDOGREL 75 MG TAB PO SCH (08:22)
[2017-06-15] MEDS: CEFUROXIME 250 MG TAB PO SCH ×2 (08:22→21:06)
[2017-06-15] MEDS: ATORVASTATIN 80 MG TAB PO SCH (08:22)
[2017-06-15] MEDS: CHOLECALCIFEROL 1,000 UNIT TAB PO SCH (08:22)
[2017-06-15] MEDS: ESCITALOPRAM 10 MG TAB PO SCH (08:22)
[2017-06-15] MEDS: METOPROLOL TARTRATE 25 MG TAB PO SCH ×2 (08:22→21:08)
[2017-06-15] MEDS: ASPIRIN 325 MG TAB PO SCH (08:22)
[2017-06-15] MEDS: SYMBICORT 160-4.5 MCG INHALER INHALATION SCH ×2 (08:38→19:35)
--- NOTE | 2017-06-15 10:03 | P.PN ---
Progress Note - Text Progress Note Date: 06/15/17 Patient was cleared for discharge on 06/14/2017 to ECF. Patient's discharge has been delayed secondary to pending insurance authorization. Patient remains stable. Vital signs stable. Remains on nasal cannula. Denies chest pain or pressure. Denies shortness of breath at rest. Denies additional concerns or complaints. Anticipate discharge today to ECF pending insurance authorization. Nurse practitioner note has been reviewed by physician. Signing provider agrees with the documented findings, assessment, and plan of care.
[2017-06-15] MEDS: NYSTATIN 100,000 UNIT/GM POWD 15 GM TOPICAL SCH ×2 (10:59→21:09)
[2017-06-15 12:43] LABS: Glucose,Whole Blood 163 mg/dL (75-99)
--- NOTE | 2017-06-15 13:06 | P.PN ---
Subjective Progress Note Date: 06/15/17 Principal diagnosis: Acute pneumococcal pneumonia and pneumococcal sepsis with bacteremia This is a 72-year-old female was brought in by EMS for evaluation of weakness and confusion. Patient apparently found by family members landing on the kitchen floor naked. Patient is not sure how she got there. She was found sitting on a stool when EMS arrived. She was very slow to respond normally she is awake and alert as time progressed in route the patient did recover some of her mentation. She was found have a blood glucose of 365. I saw the patient and I also interviewed the daughter. Apparently the patient is not getting the appropriate medical care and since her bypass surgery in her health has been declining to the point where the patient has not been very strict blood pressure control and she has been taken and her vacation on a regular basis. In the emergency department, the patient had a CAT scan of the head that showed no acute abnormalities. Computed tomography scan of the spine showed no evidence of any acute fracture. Chest x-ray showed pulmonary vascular congestion and some interstitial edema. Pneumonia is doubtful although it's a possibility left lower lobe. The patient has some mild leukocytosis. Her initial lactic acid level was 2.5 and came up to 3.6. UA is negative. Influenza screen is negative. White cell count is minimally elevated at 11.5 and there is 93% neutrophilia. No significant anion gap metabolic acidosis. Anion gap is a 13. Bicarb level is at 28. Patient was awake. At a time of my evaluation she was moving all 4 extremities. No slurred speech. She was slow in answering questions. She denied having any chest pain. She was having some labored breathing over this improved as I was evaluating this patient and she became progressively more comfortable. No cough. No chest pain. No pleurisy. No hemoptysis. There is some swelling in the lower extremity especially on the right. No evidence of cellulitis. No evidence of any open wounds. No reported aspiration by family members. No head trauma. On 06/08/2017 I'm seeing this patient for a follow-up. As mentioned, the patient was seen on the medical floor and subsequently she got transferred to the intensive care unit due to concerns of her elevated lactic acid level. The patient got resuscitated IV fluids. The patient was covered with IV Zosyn. The patient felt much more alert and awake during this morning evaluation. In fact upon talking to her she did not remember that I saw yesterday evening. However today, she was able to recognize me and she was much more alert and communicative and verbal and lucid. She denied having any specific complaints. No cough or sputum production. No chest pain. Legs were swollen and there was some erythema over the anterior aspect of the lower extremities bilaterally which raises the possibility of questionable cellulitis. The blood cultures showing gram-positive cocci in chains. Urine analysis was negative and urine cultures are still pending for now. The chest x-ray showing cardiomegaly with some limited retrocardiac left basilar pulmonary infiltration. The white cell count is slightly elevated at 15.1. That is however significant bandemia up to 55%. There is also an acute kidney injury with a creatinine came up to 1.4. In terms of her fluid balance the patient has received more than 3 L of IV fluids and she is currently on 100 mL an hour of normal saline. The lactic acid level is down to 1.9 On 06/09/2017 the patient is being seen for a follow-up. Has no specific complaint that she is resting comfortably in bed. No respiratory distress. No cough or sputum production. The patient was treated for acute sepsis with a combination of Zosyn and vancomycin. Subsequent blood cultures revealed strep pneumo. This is likely than a pneumonia that resulted to septicemia. The patient's renal function is improving. Creatinine is down to 1.1. Once echo is at 13.6. Slightly improved compared to yesterday. No other significant events over the past 24 hours. She is resting comfortably in bed. Receiving antibiotics. The ultrasound the kidneys showed no obstructive uropathy. Left renal mid pole soft tissue lesion measuring 1.9 x 1.6 x 1.3 cm. Advised to get a CAT scan or an MRI at later stage. Meanwhile, the Doppler of the lower extremity was also done that showed no evidence of any DVT. On 06/10/2017, the patient is still being treated for pneumococcal septicemia which is most likely related to an underlying pneumonia. Mental status back to normal. Energy level is gradually improving. The patient will need IV antibiotics and the patient is currently on IV Rocephin 2 g every 24 hours. ID is on the case. Renal function is normalized. No respiratory difficulties at this point. Patient was reevaluated today on 06/11/2017, still being treated for pneumococcal sepsis, and septicemia. Most likely secondary to underlying pneumonia. Patient's mental status seems to be improving, she seems to be very appropriate today, new the place, time, and year. Patient remains on IV Rocephin and being followed by infectious disease. Labs showed relatively normal CBC and normal basic metabolic profile. The patient is seen again today 06/12/2017 in follow-up in the regular medical floor. She is awake and alert in no acute distress. She denies any worsening shortness of breath, cough or congestion. No chills or night sweats. No leukocytosis. Hemoglobin 11.3, creatinine 1.07. She remains on ceftriaxone, Symbicort and DuoNeb inhalations. She remains afebrile. Hemodynamically stable. Maintaining good O2 saturations in the 90s on 3 L/m per nasal cannula. She does desaturate into the 80s on room air. The patient is seen again today June 13 2017 in follow-up on the regular medical floor. She is currently sitting up in a chair at the bedside. She is awake and alert in no acute distress. Oriented 3. Denies any fever chills or night sweats. She is maintaining good O2 saturations in the 90s on 3 L/m per nasal cannula. She's been afebrile. No tachycardia. No tachypnea. ID has recommended cefuroxime 500 mg every 12 hours post discharge. Patient is seen again today 06/14/2017 in follow-up on the regular medical floor. She is currently sitting up in a chair at the bedside. She is awake and alert in no acute distress. She denies any worsening shortness of breath, cough or congestion. She continues to maintain good O2 saturations in the 90s on 2 L/m per nasal cannula. She's been afebrile. No tachycardia. No tachypnea. Hemodynamically stable. The plan is for transfer to an extended care facility today. The patient is seen again today 06/15/2017 in follow-up on the regular medical floor. She is awake and alert in no acute distress. She denies any worsening shortness of breath, cough or congestion. She continues to maintain good O2 saturation in the 90s on 2 L/m per nasal cannula. She is afebrile. Hemodynamically stable. Objective - Vital Signs Vital signs: Vital Signs Temp 98.0 F 06/15/17 07:00 Pulse 90 06/15/17 08:53 Resp 22 06/15/17 07:00 BP 131/80 06/15/17 07:00 Pulse Ox 90 L 06/15/17 07:00 Intake & Output 06/14/17 06/15/17 06/15/17 18:59 06:59 18:59 Intake Total 300 240 Balance 300 240 Weight 73.9 kg Intake: Oral 300 240 Other: Voiding Method Bedside Commode Incontinent # Voids 3 2 - Exam Gen. appearance the patient is alert and awake and following commands and answering questions appropriately. Head exam was generally normal. There was no scleral icterus or corneal arcus. Mucous membranes were moist.Neck was supple and without jugular venous distension, thyromegaly, or carotid bruits. Carotids were easily palpable bilaterally. There was no adenopathy. Patient has a Mallampati class IV and there is no goiter or neck masses. Lungs sounds are diminished otherwise clear. No crackles or wheezes or rhonchi. Heart sounds are regular, sternum stable clean and intact. Normal S1-S2. No cervical murmurs appreciated.Abdominal exam revealed normal bowel sounds. The abdomen was soft, non-tender, and without masses, organomegaly, or appreciable enlargement of the abdominal aorta. Extremities are swollen especially in the right lower extremity with +1 pitting edema. No cyanosis. No clubbing. No open wounds or sores. Neurologically, o awake and alert and the patient's encephalopathy is present much recovered. - Labs CBC & Chem 7: 06/12/17 09:47 06/12/17 09:47 Labs: Abnormal Lab Results - Last 24 Hours (Table) 06/14/17 06/15/17 06/15/17 Range/Units 17:16 02:03 07:31 POC Glucose (mg/dL) 101 H 127 H 175 H (75-99) mg/dL 06/15/17 Range/Units 12:31 POC Glucose (mg/dL) 163 H (75-99) mg/dL Assessment and Plan Assessment: Assessment 1 altered mentation currently under investigation secondary to underlying sepsis. The patient was found to have strep pneumonia septicemia which probably is resulting from an underlying lung infection/pneumonia. Currently on ceftriaxone. Mental status improved. Hemodynamically improved. The patient is currently on a medical floor. 2 COPD with an FEV1 of 57% of Predicted 3 acute kidney injury, improving and the renal function is also improving. 4 Coronary Artery Disease with Bypass Surgery in 2017 with VELARDE to LAD, Previous Coronary Intervention and Stenting to RCA 5 acute lactic acidosis, improving 6 Diabetes Mellitus with Poor Blood Sugar Control 7 Dementia 8 Poor Medication Compliance Possibly Secondary to Underlying Dementia 9 hypertension 10 hyperlipidemia 11 carotid artery disease with previous endarterectomy on the right 12 degenerative arthritis 13 chronic back pain 14 lactic acidosis, improving 15 Obesity 16 renal lesion not consistent of a cystic structure. Will need a CAT scan/MRI later stage. Plan The patient was seen and evaluated by Dr. Aldrich. She is currently stable from the pulmonary standpoint. She'll be discharged on cefuroxime 500 mg every 12 hours as recommended per ID. Probable discharge to an extended care facility if authorized by her insurance company. I, the cosigning physician, performed a history & physical examination of the patient. Lungs sounds have few scattered rhonchi. Maintaining good O2 saturations in the 90s on 2 L/m per nasal cannula. I discussed the assessment and plan of care with my nurse practitioner, Eloise Mcgee. I attest to the above note as dictated by her.
[2017-06-15] MEDS: SODIUM CHLORIDE 0.9% 1,000 ML IV SCH (17:31)
[2017-06-15 17:45] LABS: Glucose,Whole Blood 64 mg/dL (75-99)
[2017-06-15 17:45] LABS: Glucose,Whole Blood 75 mg/dL (75-99)
[2017-06-15] MEDS ORDERED: IPRATROPIUM-ALBUTEROL 3 ML NEB INHALATION PRN (20:25)
[2017-06-15 20:38] LABS: Glucose,Whole Blood 219 mg/dL (75-99)
[2017-06-15] MEDS: SENNOSIDES-DOCUSATE SODIUM 1 EACH TAB PO SCH (21:08)
[2017-06-15] MEDS: INSULIN DETEMIR 100 UNIT/ML 10 ML VIAL SQ SCH (21:08)
[2017-06-16 02:28] LABS: Glucose,Whole Blood 198 mg/dL (75-99)
[2017-06-16] MEDS: IPRATROPIUM-ALBUTEROL 3 ML NEB INHALATION SCH ×4 (07:22→19:23)
[2017-06-16] MEDS: SYMBICORT 160-4.5 MCG INHALER INHALATION SCH ×2 (07:22→19:23)
[2017-06-16 07:40] LABS: Glucose,Whole Blood 164 mg/dL (75-99)
[2017-06-16] MEDS: INSULIN ASPART 100 UNIT/ML 1 ML 10 ML VIAL SQ SCH ×7 (08:14→21:16)
[2017-06-16] MEDS: ATORVASTATIN 80 MG TAB PO SCH (08:16)
[2017-06-16] MEDS: CEFUROXIME 250 MG TAB PO SCH ×2 (08:16→21:17)
[2017-06-16] MEDS: ASPIRIN 325 MG TAB PO SCH (08:16)
[2017-06-16] MEDS: PANTOPRAZOLE 40 MG TABLET PO SCH (08:16)
[2017-06-16] MEDS: METOPROLOL TARTRATE 25 MG TAB PO SCH ×2 (08:17→21:17)
[2017-06-16] MEDS: NYSTATIN 100,000 UNIT/GM POWD 15 GM TOPICAL SCH ×2 (08:17→21:17)
[2017-06-16] MEDS: LISINOPRIL 20 MG TAB PO SCH (08:17)
[2017-06-16] MEDS: ESCITALOPRAM 10 MG TAB PO SCH (08:17)
[2017-06-16] MEDS: CHOLECALCIFEROL 1,000 UNIT TAB PO SCH (08:17)
[2017-06-16] MEDS: CLOPIDOGREL 75 MG TAB PO SCH (08:17)
[2017-06-16 11:48] LABS: Glucose,Whole Blood 150 mg/dL (75-99)
[2017-06-16] MEDS: SODIUM CHLORIDE 0.9% 1,000 ML IV SCH (12:49)
--- NOTE | 2017-06-16 14:57 | P.PN ---
Subjective 68-year-old female was admitted secondary to sepsis and bacteremia with Streptococcus pneumoniae patient appears to have infiltrate in the left lung pneumonia may be the source of infection. Patient is both on vancomycin and Zosyn patient may just need Rocephin all infectious disease is following the patient because of which I'm not changing the antibiotic regimen at this point of time. Patient although feeling little bit better but still not doing well still remains on 3 L of oxygen. 06/10/2017 Patient feels better than yesterday patient will obtain PT and OT consultation and patient's antibiotics were switched to Rocephin as patient has pneumococcal bacteremia. 06/16/2017 Patient is clinically doing well is at her baseline awaiting incisions authorization to be discharged to subacute rehabilitation. No overnight events Constitutional: As mentioned in HPI Cardio vascular: denied any chest pain, palpitations Gastrointestinal denied any nausea vomiting Pulmonary: Does have shortness of breath and cough Neurologic denied any new focal deficits Objective - Vital Signs Vital signs: Vital Signs Temp 97.3 F L 06/16/17 07:00 Pulse 80 06/16/17 07:41 Resp 20 06/16/17 07:00 BP 134/65 06/16/17 07:00 Pulse Ox 94 L 06/16/17 07:24 Intake & Output 06/15/17 06/16/17 06/16/17 18:59 06:59 18:59 Intake Total 240 Balance 240 Weight 73.9 kg Intake: Oral 240 Other: # Voids 1 2 2 - Exam PHYSICAL EXAMINATION: GENERAL: The patient is alert and oriented x3, not in any acute distress. Well developed, well nourished. HEENT: Pupils are round and equally reacting to light. EOMI. No scleral icterus. No conjunctival pallor. Normocephalic, atraumatic. No pharyngeal erythema. No thyromegaly. CARDIOVASCULAR: S1 and S2 present. No murmurs, rubs, or gallops. PULMONARY: Chest is clear to auscultation, no wheezing or crackles. ABDOMEN: Soft, nontender, nondistended, normoactive bowel sounds. No palpable organomegaly. MUSCULOSKELETAL: No joint swelling or deformity. EXTREMITIES: No cyanosis, clubbing, or pedal edema. NEUROLOGICAL: Gross neurological examination did not reveal any focal deficits. SKIN: No rashes. - Labs CBC & Chem 7: 06/12/17 09:47 06/12/17 09:47 Labs: Abnormal Lab Results - Last 24 Hours (Table) 06/15/17 06/15/17 06/16/17 Range/Units 17:25 20:37 02:26 POC Glucose (mg/dL) 64 L 219 H 198 H (75-99) mg/dL 06/16/17 06/16/17 Range/Units 07:37 11:45 POC Glucose (mg/dL) 164 H 150 H (75-99) mg/dL Assessment and Plan Plan: -Sepsis and bacteremia possibility of left lower lobe pneumonia, patient has strep pneumoniae bacteremia patient is presently on Ceftin -COPD with acute exacerbation leading to acute hypoxic as well as acute hypercapnic respiratory failure patient is on oxygen which will be continued patient is also on systemic steroids which will be continued -Acute kidney injury with possibility of acute tubular necrosis which is improving at this time -Coronary artery disease and CABG in the past -Type 2 diabetes mellitus -Hypertension -Hyperlipidemia -Hyperlipidemia -Chronic low back pain -Obesity. Patient will be continued on present medications awaiting disposition to subacute rehabitation
[2017-06-16 17:03] LABS: Glucose,Whole Blood 78 mg/dL (75-99)
[2017-06-16 20:53] LABS: Glucose,Whole Blood 200 mg/dL (75-99)
[2017-06-16] MEDS: INSULIN DETEMIR 100 UNIT/ML 10 ML VIAL SQ SCH (21:15)
[2017-06-16] MEDS: SENNOSIDES-DOCUSATE SODIUM 1 EACH TAB PO SCH (21:17)
[2017-06-17 02:32] LABS: Glucose,Whole Blood 215 mg/dL (75-99)
[2017-06-17] MEDS: SODIUM CHLORIDE 0.9% 1,000 ML IV SCH (07:47)
[2017-06-17] MEDS: METOPROLOL TARTRATE 25 MG TAB PO SCH ×2 (07:48→21:05)
[2017-06-17] MEDS: ESCITALOPRAM 10 MG TAB PO SCH (07:48)
[2017-06-17] MEDS: CEFUROXIME 250 MG TAB PO SCH ×2 (07:48→21:04)
[2017-06-17] MEDS: LISINOPRIL 20 MG TAB PO SCH (07:48)
[2017-06-17] MEDS: ASPIRIN 325 MG TAB PO SCH (07:48)
[2017-06-17] MEDS: PANTOPRAZOLE 40 MG TABLET PO SCH (07:48)
[2017-06-17] MEDS: ATORVASTATIN 80 MG TAB PO SCH (07:48)
[2017-06-17] MEDS: CLOPIDOGREL 75 MG TAB PO SCH (07:48)
[2017-06-17 07:49] LABS: HCT 39.8 % (34.0-46.0); HGB 11.9 gm/dL (11.4-16.0); Hypochromasia Slight; MCV 96.8 fL (80.0-100.0); Mean Platelet Volume 7.3; Platelet Count 437 k/uL (150-450); RBC 4.11 m/uL (3.80-5.40); RDW 14.8 % (11.5-15.5); WBC 8.7 k/uL (3.8-10.6)
[2017-06-17] MEDS: CHOLECALCIFEROL 1,000 UNIT TAB PO SCH (07:49)
[2017-06-17 07:50] LABS: Glucose,Whole Blood 132 mg/dL (75-99)
[2017-06-17] MEDS: INSULIN ASPART 100 UNIT/ML 1 ML 10 ML VIAL SQ SCH ×7 (07:53→21:05)
[2017-06-17] MEDS: IPRATROPIUM-ALBUTEROL 3 ML NEB INHALATION SCH ×4 (08:01→20:23)
[2017-06-17] MEDS: SYMBICORT 160-4.5 MCG INHALER INHALATION SCH ×2 (08:02→20:23)
[2017-06-17 08:09] LABS: Anion Gap 9 mmol/L; Blood Urea Nitrogen 16 mg/dL (7-17); Calcium 9.7 mg/dL (8.4-10.2); Carbon Dioxide 30 mmol/L (22-30); Chloride 100 mmol/L (98-107); Glucose 133 mg/dL (74-99); Potassium 4.4 mmol/L (3.5-5.1); Sodium 139 mmol/L (137-145)
[2017-06-17 11:41] LABS: Glucose,Whole Blood 126 mg/dL (75-99)
--- NOTE | 2017-06-17 12:05 | P.PN ---
Subjective 68-year-old female was admitted secondary to sepsis and bacteremia with Streptococcus pneumoniae patient appears to have infiltrate in the left lung pneumonia may be the source of infection. Patient is both on vancomycin and Zosyn patient may just need Rocephin all infectious disease is following the patient because of which I'm not changing the antibiotic regimen at this point of time. Patient although feeling little bit better but still not doing well still remains on 3 L of oxygen. 06/10/2017 Patient feels better than yesterday patient will obtain PT and OT consultation and patient's antibiotics were switched to Rocephin as patient has pneumococcal bacteremia. 06/16/2017 Patient is clinically doing well is at her baseline awaiting incisions authorization to be discharged to subacute rehabilitation. No overnight events 06/17/2017 Awaiting insurance clearance to go to subacute rehabilitation. Constitutional: As mentioned in HPI Cardio vascular: denied any chest pain, palpitations Gastrointestinal denied any nausea vomiting Pulmonary: Does have shortness of breath and cough Neurologic denied any new focal deficits Objective - Vital Signs Vital signs: Vital Signs Temp 96.8 F L 06/17/17 07:00 Pulse 86 06/17/17 08:21 Resp 16 06/17/17 07:00 BP 147/61 06/17/17 07:00 Pulse Ox 93 L 06/17/17 07:00 Intake & Output 06/16/17 06/17/17 06/17/17 18:59 06:59 18:59 Intake Total 250 Balance 250 Intake: Oral 250 Other: # Voids 2 3 - Exam PHYSICAL EXAMINATION: GENERAL: The patient is alert and oriented x3, not in any acute distress. Well developed, well nourished. HEENT: Pupils are round and equally reacting to light. EOMI. No scleral icterus. No conjunctival pallor. Normocephalic, atraumatic. No pharyngeal erythema. No thyromegaly. CARDIOVASCULAR: S1 and S2 present. No murmurs, rubs, or gallops. PULMONARY: Chest is clear to auscultation, no wheezing or crackles. ABDOMEN: Soft, nontender, nondistended, normoactive bowel sounds. No palpable organomegaly. MUSCULOSKELETAL: No joint swelling or deformity. EXTREMITIES: No cyanosis, clubbing, or pedal edema. NEUROLOGICAL: Gross neurological examination did not reveal any focal deficits. SKIN: No rashes. - Labs CBC & Chem 7: 06/17/17 07:12 06/17/17 07:12 Labs: Abnormal Lab Results - Last 24 Hours (Table) 06/16/17 06/17/17 06/17/17 Range/Units 20:52 02:31 07:12 MCHC 30.0 L (31.0-37.0) g/dL Glucose (74-99) mg/dL POC Glucose (mg/dL) 200 H 215 H (75-99) mg/dL 06/17/17 06/17/17 06/17/17 Range/Units 07:12 07:47 11:39 MCHC (31.0-37.0) g/dL Glucose 133 H (74-99) mg/dL POC Glucose (mg/dL) 132 H 126 H (75-99) mg/dL Assessment and Plan Plan: -Sepsis and bacteremia possibility of left lower lobe pneumonia, patient has strep pneumoniae bacteremia patient is presently on Ceftin -COPD with acute exacerbation leading to acute hypoxic as well as acute hypercapnic respiratory failure patient is on oxygen which will be continued patient is also on systemic steroids which will be continued -Acute kidney injury with possibility of acute tubular necrosis which is improving at this time -Coronary artery disease and CABG in the past -Type 2 diabetes mellitus -Hypertension -Hyperlipidemia -Hyperlipidemia -Chronic low back pain -Obesity. Patient will be continued on present medications awaiting disposition to subacute rehabitation
[2017-06-17] MEDS: NYSTATIN 100,000 UNIT/GM POWD 15 GM TOPICAL SCH ×2 (12:29→21:05)
[2017-06-17 17:06] LABS: Glucose,Whole Blood 58 mg/dL (75-99)
[2017-06-17 17:31] LABS: Glucose,Whole Blood 67 mg/dL (75-99)
[2017-06-17 17:50] LABS: Glucose,Whole Blood 77 mg/dL (75-99)
[2017-06-17] MEDS: SENNOSIDES-DOCUSATE SODIUM 1 EACH TAB PO SCH (21:05)
[2017-06-17] MEDS: INSULIN DETEMIR 100 UNIT/ML 10 ML VIAL SQ SCH (21:06)
[2017-06-18 02:07] LABS: Glucose,Whole Blood 237 mg/dL (75-99)
[2017-06-18] MEDS: SODIUM CHLORIDE 0.9% 1,000 ML IV SCH (05:07)
[2017-06-18 07:34] LABS: Glucose,Whole Blood 156 mg/dL (75-99)
[2017-06-18] MEDS: ESCITALOPRAM 10 MG TAB PO SCH (07:54)
[2017-06-18] MEDS: LISINOPRIL 20 MG TAB PO SCH (07:54)
[2017-06-18] MEDS: CEFUROXIME 250 MG TAB PO SCH ×2 (07:54→22:22)
[2017-06-18] MEDS: CLOPIDOGREL 75 MG TAB PO SCH (07:54)
[2017-06-18] MEDS: METOPROLOL TARTRATE 25 MG TAB PO SCH ×2 (07:54→21:42)
[2017-06-18] MEDS: ATORVASTATIN 80 MG TAB PO SCH (07:54)
[2017-06-18] MEDS: CHOLECALCIFEROL 1,000 UNIT TAB PO SCH (07:54)
[2017-06-18] MEDS: INSULIN ASPART 100 UNIT/ML 1 ML 10 ML VIAL SQ SCH ×7 (07:55→21:42)
[2017-06-18] MEDS: PANTOPRAZOLE 40 MG TABLET PO SCH (07:55)
[2017-06-18] MEDS: ASPIRIN 325 MG TAB PO SCH (07:55)
[2017-06-18] MEDS: NYSTATIN 100,000 UNIT/GM POWD 15 GM TOPICAL SCH ×2 (07:56→22:23)
[2017-06-18] MEDS: SYMBICORT 160-4.5 MCG INHALER INHALATION SCH ×3 (08:14→22:23)
[2017-06-18] MEDS: IPRATROPIUM-ALBUTEROL 3 ML NEB INHALATION SCH ×5 (08:14→22:23)
--- NOTE | 2017-06-18 10:23 | P.PN ---
Progress Note - Text Progress Note Date: 06/18/17 Notified by case management that patients insurance denied ECF placement. Patient to be discharged home with home care. Patient still requiring supplementation oxygen. sales program manager to set up home oxygen for patient. Rx sent to the patients preferred pharmacy for Ceftin 500mg BID x 5 days. Patient verbalized understanding of discharge plan and agreeable to home care. Nurse practitioner note has been reviewed by physician. Signing provider agrees with the documented findings, assessment, and plan of care.
[2017-06-18 12:46] LABS: Glucose,Whole Blood 175 mg/dL (75-99)
[2017-06-18 17:24] LABS: Glucose,Whole Blood 101 mg/dL (75-99)
[2017-06-18 20:47] LABS: Glucose,Whole Blood 91 mg/dL (75-99)
[2017-06-18] MEDS: SENNOSIDES-DOCUSATE SODIUM 1 EACH TAB PO SCH (21:42)
--- NOTE | 2017-06-18 22:58 | P.PN ---
Subjective Progress Note Date: 06/18/17 Principal diagnosis: Confusion 72-year-old woman who presents to the emergency center by EMS after the family found the patient confused laying naked on the kitchen floor. The patient was unable to relate how she got it kitchen because a family was concerned EMS was called. Apparently the family had gotten her sitting up the time EMS arrived. She was still very confused and had evidence of an elevated blood sugar. The patient has a known history of coronary artery disease status post coronary artery bypass grafting procedure in March 2017. Apparently she has not been taking good care of herself and that she is not compliant with her medications and has not been monitoring her blood sugars or her blood pressure. Upon arrival stat computed tomography scan failed reveal evidence of any acute intracranial abnormalities. Patient was given some resuscitation was having initial some improvement. However she had worsening lactic acidosis and her mental status was still somewhat poor and constantly was transferred to the intensive care unit. With further fluid resuscitation she resolved her lactic acidosis and since then has had some improvement of her mental status. She is regaining some appetite is denying nausea but has developed several loose stools. The patient remains a poor historian does not relate to the events of what happened at the time of her admission. But does relate she feels somewhat better. Does not recall fevers, chills or rigors before becoming ill. No notation of any pain in her chest, sputum production or other acute change 06/12/2017, the patient continues to feel better. Less short of breath. Able to easily transfer from bed to chair to eat her lunch. 06/13/2017 patient is sitting in the chair, as had her dinner with no difficulties. She is awaiting her transfer to extended care to complete her rehab course of antibiotic therapy. 06/14/2017 patient sitting upright area which is a bit sleepy. Her shortness of breath is improved. Looks forward to rehab to increase her strength. 06/18/2017 patient continues to have some improvement and is getting somewhat anxious to transfer her to rehab to improve her strength and to regain her independence. Objective - Vital Signs Vital signs: Vital Signs Temp 96.5 F L 06/18/17 22:46 Pulse 72 06/18/17 22:46 Resp 16 06/18/17 22:46 BP 145/58 06/18/17 22:46 Pulse Ox 95 06/18/17 22:46 Intake & Output 06/18/17 06/18/17 06/19/17 06:59 18:59 06:59 Intake Total 575 440 Output Total 1 Balance 575 440 -1 Intake: Oral 575 440 Output: Urine 1 Other: # Voids 2 2 # Bowel Movements 0 - Exam 72-year-old woman who is more comfortable today. HEENT: Anicteric conjunctiva are pink and moist nasal mucosa grossly intact without significant lesions, there is no thrush. Neck: The neck is supple without significant lymphadenopathy or thyromegaly. Lungs: Symmetrical air entry is noted. Crackles at left base are noted. No bronchial sounds are noted or egophony. Heart: Irregular with an audible S1 and S2 soft S4 no murmur click or rub. , PMI was nondisplaced. Abdomen: Mildly obese, Positive bowel sounds soft and nontender without palpable masses or organomegaly. There was no guarding or rebound. Has a liquid stool while being examined without complaints of pain Extremities: The upper extremities have excellent pulses they are symmetric, no significant petechiae or telangiectasia. No splinter hemorrhages were noted. Lower extremity is evidence of some chronic venous stasis evidence of some chronic skin changes especially in the right lower extremity. There is evidence of some mild erythema with no open ulcerations or drainage on the right pretibial area. Very dry skin to the heels is noted and there is a fissure on the right heel without drainage or tenderness. Neuro: Awake alert oriented to person person and place. Does not have gross focal sensory motor deficits on exam. Mentation is quite clear. - Labs CBC & Chem 7: 06/17/17 07:12 06/17/17 07:12 Labs: Abnormal Lab Results - Last 24 Hours (Table) 06/18/17 06/18/17 06/18/17 Range/Units 02:01 07:15 12:40 POC Glucose (mg/dL) 237 H 156 H 175 H (75-99) mg/dL 06/18/17 Range/Units 17:23 POC Glucose (mg/dL) 101 H (75-99) mg/dL Laboratory Results WBC 8.7 k/uL (3.8-10.6) 06/17/17 07:12 RBC 4.11 m/uL (3.80-5.40) 06/17/17 07:12 Hgb 11.9 gm/dL (11.4-16.0) 06/17/17 07:12 Hct 39.8 % (34.0-46.0) 06/17/17 07:12 MCV 96.8 fL (80.0-100.0) 06/17/17 07:12 MCH 29.0 pg (25.0-35.0) 06/17/17 07:12 MCHC 30.0 g/dL (31.0-37.0) L 06/17/17 07:12 RDW 14.8 % (11.5-15.5) 06/17/17 07:12 Plt Count 437 k/uL (150-450) 06/17/17 07:12 Neutrophils % 76 % 06/12/17 09:47 Neutrophils % (Manual) 32 % 06/08/17 04:23 Band Neutrophils % 55 % 06/08/17 04:23 Lymphocytes % 10 % 06/12/17 09:47 Lymphocytes % (Manual) 7 % 06/08/17 04:23 Monocytes % 8 % 06/12/17 09:47 Monocytes % (Manual) 4 % 06/08/17 04:23 Eosinophils % 3 % 06/12/17 09:47 Eosinophils % (Manual) 1 % 06/08/17 04:23 Basophils % 1 % 06/12/17 09:47 Metamyelocytes % 2 % 06/08/17 04:23 Myelocytes % 1 % 06/08/17 04:23 Neutrophils # 6.3 k/uL (1.3-7.7) 06/12/17 09:47 Neutrophils # (Manual) 13.10 k/uL (1.3-7.7) H 06/08/17 04:23 Lymphocytes # 0.8 k/uL (1.0-4.8) L 06/12/17 09:47 Lymphocytes # (Manual) 1.06 k/uL (1.0-4.8) 06/08/17 04:23 Monocytes # 0.6 k/uL (0-1.0) 06/12/17 09:47 Monocytes # (Manual) 0.60 k/uL (0-1.0) 06/08/17 04:23 Eosinophils # 0.2 k/uL (0-0.7) 06/12/17 09:47 Eosinophils # (Manual) 0.15 k/uL (0-0.7) 06/08/17 04:23 Basophils # 0.1 k/uL (0-0.2) 06/12/17 09:47 Metamyelocytes # (Man) 0.30 k/uL (0) H 06/08/17 04:23 Myelocytes # (Manual) 0.15 k/uL (0) H 06/08/17 04:23 Nucleated RBCs 0 /100 WBC (0-0) 06/08/17 04:23 Manual Slide Review Performed 06/07/17 09:53 Toxic Vacuolation Present 06/08/17 04:23 Polychromasia Present 06/08/17 04:23 Hypochromasia Slight 06/17/17 07:12 Poikilocytosis (manual Present 06/07/17 09:53 Anisocytosis (manual) Present 06/08/17 04:23 Sodium 139 mmol/L (137-145) 06/17/17 07:12 Potassium 4.4 mmol/L (3.5-5.1) 06/17/17 07:12 Chloride 100 mmol/L (98-107) 06/17/17 07:12 Carbon Dioxide 30 mmol/L (22-30) 06/17/17 07:12 Anion Gap 9 mmol/L 06/17/17 07:12 BUN 16 mg/dL (7-17) 06/17/17 07:12 Creatinine 1.00 mg/dL (0.52-1.04) 06/17/17 07:12 Est GFR (MDRD) Af Amer >60 (>60 ml/min/1.73 sqM) 06/17/17 07:12 Est GFR (MDRD) Non-Af 54 (>60 ml/min/1.73 sqM) 06/17/17 07:12 Glucose 133 mg/dL (74-99) H 06/17/17 07:12 POC Glucose (mg/dL) 91 mg/dL (75-99) 06/18/17 20:31 POC Glu [employer] QUAN BebetoGabbi 06/18/17 20:[address] Glu mg/dL 303 06/07/17 19:28 Hemoglobin A1c 12.2 % (4.0-6.0) H 06/07/17 19:28 Lactic Ac Sepsis Rflx Y 06/07/17 14:59 Plasma Lactic Acid John 1.9 mmol/L (0.7-2.0) 06/08/17 04:23 Calcium 9.7 mg/dL (8.4-10.2) 06/17/17 07:12 Phosphorus 3.7 mg/dL (2.5-4.5) 06/12/17 09:47 Magnesium 1.6 mg/dL (1.6-2.3) 06/12/17 09:47 Total Bilirubin 1.1 mg/dL (0.2-1.3) 06/07/17 09:53 AST 20 U/L (14-36) 06/07/17 09:53 ALT 20 U/L (9-52) 06/07/17 09:53 Alkaline Phosphatase 189 U/L (38-126) H 06/07/17 09:53 Ammonia <9 umol/L (<30) 06/07/17 13:56 Total Creatine Kinase 63 U/L (30-135) 06/07/17 09:53 CK-MB (CK-2) 1.6 ng/mL (0.0-2.4) 06/07/17 09:53 CK-MB (CK-2) Rel Index 2.5 06/07/17 09:53 Total Protein 6.3 g/dL (6.3-8.2) 06/07/17 09:53 Albumin 3.6 g/dL (3.5-5.0) 06/07/17 09:53 Vitamin B12 393.0 pg/mL (200.0-944.0) 06/08/17 04:23 TSH 0.995 mIU/L (0.465-4.680) 06/08/17 04:23 Urine Color Yellow 06/07/17 11:08 Urine Appearance Clear (Clear) 06/07/17 11:08 Urine pH 6.5 (5.0-8.0) 06/07/17 11:08 Ur Specific [place] 1.018 (1.001-1.035) 06/07/17 11:08 Urine Protein 1+ (Negative) H 06/07/17 11:08 Urine Glucose (UA) 4+ (Negative) H 06/07/17 11:08 Urine Ketones Negative (Negative) 06/07/17 11:08 Urine Blood Negative (Negative) 06/07/17 11:08 Urine Nitrite Negative (Negative) 06/07/17 11:08 Urine Bilirubin Negative (Negative) 06/07/17 11:08 Urine Urobilinogen <2.0 mg/dL (<2.0) 06/07/17 11:08 Ur Leukocyte Esterase Negative (Negative) 06/07/17 11:08 Urine RBC 1 /hpf (0-5) 06/07/17 11:08 Urine WBC 6 /hpf (0-5) H 06/07/17 11:08 Ur Squamous Epith Cells 1 /hpf (0-4) 06/07/17 11:08 Hyaline Casts 6 /lpf (0-2) H 06/07/17 11:08 WBC Casts 4 /lpf (0) 06/07/17 11:08 Urine Mucus Rare /hpf (None) H 06/07/17 11:08 Acetone, Qual Negative (Negative) 06/07/17 09:53 C. difficile (EIA) Intrp Negative (Negative) 06/09/17 14:20 Influenza Type A RNA Not Detected (Not Detectd) 06/07/17 14:44 Influenza Type B (PCR) Not Detected (Not Detectd) 06/07/17 14:44 Microbiology 06/07/17 09:53 Blood Blood Culture Gram Stain - Final 06/07/17 09:53 Blood Blood Culture - Final Streptococcus pneumoniae 06/07/17 22:50 Urine,Catheterized Urine Culture - Final 06/07/17 09:53 Blood Blood Culture - Final Assessment and Plan (1) Sepsis Narrative/Plan: 72-year-old female presents to Hospital via EMS after being found by her family laying on the floor. The patient has no recollection of the event of the time frame around it. Is showing some improvement at this point in time. Distal somewhat vague. However does not have any lateralizing focal deficits at this time. Computed tomography scan of brain was negative. The patient however did become progressively more septic with elevated lactic acid with good response to fluid resuscitation. She requires no vasopressor therapy. She is improved at this point in time but is having some difficulties with some loose stool for C. diff testing was canceled because of stool consistency. She does have a leukocytosis but no significant fever or hypothermia. The patient does however have evidence of possible blood culture with gram- positive cocci likely streptococcal in nature.. Thus there are concerns to Streptococcus pneumoniae pneumonia and sepsis as a cause of her current illness. The blood culture has been clarified as Streptococcus pneumoniae and chest x- ray does show evidence of infiltrate and constantly underlying pneumonia with sepsis appears to be the etiology for current sepsis and illness. She is starting show some improvement. Antimicrobial therapy with Rocephin at this time. Continue ongoing supportive care. This has some mild erythema to the right lower extremity however does not appear to be significantly tender, there is no open lesions are draining ulcers. Patient does not have a noted history of C. diff and current stool is without diarrhea. Leukocytosis due to her current sepsis. Loose stools have resolved. Patient is further improved and likely be discharged to extended care soon. Would complete a course of 2 days of cefuroxime 500 mg every 12 hours at her discharge for completion of the treatment of her Streptococcus pneumoniae pneumonia and bacteremia. Current Visit: Yes Status: Acute Code(s): A41.9 - SEPSIS, UNSPECIFIED ORGANISM SNOMED Code(s): 36982516 (2) Encephalopathy Current Visit: Yes Status: Acute Code(s): G93.40 - ENCEPHALOPATHY, UNSPECIFIED SNOMED Code(s): 69132938 (3) Lactic acidosis Current Visit: Yes Status: Acute Code(s): E87.2 - ACIDOSIS SNOMED Code(s) : 51561254 (4) Gram-positive cocci bacteremia Current Visit: Yes Status: Acute Code(s): R78.81 - BACTEREMIA SNOMED Code( s): 846840723013
[2017-06-19 00:03] LABS: Glucose,Whole Blood 178 mg/dL (75-99)
[2017-06-19] MEDS: INSULIN DETEMIR 100 UNIT/ML 10 ML VIAL SQ SCH ×2 (00:11→22:53)
[2017-06-19] MEDS: SODIUM CHLORIDE 0.9% 1,000 ML IV SCH ×2 (00:13→18:16)
[2017-06-19 02:12] LABS: Glucose,Whole Blood 239 mg/dL (75-99)
[2017-06-19 07:45] LABS: Glucose,Whole Blood 240 mg/dL (75-99)
[2017-06-19] MEDS: IPRATROPIUM-ALBUTEROL 3 ML NEB INHALATION SCH ×4 (08:02→20:48)
[2017-06-19] MEDS: SYMBICORT 160-4.5 MCG INHALER INHALATION SCH ×2 (08:02→20:48)
[2017-06-19] MEDS: ATORVASTATIN 80 MG TAB PO SCH (09:08)
[2017-06-19] MEDS: CHOLECALCIFEROL 1,000 UNIT TAB PO SCH (09:08)
[2017-06-19] MEDS: METOPROLOL TARTRATE 25 MG TAB PO SCH ×2 (09:08→22:50)
[2017-06-19] MEDS: CEFUROXIME 250 MG TAB PO SCH ×2 (09:08→22:50)
[2017-06-19] MEDS: CLOPIDOGREL 75 MG TAB PO SCH (09:08)
[2017-06-19] MEDS: PANTOPRAZOLE 40 MG TABLET PO SCH (09:08)
[2017-06-19] MEDS: ASPIRIN 325 MG TAB PO SCH (09:08)
[2017-06-19] MEDS: LISINOPRIL 20 MG TAB PO SCH (09:08)
--- NOTE | 2017-06-19 09:08 | P.PN ---
Progress Note - Text Progress Note Date: 06/19/17 Patient seen and examined on rounds with Dr. Shepard. Patient was sleeping upon arrival to patients room. Patient awakens easily to verbal stimulation. Breakfast is at the bedside and patient states she will eat breakfast shortly. Patient denies chest pain or pressure. Denies shortness of breath. Denies pain or discomfort. Patient remains hemodynamically stable. Patient was cleared for discharge on 06/14/2017 to extended care facility for rehab. Notified by rn case manager on 06/18/2017 that patient's insurance did not approve visit to [facility]. Patient discharge plan was changed to go home with home care. Patient lives with her son who is refusing to care for her and states if patient is discharged home he will be moving out, leaving no one to care for the patient at home. Case management and social work have resubmitted claim to insurance company on 06/18/2017 and are currently awaiting approval decision from insurance [employer]. Nurse practitioner note has been reviewed by physician. Signing provider agrees with the documented findings, assessment, and plan of care.
[2017-06-19] MEDS: INSULIN ASPART 100 UNIT/ML 1 ML 10 ML VIAL SQ SCH ×7 (09:09→22:53)
[2017-06-19] MEDS: ESCITALOPRAM 10 MG TAB PO SCH (09:09)
[2017-06-19] MEDS: NYSTATIN 100,000 UNIT/GM POWD 15 GM TOPICAL SCH ×2 (10:45→22:53)
[2017-06-19 12:02] LABS: Glucose,Whole Blood 148 mg/dL (75-99)
[2017-06-19 17:31] LABS: Glucose,Whole Blood 73 mg/dL (75-99)
[2017-06-19 18:23] LABS: Glucose,Whole Blood 118 mg/dL (75-99)
[2017-06-19 20:47] LABS: Glucose,Whole Blood 215 mg/dL (75-99)
--- NOTE | 2017-06-19 22:22 | P.PN ---
Subjective Progress Note Date: 06/19/17 Principal diagnosis: Confusion 72-year-old woman who presents to the emergency center by EMS after the family found the patient confused laying naked on the kitchen floor. The patient was unable to relate how she got it kitchen because a family was concerned EMS was called. Apparently the family had gotten her sitting up the time EMS arrived. She was still very confused and had evidence of an elevated blood sugar. The patient has a known history of coronary artery disease status post coronary artery bypass grafting procedure in March 2017. Apparently she has not been taking good care of herself and that she is not compliant with her medications and has not been monitoring her blood sugars or her blood pressure. Upon arrival stat computed tomography scan failed reveal evidence of any acute intracranial abnormalities. Patient was given some resuscitation was having initial some improvement. However she had worsening lactic acidosis and her mental status was still somewhat poor and constantly was transferred to the intensive care unit. With further fluid resuscitation she resolved her lactic acidosis and since then has had some improvement of her mental status. She is regaining some appetite is denying nausea but has developed several loose stools. The patient remains a poor historian does not relate to the events of what happened at the time of her admission. But does relate she feels somewhat better. Does not recall fevers, chills or rigors before becoming ill. No notation of any pain in her chest, sputum production or other acute change 06/12/2017, the patient continues to feel better. Less short of breath. Able to easily transfer from bed to chair to eat her lunch. 06/13/2017 patient is sitting in the chair, as had her dinner with no difficulties. She is awaiting her transfer to extended care to complete her rehab course of antibiotic therapy. 06/14/2017 patient sitting upright area which is a bit sleepy. Her shortness of breath is improved. Looks forward to rehab to increase her strength. 06/18/2017 patient continues to have some improvement and is getting somewhat anxious to transfer her to rehab to improve her strength and to regain her independence. 06/19/2017patient continues to have some improvement but is still having difficulties with ambulation Objective - Vital Signs Vital signs: Vital Signs Temp 97.8 F 06/19/17 15:00 Pulse 95 06/19/17 15:36 Resp 22 06/19/17 15:00 BP 130/66 06/19/17 15:00 Pulse Ox 97 06/19/17 15:36 Intake & Output 06/19/17 06/19/17 06/20/17 06:59 18:59 06:59 Intake Total 200 Output Total 1 Balance -1 200 Intake: Oral 200 Output: Urine 1 Other: Voiding Method Bedside Commode Incontinent # Voids 2 3 # Bowel Movements 2 - Exam 72-year-old woman who is more comfortable today. HEENT: Anicteric conjunctiva are pink and moist nasal mucosa grossly intact without significant lesions, there is no thrush. Neck: The neck is supple without significant lymphadenopathy or thyromegaly. Lungs: Symmetrical air entry is noted. Crackles at left base are noted. No bronchial sounds are noted or egophony. Heart: Irregular with an audible S1 and S2 soft S4 no murmur click or rub. , PMI was nondisplaced. Abdomen: Mildly obese, Positive bowel sounds soft and nontender without palpable masses or organomegaly. There was no guarding or rebound. Has a liquid stool while being examined without complaints of pain Extremities: The upper extremities have excellent pulses they are symmetric, no significant petechiae or telangiectasia. No splinter hemorrhages were noted. Lower extremity is evidence of some chronic venous stasis evidence of some chronic skin changes especially in the right lower extremity. There is evidence of some mild erythema with no open ulcerations or drainage on the right pretibial area. Very dry skin to the heels is noted and there is a fissure on the right heel without drainage or tenderness. Neuro: Awake alert oriented to person person and place. Does not have gross focal sensory motor deficits on exam. Mentation is quite clear. - Labs CBC & Chem 7: 06/17/17 07:12 06/17/17 07:12 Labs: Abnormal Lab Results - Last 24 Hours (Table) 06/19/17 06/19/17 06/19/17 Range/Units 00:01 02:10 07:34 POC Glucose (mg/dL) 178 H 239 H 240 H (75-99) mg/dL 06/19/17 06/19/17 06/19/17 Range/Units 11:58 17:23 18:20 POC Glucose (mg/dL) 148 H 73 L 118 H (75-99) mg/dL 06/19/17 Range/Units 20:45 POC Glucose (mg/dL) 215 H (75-99) mg/dL Laboratory Results WBC 8.7 k/uL (3.8-10.6) 06/17/17 07:12 RBC 4.11 m/uL (3.80-5.40) 06/17/17 07:12 Hgb 11.9 gm/dL (11.4-16.0) 06/17/17 07:12 Hct 39.8 % (34.0-46.0) 06/17/17 07:12 MCV 96.8 fL (80.0-100.0) 06/17/17 07:12 MCH 29.0 pg (25.0-35.0) 06/17/17 07:12 MCHC 30.0 g/dL (31.0-37.0) L 06/17/17 07:12 RDW 14.8 % (11.5-15.5) 06/17/17 07:12 Plt Count 437 k/uL (150-450) 06/17/17 07:12 Neutrophils % 76 % 06/12/17 09:47 Neutrophils % (Manual) 32 % 06/08/17 04:23 Band Neutrophils % 55 % 06/08/17 04:23 Lymphocytes % 10 % 06/12/17 09:47 Lymphocytes % (Manual) 7 % 06/08/17 04:23 Monocytes % 8 % 06/12/17 09:47 Monocytes % (Manual) 4 % 06/08/17 04:23 Eosinophils % 3 % 06/12/17 09:47 Eosinophils % (Manual) 1 % 06/08/17 04:23 Basophils % 1 % 06/12/17 09:47 Metamyelocytes % 2 % 06/08/17 04:23 Myelocytes % 1 % 06/08/17 04:23 Neutrophils # 6.3 k/uL (1.3-7.7) 06/12/17 09:47 Neutrophils # (Manual) 13.10 k/uL (1.3-7.7) H 06/08/17 04:23 Lymphocytes # 0.8 k/uL (1.0-4.8) L 06/12/17 09:47 Lymphocytes # (Manual) 1.06 k/uL (1.0-4.8) 06/08/17 04:23 Monocytes # 0.6 k/uL (0-1.0) 06/12/17 09:47 Monocytes # (Manual) 0.60 k/uL (0-1.0) 06/08/17 04:23 Eosinophils # 0.2 k/uL (0-0.7) 06/12/17 09:47 Eosinophils # (Manual) 0.15 k/uL (0-0.7) 06/08/17 04:23 Basophils # 0.1 k/uL (0-0.2) 06/12/17 09:47 Metamyelocytes # (Man) 0.30 k/uL (0) H 06/08/17 04:23 Myelocytes # (Manual) 0.15 k/uL (0) H 06/08/17 04:23 Nucleated RBCs 0 /100 WBC (0-0) 06/08/17 04:23 Manual Slide Review Performed 06/07/17 09:53 Toxic Vacuolation Present 06/08/17 04:23 Polychromasia Present 06/08/17 04:23 Hypochromasia Slight 06/17/17 07:12 Poikilocytosis (manual Present 06/07/17 09:53 Anisocytosis (manual) Present 06/08/17 04:23 Sodium 139 mmol/L (137-145) 06/17/17 07:12 Potassium 4.4 mmol/L (3.5-5.1) 06/17/17 07:12 Chloride 100 mmol/L (98-107) 06/17/17 07:12 Carbon Dioxide 30 mmol/L (22-30) 06/17/17 07:12 Anion Gap 9 mmol/L 06/17/17 07:12 BUN 16 mg/dL (7-17) 06/17/17 07:12 Creatinine 1.00 mg/dL (0.52-1.04) 06/17/17 07:12 Est GFR (MDRD) Af Amer >60 (>60 ml/min/1.73 sqM) 06/17/17 07:12 Est GFR (MDRD) Non-Af 54 (>60 ml/min/1.73 sqM) 06/17/17 07:12 Glucose 133 mg/dL (74-99) H 06/17/17 07:12 POC Glucose (mg/dL) 215 mg/dL (75-99) H 06/19/17 20:45 POC Glu Package Crimper ID Gilda Dhillon 06/19/17 20:[address] Glu mg/dL 303 06/07/17 19:28 Hemoglobin A1c 12.2 % (4.0-6.0) H 06/07/17 19:28 Lactic Ac Sepsis Rflx Y 06/07/17 14:59 Plasma Lactic Acid John 1.9 mmol/L (0.7-2.0) 06/08/17 04:23 Calcium 9.7 mg/dL (8.4-10.2) 06/17/17 07:12 Phosphorus 3.7 mg/dL (2.5-4.5) 06/12/17 09:47 Magnesium 1.6 mg/dL (1.6-2.3) 06/12/17 09:47 Total Bilirubin 1.1 mg/dL (0.2-1.3) 06/07/17 09:53 AST 20 U/L (14-36) 06/07/17 09:53 ALT 20 U/L (9-52) 06/07/17 09:53 Alkaline Phosphatase 189 U/L (38-126) H 06/07/17 09:53 Ammonia <9 umol/L (<30) 06/07/17 13:56 Total Creatine Kinase 63 U/L (30-135) 06/07/17 09:53 CK-MB (CK-2) 1.6 ng/mL (0.0-2.4) 06/07/17 09:53 CK-MB (CK-2) Rel Index 2.5 06/07/17 09:53 Total Protein 6.3 g/dL (6.3-8.2) 06/07/17 09:53 Albumin 3.6 g/dL (3.5-5.0) 06/07/17 09:53 Vitamin B12 393.0 pg/mL (200.0-944.0) 06/08/17 04:23 TSH 0.995 mIU/L (0.465-4.680) 06/08/17 04:23 Urine Color Yellow 06/07/17 11:08 Urine Appearance Clear (Clear) 06/07/17 11:08 Urine pH 6.5 (5.0-8.0) 06/07/17 11:08 Ur Specific [place] 1.018 (1.001-1.035) 06/07/17 11:08 Urine Protein 1+ (Negative) H 06/07/17 11:08 Urine Glucose (UA) 4+ (Negative) H 06/07/17 11:08 Urine Ketones Negative (Negative) 06/07/17 11:08 Urine Blood Negative (Negative) 06/07/17 11:08 Urine Nitrite Negative (Negative) 06/07/17 11:08 Urine Bilirubin Negative (Negative) 06/07/17 11:08 Urine Urobilinogen <2.0 mg/dL (<2.0) 06/07/17 11:08 Ur Leukocyte Esterase Negative (Negative) 06/07/17 11:08 Urine RBC 1 /hpf (0-5) 06/07/17 11:08 Urine WBC 6 /hpf (0-5) H 06/07/17 11:08 Ur Squamous Epith Cells 1 /hpf (0-4) 06/07/17 11:08 Hyaline Casts 6 /lpf (0-2) H 06/07/17 11:08 WBC Casts 4 /lpf (0) 06/07/17 11:08 Urine Mucus Rare /hpf (None) H 06/07/17 11:08 Acetone, Qual Negative (Negative) 06/07/17 09:53 C. difficile (EIA) Intrp Negative (Negative) 06/09/17 14:20 Influenza Type A RNA Not Detected (Not Detectd) 06/07/17 14:44 Influenza Type B (PCR) Not Detected (Not Detectd) 06/07/17 14:44 Microbiology 06/07/17 09:53 Blood Blood Culture Gram Stain - Final 06/07/17 09:53 Blood Blood Culture - Final Streptococcus pneumoniae 06/07/17 22:50 Urine,Catheterized Urine Culture - Final 06/07/17 09:53 Blood Blood Culture - Final Assessment and Plan (1) Sepsis Narrative/Plan: 72-year-old female presents to Hospital via EMS after being found by her family laying on the floor. The patient has no recollection of the event of the time frame around it. Is showing some improvement at this point in time. Distal somewhat vague. However does not have any lateralizing focal deficits at this time. Computed tomography scan of brain was negative. The patient however did become progressively more septic with elevated lactic acid with good response to fluid resuscitation. She requires no vasopressor therapy. She is improved at this point in time but is having some difficulties with some loose stool for C. diff testing was canceled because of stool consistency. She does have a leukocytosis but no significant fever or hypothermia. The patient does however have evidence of possible blood culture with gram- positive cocci likely streptococcal in nature.. Thus there are concerns to Streptococcus pneumoniae pneumonia and sepsis as a cause of her current illness. The blood culture has been clarified as Streptococcus pneumoniae and chest x- ray does show evidence of infiltrate and constantly underlying pneumonia with sepsis appears to be the etiology for current sepsis and illness. She is starting show some improvement. Antimicrobial therapy with Rocephin at this time. Continue ongoing supportive care. This has some mild erythema to the right lower extremity however does not appear to be significantly tender, there is no open lesions are draining ulcers. Patient does not have a noted history of C. diff and current stool is without diarrhea. Leukocytosis due to her current sepsis. Now resolved. Loose stools have resolved. Patient is further improved and likely be discharged to extended care soon. Would complete a course of 1 days of cefuroxime 500 mg every 12 hours at her discharge for completion of the treatment of her Streptococcus pneumoniae pneumonia and bacteremia. Current Visit: Yes Status: Acute Code(s): A41.9 - SEPSIS, UNSPECIFIED ORGANISM SNOMED Code(s): 28870282 (2) Encephalopathy Current Visit: Yes Status: Acute Code(s): G93.40 - ENCEPHALOPATHY, UNSPECIFIED SNOMED Code(s): 63134318 (3) Lactic acidosis Current Visit: Yes Status: Acute Code(s): E87.2 - ACIDOSIS SNOMED Code(s) : 43618242 (4) Gram-positive cocci bacteremia Current Visit: Yes Status: Acute Code(s): R78.81 - BACTEREMIA SNOMED Code( s): 324386118887
[2017-06-19] MEDS: SENNOSIDES-DOCUSATE SODIUM 1 EACH TAB PO SCH (22:50)
[2017-06-20 02:14] LABS: Glucose,Whole Blood 226 mg/dL (75-99)
[2017-06-20] MEDS: SYMBICORT 160-4.5 MCG INHALER INHALATION SCH (07:19)
[2017-06-20] MEDS: IPRATROPIUM-ALBUTEROL 3 ML NEB INHALATION SCH ×2 (07:19→11:27)
[2017-06-20 07:31] LABS: Glucose,Whole Blood 188 mg/dL (75-99)
[2017-06-20 07:39] VITALS: BP 160/73; PULSE 66; RESP 18; TEMP 99.2
[2017-06-20] MEDS: INSULIN ASPART 100 UNIT/ML 1 ML 10 ML VIAL SQ SCH ×2 (08:24)
[2017-06-20] MEDS: PANTOPRAZOLE 40 MG TABLET PO SCH (08:24)
[2017-06-20] MEDS: LISINOPRIL 20 MG TAB PO SCH (08:24)
[2017-06-20] MEDS: ASPIRIN 325 MG TAB PO SCH (08:24)
[2017-06-20] MEDS: CEFUROXIME 250 MG TAB PO SCH (08:25)
[2017-06-20] MEDS: ATORVASTATIN 80 MG TAB PO SCH (08:25)
[2017-06-20] MEDS: METOPROLOL TARTRATE 25 MG TAB PO SCH (08:25)
[2017-06-20] MEDS: NYSTATIN 100,000 UNIT/GM POWD 15 GM TOPICAL SCH (08:25)
[2017-06-20] MEDS: ESCITALOPRAM 10 MG TAB PO SCH (08:25)
[2017-06-20] MEDS: CHOLECALCIFEROL 1,000 UNIT TAB PO SCH (08:25)
[2017-06-20] MEDS: CLOPIDOGREL 75 MG TAB PO SCH (08:25)
--- NOTE | 2017-06-20 09:18 | P.PN ---
Progress Note - Text Progress Note Date: 06/20/17 Patient seen and examined on rounds with Dr. Shepard. Patient was sleeping upon arrival to patients room. Patient awakens easily to verbal stimulation. Patient denies chest pain or pressure. Denies shortness of breath. Denies pain or discomfort. Patient remains hemodynamically stable. Patient was cleared for discharge on 06/14/2017 to extended care facility for rehab. Notified by ed case manager on 06/18/2017 that patient's insurance did not approve visit to ECF. Patient discharge plan was changed to go home with home care. Patient lives with her son who is refusing to care for her and states if patient is discharged home he will be moving out, leaving no one to care for the patient at home. Case management and social work resubmitted claim to insurance company on 06/18 and insurance denied claim again. Dr. Shepard did peer to peer review with insurance [employer] via phone on 06-19-2017 and decision was made to approve patient for ECF. Anticipate discharge to [facility] today. Nurse practitioner note has been reviewed by physician. Signing provider agrees with the documented findings, assessment, and plan of care.
[2017-06-20 12:43] LABS: Glucose,Whole Blood 230 mg/dL (75-99)
== END 2017-06-20 12:45 | DRG 871 ==
LOC: EC 09:06 → 5MS5E 13:07 → 6ICU 21:19 → 4MS4W 06-08 19:16
PROVIDERS: ADMIT Family Medicine; ATTEND Family Medicine
DX: A40.3 Sepsis due to Streptococcus pneumoniae (principal); G92 Toxic encephalopathy; J13 Pneumonia due to Streptococcus pneumoniae; N17.9 Acute kidney failure, unspecified; J44.0 Chronic obstructive pulmonary disease with (acute) lower respiratory infection; E11.65 Type 2 diabetes mellitus with hyperglycemia; E11.40 Type 2 diabetes mellitus with diabetic neuropathy, unspecified; N18.3 Chronic kidney disease, stage 3 (moderate); E86.0 Dehydration; F03.90 Unspecified dementia, unspecified severity, without behavioral disturbance, psychotic disturbance, mood disturbance, and anxiety; E66.9 Obesity, unspecified; E78.5 Hyperlipidemia, unspecified; F32.9 Major depressive disorder, single episode, unspecified; G89.29 Other chronic pain; I25.10 Atherosclerotic heart disease of native coronary artery without angina pectoris; I25.2 Old myocardial infarction; I51.7 Cardiomegaly; M19.90 Unspecified osteoarthritis, unspecified site; M54.9 Dorsalgia, unspecified; I12.9 Hypertensive chronic kidney disease with stage 1 through stage 4 chronic kidney disease, or unspecified chronic kidney disease; R19.7 Diarrhea, unspecified; E83.42 Hypomagnesemia; Z68.35 Body mass index [BMI] 35.0-35.9, adult; Z79.02 Long term (current) use of antithrombotics/antiplatelets; Z79.4 Long term (current) use of insulin; Z79.51 Long term (current) use of inhaled steroids; Z79.82 Long term (current) use of aspirin; Z79.899 Other long term (current) drug therapy; Z87.891 Personal history of nicotine dependence; Z90.710 Acquired absence of both cervix and uterus; Z95.5 Presence of coronary angioplasty implant and graft; Z95.1 Presence of aortocoronary bypass graft; Z91.14 Patient's other noncompliance with medication regimen; Z82.49 Family history of ischemic heart disease and other diseases of the circulatory system; W19.XXXA Unspecified fall, initial encounter; Y92.9 Unspecified place or not applicable
CPT/HCPCS: 36415; 70450; 71045; 72125; 76770; 80048; 80053; 81001; 82009; 82140; 82550; 82553; 82607; 83036; 83605; 83735; 84100; 84443; 85025; 85027; 87040; 87077; 87086; 87186; 87324; 87502; 93005; 93880; 93970; 94640; 94760; 95819

== ENCOUNTER 2017-09-12 13:35 | Inpatient (IN) | payer BC, MEDICARE ==
[2017-09-12] MEDS: DEXTROSE 50%-WATER 50 ML SYRINGE IVP STA (13:49)
[2017-09-12 13:56] LABS: Glucose,Whole Blood 64 mg/dL (75-99)
[2017-09-12 13:56] LABS: Glucose,Whole Blood 65 mg/dL (75-99)
[2017-09-12] MEDS ORDERED: SODIUM CHLORIDE 0.9% 500 ML IV ONE ×2 (13:58→16:33)
--- NOTE | 2017-09-12 14:05 | ED ---
General Adult HPI - General Chief complaint: Recheck/Abnormal Lab/Rx Stated complaint: Hyperglycemia Time Seen by Provider: 09/12/17 13:40 Source: patient, RN notes reviewed Mode of arrival: EMS Limitations: altered mental status - History of Present Illness Initial comments: This is a 72-year-old female presents emergency Department via EMS because the health care nurse found the patient to be altered mentally from her baseline. Initial report was that the sugar was high however when we took the patient's sugar it was 64. Patient states she is somewhat short of breath and feeling weak. Patient denies any chest pain or palpitations. Patient denies any recent fever chills or cough. Patient denies abdominal pain patient denies nausea vomiting or diarrhea. Patient denies any lightheadedness or dizziness. Patient denies any headache patient denies numbness weakness. Patient is alert and oriented 2 but she does not know the day month or year. - Related Data Home Medications Medication Instructions Recorded Confirmed Budesonide-Formot 160-4.5 Mcg 2 puff INHALATION RT-BID 01/19/17 09/12/17 [Symbicort 160-4.5 Mcg Inhaler] Cholecalciferol [Vitamin D3] 2,000 unit PO DAILY 01/19/17 09/12/17 Ipratropium/Albuterol Sulfate 2 puff INHALATION RT-QID PRN 01/19/17 09/12/17 [Combivent Respimat Inhaler] Aspirin 325 mg PO DAILY 04/09/17 09/12/17 Ipratropium-Albuterol Nebulize 3 ml INHALATION RT-QID PRN 04/12/17 09/12/17 [Duoneb 0.5 mg-3 mg/3 ml Soln] HYDROcodone/APAP 5-325MG [[place] 1 tab PO Q4HR PRN 05/22/17 09/12/17 5-325] Atorvastatin [Lipitor] 80 mg PO HS 09/12/17 09/12/17 Escitalopram [Lexapro] 10 mg PO HS 09/12/17 09/12/17 Insulin Aspart Protam & Aspart 10 units SQ AC-TID 09/12/17 09/12/17 [NovoLOG MIX 70-30 Flexpen] Insulin Detemir [Levemir] 70 unit SQ HS 09/12/17 09/12/17 Lisinopril [Zestril] 20 mg PO DAILY 09/12/17 09/12/17 Metoprolol Tartrate [Lopressor] 75 mg PO BID 09/12/17 09/12/17 Sennosides [Senna] 8.6 mg PO DAILY 09/12/17 09/12/17 Previous Rx's Medication Instructions Recorded Clopidogrel [Plavix] 75 mg PO DAILY tab 04/19/17 Pantoprazole [Protonix] 40 mg PO AC-BRKFST tablet. 04/19/17 Allergies Allergy/AdvReac Type Severity Reaction Status Date / Time No Known Allergies Allergy Verified 09/12/17 13:44 Review of Systems ROS Statement: Those systems with pertinent positive or pertinent negative responses have been documented in the HPI. ROS Other: All systems not noted in ROS Statement are negative. Past Medical History Past Medical History: Asthma, Coronary Artery Disease (CAD), COPD, Diabetes Mellitus, Hyperlipidemia, Hypertension, Memory Impairment, Myocardial Infarction ([place]), Osteoarthritis (OA), Renal Disease Additional Past Medical History / Comment(s): Coronary artery disease with previous bypass surgery, the patient underwent VELARDE to LAD and she has also had previous stent to RCA. The surgery was done in March 2017, stage III chronic kidney disease/failure, diabetes mellitus type 2 poorly controlled, medical noncompliance, depression, COPD FEV1 of 57% of predicted, hypertension, hyperlipidemia, carotid artery disease with previous endarterectomy on the right back in 2011, obesity with BMI of 35.2, smoker, degenerative arthritis, chronic back pain, history of urine checked infections, Last Myocardial Infarction Date:: 2009 History of Any Multi-Drug Resistant Organisms: None Reported Past Surgical History: Appendectomy, Coronary Bypass/CABG, Heart Catheterization , Heart Catheterization With Stent, Hysterectomy Additional Past Surgical History / Comment(s): 04/12/17 CABG 1 vessel, drug- eluting stent placed to the RCA in 2009, right carotid endarterectomy in 2011, colonoscopy.. Past Anesthesia/Blood Transfusion Reactions: No Reported Reaction Date of Last Stent Placement:: 2009 Past Psychological History: No Psychological Hx Reported Smoking Status: Former smoker Past Alcohol Use History: None Reported Past Drug Use History: None Reported - Past Family History Mother Family Medical History: No Reported History Father Family Medical History: Coronary Artery Disease (CAD) General Exam - General Exam Comments Initial Comments: GENERAL: Patient is well-developed and well-nourished. Patient is nontoxic and well- hydrated and is in mild distress. ENT: Neck is soft and supple. No significant lymphadenopathy is noted. Oropharynx is clear. Moist mucous membranes. Neck has full range of motion without eliciting any pain. EYES: The sclera were anicteric and conjunctiva were pink and moist. Extraocular movements were intact and pupils were equal round and reactive to light. Eyelids were unremarkable. PULMONARY: Unlabored respirations. Good breath sounds bilaterally. No audible rales rhonchi or wheezing was noted. CARDIOVASCULAR: There is a regular rate and rhythm without any murmurs gallops or rubs. ABDOMEN: Soft and nontender with normal bowel sounds. No palpable organomegaly was noted. There is no palpable pulsatile mass. SKIN: Skin is clear with no lesions or rashes and otherwise unremarkable. NEUROLOGIC: Patient is alert and oriented x3. Cranial nerves II through XII are grossly intact. Motor and sensory are also intact. Normal speech, volume and content. Symmetrical smile. MUSCULOSKELETAL: Normal extremities with adequate strength and full range of motion. LYMPHATICS: No significant lymphadenopathy is noted PSYCHIATRIC: Normal psychiatric evaluation. Limitations: altered mental status Course Vital Signs 09/12/17 09/12/17 09/12/17 13:41 13:44 14:30 Temperature 99.0 F Pulse Rate 82 67 Respiratory 20 18 Rate Blood Pressure 87/83 104/51 O2 Sat by Pulse 97 86 L 98 Oximetry 09/12/17 09/12/17 15:41 16:05 Temperature 98.7 F Pulse Rate 64 90 Respiratory 18 18 Rate Blood Pressure 104/50 90/46 O2 Sat by Pulse 97 98 Oximetry Medical Decision Making - Medical Decision Making EKG shows normal sinus rhythm at 71 bpm LA interval is 166 QRS is 80 QT interval 404 QTC is 439. EKG shows no ST segment elevation or depression patient has Q waves inferiorly is that weren't there in previous EKG. Chest x-ray shows a posterior infiltrate. Urine is filled with white cells and bacteria. For the patient was put on Levaquin. Patient's lack of 2.4 I gave the patient 2 L of fluid in the emergency department. She still remains slightly altered. Patient will be admitted. I spoke with Dr. Shepard he agreed to admit the patient I admitted the patient continued antibiotics on the floor. - Lab Data Result diagrams: 09/12/17 13:38 09/12/17 13:38 Lab Results 09/12/17 09/12/17 09/12/17 Range/Units 13:38 13:38 13:38 WBC 20.6 H (3.8-10.6) k/uL RBC 4.67 (3.80-5.40) m/uL Hgb 12.2 (11.4-16.0) gm/dL Hct 37.5 (34.0-46.0) % MCV 80.2 (80.0-100.0) fL MCH 26.2 (25.0-35.0) pg MCHC 32.6 (31.0-37.0) g/dL RDW 15.5 (11.5-15.5) % Plt Count 384 (150-450) k/uL Neutrophils % 90 % Lymphocytes % 5 % Monocytes % 3 % Eosinophils % 1 % Basophils % 0 % Neutrophils # 18.6 H (1.3-7.7) k/uL Lymphocytes # 1.1 (1.0-4.8) k/uL Monocytes # 0.6 (0-1.0) k/uL Eosinophils # 0.1 (0-0.7) k/uL Basophils # 0.0 (0-0.2) k/uL PT (9.0-12.0) sec INR (<1.2) APTT (22.0-30.0) sec Sodium 139 (137-145) mmol/L Potassium 4.4 (3.5-5.1) mmol/L Chloride 90 L (98-107) mmol/L Carbon Dioxide 33 H (22-30) mmol/L Anion Gap 16 mmol/L BUN 65 H (7-17) mg/dL Creatinine 1.77 H (0.52-1.04) mg/dL Est GFR (CKD-EPI)AfAm 32 (>60 ml/min/1.73 sqM) Est GFR (CKD-EPI)NonAf 28 (>60 ml/min/1.73 sqM) Glucose 62 L (74-99) mg/dL POC Glucose (mg/dL) (75-99) mg/dL POC Glu Director Of [employer] Strategy ID Plasma Lactic Acid John (0.7-2.0) mmol/L Calcium 9.5 (8.4-10.2) mg/dL Total Bilirubin 0.3 (0.2-1.3) mg/dL AST 15 (14-36) U/L ALT 11 (9-52) U/L Alkaline Phosphatase 164 H (38-126) U/L Total Creatine Kinase 27 L (30-135) U/L CK-MB (CK-2) 0.9 (0.0-2.4) ng/mL CK-MB (CK-2) Rel Index 3.3 Troponin I 0.015 (0.000-0.034) ng/mL Total Protein 7.0 (6.3-8.2) g/dL Albumin 4.1 (3.5-5.0) g/dL Urine Color Urine Appearance (Clear) Urine pH (5.0-8.0) Ur Specific [place] (1.001-1.035) Urine Protein (Negative) Urine Glucose (UA) (Negative) Urine Ketones (Negative) Urine Blood (Negative) Urine Nitrite (Negative) Urine Bilirubin (Negative) Urine Urobilinogen (<2.0) mg/dL Ur Leukocyte Esterase (Negative) Urine RBC (0-5) /hpf Urine WBC (0-5) /hpf Urine WBC Clumps (None) /hpf Ur Squamous Epith Cells (0-4) /hpf Urine Bacteria (None) /hpf Hyaline Casts (0-2) /lpf Urine Mucus (None) /hpf 09/12/17 09/12/17 09/12/17 Range/Units 13:38 13:38 13:43 WBC (3.8-10.6) k/uL RBC (3.80-5.40) m/uL Hgb (11.4-16.0) gm/dL Hct (34.0-46.0) % MCV (80.0-100.0) fL MCH (25.0-35.0) pg MCHC (31.0-37.0) g/dL RDW (11.5-15.5) % Plt Count (150-450) k/uL Neutrophils % % Lymphocytes % % Monocytes % % Eosinophils % % Basophils % % Neutrophils # (1.3-7.7) k/uL Lymphocytes # (1.0-4.8) k/uL Monocytes # (0-1.0) k/uL Eosinophils # (0-0.7) k/uL Basophils # (0-0.2) k/uL PT 10.9 (9.0-12.0) sec INR 1.1 (<1.2) APTT 22.6 (22.0-30.0) sec Sodium (137-145) mmol/L Potassium (3.5-5.1) mmol/L Chloride (98-107) mmol/L Carbon Dioxide (22-30) mmol/L Anion Gap mmol/L BUN (7-17) mg/dL Creatinine (0.52-1.04) mg/dL Est GFR (CKD-EPI)AfAm (>60 ml/min/1.73 sqM) Est GFR (CKD-EPI)NonAf (>60 ml/min/1.73 sqM) Glucose (74-99) mg/dL POC Glucose (mg/dL) 65 L (75-99) mg/dL POC Glu Director Of [employer] Strategy ID Kristofer Tavarez Plasma Lactic Acid John 2.5 H* (0.7-2.0) mmol/L Calcium (8.4-10.2) mg/dL Total Bilirubin (0.2-1.3) mg/dL AST (14-36) U/L ALT (9-52) U/L Alkaline Phosphatase (38-126) U/L Total Creatine Kinase (30-135) U/L CK-MB (CK-2) (0.0-2.4) ng/mL CK-MB (CK-2) Rel Index Troponin I (0.000-0.034) ng/mL Total Protein (6.3-8.2) g/dL Albumin (3.5-5.0) g/dL Urine Color Urine Appearance (Clear) Urine pH (5.0-8.0) Ur Specific [place] (1.001-1.035) Urine Protein (Negative) Urine Glucose (UA) (Negative) Urine Ketones (Negative) Urine Blood (Negative) Urine Nitrite (Negative) Urine Bilirubin (Negative) Urine Urobilinogen (<2.0) mg/dL Ur Leukocyte Esterase (Negative) Urine RBC (0-5) /hpf Urine WBC (0-5) /hpf Urine WBC Clumps (None) /hpf Ur Squamous Epith Cells (0-4) /hpf Urine Bacteria (None) /hpf Hyaline Casts (0-2) /lpf Urine Mucus (None) /hpf 09/12/17 09/12/17 09/12/17 Range/Units 13:45 14:04 15:16 WBC (3.8-10.6) k/uL RBC (3.80-5.40) m/uL Hgb (11.4-16.0) gm/dL Hct (34.0-46.0) % MCV (80.0-100.0) fL MCH (25.0-35.0) pg MCHC (31.0-37.0) g/dL RDW (11.5-15.5) % Plt Count (150-450) k/uL Neutrophils % % Lymphocytes % % Monocytes % % Eosinophils % % Basophils % % Neutrophils # (1.3-7.7) k/uL Lymphocytes # (1.0-4.8) k/uL Monocytes # (0-1.0) k/uL Eosinophils # (0-0.7) k/uL Basophils # (0-0.2) k/uL PT (9.0-12.0) sec INR (<1.2) APTT (22.0-30.0) sec Sodium (137-145) mmol/L Potassium (3.5-5.1) mmol/L Chloride (98-107) mmol/L Carbon Dioxide (22-30) mmol/L Anion Gap mmol/L BUN (7-17) mg/dL Creatinine (0.52-1.04) mg/dL Est GFR (CKD-EPI)AfAm (>60 ml/min/1.73 sqM) Est GFR (CKD-EPI)NonAf (>60 ml/min/1.73 sqM) Glucose (74-99) mg/dL POC Glucose (mg/dL) 64 L 164 H 93 (75-99) mg/dL POC Glu Director Of Corporate Strategy QUAN Tavarez, Kristofer Tavarez, Libia Miles Plasma Lactic Acid John (0.7-2.0) mmol/L Calcium (8.4-10.2) mg/dL Total Bilirubin (0.2-1.3) mg/dL AST (14-36) U/L ALT (9-52) U/L Alkaline Phosphatase (38-126) U/L Total Creatine Kinase (30-135) U/L CK-MB (CK-2) (0.0-2.4) ng/mL CK-MB (CK-2) Rel Index Troponin I (0.000-0.034) ng/mL Total Protein (6.3-8.2) g/dL Albumin (3.5-5.0) g/dL Urine Color Urine Appearance (Clear) Urine pH (5.0-8.0) Ur Specific [place] (1.001-1.035) Urine Protein (Negative) Urine Glucose (UA) (Negative) Urine Ketones (Negative) Urine Blood (Negative) Urine Nitrite (Negative) Urine Bilirubin (Negative) Urine Urobilinogen (<2.0) mg/dL Ur Leukocyte Esterase (Negative) Urine RBC (0-5) /hpf Urine WBC (0-5) /hpf Urine WBC Clumps (None) /hpf Ur Squamous Epith Cells (0-4) /hpf Urine Bacteria (None) /hpf Hyaline Casts (0-2) /lpf Urine Mucus (None) /hpf 09/12/17 Range/Units 16:05 WBC (3.8-10.6) k/uL RBC (3.80-5.40) m/uL Hgb (11.4-16.0) gm/dL Hct (34.0-46.0) % MCV (80.0-100.0) fL MCH (25.0-35.0) pg MCHC (31.0-37.0) g/dL RDW (11.5-15.5) % Plt Count (150-450) k/uL Neutrophils % % Lymphocytes % % Monocytes % % Eosinophils % % Basophils % % Neutrophils # (1.3-7.7) k/uL Lymphocytes # (1.0-4.8) k/uL Monocytes # (0-1.0) k/uL Eosinophils # (0-0.7) k/uL Basophils # (0-0.2) k/uL PT (9.0-12.0) sec INR (<1.2) APTT (22.0-30.0) sec Sodium (137-145) mmol/L Potassium (3.5-5.1) mmol/L Chloride (98-107) mmol/L Carbon Dioxide (22-30) mmol/L Anion Gap mmol/L BUN (7-17) mg/dL Creatinine (0.52-1.04) mg/dL Est GFR (CKD-EPI)AfAm (>60 ml/min/1.73 sqM) Est GFR (CKD-EPI)NonAf (>60 ml/min/1.73 sqM) Glucose (74-99) mg/dL POC Glucose (mg/dL) (75-99) mg/dL POC Glu Director Of [employer] Strategy ID Plasma Lactic Acid John (0.7-2.0) mmol/L Calcium (8.4-10.2) mg/dL Total Bilirubin (0.2-1.3) mg/dL AST (14-36) U/L ALT (9-52) U/L Alkaline Phosphatase (38-126) U/L Total Creatine Kinase (30-135) U/L CK-MB (CK-2) (0.0-2.4) ng/mL CK-MB (CK-2) Rel Index Troponin I (0.000-0.034) ng/mL Total Protein (6.3-8.2) g/dL Albumin (3.5-5.0) g/dL Urine Color Yellow Urine Appearance Cloudy H (Clear) Urine pH 5.5 (5.0-8.0) Ur Specific [place] 1.015 (1.001-1.035) Urine Protein 1+ H (Negative) Urine Glucose (UA) Negative (Negative) Urine Ketones Negative (Negative) Urine Blood Moderate H (Negative) Urine Nitrite Positive H (Negative) Urine Bilirubin Negative (Negative) Urine Urobilinogen <2.0 (<2.0) mg/dL Ur Leukocyte Esterase Large H (Negative) Urine RBC 148 H (0-5) /hpf Urine WBC >182 H (0-5) /hpf Urine WBC Clumps Moderate H (None) /hpf Ur Squamous Epith Cells 4 (0-4) /hpf Urine Bacteria Many H (None) /hpf Hyaline Casts 2 (0-2) /lpf Urine Mucus Rare H (None) /hpf Disposition Clinical Impression: Urinary tract infection, Pneumonia Disposition: ADMITTED IP TO THIS HOSP Referrals: Srinath Shepard DO [Primary Care Provider] - 1-2 days Time of Disposition: 16:31
[2017-09-12 14:07] LABS: Glucose,Whole Blood 164 mg/dL (75-99)
[2017-09-12 14:19] LABS: Basophils % (A) 0 %; Eosinophils # (A) 0.1 k/uL (0-0.7); Eosinophils % (A) 1 %; HCT 37.5 % (34.0-46.0); HGB 12.2 gm/dL (11.4-16.0); Lymphocytes # (A) 1.1 k/uL (1.0-4.8); Lymphocytes % (A) 5 %; MCH 26.2 pg (25.0-35.0); MCHC 32.6 g/dL (31.0-37.0); MCV 80.2 fL (80.0-100.0); Mean Platelet Volume 7.8; Monocytes # (A) 0.6 k/uL (0-1.0); Monocytes % (A) 3 %; Neutrophils # (A) 18.6 k/uL (1.3-7.7); Neutrophils % (A) 90 %; Platelet Count 384 k/uL (150-450); RBC 4.67 m/uL (3.80-5.40); RDW 15.5 % (11.5-15.5); WBC 20.6 k/uL (3.8-10.6)
[2017-09-12 14:24] LABS: INR 1.1 (<1.2); Partial Thromboplastin Time 22.6 sec (22.0-30.0); Prothrombin Time 10.9 sec (9.0-12.0)
[2017-09-12 14:28] LABS: Albumin 4.1 g/dL (3.5-5.0); Calcium 9.5 mg/dL (8.4-10.2); Potassium 4.4 mmol/L (3.5-5.1); Total Bilirubin 0.3 mg/dL (0.2-1.3)
[2017-09-12 14:49] LABS: Creatine Kinase MB 0.9 ng/mL (0.0-2.4); Troponin I 0.015 ng/mL (0.000-0.034)
--- NOTE | 2017-09-12 14:52 | XR ---
EXAMINATION TYPE: XR chest 2V DATE OF EXAM: 09/12/2017 COMPARISON: 06/08/2017 HISTORY: 72 year-old female altered mental status, confusion TECHNIQUE: Frontal and lateral views FINDINGS: Median sternotomy wires are present with post-CABG clips. Heart normal size. Atherosclerotic arch yrn cifications. Mild diffuse interstitial prominence. There is some patchy posterior left basilar opacit y is decreased from 06/08/2017. No significant pleural effusion. IMPRESSION: 1. Chronic changes. 2. Patchy posterior basilar opacity could represent residual or recurrent atelectasis or infiltrate. Correlate for any infectious signs/symptoms.
[2017-09-12 15:17] LABS: Glucose,Whole Blood 93 mg/dL (75-99)
[2017-09-12] MEDS ORDERED: LEVOFLOXACIN 750MG-D5W PMX 750 MG in DEXTROSE/WATER 1 150ML.BAG IVPB STA (15:55)
[2017-09-12] MEDS ORDERED: LEVOFLOXACIN 750MG-D5W PMX 750 MG in DEXTROSE/WATER 1 150ML.BAG IVPB SCH (16:00)
[2017-09-12 16:27] LABS: Appearance,Urine Cloudy (Clear); Bacteria,Urine Many /hpf; Bilirubin,Urine Negative (Negative); Blood,Urine Moderate (Negative); Color,Urine Yellow; Glucose,Urine (UA) Negative (Negative); Hyaline Casts,Urine 2 /lpf (0-2); Ketones,Urine Negative (Negative); Leukocyte Esterase,Urine Large (Negative); Mucus,Urine Rare /hpf; Nitrite,Urine Positive (Negative); PH, Urine 5.5 (5.0-8.0); Protein,Urine 1+ (Negative); RBC,Urine 148 /hpf (0-5); Specific Gravity,Urine 1.015 (1.001-1.035); Squamous Epithelial Cell,Urine 4 /hpf (0-4); Urobilinogen,Urine <2.0 mg/dL (<2.0); WBC,Urine >182 /hpf (0-5)
[2017-09-12] MEDS ORDERED: PNEUMONIA PROTOCOL UTILIZED 1 EACH MISC PO PRN (16:31)
[2017-09-12 16:32] LABS: Amphetamine Screen,Urine Not Detected (NotDetected); Barbiturate Screen,Urine Not Detected (NotDetected); Benzodiazepines Screen,Urine Not Detected (NotDetected); Cocaine Screen,Urine Not Detected (NotDetected); Methadone Screen, Urine Not Detected (NotDetected); Opiate Screen,Urine Not Detected (NotDetected); Oxycodone Screen, Urine Not Detected (NotDetected); Phencyclidine Screen,Urine Not Detected (NotDetected); Tricyclic Antidepressant,Urine Not Detected (NotDetected); Urn Cannabinoid Scrn Not Detected (NotDetected)
[2017-09-12] MEDS ORDERED: SODIUM CHLORIDE 0.9% 1,000 ML IV ONE (16:33)
[2017-09-12] MEDS: SODIUM CHLORIDE 0.9% 1,000 ML IV SCH (18:29)
[2017-09-12 19:12] LABS: Glucose,Whole Blood 81 mg/dL (75-99)
[2017-09-12] MEDS ORDERED: INSULIN DETEMIR 100 UNIT/ML 10 ML VIAL SQ SCH (21:30)
[2017-09-12 21:35] LABS: Glucose,Whole Blood 89 mg/dL (75-99)
[2017-09-13] MEDS: ESCITALOPRAM 10 MG TAB PO SCH ×2 (00:05→20:42)
[2017-09-13] MEDS: ATORVASTATIN 80 MG TAB PO SCH ×2 (00:05→20:42)
[2017-09-13] MEDS: METOPROLOL TARTRATE 25 MG TAB PO SCH ×3 (00:14→20:42)
[2017-09-13 07:03] LABS: Glucose,Whole Blood 38 mg/dL (75-99)
[2017-09-13 07:40] LABS: Glucose,Whole Blood 51 mg/dL (75-99)
[2017-09-13 07:40] LABS: Glucose,Whole Blood 55 mg/dL (75-99)
[2017-09-13] MEDS: DEXTROSE 50%-WATER 50 ML SYRINGE IVP STA (07:56)
[2017-09-13] MEDS ORDERED: DEXTROSE 50%-WATER 50 ML SYRINGE IVP STA (08:20)
[2017-09-13 08:46] LABS: Glucose,Whole Blood 142 mg/dL (75-99)
[2017-09-13] MEDS ORDERED: HYDROcodone/APAP 5-325MG 1 EACH TAB PO PRN (09:01)
[2017-09-13] MEDS ORDERED: NON-FORMULARY DRUG (Ipratropium/Albuterol Sulfate [Combivent Respimat Inhaler] 2 PUFF) INHALATION PRN (09:01)
[2017-09-13] MEDS: SODIUM CHLORIDE 0.9% 1,000 ML IV SCH ×3 (09:12→23:33)
[2017-09-13] MEDS: CLOPIDOGREL 75 MG TAB PO SCH (10:59)
[2017-09-13] MEDS: ASPIRIN 325 MG TAB PO SCH (10:59)
[2017-09-13] MEDS: SENNOSIDES 8.6 MG TAB PO SCH (10:59)
[2017-09-13] MEDS ORDERED: ONDANSETRON 4 MG/2 ML VIAL IVP PRN (11:17)
--- NOTE | 2017-09-13 11:19 | P.CNPUL ---
History of Present Illness Consult date: 09/13/17 Reason for consult: abnormal CXR/CT Chief complaint: Possible pneumonia, hyperglycemia History of present illness: Pulmonary consultation dated 09/13/2017 This is a 72-year-old female patient who presents to the emergency department because of some mental status changes. She was found have a very high blood sugar initially and then a very low blood sugar after that. We believe that some of her mental status changes related to the blood sugar changes. She was feeling weak and fatigue and just not feeling herself. I asked her specifically about pulmonary complaints. She denied any fever chills cough phlegm production hemoptysis wheezing chest congestion tightness or any other pulmonary complaints for that matter. She denies at all. She does have a very interesting history of back in May having a left lower lobe pneumonia requiring chest tube drainage. She probably had pneumonia with parapneumonic effusion. I believe some of the changes are noted on chest x-ray and being interpreted by radiology relates to chronic changes in the left lower lobe from the previous episode of pneumonia and chest tube drainage. Again I asked her specifically about lung issues and she denies at all. She does have a history of COPD. She does smoke in the past. Her FEV1 is 57% of predicted suggesting moderate COPD. She does take updraft with DuoNeb and Symbicort. I spoke to the patient's daughter Stephanie on the phone. She agreed with me that her mother was not having any lung issues. She did tell me about the episode of pneumonia in May. At that time, she did see my partner Dr. Parsons. Review of Systems A 12 point review of systems currently is negative. She feels pretty much back to baseline. Prior to that, she was having some mental status changes, likely related to very high blood sugar initially admitted very low blood sugar afterwards. She denies all pulmonary complaints as mentioned above. Past Medical History Past Medical History: Asthma, Coronary Artery Disease (CAD), COPD, Diabetes Mellitus, Hyperlipidemia, Hypertension, Memory Impairment, Myocardial Infarction (SD), Osteoarthritis (OA), Renal Disease Additional Past Medical History / Comment(s): Coronary artery disease with previous bypass surgery, the patient underwent VELARDE to LAD and she has also had previous stent to RCA. The surgery was done in March 2017, stage III chronic kidney disease/failure, diabetes mellitus type 2 poorly controlled, medical noncompliance, depression, COPD FEV1 of 57% of predicted, hypertension, hyperlipidemia, carotid artery disease with previous endarterectomy on the right back in 2011, obesity with BMI of 35.2, smoker, degenerative arthritis, chronic back pain, history of urine checked infections, Last Myocardial Infarction Date:: 2009 History of Any Multi-Drug Resistant Organisms: None Reported Past Surgical History: Appendectomy, Coronary Bypass/CABG, Heart Catheterization , Heart Catheterization With Stent, Hysterectomy Additional Past Surgical History / Comment(s): 04/12/17 CABG 1 vessel, drug- eluting stent placed to the RCA in 2009, right carotid endarterectomy in 2011, colonoscopy.. Past Anesthesia/Blood Transfusion Reactions: No Reported Reaction Date of Last Stent Placement:: 2009 Past Psychological History: No Psychological Hx Reported Additional Psychological History / Comment(s): Pt resides with her son, Antonio. Pt uses a walker to ambulate. Her glucometer is broken so she is not checking blood sugar. She manages her own medications. She no longer drives, her son takes her to [employer]. Her daughter, Stephanie is her DPOA and thought [facility] had a copy but paperwork not on file. Sewage Plant Supervisor asked Stephanie to bring in document for copying and daughter does not know where it is located. Smoking Status: Former smoker Past Alcohol Use History: None Reported Additional Past Alcohol Use History / Comment(s): Pt started smoking in 1956 and stopped March 2017 Past Drug Use History: None Reported Additional Drug Use History / Comment(s): . - Past Family History Mother Family Medical History: No Reported History Father Family Medical History: Coronary Artery Disease (CAD) Medications and Allergies Home Medications Medication Instructions Recorded Confirmed Type Budesonide-Formot 160-4.5 Mcg 2 puff INHALATION RT-BID 01/19/17 09/12/17 History [Symbicort 160-4.5 Mcg Inhaler] Cholecalciferol [Vitamin D3] 2,000 unit PO DAILY 01/19/17 09/12/17 History Ipratropium/Albuterol Sulfate 2 puff INHALATION RT-QID PRN 01/19/17 09/12/17 History [Combivent Respimat Inhaler] Aspirin 325 mg PO DAILY 04/09/17 09/12/17 History Ipratropium-Albuterol Nebulize 3 ml INHALATION RT-QID PRN 04/12/17 09/12/17 History [Duoneb 0.5 mg-3 mg/3 ml Soln] Clopidogrel [Plavix] 75 mg PO DAILY tab 04/19/17 09/12/17 Rx Pantoprazole [Protonix] 40 mg PO [id number] tablet. 04/19/17 09/12/17 Rx HYDROcodone/APAP 5-325MG [[place] 1 tab PO Q4HR PRN 05/22/17 09/12/17 History 5-325] Atorvastatin [Lipitor] 80 mg PO HS 09/12/17 09/12/17 History Escitalopram [Lexapro] 10 mg PO HS 09/12/17 09/12/17 History Insulin Aspart Protam & Aspart 10 units SQ AC-TID 09/12/17 09/12/17 History [NovoLOG MIX 70-30 Flexpen] Insulin Detemir [Levemir] 70 unit SQ HS 09/12/17 09/12/17 History Lisinopril [Zestril] 20 mg PO DAILY 09/12/17 09/12/17 History Metoprolol Tartrate [Lopressor] 75 mg PO BID 09/12/17 09/12/17 History Sennosides [Senna] 8.6 mg PO DAILY 09/12/17 09/12/17 History Allergies Allergy/AdvReac Type Severity Reaction Status Date / Time No Known Allergies Allergy Verified 09/12/17 13:44 Physical Exam Osteopathic Statement: *. No significant issues noted on an osteopathic structural exam other than those noted in the History and Physical/Consult. Vitals: Vital Signs Temp Pulse Pulse Resp BP BP Pulse Ox 09/13/17 11:10 97.4 F L 64 16 135/57 09/13/17 09:10 71 141/63 09/13/17 08:00 97 F L 83 16 173/74 100 09/13/17 03:27 60 17 09/13/17 03:22 97.5 F L 60 17 119/58 99 09/13/17 00:00 97.2 F L 60 17 140/61 99 09/12/17 20:00 97.8 F 60 17 95/46 100 09/12/17 19:12 68 20 98/52 98 09/12/17 18:22 67 20 92/47 100 09/12/17 17:21 66 22 88/45 98 09/12/17 16:45 66 18 103/53 98 09/12/17 16:05 98.7 F 90 18 90/46 98 09/12/17 15:41 64 18 104/50 97 09/12/17 14:30 67 18 104/51 98 09/12/17 13:44 86 L 09/12/17 13:41 99.0 F 82 20 87/83 97 Intake and Output 09/12/17 09/13/17 09/13/17 22:59 06:59 14:59 Intake Total 800 800 50 Balance 800 800 50 Intake: IV 800 800 Sodium Chloride 0.9% 1, 800 800 000 ml @ 100 mls/hr IV . Q10H REBECCA Rx#:[id number] Oral 50 Other: Voiding Method Bedside Commode Bedside Commode # Voids 1 1 Weight 65.771 kg No acute distress, oriented 3. HEENT examination is grossly unremarkable. Mucous membranes are moist. No oral lesions. Neck supple. Full range of motion. No adenopathy thyromegaly or neck vein distention. Cardiovascular examination reveals regular rhythm rate. S1-S2 normal. No S3 or S4. No discernible murmur noted. Lungs reveal mostly clear breath sounds. No wheezes or rhonchi. No crackles. Breath sounds and maybe are mildly depressed. No adventitious lung sounds. Breath sounds equal bilaterally. Abdomen soft bowel sounds are heard. No masses or tenderness. Extremities are intact. No cyanosis clubbing or edema. Skin is without rash or lesion. Neurologic examination is brief but nonfocal. Results - Laboratory Findings CBC and BMP: 09/12/17 13:38 09/12/17 13:38 PT/INR, D-dimer PT 10.9 sec (9.0-12.0) 09/12/17 13:38 INR 1.1 (<1.2) 09/12/17 13:38 Abnormal lab findings: Abnormal Labs 09/12/17 09/12/17 09/12/17 13:38 13:38 13:38 WBC 20.6 H Neutrophils # 18.6 H Chloride 90 L Carbon Dioxide 33 H BUN 65 H Creatinine 1.77 H Glucose 62 L POC Glucose (mg/dL) Plasma Lactic Acid John Alkaline Phosphatase 164 H Total Creatine Kinase 27 L Urine Appearance Urine Protein Urine Blood Urine Nitrite Ur Leukocyte Esterase Urine RBC Urine WBC Urine WBC Clumps Urine Bacteria Urine Mucus 09/12/17 09/12/17 09/12/17 13:38 13:43 13:45 WBC Neutrophils # Chloride Carbon Dioxide BUN Creatinine Glucose POC Glucose (mg/dL) 65 L 64 L Plasma Lactic Acid John 2.5 H* Alkaline Phosphatase Total Creatine Kinase Urine Appearance Urine Protein Urine Blood Urine Nitrite Ur Leukocyte Esterase Urine RBC Urine WBC Urine WBC Clumps Urine Bacteria Urine Mucus 09/12/17 09/12/17 09/13/17 14:04 16:05 06:59 WBC Neutrophils # Chloride Carbon Dioxide BUN Creatinine Glucose POC Glucose (mg/dL) 164 H 38 L Plasma Lactic Acid John Alkaline Phosphatase Total Creatine Kinase Urine Appearance Cloudy H Urine Protein 1+ H Urine Blood Moderate H Urine Nitrite Positive H Ur Leukocyte Esterase Large H Urine RBC 148 H Urine WBC >182 H Urine WBC Clumps Moderate H Urine Bacteria Many H Urine Mucus Rare H 09/13/17 09/13/17 09/13/17 07:21 07:37 08:25 WBC Neutrophils # Chloride Carbon Dioxide BUN Creatinine Glucose POC Glucose (mg/dL) 55 L 51 L 142 H Plasma Lactic Acid John Alkaline Phosphatase Total Creatine Kinase Urine Appearance Urine Protein Urine Blood Urine Nitrite Ur Leukocyte Esterase Urine RBC Urine WBC Urine WBC Clumps Urine Bacteria Urine Mucus - Diagnostic Findings Chest x-ray: image reviewed (Labs x-rays a medications are reviewed.) Assessment and Plan Assessment: Assessment Doubt significant pneumonia or any pulmonary infection at this time. Though the patient does have some underlying COPD from previous tobacco use, I believe the x-ray changes are primarily chronic based on the previous episode of pneumonia and parapneumonic effusion and chest tube requirement back in May 2017. The patient is currently not having any lung complaints at this time. Moderate COPD with an FEV1 is 57% of predicted Previous episode of pneumonia with parapneumonic effusion requiring chest tube drainage, May 2017 History of CAD with previous bypass grafting Stage III chronic kidney disease History of diabetes mellitus, Depression Hypertension History of myocardial infarction Osteoarthritis Memory impairment Plan: Plan dated 09/11/2017 The patient does have some underlying COPD and should be resumed started back on her usual medications including DuoNeb 4 times a day and when necessary and Symbicort 160/4.5, 2 puffs twice a day. I don't believe the patient currently has pneumonia. I don't think she needs antibiotics. If the primary service to sites treated with antibiotics, I think oral antibiotics for a short course would be appropriate. The patient should follow-up in the office when she is discharged. Additional recommendations and suggestions are forthcoming. Current active issues include diabetes with poor sugar control and chronic kidney disease. Time with Patient: Greater than 30
[2017-09-13 12:20] LABS: Glucose,Whole Blood 135 mg/dL (75-99)
--- NOTE | 2017-09-13 13:23 | XR ---
EXAMINATION TYPE: XR chest 2V DATE OF EXAM: 09/13/2017 COMPARISON: 09/12/2017 TECHNIQUE: PA and lateral views submitted. HISTORY: Pneumonia FINDINGS: Left lower lobe subsegmental consolidation and tiny effusion. Coarsened interstitium noted. Atheroscl erotic change aorta and postsurgical change noted. Nephropathy of the shoulders with diffuse osteopen ia. Hypertrophic and degenerative change of the spine. IMPRESSION: 1. Left lower lobe infiltrate and small effusion stable.
[2017-09-13] MEDS: METOCLOPRAMIDE 5 MG/ML 2 ML VIAL IVP SCH ×3 (13:52→23:42)
[2017-09-13] MEDS: INSULIN ASPART 100 UNIT/ML 1 ML 10 ML VIAL SQ SCH ×3 (13:52→20:40)
--- NOTE | 2017-09-13 14:31 | P.HPIM ---
History of Present Illness H&P Date: 09/13/17 Chief Complaint: mental status changes 72-year-old who presented to the emergency room after her home health care nurse felt the patient was having mental status changes. Apparently, the patients blood sugar was very high when checked by home care staff. When she presented to the emergency room, she was hypoglycemic with a blood sugar of 65. She complains of feeling overall weak and tired, but denies further complaints. She denies chest pain or pressure. Denies shortness of breath. Denies sputum production. Denies fever or chills. Denies nausea or vomiting. She reports her appetite is good. Denies any urinary complaints such as urgency, frequency, dysuria, malodorous urine, or burning with urination. The patient has a history of asthma, CAD, COPD, diabetes, hyperlipidemia, hypertension, and renal disease. She has a history of CABG with VELARDE to the LAD. The patient was recently hospitalized in June 2017 for pneumonia secondary to streptococcus pneumoniae. Chest x-ray: Chronic changes, patchy posterior basilar opacity could represent residual or recurrent atelectasis or infiltrates. Correlate for infectious signs/symptoms. Laboratory data: WBC 20.6. Hemoglobin 12.2. Platelet Count 384. Sodium 139. Potassium 4.4. Chloride 90. Carbon dioxide 33. BUN 65. Creatinine 1.77. GFR 28. Glucose 65. Lactic acid 2.5 Toxicology screen: Negative Urinalysis reveals: Cloudy yellow urine, 1+ proteinuria, moderate blood, positive nitrites, large leukocyte esterase, RBC 148, WBCs greater than 182, moderate WBC clumps, many bacteria, hyaline cast 2 The patient was admitted to the hospital under the care of Dr. Shepard. Consultations were placed to pulmonary. Review of Systems GENERAL: Positive for generalized weakness. Patient denies fever. Denies chills. EYES: Denies blurred vision. Denies vision changes. Denies eye pain. EARS, NOSE, MOUTH, & THROAT: Denies headache. Denies sore throat. Denies ear pain. RESPIRATORY: Denies cough. Denies shortness of breath. Denies sputum production. Denies hemoptysis. CARDIOVASCULAR: Denies chest pain or pressure. Denies palpitations. Denies arrhythmias. GASTROINTESTINAL: Denies abdominal pain. Denies diarrhea. Denies constipation. Denies nausea. Denies vomiting. Denies heartburn. Denies blood in the stool. GENITOURINARY: Denies urinary frequency. Denies burning. Denies dysuria. Denies cloudy urine. Denies blood in the urine. MUSCULOSKELETAL: Denies myalgias. Denies joint swelling. Denies decreased range of motion beyond patients baseline. INTEGUMENTARY: Denies pruitis. Denies rash. PSYCHIATRIC: Denies suicidal or homicial ideations. ENDOCRINE: Denies weight change. Denies polydipsia. Denies polyuria. HEMATOLOGIC: Denies bleeding disorders. Past Medical History Past Medical History: Asthma, Coronary Artery Disease (CAD), COPD, Diabetes Mellitus, Hyperlipidemia, Hypertension, Memory Impairment, Myocardial Infarction ([place]), Osteoarthritis (OA), Renal Disease Additional Past Medical History / Comment(s): Coronary artery disease with previous bypass surgery, the patient underwent VELARDE to LAD and she has also had previous stent to RCA. The surgery was done in March 2017, stage III chronic kidney disease/failure, diabetes mellitus type 2 poorly controlled, medical noncompliance, depression, COPD FEV1 of 57% of predicted, hypertension, hyperlipidemia, carotid artery disease with previous endarterectomy on the right back in 2011, obesity with BMI of 35.2, smoker, degenerative arthritis, chronic back pain, history of urine checked infections, Last Myocardial Infarction Date:: 2009 History of Any Multi-Drug Resistant Organisms: None Reported Past Surgical History: Appendectomy, Coronary Bypass/CABG, Heart Catheterization , Heart Catheterization With Stent, Hysterectomy Additional Past Surgical History / Comment(s): 04/12/17 CABG 1 vessel, drug- eluting stent placed to the RCA in 2009, right carotid endarterectomy in 2011, colonoscopy.. Past Anesthesia/Blood Transfusion Reactions: No Reported Reaction Date of Last Stent Placement:: 2009 Past Psychological History: No Psychological Hx Reported Additional Psychological History / Comment(s): Pt resides with her son, Antonio. Pt uses a walker to ambulate. Her glucometer is broken so she is not checking blood sugar. She manages her own medications. She no longer drives, her son takes her to [employer]. Her daughter, Stephanie is her DPOA and thought [facility] had a copy but paperwork not on file. [employer] asked Stephanie to bring in document for copying and daughter does not know where it is located. Smoking Status: Former smoker Past Alcohol Use History: None Reported Additional Past Alcohol Use History / Comment(s): Pt started smoking in 7 and stopped March 2017 Past Drug Use History: None Reported Additional Drug Use History / Comment(s): . - Past Family History Mother Family Medical History: No Reported History Father Family Medical History: Coronary Artery Disease (CAD) Medications and Allergies Home Medications Medication Instructions Recorded Confirmed Type Budesonide-Formot 160-4.5 Mcg 2 puff INHALATION RT-BID 01/19/17 09/12/17 History [Symbicort 160-4.5 Mcg Inhaler] Cholecalciferol [Vitamin D3] 2,000 unit PO DAILY 01/19/17 09/12/17 History Ipratropium/Albuterol Sulfate 2 puff INHALATION RT-QID PRN 01/19/17 09/12/17 History [Combivent Respimat Inhaler] Aspirin 325 mg PO DAILY 04/09/17 09/12/17 History Ipratropium-Albuterol Nebulize 3 ml INHALATION RT-QID PRN 04/12/17 09/12/17 History [Duoneb 0.5 mg-3 mg/3 ml Soln] Clopidogrel [Plavix] 75 mg PO DAILY tab 04/19/17 09/12/17 Rx Pantoprazole [Protonix] 40 mg PO AC-[id number] tablet. 04/19/17 09/12/17 Rx HYDROcodone/APAP 5-325MG [[place] 1 tab PO Q4HR PRN 05/22/17 09/12/17 History 5-325] Atorvastatin [Lipitor] 80 mg PO HS 09/12/17 09/12/17 History Escitalopram [Lexapro] 10 mg PO HS 09/12/17 09/12/17 History Insulin Aspart Protam & Aspart 10 units SQ AC-TID 09/12/17 09/12/17 History [NovoLOG MIX 70-30 Flexpen] Insulin Detemir [Levemir] 70 unit SQ HS 09/12/17 09/12/17 History Lisinopril [Zestril] 20 mg PO DAILY 09/12/17 09/12/17 History Metoprolol Tartrate [Lopressor] 75 mg PO BID 09/12/17 09/12/17 History Sennosides [Senna] 8.6 mg PO DAILY 09/12/17 09/12/17 History Allergies Allergy/AdvReac Type Severity Reaction Status Date / Time No Known Allergies Allergy Verified 09/12/17 13:44 Physical Exam Vitals: Vital Signs Temp Pulse Pulse Resp BP BP Pulse Ox 09/13/17 11:10 97.4 F L 64 16 135/57 100 09/13/17 09:10 71 141/63 09/13/17 08:00 97 F L 83 16 173/74 100 09/13/17 03:27 60 17 09/13/17 03:22 97.5 F L 60 17 119/58 99 09/13/17 00:00 97.2 F L 60 17 140/61 99 09/12/17 20:00 97.8 F 60 17 95/46 100 09/12/17 19:12 68 20 98/52 98 09/12/17 18:22 67 20 92/47 100 09/12/17 17:21 66 22 88/45 98 09/12/17 16:45 66 18 103/53 98 09/12/17 16:05 98.7 F 90 18 90/46 98 09/12/17 15:41 64 18 104/50 97 09/12/17 14:30 67 18 104/51 98 Intake and Output 09/12/17 09/13/17 09/13/17 22:59 06:59 14:59 Intake Total 800 800 50 Balance 800 800 50 Intake: IV 800 800 Sodium Chloride 0.9% 1, 800 800 000 ml @ 100 mls/hr IV . Q10H [facility] Rx#:[id number] Oral 50 Other: Voiding Method Bedside Commode Bedside Commode Bedside Commode # Voids 1 1 1 # Bowel Movements 1 Weight 65.771 kg GENERAL: This is a 72-year-old female in no apparent distress at the time of examination. Pleasant and cooperative. HEENT: Head is atraumatic, normocephalic. Pupils are equal, round, and reactive to light. Sclerae anicteric. Conjunctivae are clear. Mucus membranes of the mouth are moist. Neck is supple. RESPIRATORY: Clear to ausculation. No wheezes, rales, or rhonchi. No use of accessory muscles. Patient maintaining oxygen saturation greater than 92%. No chest wall tenderness is noted on palpation or with deep breathing. CARDIOVASCULAR: Regular rate and rhythm. S1 and S2 noted. No systolic or diastolic murmur auscultated. No JVD noted. No S3 or S4 noted. GASTROINTESTINAL: No distention noted. Abdomen soft and round. Normal active bowel sounds auscultated x 4 quadrants. No pain or tenderness noted upon palpation. INTEGUMENTARY: No cyanosis. No jaundice. No rashes noted. No cellulitis noted. EXTREMITIES: 2+ peripheral pulses. No evidence of peripheral edema. No calf tenderness noted. NEUROLOGIC: Cranial nerves II-XII intact. PSYCHIATRIC: Awake, alert, and oriented X 2-3. Appropriate affect. Results CBC & Chem 7: 09/12/17 13:38 09/12/17 13:38 Labs: Abnormal Lab Results - Last 24 Hours (Table) 09/12/17 09/12/17 09/12/17 Range/Units 13:38 13:38 13:38 WBC 20.6 H (3.8-10.6) k/uL Neutrophils # 18.6 H (1.3-7.7) k/uL Chloride 90 L (98-107) mmol/L Carbon Dioxide 33 H (22-30) mmol/L BUN 65 H (7-17) mg/dL Creatinine 1.77 H (0.52-1.04) mg/dL Glucose 62 L (74-99) mg/dL POC Glucose (mg/dL) (75-99) mg/dL Plasma Lactic Acid John (0.7-2.0) mmol/L Alkaline Phosphatase 164 H (38-126) U/L Total Creatine Kinase 27 L (30-135) U/L Urine Appearance (Clear) Urine Protein (Negative) Urine Blood (Negative) Urine Nitrite (Negative) Ur Leukocyte Esterase (Negative) Urine RBC (0-5) /hpf Urine WBC (0-5) /hpf Urine WBC Clumps (None) /hpf Urine Bacteria (None) /hpf Urine Mucus (None) /hpf 09/12/17 09/12/17 09/12/17 Range/Units 13:38 14:04 16:05 WBC (3.8-10.6) k/uL Neutrophils # (1.3-7.7) k/uL Chloride (98-107) mmol/L Carbon Dioxide (22-30) mmol/L BUN (7-17) mg/dL Creatinine (0.52-1.04) mg/dL Glucose (74-99) mg/dL POC Glucose (mg/dL) 164 H (75-99) mg/dL Plasma Lactic Acid John 2.5 H* (0.7-2.0) mmol/L Alkaline Phosphatase (38-126) U/L Total Creatine Kinase (30-135) U/L Urine Appearance Cloudy H (Clear) Urine Protein 1+ H (Negative) Urine Blood Moderate H (Negative) Urine Nitrite Positive H (Negative) Ur Leukocyte Esterase Large H (Negative) Urine RBC 148 H (0-5) /hpf Urine WBC >182 H (0-5) /hpf Urine WBC Clumps Moderate H (None) /hpf Urine Bacteria Many H (None) /hpf Urine Mucus Rare H (None) /hpf 09/13/17 09/13/17 09/13/17 Range/Units 06:59 07:21 07:37 WBC (3.8-10.6) k/uL Neutrophils # (1.3-7.7) k/uL Chloride (98-107) mmol/L Carbon Dioxide (22-30) mmol/L BUN (7-17) mg/dL Creatinine (0.52-1.04) mg/dL Glucose (74-99) mg/dL POC Glucose (mg/dL) 38 L 55 L 51 L (75-99) mg/dL Plasma Lactic Acid John (0.7-2.0) mmol/L Alkaline Phosphatase (38-126) U/L Total Creatine Kinase (30-135) U/L Urine Appearance (Clear) Urine Protein (Negative) Urine Blood (Negative) Urine Nitrite (Negative) Ur Leukocyte Esterase (Negative) Urine RBC (0-5) /hpf Urine WBC (0-5) /hpf Urine WBC Clumps (None) /hpf Urine Bacteria (None) /hpf Urine Mucus (None) /hpf 09/13/17 09/13/17 Range/Units 08:25 12:18 WBC (3.8-10.6) k/uL Neutrophils # (1.3-7.7) k/uL Chloride (98-107) mmol/L Carbon Dioxide (22-30) mmol/L BUN (7-17) mg/dL Creatinine (0.52-1.04) mg/dL Glucose (74-99) mg/dL POC Glucose (mg/dL) 142 H 135 H (75-99) mg/dL Plasma Lactic Acid John (0.7-2.0) mmol/L Alkaline Phosphatase (38-126) U/L Total Creatine Kinase (30-135) U/L Urine Appearance (Clear) Urine Protein (Negative) Urine Blood (Negative) Urine Nitrite (Negative) Ur Leukocyte Esterase (Negative) Urine RBC (0-5) /hpf Urine WBC (0-5) /hpf Urine WBC Clumps (None) /hpf Urine Bacteria (None) /hpf Urine Mucus (None) /hpf Thrombosis Risk Factor Assmnt - Choose All That Apply Each Risk Factor Represents 2 Points: Age 61-74 years Thrombosis Risk Factor Assessment Total Risk Factor Score: 2 Thrombosis Risk Factor Assessment Level: Low Risk Assessment and Plan Plan: ASSESSMENT: Urinary tract infection, present on admission, culture pending Early sepsis, present on admission, with hypotension, elevated lactic acid, and leukocytosis, likely secondary to urinary tract infection Hypoglycemia, resolved Altered mental status per home care agency, metabolic and infectious encephalopathy, may be secondary to hypo/hyper-glycemia and/or urinary tract infection, resolved at this time Elevated lactic acid, improved with IV hydration Nonoliguric acute kidney injury, multifactorial secondary to hypotensive episodes, urinary tract infection, and decreased PO fluid intake Left lower lobe infiltrate/consolidation, thought to be chronic based on the previous episode of pneumonia and parapneumonic effusion and chest tube requirement back in May 2017 per pulmonary, pneumonia unlikely Recent hospitalization for pneumonia secondary to Strepococcus pneumoniae, June 2017 Diabetes mellitus, type II, hemoglobin A1C pending Coronary artery disease with previous CABG with VELARDE to the LAD in March 2017 and previous stent to RCA COPD, no evidence of acute exacerbation Hypertension Hyperlipidemia Carotid artery disease with previous right endartectomy PLAN: Patient remains in ER awaiting bed. Patient may go to general medical floor. Pulmonary on consult. Appreciate recommendations and input. Continue Levaquin for UTI Patient received dose of IV antibiotics already in ER before urine culture was ordered. Will obtain urine culture now, even though results may not be as accurate due to patient already receiving antibiotics Home meds as appropriate Novolog sliding scale ACHS Decrease Levemir to 40 units at HS Discontinue 70/30 with meals Monitor labs GI prophylaxis: Protonix 40 mg PO Daily DVT prophylaxis: Heparin 5000 units subcu every 8 hours Monitor vital signs and address as appropriate Discharge planning: Patient to return home when stable with home care Further recommendations pending patient's course Nurse practitioner note has been reviewed by physician. Signing provider agrees with the documented findings, assessment, and plan of care.
[2017-09-13 15:11] LABS: Basophils % (A) 0 %; Eosinophils # (A) 0.1 k/uL (0-0.7); Eosinophils % (A) 1 %; HCT 32.9 % (34.0-46.0); HGB 10.3 gm/dL (11.4-16.0); Hypochromasia Slight; Lymphocytes # (A) 1.2 k/uL (1.0-4.8); Lymphocytes % (A) 11 %; MCH 26.1 pg (25.0-35.0); MCHC 31.3 g/dL (31.0-37.0); MCV 83.5 fL (80.0-100.0); Mean Platelet Volume 7.5; Monocytes # (A) 0.5 k/uL (0-1.0); Monocytes % (A) 5 %; Neutrophils # (A) 8.7 k/uL (1.3-7.7); Neutrophils % (A) 82 %; Platelet Count 293 k/uL (150-450); RBC 3.94 m/uL (3.80-5.40); RDW 15.4 % (11.5-15.5); WBC 10.6 k/uL (3.8-10.6)
[2017-09-13 15:14] LABS: Albumin 3.2 g/dL (3.5-5.0); Calcium 8.9 mg/dL (8.4-10.2); Potassium 4.7 mmol/L (3.5-5.1); Total Bilirubin 0.2 mg/dL (0.2-1.3); Total Protein 5.7 g/dL (6.3-8.2)
[2017-09-13 16:45] LABS: Glucose,Whole Blood 105 mg/dL (75-99)
[2017-09-13] MEDS: HEPARIN SODIUM,PORCINE 5,000 UNIT/ML 1 ML VIAL SQ SCH ×2 (17:20→23:45)
[2017-09-13] MEDS: LISINOPRIL 20 MG TAB PO SCH (17:20)
[2017-09-13] MEDS: SYMBICORT 160-4.5 MCG INHALER INHALATION SCH (19:57)
[2017-09-13] MEDS: IPRATROPIUM-ALBUTEROL 3 ML NEB INHALATION PRN (19:57)
[2017-09-13 20:31] LABS: Glucose,Whole Blood 111 mg/dL (75-99)
[2017-09-13] MEDS ORDERED: INSULIN DETEMIR 100 UNIT/ML 10 ML VIAL SQ SCH (21:00)
[2017-09-13 22:15] LABS: Hemoglobin A1C 8.7 % (4.0-6.0)
[2017-09-14] MEDS: SODIUM CHLORIDE 0.9% 1,000 ML IV SCH ×2 (00:57→09:09)
[2017-09-14 05:57] LABS: Glucose,Whole Blood 68 mg/dL (75-99)
[2017-09-14 06:17] LABS: Glucose,Whole Blood 92 mg/dL (75-99)
[2017-09-14] MEDS: INSULIN ASPART 100 UNIT/ML 1 ML 10 ML VIAL SQ SCH ×4 (06:18→21:32)
[2017-09-14] MEDS: PANTOPRAZOLE 40 MG TABLET PO SCH (06:28)
[2017-09-14] MEDS: METOCLOPRAMIDE 5 MG/ML 2 ML VIAL IVP SCH (06:28)
[2017-09-14 06:30] LABS: Basophils % (A) 0 %; Eosinophils # (A) 0.1 k/uL (0-0.7); Eosinophils % (A) 1 %; HCT 34.6 % (34.0-46.0); HGB 10.8 gm/dL (11.4-16.0); Hypochromasia Slight; Lymphocytes # (A) 1.8 k/uL (1.0-4.8); Lymphocytes % (A) 22 %; MCH 26.2 pg (25.0-35.0); MCHC 31.1 g/dL (31.0-37.0); MCV 84.2 fL (80.0-100.0); Mean Platelet Volume 7.1; Monocytes # (A) 0.5 k/uL (0-1.0); Monocytes % (A) 6 %; Neutrophils # (A) 5.7 k/uL (1.3-7.7); Neutrophils % (A) 68 %; Platelet Count 285 k/uL (150-450); RBC 4.11 m/uL (3.80-5.40); WBC 8.3 k/uL (3.8-10.6)
[2017-09-14 06:49] LABS: Albumin 3.3 g/dL (3.5-5.0); Calcium 9.1 mg/dL (8.4-10.2); Potassium 4.3 mmol/L (3.5-5.1); Total Bilirubin 0.2 mg/dL (0.2-1.3); Total Protein 6.1 g/dL (6.3-8.2)
[2017-09-14] MEDS: SYMBICORT 160-4.5 MCG INHALER INHALATION SCH ×2 (08:42→21:01)
[2017-09-14] MEDS: IPRATROPIUM-ALBUTEROL 3 ML NEB INHALATION PRN ×2 (08:43→11:56)
[2017-09-14] MEDS: CLOPIDOGREL 75 MG TAB PO SCH (09:05)
[2017-09-14] MEDS: METOPROLOL TARTRATE 25 MG TAB PO SCH ×2 (09:05→21:33)
[2017-09-14] MEDS: ASPIRIN 325 MG TAB PO SCH (09:05)
[2017-09-14] MEDS: SENNOSIDES 8.6 MG TAB PO SCH (09:05)
[2017-09-14] MEDS: HEPARIN SODIUM,PORCINE 5,000 UNIT/ML 1 ML VIAL SQ SCH ×2 (09:05→16:45)
[2017-09-14] MEDS: LISINOPRIL 20 MG TAB PO SCH (09:05)
--- NOTE | 2017-09-14 10:31 | P.PN ---
Subjective Progress Note Date: 09/14/17 Principal diagnosis: Chronic chest x-ray changes due to previous episode of pneumonia and parapneumonic effusion Pulmonary consultation dated 09/13/2017 This is a 72-year-old female patient who presents to the emergency department because of some mental status changes. She was found have a very high blood sugar initially and then a very low blood sugar after that. We believe that some of her mental status changes related to the blood sugar changes. She was feeling weak and fatigue and just not feeling herself. I asked her specifically about pulmonary complaints. She denied any fever chills cough phlegm production hemoptysis wheezing chest congestion tightness or any other pulmonary complaints for that matter. She denies at all. She does have a very interesting history of back in May having a left lower lobe pneumonia requiring chest tube drainage. She probably had pneumonia with parapneumonic effusion. I believe some of the changes are noted on chest x-ray and being interpreted by radiology relates to chronic changes in the left lower lobe from the previous episode of pneumonia and chest tube drainage. Again I asked her specifically about lung issues and she denies at all. She does have a history of COPD. She does smoke in the past. Her FEV1 is 57% of predicted suggesting moderate COPD. She does take updraft with DuoNeb and Symbicort. I spoke to the patient's daughter Stephanie on the phone. She agreed with me that her mother was not having any lung issues. She did tell me about the episode of pneumonia in May. At that time, she did see my partner Dr. Parsons. On 09/14/2017 patient seen in follow-up on selective care unit. He denies any acute distress, denies any worsening dyspnea, patient is afebrile, vital signs are stable, currently on 2 L per nasal cannula pulse ox 100%. Respirations are even and nonlabored. Lung sounds are clear, no wheezes or rhonchi appreciated. Blood culture show no growth at the 24-hour marvin. Her COPD does not seem to be active. Objective - Vital Signs Vital signs: Vital Signs Temp 97.8 F 09/14/17 08:00 Pulse 76 09/14/17 08:59 Resp 18 09/14/17 08:00 BP 146/65 09/14/17 08:00 Pulse Ox 100 09/14/17 08:00 Intake & Output 09/13/17 09/14/17 09/14/17 18:59 06:59 18:59 Intake Total 170 1680 Output Total 400 200 300 Balance -230 -200 1380 Weight 69.4 kg Intake: IV 1200 Sodium Chloride 0.9% 1, 1200 000 ml @ 100 mls/hr IV . Q10H [facility] Rx#:[id number] Oral 170 240 Other 240 Output: Urine 400 200 300 Other: Voiding Method Bedside Commode Bedside Commode Bedside Commode # Voids 1 2 400 # Bowel Movements 1 - Exam No acute distress, oriented 3. HEENT examination is grossly unremarkable. Mucous membranes are moist. No oral lesions. Neck supple. Full range of motion. No adenopathy thyromegaly or neck vein distention. Cardiovascular examination reveals regular rhythm rate. S1-S2 normal. No S3 or S4. No discernible murmur noted. Lungs reveal mostly clear breath sounds. No wheezes or rhonchi. No crackles. Breath sounds and maybe are mildly depressed. No adventitious lung sounds. Breath sounds equal bilaterally. Abdomen soft bowel sounds are heard. No masses or tenderness. Extremities are intact. No cyanosis clubbing or edema. Skin is without rash or lesion. Neurologic examination is brief but nonfocal. - Labs CBC & Chem 7: 09/14/17 05:43 09/14/17 05:43 Labs: Abnormal Lab Results - Last 24 Hours (Table) 09/12/17 09/13/17 09/13/17 Range/Units 13:38 12:18 14:33 Hgb 10.3 L (11.4-16.0) gm/dL Hct 32.9 L (34.0-46.0) % Neutrophils # 8.7 H (1.3-7.7) k/uL Chloride (98-107) mmol/L Carbon Dioxide (22-30) mmol/L BUN (7-17) mg/dL Creatinine (0.52-1.04) mg/dL Glucose (74-99) mg/dL POC Glucose (mg/dL) 135 H (75-99) mg/dL Hemoglobin A1c 8.7 H (4.0-6.0) % ALT (9-52) U/L Alkaline Phosphatase (38-126) U/L Total Protein (6.3-8.2) g/dL Albumin (3.5-5.0) g/dL 09/13/17 09/13/17 09/13/17 Range/Units 14:33 16:27 20:29 Hgb (11.4-16.0) gm/dL Hct (34.0-46.0) % Neutrophils # (1.3-7.7) k/uL Chloride 97 L (98-107) mmol/L Carbon Dioxide 31 H (22-30) mmol/L BUN 44 H (7-17) mg/dL Creatinine 1.48 H (0.52-1.04) mg/dL Glucose 152 H (74-99) mg/dL POC Glucose (mg/dL) 105 H 111 H (75-99) mg/dL Hemoglobin A1c (4.0-6.0) % ALT (9-52) U/L Alkaline Phosphatase 151 H (38-126) U/L Total Protein 5.7 L (6.3-8.2) g/dL Albumin 3.2 L (3.5-5.0) g/dL 09/14/17 09/14/17 09/14/17 Range/Units 05:43 05:43 05:55 Hgb 10.8 L (11.4-16.0) gm/dL Hct (34.0-46.0) % Neutrophils # (1.3-7.7) k/uL Chloride (98-107) mmol/L Carbon Dioxide (22-30) mmol/L BUN 32 H (7-17) mg/dL Creatinine 1.30 H (0.52-1.04) mg/dL Glucose 64 L (74-99) mg/dL POC Glucose (mg/dL) 68 L (75-99) mg/dL Hemoglobin A1c (4.0-6.0) % ALT 8 L (9-52) U/L Alkaline Phosphatase 154 H (38-126) U/L Total Protein 6.1 L (6.3-8.2) g/dL Albumin 3.3 L (3.5-5.0) g/dL Microbiology - Last 24 Hours (Table) 09/12/17 17:31 Blood Culture - Preliminary Blood No Growth after 24 hours 09/12/17 13:38 Blood Culture - Preliminary Blood No Growth after 24 hours Assessment and Plan Plan: Assessment: Doubt significant pneumonia or any pulmonary infection at this time. Though the patient does have some underlying COPD from previous tobacco use, I believe the x-ray changes are primarily chronic based on the previous episode of pneumonia and parapneumonic effusion and chest tube requirement back in May 2017. The patient is currently not having any lung complaints at this time. Moderate COPD with an FEV1 is 57% of predicted Previous episode of pneumonia with parapneumonic effusion requiring chest tube drainage, May 2017 History of CAD with previous bypass grafting Stage III chronic kidney disease History of diabetes mellitus, Depression Hypertension History of myocardial infarction Osteoarthritis Memory impairment Plan: Patient is quite stable from pulmonary standpoint, no dyspnea, lung sounds are stable, no chest pain is no wheezing. The changes on the chest x-ray are chronic and related to her previous episode of pneumonia back in May 2017. Continue with nebulized bronchodilators, Symbicort. Her COPD stable. We will follow the patient on as-needed basis. I performed a history & physical examination of the patient and discussed their management with my nurse practitioner, Olimpia Bowling. I reviewed the nurse practitioner's note and agree with the documented findings and plan of care. Lung sounds are clear. The findings and the impression was discussed with the patient. I attest to the documentation by the nurse practitioner. Time with Patient: Less than 30
[2017-09-14 11:36] VITALS: BMI 29.9
[2017-09-14 11:46] LABS: Glucose,Whole Blood 124 mg/dL (75-99)
--- NOTE | 2017-09-14 13:44 | P.PN ---
Subjective Progress Note Date: 09/14/17 72-year-old who presented to the emergency room after her home health care nurse felt the patient was having mental status changes. Apparently, the patients blood sugar was very high when checked by home care staff. When she presented to the emergency room, she was hypoglycemic with a blood sugar of 65. She complains of feeling overall weak and tired, but denies further complaints. She denies chest pain or pressure. Denies shortness of breath. Denies sputum production. Denies fever or chills. Denies nausea or vomiting. She reports her appetite is good. Denies any urinary complaints such as urgency, frequency, dysuria, malodorous urine, or burning with urination. The patient has a history of asthma, CAD, COPD, diabetes, hyperlipidemia, hypertension, and renal disease. She has a history of CABG with VELARDE to the LAD. The patient was recently hospitalized in June 2017 for pneumonia secondary to streptococcus pneumoniae. Chest x-ray: Chronic changes, patchy posterior basilar opacity could represent residual or recurrent atelectasis or infiltrates. Correlate for infectious signs/symptoms. Laboratory data: WBC 20.6. Hemoglobin 12.2. Platelet Count 384. Sodium 139. Potassium 4.4. Chloride 90. Carbon dioxide 33. BUN 65. Creatinine 1.77. GFR 28. Glucose 65. Lactic acid 2.5 Toxicology screen: Negative Urinalysis reveals: Cloudy yellow urine, 1+ proteinuria, moderate blood, positive nitrites, large leukocyte esterase, RBC 148, WBCs greater than 182, moderate WBC clumps, many bacteria, hyaline cast 2 The patient was admitted to the hospital under the care of Dr. Shepard. Consultations were placed to pulmonary. 09/14/2017 Patient seen and examined at the bedside. Patient states she is feeling better and is hoping to be discharged home soon. She denies nausea or vomiting. Denies chest pain or pressure. Blood cultures are negative at 24 hour marvin. Urine culture is pending. Patient remains on Levaquin. Vital signs have been stable. She is afebrile. She denies pain or discomfort. Objective - Vital Signs Vital signs: Vital Signs Temp 97.6 F 09/14/17 04:00 Pulse 76 09/14/17 08:59 Resp 18 09/14/17 04:00 BP 147/65 09/14/17 04:00 Pulse Ox 93 L 09/14/17 04:00 Intake & Output 09/13/17 09/14/17 09/14/17 18:59 06:59 18:59 Intake Total 170 1680 Output Total 400 200 300 Balance -230 -200 1380 Weight 69.4 kg Intake: IV 1200 Sodium Chloride 0.9% 1, 1200 000 ml @ 100 mls/hr IV . Q10H REBECCA Rx#:[id number] Oral 170 240 Other 240 Output: Urine 400 200 300 Other: Voiding Method Bedside Commode Bedside Commode # Voids 1 2 400 # Bowel Movements 1 - Exam GENERAL: This is a 72-year-old female in no apparent distress at the time of examination. Pleasant and cooperative. HEENT: Head is atraumatic, normocephalic. Pupils are equal, round, and reactive to light. Sclerae anicteric. Conjunctivae are clear. Mucus membranes of the mouth are moist. Neck is supple. RESPIRATORY: Clear to ausculation. No wheezes, rales, or rhonchi. No use of accessory muscles. Patient maintaining oxygen saturation greater than 92%. No chest wall tenderness is noted on palpation or with deep breathing. CARDIOVASCULAR: Regular rate and rhythm. S1 and S2 noted. No systolic or diastolic murmur auscultated. No JVD noted. No S3 or S4 noted. GASTROINTESTINAL: No distention noted. Abdomen soft and round. Normal active bowel sounds auscultated x 4 quadrants. No pain or tenderness noted upon palpation. INTEGUMENTARY: No cyanosis. No jaundice. No rashes noted. No cellulitis noted. EXTREMITIES: 2+ peripheral pulses. No evidence of peripheral edema. No calf tenderness noted. NEUROLOGIC: Cranial nerves II-XII intact. PSYCHIATRIC: Awake, alert, and oriented X 2-3. Appropriate affect. - Labs CBC & Chem 7: 09/14/17 05:43 09/14/17 05:43 Labs: Abnormal Lab Results - Last 24 Hours (Table) 09/12/17 09/13/17 09/13/17 Range/Units 13:38 12:18 14:33 Hgb 10.3 L (11.4-16.0) gm/dL Hct 32.9 L (34.0-46.0) % Neutrophils # 8.7 H (1.3-7.7) k/uL Chloride (98-107) mmol/L Carbon Dioxide (22-30) mmol/L BUN (7-17) mg/dL Creatinine (0.52-1.04) mg/dL Glucose (74-99) mg/dL POC Glucose (mg/dL) 135 H (75-99) mg/dL Hemoglobin A1c 8.7 H (4.0-6.0) % ALT (9-52) U/L Alkaline Phosphatase (38-126) U/L Total Protein (6.3-8.2) g/dL Albumin (3.5-5.0) g/dL 09/13/17 09/13/17 09/13/17 Range/Units 14:33 16:27 20:29 Hgb (11.4-16.0) gm/dL Hct (34.0-46.0) % Neutrophils # (1.3-7.7) k/uL Chloride 97 L (98-107) mmol/L Carbon Dioxide 31 H (22-30) mmol/L BUN 44 H (7-17) mg/dL Creatinine 1.48 H (0.52-1.04) mg/dL Glucose 152 H (74-99) mg/dL POC Glucose (mg/dL) 105 H 111 H (75-99) mg/dL Hemoglobin A1c (4.0-6.0) % ALT (9-52) U/L Alkaline Phosphatase 151 H (38-126) U/L Total Protein 5.7 L (6.3-8.2) g/dL Albumin 3.2 L (3.5-5.0) g/dL 09/14/17 09/14/17 09/14/17 Range/Units 05:43 05:43 05:55 Hgb 10.8 L (11.4-16.0) gm/dL Hct (34.0-46.0) % Neutrophils # (1.3-7.7) k/uL Chloride (98-107) mmol/L Carbon Dioxide (22-30) mmol/L BUN 32 H (7-17) mg/dL Creatinine 1.30 H (0.52-1.04) mg/dL Glucose 64 L (74-99) mg/dL POC Glucose (mg/dL) 68 L (75-99) mg/dL Hemoglobin A1c (4.0-6.0) % ALT 8 L (9-52) U/L Alkaline Phosphatase 154 H (38-126) U/L Total Protein 6.1 L (6.3-8.2) g/dL Albumin 3.3 L (3.5-5.0) g/dL Microbiology - Last 24 Hours (Table) 09/12/17 17:31 Blood Culture - Preliminary Blood No Growth after 24 hours 09/12/17 13:38 Blood Culture - Preliminary Blood No Growth after 24 hours Assessment and Plan Plan: ASSESSMENT: Urinary tract infection, present on admission, culture pending Early sepsis, present on admission, with hypotension, elevated lactic acid, and leukocytosis, likely secondary to urinary tract infection Hypoglycemia, resolved Altered mental status per home care agency, metabolic and infectious encephalopathy, may be secondary to hypo/hyper-glycemia and/or urinary tract infection, resolved at this time Elevated lactic acid, improved with IV hydration Nonoliguric acute kidney injury, multifactorial secondary to hypotensive episodes, urinary tract infection, and decreased PO fluid intake Chronic kidney disease, stage III Left lower lobe infiltrate/consolidation, thought to be chronic based on the previous episode of pneumonia and parapneumonic effusion and chest tube requirement back in May 2017 per pulmonary, pneumonia unlikely Recent hospitalization for pneumonia secondary to Strepococcus pneumoniae, June 2017 Diabetes mellitus, type II, hemoglobin A1C pending Coronary artery disease with previous CABG with VELARDE to the LAD in March 2017 and previous stent to RCA COPD, no evidence of acute exacerbation Hypertension Hyperlipidemia Carotid artery disease with previous right endartectomy PLAN: Patient may transfer to general medical floor Pulmonary on consult. Appreciate recommendations and input. Continue Levaquin for UTI Await results of urine culture Home meds as appropriate Novolog sliding scale ACHS Decrease Levemir to 30 units at HS Continue to hold 70/30 insulin Wean oxygen as tolerated Monitor labs GI prophylaxis: Protonix 40 mg PO Daily DVT prophylaxis: Heparin 5000 units subcu every 8 hours Monitor vital signs and address as appropriate Discharge planning: Patient to return home when stable with home care Further recommendations pending patient's course Anticipate discharge home tomorrow if patient remains stable Nurse practitioner note has been reviewed by physician. Signing provider agrees with the documented findings, assessment, and plan of care.
[2017-09-14 14:46] VITALS: RESP 20
[2017-09-14] MEDS ORDERED: LEVOFLOXACIN 750 MG TAB PO SCH (16:00)
[2017-09-14] MEDS ORDERED: LEVOFLOXACIN 750MG-D5W PMX 750 MG in DEXTROSE/WATER 1 150ML.BAG IVPB SCH (16:00)
[2017-09-14 17:32] LABS: Glucose,Whole Blood 167 mg/dL (75-99)
[2017-09-14] MEDS ORDERED: INSULIN DETEMIR 100 UNIT/ML 10 ML VIAL SQ SCH (21:00)
[2017-09-14 21:27] LABS: Glucose,Whole Blood 184 mg/dL (75-99)
[2017-09-14] MEDS: ESCITALOPRAM 10 MG TAB PO SCH (21:33)
[2017-09-14] MEDS: ATORVASTATIN 80 MG TAB PO SCH (21:33)
[2017-09-15] MEDS: HEPARIN SODIUM,PORCINE 5,000 UNIT/ML 1 ML VIAL SQ SCH ×2 (01:38→07:33)
[2017-09-15] MEDS: SODIUM CHLORIDE 0.9% 1,000 ML IV SCH (06:20)
[2017-09-15 06:22] VITALS: BP 163/67; PULSE 65; TEMP 97.6
[2017-09-15 07:21] LABS: Glucose,Whole Blood 123 mg/dL (75-99)
[2017-09-15] MEDS: INSULIN ASPART 100 UNIT/ML 1 ML 10 ML VIAL SQ SCH ×2 (07:24→13:27)
[2017-09-15] MEDS: METOPROLOL TARTRATE 25 MG TAB PO SCH (07:33)
[2017-09-15] MEDS: CLOPIDOGREL 75 MG TAB PO SCH (07:33)
[2017-09-15] MEDS: LISINOPRIL 20 MG TAB PO SCH (07:33)
[2017-09-15] MEDS: PANTOPRAZOLE 40 MG TABLET PO SCH (07:33)
[2017-09-15] MEDS: SENNOSIDES 8.6 MG TAB PO SCH (07:33)
[2017-09-15] MEDS: ASPIRIN 325 MG TAB PO SCH (07:33)
[2017-09-15] MEDS: SYMBICORT 160-4.5 MCG INHALER INHALATION SCH ×2 (07:51→11:27)
[2017-09-15 08:59] LABS: Basophils % (A) 0 %; Eosinophils # (A) 0.2 k/uL (0-0.7); Eosinophils % (A) 2 %; HCT 33.2 % (34.0-46.0); HGB 10.5 gm/dL (11.4-16.0); Hypochromasia Slight; Lymphocytes # (A) 1.3 k/uL (1.0-4.8); Lymphocytes % (A) 15 %; MCH 26.2 pg (25.0-35.0); MCHC 31.5 g/dL (31.0-37.0); MCV 83.2 fL (80.0-100.0); Mean Platelet Volume 7.4; Monocytes # (A) 0.4 k/uL (0-1.0); Monocytes % (A) 4 %; Neutrophils % (A) 78 %; Platelet Count 297 k/uL (150-450); RDW 14.9 % (11.5-15.5)
[2017-09-15 09:06] LABS: Albumin 3.3 g/dL (3.5-5.0); Calcium 9.2 mg/dL (8.4-10.2); Potassium 4.5 mmol/L (3.5-5.1); Total Bilirubin 0.3 mg/dL (0.2-1.3); Total Protein 5.9 g/dL (6.3-8.2)
[2017-09-15 12:42] LABS: Glucose,Whole Blood 158 mg/dL (75-99)
--- NOTE | 2017-09-15 14:44 | P.DS ---
Providers Date of admission: 09/12/17 16:32 Attending physician: Srinath Shepard Consults: 09/13/17 09:08 Consult Physician Routine Consulting Provider: Kirstie Parsons Consult Reason/Comments: pt known to you, poss pneumonia Do you want consulting provider notified?: Yes Primary care physician: Srinath Shepard [facility] Course: 71-year-old female came in with hypoglycemia, later found to have urinary tract infection. Patient was a valid for pneumonia does not appear to have pneumonia at this time and the patient will only require one more dose of levofloxacin, bleeding 5 day of therapy for urinary tract infection and the patient is clinically doing well be discharged today dose of the long-acting insulin was changed actually lowered. Patient blood sugars are fairly stable now. PHYSICAL EXAMINATION: GENERAL: The patient is alert and oriented x3, not in any acute distress. Well developed, well nourished. HEENT: Pupils are round and equally reacting to light. EOMI. No scleral icterus. No conjunctival pallor. Normocephalic, atraumatic. No pharyngeal erythema. No thyromegaly. CARDIOVASCULAR: S1 and S2 present. No murmurs, rubs, or gallops. PULMONARY: Chest is clear to auscultation, no wheezing or crackles. ABDOMEN: Soft, nontender, nondistended, normoactive bowel sounds. No palpable organomegaly. MUSCULOSKELETAL: No joint swelling or deformity. EXTREMITIES: No cyanosis, clubbing, or pedal edema. NEUROLOGICAL: Gross neurological examination did not reveal any focal deficits. SKIN: No rashes. 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 -Type 2 diabetes mellitus -Coronary artery disease with CABG in the past -Hypertension -Hyperlipidemia -CVA with the right carotid endarterectomy. Plan - Discharge Summary Discharge Rx Participant: No New Discharge Prescriptions: New Insulin Detemir [Levemir] 30 unit SQ HS syr Levofloxacin [Levaquin] 750 mg PO Q48H #1 tab Continue Cholecalciferol [Vitamin D3] 2,000 unit PO DAILY Budesonide-Formot 160-4.5 Mcg [Symbicort 160-4.5 Mcg Inhaler] 2 puff INHALATION RT-BID Ipratropium/Albuterol Sulfate [Combivent Respimat Inhaler] 2 puff INHALATION RT-QID PRN PRN Reason: Shortness Of Breath Aspirin 325 mg PO DAILY Ipratropium-Albuterol Nebulize [Duoneb 0.5 mg-3 mg/3 ml Soln] 3 ml INHALATION RT-QID PRN PRN Reason: sob Clopidogrel [Plavix] 75 mg PO DAILY tab Pantoprazole [Protonix] 40 mg PO AC-BRKFST tablet. HYDROcodone/APAP 5-325MG [[place] 5-325] 1 tab PO Q4HR PRN PRN Reason: Severe Pain Atorvastatin [Lipitor] 80 mg PO HS Escitalopram [Lexapro] 10 mg PO HS Insulin Aspart Protam & Aspart [NovoLOG MIX 70-30 Flexpen] 10 units SQ AC-TID Metoprolol Tartrate [Lopressor] 75 mg PO BID Sennosides [Senna] 8.6 mg PO DAILY Lisinopril [Zestril] 20 mg PO DAILY Discontinued Insulin Detemir [Levemir] 70 unit SQ HS Discharge Medication List Budesonide-Formot 160-4.5 Mcg [Symbicort 160-4.5 Mcg Inhaler] 2 puff INHALATION RT-BID 01/19/17 [History] Cholecalciferol [Vitamin D3] 2,000 unit PO DAILY 01/19/17 [History] Ipratropium/Albuterol Sulfate [Combivent Respimat Inhaler] 2 puff INHALATION RT- QID PRN 01/19/17 [History] Aspirin 325 mg PO DAILY 04/09/17 [History] Ipratropium-Albuterol Nebulize [Duoneb 0.5 mg-3 mg/3 ml Soln] 3 ml INHALATION RT -QID PRN 04/12/17 [History] Clopidogrel [Plavix] 75 mg PO DAILY tab 04/19/17 [Rx] Pantoprazole [Protonix] 40 mg PO AC-BRKFST tablet. 04/19/17 [Rx] HYDROcodone/APAP 5-325MG [[place] 5-325] 1 tab PO Q4HR PRN 05/22/17 [History] Atorvastatin [Lipitor] 80 mg PO HS 09/12/17 [History] Escitalopram [Lexapro] 10 mg PO HS 09/12/17 [History] Insulin Aspart Protam & Aspart [NovoLOG MIX 70-30 Flexpen] 10 units SQ AC-TID [History] Lisinopril [Zestril] 20 mg PO DAILY 09/12/17 [History] Metoprolol Tartrate [Lopressor] 75 mg PO BID 09/12/17 [History] Sennosides [Senna] 8.6 mg PO DAILY 09/12/17 [History] Insulin Detemir [Levemir] 30 unit SQ HS syr 09/15/17 [Rx] Levofloxacin [Levaquin] 750 mg PO Q48H #1 tab 09/15/17 [Rx] Follow up Appointment(s)/Referral(s): Srinath Shepard DO [Primary Care Provider] - 3 Days Patient Instructions/Handouts: Urinary Tract Infection in Women (DC) Discharge Disposition: HOME SELF-CARE
== END 2017-09-15 14:48 | disposition home or self-care (01) | DRG 871 ==
LOC: EC 13:35 → 6SEL 16:32 → 4MS4W 09-14 13:30
PROVIDERS: ADMIT Family Medicine; ATTEND Family Medicine
DX: A41.9 Sepsis, unspecified organism (principal); G93.41 Metabolic encephalopathy; J90 Pleural effusion, not elsewhere classified; N17.9 Acute kidney failure, unspecified; N39.0 Urinary tract infection, site not specified; E87.2 Acidosis; E11.22 Type 2 diabetes mellitus with diabetic chronic kidney disease; E11.649 Type 2 diabetes mellitus with hypoglycemia without coma; E11.65 Type 2 diabetes mellitus with hyperglycemia; E78.5 Hyperlipidemia, unspecified; F32.9 Major depressive disorder, single episode, unspecified; N18.2 Chronic kidney disease, stage 2 (mild); M19.90 Unspecified osteoarthritis, unspecified site; J44.9 Chronic obstructive pulmonary disease, unspecified; M54.9 Dorsalgia, unspecified; G89.29 Other chronic pain; E66.9 Obesity, unspecified; I12.9 Hypertensive chronic kidney disease with stage 1 through stage 4 chronic kidney disease, or unspecified chronic kidney disease; I25.10 Atherosclerotic heart disease of native coronary artery without angina pectoris; I25.2 Old myocardial infarction; Z79.02 Long term (current) use of antithrombotics/antiplatelets; Z79.4 Long term (current) use of insulin; Z79.51 Long term (current) use of inhaled steroids; Z79.82 Long term (current) use of aspirin; Z79.899 Other long term (current) drug therapy; Z82.49 Family history of ischemic heart disease and other diseases of the circulatory system; Z87.01 Personal history of pneumonia (recurrent); Z87.891 Personal history of nicotine dependence; Z90.710 Acquired absence of both cervix and uterus; Z95.1 Presence of aortocoronary bypass graft; Z95.5 Presence of coronary angioplasty implant and graft; Z91.19 Patient's noncompliance with other medical treatment and regimen; Z68.35 Body mass index [BMI] 35.0-35.9, adult
CPT/HCPCS: 36415; 71046; 80053; 80306; 81001; 82550; 82553; 83036; 83605; 84484; 85025; 85610; 85730; 87040; 87086; 87502; 93005; 94640; 96361; 96365; 96375; 99285

== ENCOUNTER 2018-02-16 12:13 | Emergency (ER) | payer MEDICARE ==
[2018-02-16] MEDS ORDERED: SODIUM CHLORIDE 0.9% 1,000 ML IV STA (12:21)
--- NOTE | 2018-02-16 12:24 | ED ---
General Adult HPI - General Stated complaint: Hyperglycemia Time Seen by Provider: 02/16/18 12:16 Source: patient, EMS, RN notes reviewed Mode of arrival: EMS Limitations: no limitations - History of Present Illness Initial comments: Patient is a pleasant 72-year-old female presenting to the emergency department with hyperglycemia. EMS reports blood sugar 513. Patient states her blood sugar has been that high for the past week or so. Patient states her blood sugars frequently high and she is not seem very concerned about this. Patient states he only recent she is here today is because her son called the ambulance. Patient has no complaints. - Related Data Home Medications Medication Instructions Recorded Confirmed Budesonide-Formot 160-4.5 Mcg 2 puff INHALATION RT-BID 01/19/17 09/12/17 [Symbicort 160-4.5 Mcg Inhaler] Cholecalciferol [Vitamin D3] 2,000 unit PO DAILY 01/19/17 09/12/17 Ipratropium/Albuterol Sulfate 2 puff INHALATION RT-QID PRN 01/19/17 09/12/17 [Combivent Respimat Inhaler] Aspirin 325 mg PO DAILY 04/09/17 09/12/17 Ipratropium-Albuterol Nebulize 3 ml INHALATION RT-QID PRN 04/12/17 09/12/17 [Duoneb 0.5 mg-3 mg/3 ml Soln] HYDROcodone/APAP 5-325MG [[place] 1 tab PO Q4HR PRN 05/22/17 09/12/17 5-325] Atorvastatin [Lipitor] 80 mg PO HS 09/12/17 09/12/17 Escitalopram [Lexapro] 10 mg PO HS 09/12/17 09/12/17 Insulin Aspart Protam & Aspart 10 units SQ AC-TID 09/12/17 09/12/17 [NovoLOG MIX 70-30 Flexpen] Lisinopril [Zestril] 20 mg PO DAILY 09/12/17 09/12/17 Metoprolol Tartrate [Lopressor] 75 mg PO BID 09/12/17 09/12/17 Sennosides [Senna] 8.6 mg PO DAILY 09/12/17 09/12/17 Previous Rx's Medication Instructions Recorded Clopidogrel [Plavix] 75 mg PO DAILY tab 04/19/17 Pantoprazole [Protonix] 40 mg PO AC-BRKFST tablet. 04/19/17 Insulin Detemir [Levemir] 30 unit SQ HS syr 09/15/17 Levofloxacin [Levaquin] 750 mg PO Q48H #1 tab 09/15/17 Allergies Allergy/AdvReac Type Severity Reaction Status Date / Time No Known Allergies Allergy Verified 09/12/17 13:44 Review of Systems ROS Statement: Those systems with pertinent positive or pertinent negative responses have been documented in the HPI. ROS Other: All systems not noted in ROS Statement are negative. Constitutional: Denies: fever Eyes: Denies: eye pain ENT: Denies: ear pain Respiratory: Denies: cough Cardiovascular: Denies: chest pain Endocrine: Denies: fatigue, polydipsia, polyuria Gastrointestinal: Denies: abdominal pain, nausea, vomiting Genitourinary: Denies: dysuria Musculoskeletal: Denies: back pain Skin: Denies: rash Neurological: Denies: weakness Past Medical History Past Medical History: Asthma, Coronary Artery Disease (CAD), COPD, Diabetes Mellitus, Hyperlipidemia, Hypertension, Memory Impairment, Myocardial Infarction (SC), Osteoarthritis (OA), Renal Disease Additional Past Medical History / Comment(s): Coronary artery disease with previous bypass surgery, the patient underwent VELARDE to LAD and she has also had previous stent to RCA. The surgery was done in March 2017, stage III chronic kidney disease/failure, diabetes mellitus type 2 poorly controlled, medical noncompliance, depression, COPD FEV1 of 57% of predicted, hypertension, hyperlipidemia, carotid artery disease with previous endarterectomy on the right back in 2011, obesity with BMI of 35.2, smoker, degenerative arthritis, chronic back pain, history of urine checked infections, Last Myocardial Infarction Date:: 2009 History of Any Multi-Drug Resistant Organisms: None Reported Past Surgical History: Appendectomy, Coronary Bypass/CABG, Heart Catheterization , Heart Catheterization With Stent, Hysterectomy Additional Past Surgical History / Comment(s): 04/12/17 CABG 1 vessel, drug- eluting stent placed to the RCA in 2009, right carotid endarterectomy in 2011, colonoscopy.. Past Anesthesia/Blood Transfusion Reactions: No Reported Reaction Date of Last Stent Placement:: 2009 Past Psychological History: No Psychological Hx Reported Additional Psychological History / Comment(s): Pt resides with her son, Antonio. Pt uses a walker to ambulate. Her glucometer is broken so she is not checking blood sugar. She manages her own medications. She no longer drives, her son takes her to [facility]. Her daughter, Stephanie is her DPOA and thought [facility] had a copy but paperwork not on file. [employer] asked Stephanie to bring in document for copying and daughter does not know where it is located. Smoking Status: Former smoker Past Alcohol Use History: None Reported Additional Past Alcohol Use History / Comment(s): Pt started smoking in 1956 and stopped March 2017 Past Drug Use History: None Reported Additional Drug Use History / Comment(s): . - Past Family History Mother Family Medical History: No Reported History Father Family Medical History: Coronary Artery Disease (CAD) General Exam Limitations: no limitations General appearance: alert, in no apparent distress Head exam: Present: atraumatic Eye exam: Present: normal appearance ENT exam: Present: normal oropharynx Neck exam: Present: normal inspection Respiratory exam: Present: normal lung sounds bilaterally Cardiovascular Exam: Present: regular rate, normal rhythm GI/Abdominal exam: Present: soft. Absent: tenderness Extremities exam: Present: normal inspection Neurological exam: Present: alert Psychiatric exam: Present: normal affect, normal mood Skin exam: Present: normal color Course Vital Signs 02/16/18 02/16/18 12:21 13:50 Temperature 98.3 F Pulse Rate 66 76 Respiratory 20 18 Rate Blood Pressure 145/60 142/68 O2 Sat by Pulse 93 L 95 Oximetry Medical Decision Making - Medical Decision Making Patient reevaluated and remained symptom-free. Patient is comfortable with and happy to be discharged. - Lab Data Result diagrams: 02/16/18 12:45 02/16/18 12:45 Lab Results 02/16/18 02/16/18 02/16/18 Range/Units 12:39 12:45 12:45 WBC 5.9 (3.8-10.6) k/uL RBC 4.62 (3.80-5.40) m/uL Hgb 13.7 (11.4-16.0) gm/dL Hct 42.3 (34.0-46.0) % MCV 91.5 (80.0-100.0) fL MCH 29.6 (25.0-35.0) pg MCHC 32.3 (31.0-37.0) g/dL RDW 14.7 (11.5-15.5) % Plt Count 253 (150-450) k/uL Neutrophils % 78 % Lymphocytes % 15 % Monocytes % 3 % Eosinophils % 2 % Basophils % 1 % Neutrophils # 4.6 (1.3-7.7) k/uL Lymphocytes # 0.9 L (1.0-4.8) k/uL Monocytes # 0.2 (0-1.0) k/uL Eosinophils # 0.1 (0-0.7) k/uL Basophils # 0.0 (0-0.2) k/uL Sodium 133 L (137-145) mmol/L Potassium 5.0 (3.5-5.1) mmol/L Chloride 97 L (98-107) mmol/L Carbon Dioxide 26 (22-30) mmol/L Anion Gap 10 mmol/L BUN 21 H (7-17) mg/dL Creatinine 1.45 H (0.52-1.04) mg/dL Est GFR (CKD-EPI)AfAm 41 (>60 ml/min/1.73 sqM) Est GFR (CKD-EPI)NonAf 36 (>60 ml/min/1.73 sqM) Glucose 455 H (74-99) mg/dL POC Glucose (mg/dL) 409 H (75-99) mg/dL POC Glu Tar Heater Operator ID Hattie Car Calcium 9.0 (8.4-10.2) mg/dL Total Bilirubin 0.4 (0.2-1.3) mg/dL AST 15 (14-36) U/L ALT 16 (9-52) U/L Alkaline Phosphatase 147 H (38-126) U/L Total Protein 6.3 (6.3-8.2) g/dL Albumin 3.4 L (3.5-5.0) g/dL Urine Color Urine Appearance (Clear) Urine pH (5.0-8.0) Ur Specific [place] (1.001-1.035) Urine Protein (Negative) Urine Glucose (UA) (Negative) Urine Ketones (Negative) Urine Blood (Negative) Urine Nitrite (Negative) Urine Bilirubin (Negative) Urine Urobilinogen (<2.0) mg/dL Ur Leukocyte Esterase (Negative) Acetone, Qual Negative (Negative) 02/16/18 02/16/18 02/16/18 Range/Units 12:45 13:43 14:55 WBC (3.8-10.6) k/uL RBC (3.80-5.40) m/uL Hgb (11.4-16.0) gm/dL Hct (34.0-46.0) % MCV (80.0-100.0) fL MCH (25.0-35.0) pg MCHC (31.0-37.0) g/dL RDW (11.5-15.5) % Plt Count (150-450) k/uL Neutrophils % % Lymphocytes % % Monocytes % % Eosinophils % % Basophils % % Neutrophils # (1.3-7.7) k/uL Lymphocytes # (1.0-4.8) k/uL Monocytes # (0-1.0) k/uL Eosinophils # (0-0.7) k/uL Basophils # (0-0.2) k/uL Sodium (137-145) mmol/L Potassium (3.5-5.1) mmol/L Chloride (98-107) mmol/L Carbon Dioxide (22-30) mmol/L Anion Gap mmol/L BUN (7-17) mg/dL Creatinine (0.52-1.04) mg/dL Est GFR (CKD-EPI)AfAm (>60 ml/min/1.73 sqM) Est GFR (CKD-EPI)NonAf (>60 ml/min/1.73 sqM) Glucose (74-99) mg/dL POC Glucose (mg/dL) 305 H 270 H (75-99) mg/dL POC Glu Tar Heater Operator QUAN Chapman, Herminia Perodmo Calcium (8.4-10.2) mg/dL Total Bilirubin (0.2-1.3) mg/dL AST (14-36) U/L ALT (9-52) U/L Alkaline Phosphatase (38-126) U/L Total Protein (6.3-8.2) g/dL Albumin (3.5-5.0) g/dL Urine Color Yellow Urine Appearance Clear (Clear) Urine pH 7.0 (5.0-8.0) Ur Specific [place] 1.021 (1.001-1.035) Urine Protein Negative (Negative) Urine Glucose (UA) 4+ H (Negative) Urine Ketones Negative (Negative) Urine Blood Negative (Negative) Urine Nitrite Negative (Negative) Urine Bilirubin Negative (Negative) Urine Urobilinogen <2.0 (<2.0) mg/dL Ur Leukocyte Esterase Negative (Negative) Acetone, Qual (Negative) - Radiology Data Radiology results: image reviewed (Chest x-ray shows no acute process) Disposition Clinical Impression: Hyperglycemia Disposition: HOME SELF-CARE Condition: Stable Instructions: Diabetic Hyperglycemia (ED) Additional Instructions: Please follow-up with primary care physician in the next day or 2 for recheck. Return for uncontrolled blood sugar, increased thirst or urination, abdominal pain, worsening symptoms or other concerns. Please use her medication as directed. Is patient prescribed a controlled substance at d/c from ED?: No Referrals: Srinath Shepard DO [Primary Care Provider] - 1-2 days Time of Disposition: 15:14
[2018-02-16 12:42] LABS: Glucose,Whole Blood 409 mg/dL (75-99)
[2018-02-16] MEDS ORDERED: INSULIN REGULAR 100 UNIT/ML VIAL IV ONE (12:56)
[2018-02-16 13:21] LABS: Appearance,Urine Clear (Clear); Basophils % (A) 1 %; Bilirubin,Urine Negative (Negative); Blood,Urine Negative (Negative); Color,Urine Yellow; Eosinophils # (A) 0.1 k/uL (0-0.7); Eosinophils % (A) 2 %; Glucose,Urine (UA) 4+ (Negative); HCT 42.3 % (34.0-46.0); HGB 13.7 gm/dL (11.4-16.0); Ketones,Urine Negative (Negative); Leukocyte Esterase,Urine Negative (Negative); Lymphocytes # (A) 0.9 k/uL (1.0-4.8); Lymphocytes % (A) 15 %; MCH 29.6 pg (25.0-35.0); MCHC 32.3 g/dL (31.0-37.0); MCV 91.5 fL (80.0-100.0); Mean Platelet Volume 7.3; Monocytes # (A) 0.2 k/uL (0-1.0); Monocytes % (A) 3 %; Neutrophils # (A) 4.6 k/uL (1.3-7.7); Neutrophils % (A) 78 %; Nitrite,Urine Negative (Negative); Platelet Count 253 k/uL (150-450); Protein,Urine Negative (Negative); RBC 4.62 m/uL (3.80-5.40); RDW 14.7 % (11.5-15.5); Specific Gravity,Urine 1.021 (1.001-1.035); Urobilinogen,Urine <2.0 mg/dL (<2.0); WBC 5.9 k/uL (3.8-10.6)
--- NOTE | 2018-02-16 13:34 | XR ---
EXAMINATION TYPE: XR chest 2V DATE OF EXAM: 02/16/2018 HISTORY: Weakness. REFERENCE: Previous study dated 09/13/2017. FINDINGS: There has been a midline sternotomy. There are chronic pleural parenchymal changes present at the left lung base. There are increased interstitial markings. Heart size upper limits of normal. IMPRESSION: CHRONIC CHANGES WITHOUT ACUTE ABNORMALITY.
[2018-02-16 13:36] LABS: ALT 16 U/L (9-52); AST 15 U/L (14-36); Albumin 3.4 g/dL (3.5-5.0); Alkaline Phosphatase 147 U/L (38-126); Anion Gap 10 mmol/L; Blood Urea Nitrogen 21 mg/dL (7-17); Carbon Dioxide 26 mmol/L (22-30); Chloride 97 mmol/L (98-107); Glucose 455 mg/dL (74-99); Sodium 133 mmol/L (137-145); Total Bilirubin 0.4 mg/dL (0.2-1.3); Total Protein 6.3 g/dL (6.3-8.2)
[2018-02-16 13:51] VITALS: RESP 18
[2018-02-16 13:52] LABS: Glucose,Whole Blood 305 mg/dL (75-99)
[2018-02-16 14:58] LABS: Glucose,Whole Blood 270 mg/dL (75-99)
[2018-02-16] MEDS ORDERED: INSULIN REGULAR 100 UNIT/ML VIAL SQ ONE (15:07)
[2018-02-16 15:26] VITALS: BP 177/78; PULSE 68; TEMP 99
[2018-02-16 19:36] LABS: Hemoglobin A1C 13.4 % (4.0-6.0)
== END 2018-02-16 15:25 | disposition home or self-care (01) ==
LOC: EC 12:13
DX: E11.65 Type 2 diabetes mellitus with hyperglycemia (principal); J44.9 Chronic obstructive pulmonary disease, unspecified; I25.10 Atherosclerotic heart disease of native coronary artery without angina pectoris; E78.5 Hyperlipidemia, unspecified; I25.2 Old myocardial infarction; M19.90 Unspecified osteoarthritis, unspecified site; E11.22 Type 2 diabetes mellitus with diabetic chronic kidney disease; I12.9 Hypertensive chronic kidney disease with stage 1 through stage 4 chronic kidney disease, or unspecified chronic kidney disease; N18.3 Chronic kidney disease, stage 3 (moderate); F32.9 Major depressive disorder, single episode, unspecified; Z95.1 Presence of aortocoronary bypass graft; Z90.49 Acquired absence of other specified parts of digestive tract; Z87.891 Personal history of nicotine dependence; Z90.710 Acquired absence of both cervix and uterus; Z79.4 Long term (current) use of insulin; Z79.51 Long term (current) use of inhaled steroids; Z79.82 Long term (current) use of aspirin; Z79.899 Other long term (current) drug therapy
CPT/HCPCS: 36415; 71046; 80053; 81003; 82009; 83036; 85025; 96360; 96361; 99284

== ENCOUNTER 2018-03-01 15:23 | Emergency (ER) | payer MEDICARE ==
--- NOTE | 2018-03-01 16:18 | ED ---
Fall HPI - General Chief Complaint: Fall Stated Complaint: FALL Time Seen by Provider: 03/01/18 15:43 Source: patient, EMS, RN notes reviewed, old records reviewed Mode of arrival: EMS - History of Present Illness Initial Comments: This is a 72-year-old female the ER status post fall mechanical trip and fall she later had all she was in the shower. She has lost her balance. No loss of consciousness. Patient denies pain is ambulatory on the scene. Patient denies any complaints.. Patient is not on blood thinners for her own history. 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: no Place Fall Occurred: home Loss of Consciousness: none Prolonged Down Time?: no Symptoms Prior to Fall: none Location: head (Mild) Severity: mild Severity scale (1-10): 1 Context: tripped/slipped Associated Symptoms: denies - Related Data Home Medications Medication Instructions Recorded Confirmed Budesonide-Formot 160-4.5 Mcg 2 puff INHALATION RT-BID 01/19/17 09/12/17 [Symbicort 160-4.5 Mcg Inhaler] Cholecalciferol [Vitamin D3] 2,000 unit PO DAILY 01/19/17 09/12/17 Ipratropium/Albuterol Sulfate 2 puff INHALATION RT-QID PRN 01/19/17 09/12/17 [Combivent Respimat Inhaler] Aspirin 325 mg PO DAILY 04/09/17 09/12/17 Ipratropium-Albuterol Nebulize 3 ml INHALATION RT-QID PRN 04/12/17 09/12/17 [Duoneb 0.5 mg-3 mg/3 ml Soln] HYDROcodone/APAP 5-325MG [[place] 1 tab PO Q4HR PRN 05/22/17 09/12/17 5-325] Atorvastatin [Lipitor] 80 mg PO HS 09/12/17 09/12/17 Escitalopram [Lexapro] 10 mg PO HS 09/12/17 09/12/17 Insulin Aspart Protam & Aspart 10 units SQ AC-TID 09/12/17 09/12/17 [NovoLOG MIX 70-30 Flexpen] Lisinopril [Zestril] 20 mg PO DAILY 09/12/17 09/12/17 Metoprolol Tartrate [Lopressor] 75 mg PO BID 09/12/17 09/12/17 Sennosides [Senna] 8.6 mg PO DAILY 09/12/17 09/12/17 Previous Rx's Medication Instructions Recorded Clopidogrel [Plavix] 75 mg PO DAILY tab 04/19/17 Pantoprazole [Protonix] 40 mg PO AC-BRKFST tablet. 04/19/17 Insulin Detemir [Levemir] 30 unit SQ HS syr 09/15/17 Levofloxacin [Levaquin] 750 mg PO Q48H #1 tab 09/15/17 Allergies Allergy/AdvReac Type Severity Reaction Status Date / Time No Known Allergies Allergy Verified 03/01/18 15:32 Review of Systems ROS Statement: Those systems with pertinent positive or pertinent negative responses have been documented in the HPI. ROS Other: All systems not noted in ROS Statement are negative. Past Medical History Past Medical History: Asthma, Coronary Artery Disease (CAD), COPD, Diabetes Mellitus, Hyperlipidemia, Hypertension, Memory Impairment, Myocardial Infarction ([place]), Osteoarthritis (OA), Renal Disease Additional Past Medical History / Comment(s): Coronary artery disease with previous bypass surgery, the patient underwent VELARDE to LAD and she has also had previous stent to RCA. The surgery was done in March 2017, stage III chronic kidney disease/failure, diabetes mellitus type 2 poorly controlled, medical noncompliance, depression, COPD FEV1 of 57% of predicted, hypertension, hyperlipidemia, carotid artery disease with previous endarterectomy on the right back in 2011, obesity with BMI of 35.2, smoker, degenerative arthritis, chronic back pain, history of urine checked infections, Last Myocardial Infarction Date:: 2009 History of Any Multi-Drug Resistant Organisms: None Reported Past Surgical History: Appendectomy, Coronary Bypass/CABG, Heart Catheterization , Heart Catheterization With Stent, Hysterectomy Additional Past Surgical History / Comment(s): 04/12/17 CABG 1 vessel, drug- eluting stent placed to the RCA in 2009, right carotid endarterectomy in 2011, colonoscopy.. Past Anesthesia/Blood Transfusion Reactions: No Reported Reaction Date of Last Stent Placement:: 2009 Past Psychological History: No Psychological Hx Reported Smoking Status: Former smoker Past Alcohol Use History: None Reported Past Drug Use History: None Reported - Past Family History Mother Family Medical History: No Reported History Father Family Medical History: Coronary Artery Disease (CAD) General Exam Limitations: no limitations General appearance: alert, in no apparent distress Head exam: Present: atraumatic, normocephalic, normal inspection Eye exam: Present: normal appearance, PERRL, EOMI. Absent: scleral icterus, conjunctival injection, periorbital swelling ENT exam: Present: normal exam, mucous membranes moist Neck exam: Present: normal inspection. Absent: tenderness, meningismus, lymphadenopathy Respiratory exam: Present: normal lung sounds bilaterally. Absent: respiratory distress, wheezes, rales, rhonchi, stridor Cardiovascular Exam: Present: regular rate, normal rhythm, normal heart sounds. Absent: systolic murmur, diastolic murmur, rubs, gallop, clicks GI/Abdominal exam: Present: soft, normal bowel sounds. Absent: distended, tenderness, guarding, rebound, rigid Extremities exam: Present: normal inspection, full ROM, normal capillary refill. Absent: tenderness, pedal edema, joint swelling, calf tenderness Back exam: Present: normal inspection Neurological exam: Present: alert, oriented X3, CN II-XII intact Psychiatric exam: Present: normal affect, normal mood Skin exam: Present: warm, dry, intact, normal color. Absent: rash Course Vital Signs 03/01/18 15:29 Temperature 98 F Pulse Rate 93 Respiratory 18 Rate Blood Pressure 175/93 O2 Sat by Pulse 96 Oximetry - Reevaluation(s) Reevaluation #1: 03/01/18 16:30 Medical record is reviewed Reevaluation #2: 03/01/18 16:30 No injury is noted Medical Decision Making - Medical Decision Making 72 female the ER for evaluation. Patient resents today for evaluation regards to fall, no injury noted no injury from fall. Patient states she has no complaints feels normal like to be discharged home CT is negative the patient can be discharged - Radiology Data Radiology results: report reviewed (CT brain C-spine negative for traumatic injury), image reviewed Disposition Clinical Impression: Fall Disposition: HOME SELF-CARE Condition: Good Instructions: Fall Prevention for Older Adults (ED) Is patient prescribed a controlled substance at d/c from ED?: No Referrals: Srinath Shepard DO [Primary Care Provider] - 1-2 days
--- NOTE | 2018-03-01 17:15 | CT ---
EXAMINATION TYPE: CT brain [facility]i [facility] DATE OF EXAM: 03/01/2018 COMPARISON: 06/07/2017 HISTORY: Fall today. CT DLP: 1601.3 mGycm Automated exposure control for dose reduction was used. TECHNIQUE: CT scan of the head and cervical spine are performed without contrast. FINDINGS: There is cerebral cortical atrophy. There is hypodensity in the periventricular white mat ter. There is enlargement of the ventricles. There is no mass effect nor midline shift. There is no e vidence of intracranial hemorrhage. The calvarium is intact. Cervical vertebra have normal alignment. Disc spaces are fairly well maintained except for some narro wing at C6-7 with spur formation. Posterior elements are intact. The skull base appears intact. There is no evidence of cervical spine fracture. IMPRESSION: Cerebral atrophy and chronic small vessel ischemia. Hydrocephalus. Spondylosis at C6-7. No fracture. No change in the brain and cervical spine compared to old exam.
[2018-03-01 18:03] VITALS: BP 156/84; PULSE 77; RESP 16; TEMP 97.8
[2018-03-01 20:44] LABS: Glucose,Whole Blood 347 mg/dL (75-99)
== END 2018-03-01 20:59 | disposition home or self-care (01) ==
LOC: EC 15:23
DX: Z04.3 Encounter for examination and observation following other accident (principal); J45.909 Unspecified asthma, uncomplicated; E11.9 Type 2 diabetes mellitus without complications; E78.5 Hyperlipidemia, unspecified; I25.10 Atherosclerotic heart disease of native coronary artery without angina pectoris; I25.2 Old myocardial infarction; Z79.52 Long term (current) use of systemic steroids; Z79.82 Long term (current) use of aspirin; Z79.4 Long term (current) use of insulin; Z79.899 Other long term (current) drug therapy; Z87.891 Personal history of nicotine dependence; Z95.1 Presence of aortocoronary bypass graft; Z95.5 Presence of coronary angioplasty implant and graft; I10 Essential (primary) hypertension; W01.0XXA Fall on same level from slipping, tripping and stumbling without subsequent striking against object, initial encounter; Y93.E1 Activity, personal bathing and showering; Y92.002 Bathroom of unspecified non-institutional (private) residence as the place of occurrence of the external cause
CPT/HCPCS: 36415; 70450; 72125; 99284

== ENCOUNTER 2018-03-03 14:10 | Inpatient (IN) | payer MEDICARE ==
--- NOTE | 2018-03-03 14:20 | ED ---
Altered Mental Status HPI - General Chief Complaint: Altered Mental Status Stated Complaint: Hyperglycemia Time Seen by Provider: 03/03/18 14:10 Source: patient, EMS, RN notes reviewed, old records reviewed Mode of arrival: EMS Limitations: altered mental status - History of Present Illness Initial Comments: This is a 72-year-old female with a history diabetes who states she's been having increased blood sugar at home polyuria polydipsia. A call was originally made the patient was found have a glucose greater than 500 per fire rescue EMS brought the patient in the removal again Accu-Chek of about 300. Patient does admit to having nausea vomiting. There is some reports of confusion also. No trauma no fevers chills or sweats. Patient was here 2 days ago in this emergency department for a fall evaluation. MD Complaint: decreased responsiveness, other - Related Data Home Medications Medication Instructions Recorded Confirmed Budesonide-Formot 160-4.5 Mcg 2 puff INHALATION RT-BID 01/19/17 03/03/18 [Symbicort 160-4.5 Mcg Inhaler] Cholecalciferol [Vitamin D3] 2,000 unit PO DAILY 01/19/17 03/03/18 Ipratropium/Albuterol Sulfate 2 puff INHALATION RT-QID PRN 01/19/17 03/03/18 [Combivent Respimat Inhaler] Aspirin 325 mg PO DAILY 04/09/17 03/03/18 Ipratropium-Albuterol Nebulize 3 ml INHALATION RT-QID PRN 04/12/17 03/03/18 [Duoneb 0.5 mg-3 mg/3 ml Soln] Atorvastatin [Lipitor] 80 mg PO HS 09/12/17 03/03/18 Insulin Aspart Protam & Aspart 10 units SQ AC-TID 09/12/17 03/03/18 [NovoLOG MIX 70-30 Flexpen] Metoprolol Tartrate [Lopressor] 75 mg PO BID 09/12/17 03/03/18 Sennosides [Senna] 8.6 mg PO DAILY 09/12/17 03/03/18 Previous Rx's Medication Instructions Recorded Clopidogrel [Plavix] 75 mg PO DAILY tab 04/19/17 Pantoprazole [Protonix] 40 mg PO AC-BRKFST tablet. 04/19/17 Insulin Detemir [Levemir] 30 unit SQ HS syr 09/15/17 Allergies Allergy/AdvReac Type Severity Reaction Status Date / Time No Known Allergies Allergy Verified 03/03/18 14:29 Review of Systems ROS Statement: Those systems with pertinent positive or pertinent negative responses have been documented in the HPI. ROS Other: All systems not noted in ROS Statement are negative. Past Medical History Past Medical History: Asthma, Coronary Artery Disease (CAD), COPD, Diabetes Mellitus, Hyperlipidemia, Hypertension, Memory Impairment, Myocardial Infarction ([place]), Osteoarthritis (OA), Renal Disease Additional Past Medical History / Comment(s): Coronary artery disease with previous bypass surgery, the patient underwent VELARDE to LAD and she has also had previous stent to RCA. The surgery was done in March 2017, stage III chronic kidney disease/failure, diabetes mellitus type 2 poorly controlled, medical noncompliance, depression, COPD FEV1 of 57% of predicted, hypertension, hyperlipidemia, carotid artery disease with previous endarterectomy on the right back in 2011, obesity with BMI of 35.2, smoker, degenerative arthritis, chronic back pain, history of urine checked infections, Last Myocardial Infarction Date:: 2009 History of Any Multi-Drug Resistant Organisms: None Reported Past Surgical History: Appendectomy, Coronary Bypass/CABG, Heart Catheterization , Heart Catheterization With Stent, Hysterectomy Additional Past Surgical History / Comment(s): 04/12/17 CABG 1 vessel, drug- eluting stent placed to the RCA in 2009, right carotid endarterectomy in 2011, colonoscopy.. Past Anesthesia/Blood Transfusion Reactions: No Reported Reaction Date of Last Stent Placement:: 2009 Past Psychological History: No Psychological Hx Reported Smoking Status: Former smoker Past Alcohol Use History: None Reported Past Drug Use History: None Reported - Past Family History Mother Family Medical History: No Reported History Father Family Medical History: Coronary Artery Disease (CAD) General Exam - General Exam Comments Initial Comments: This is a well-developed well-nourished awake alert but lethargic female Limitations: altered mental status General appearance: alert, in no apparent distress Head exam: Present: atraumatic, normocephalic, normal inspection Eye exam: Present: normal appearance, PERRL, EOMI. Absent: scleral icterus, conjunctival injection, periorbital swelling ENT exam: Present: mucous membranes dry Neck exam: Present: normal inspection. Absent: tenderness, meningismus, lymphadenopathy Respiratory exam: Present: normal lung sounds bilaterally. Absent: respiratory distress, wheezes, rales, rhonchi, stridor Cardiovascular Exam: Present: regular rate, normal rhythm, normal heart sounds. Absent: systolic murmur, diastolic murmur, rubs, gallop, clicks GI/Abdominal exam: Present: soft, normal bowel sounds. Absent: distended, tenderness, guarding, rebound, rigid Extremities exam: Present: normal inspection, full ROM, normal capillary refill. Absent: tenderness, pedal edema, joint swelling, calf tenderness Back exam: Present: normal inspection Neurological exam: Present: alert, oriented X3, CN II-XII intact Psychiatric exam: Present: normal affect, normal mood Skin exam: Present: warm, dry, intact, normal color. Absent: rash Course Vital Signs 03/03/18 03/03/18 03/03/18 14:12 14:20 15:00 Temperature 98.6 F Pulse Rate 74 68 75 Respiratory 18 18 18 Rate Blood Pressure 136/62 136/62 139/61 O2 Sat by Pulse 93 L 94 L 91 L Oximetry 03/03/18 03/03/18 15:10 15:20 Temperature Pulse Rate 74 Respiratory 17 Rate Blood Pressure 147/90 147/90 O2 Sat by Pulse 93 L Oximetry Medical Decision Making - Medical Decision Making I did reevaluate patient several occasions she is becoming more responsive after IV fluids and IV insulin. I did discuss the case with patient family and with Dr. Webb, the patient will be admitted for continued IV fluids citing scale insulin - Lab Data Result diagrams: 03/03/18 14:30 03/03/18 14:30 Lab Results 03/03/18 03/03/18 03/03/18 Range/Units 14:27 14:30 14:30 WBC (3.8-10.6) k/uL RBC (3.80-5.40) m/uL Hgb (11.4-16.0) gm/dL Hct (34.0-46.0) % MCV (80.0-100.0) fL MCH (25.0-35.0) pg MCHC (31.0-37.0) g/dL RDW (11.5-15.5) % Plt Count (150-450) k/uL Neutrophils % % Lymphocytes % % Monocytes % % Eosinophils % % Basophils % % Neutrophils # (1.3-7.7) k/uL Lymphocytes # (1.0-4.8) k/uL Monocytes # (0-1.0) k/uL Eosinophils # (0-0.7) k/uL Basophils # (0-0.2) k/uL Sodium (137-145) mmol/L Potassium (3.5-5.1) mmol/L Chloride (98-107) mmol/L Carbon Dioxide (22-30) mmol/L Anion Gap mmol/L BUN (7-17) mg/dL Creatinine (0.52-1.04) mg/dL Est GFR (CKD-EPI)AfAm (>60 ml/min/1.73 sqM) Est GFR (CKD-EPI)NonAf (>60 ml/min/1.73 sqM) Glucose (74-99) mg/dL POC Glucose (mg/dL) 454 H (75-99) mg/dL POC Glu Wedding Coordinator ID Salgat, Kate Calcium (8.4-10.2) mg/dL Magnesium (1.6-2.3) mg/dL Total Bilirubin (0.2-1.3) mg/dL AST (14-36) U/L ALT (9-52) U/L Alkaline Phosphatase (38-126) U/L Ammonia <9 (<30) umol/L Total Creatine Kinase 34 (30-135) U/L CK-MB (CK-2) 0.9 (0.0-2.4) ng/mL CK-MB (CK-2) Rel Index 2.6 Troponin I 0.027 (0.000-0.034) ng/mL Total Protein (6.3-8.2) g/dL Albumin (3.5-5.0) g/dL Amylase (30-110) U/L Lipase (23-300) U/L 03/03/18 03/03/18 Range/Units 14:30 14:30 WBC 6.4 (3.8-10.6) k/uL RBC 5.22 (3.80-5.40) m/uL Hgb 15.6 (11.4-16.0) gm/dL Hct 48.3 H (34.0-46.0) % MCV 92.5 (80.0-100.0) fL MCH 29.9 (25.0-35.0) pg MCHC 32.4 (31.0-37.0) g/dL RDW 14.1 (11.5-15.5) % Plt Count 197 (150-450) k/uL Neutrophils % 72 % Lymphocytes % 19 % Monocytes % 4 % Eosinophils % 2 % Basophils % 1 % Neutrophils # 4.6 (1.3-7.7) k/uL Lymphocytes # 1.2 (1.0-4.8) k/uL Monocytes # 0.3 (0-1.0) k/uL Eosinophils # 0.2 (0-0.7) k/uL Basophils # 0.0 (0-0.2) k/uL Sodium 132 L (137-145) mmol/L Potassium 4.6 (3.5-5.1) mmol/L Chloride 98 (98-107) mmol/L Carbon Dioxide 24 (22-30) mmol/L Anion Gap 10 mmol/L BUN 22 H (7-17) mg/dL Creatinine 1.13 H (0.52-1.04) mg/dL Est GFR (CKD-EPI)AfAm 56 (>60 ml/min/1.73 sqM) Est GFR (CKD-EPI)NonAf 48 (>60 ml/min/1.73 sqM) Glucose 550 H* (74-99) mg/dL POC Glucose (mg/dL) (75-99) mg/dL POC Glu Wedding Coordinator ID Calcium 9.3 (8.4-10.2) mg/dL Magnesium 1.8 (1.6-2.3) mg/dL Total Bilirubin 0.5 (0.2-1.3) mg/dL AST 16 (14-36) U/L ALT 19 (9-52) U/L Alkaline Phosphatase 163 H (38-126) U/L Ammonia (<30) umol/L Total Creatine Kinase (30-135) U/L CK-MB (CK-2) (0.0-2.4) ng/mL CK-MB (CK-2) Rel Index Troponin I (0.000-0.034) ng/mL Total Protein 6.6 (6.3-8.2) g/dL Albumin 3.7 (3.5-5.0) g/dL Amylase 45 (30-110) U/L Lipase 53 (23-300) U/L - EKG Data -: EKG Interpreted by Me EKG shows normal: sinus rhythm (Sinus rhythm rate is 73 RI interval 182 QRS duration 80 QT since QTC of 14 nonspecific inferior changes unifocal PVCs noted poor R-wave progression) - Radiology Data Radiology results: report reviewed (I did review the imaging no evidence of acute findings), image reviewed Disposition Clinical Impression: Uncontrolled diabetes mellitus, Delirium due to general medical condition, Dehydration Disposition: ADMITTED IP TO THIS [facility] Condition: Stable Referrals: Srinath Shepard DO [Primary Care Provider] - 1-2 days
[2018-03-03 14:29] LABS: Glucose,Whole Blood 454 mg/dL (75-99)
[2018-03-03 14:38] LABS: Basophils % (A) 1 %; Eosinophils # (A) 0.2 k/uL (0-0.7); Eosinophils % (A) 2 %; HCT 48.3 % (34.0-46.0); HGB 15.6 gm/dL (11.4-16.0); Lymphocytes # (A) 1.2 k/uL (1.0-4.8); Lymphocytes % (A) 19 %; MCH 29.9 pg (25.0-35.0); MCHC 32.4 g/dL (31.0-37.0); MCV 92.5 fL (80.0-100.0); Mean Platelet Volume 7.6; Monocytes # (A) 0.3 k/uL (0-1.0); Monocytes % (A) 4 %; Neutrophils # (A) 4.6 k/uL (1.3-7.7); Neutrophils % (A) 72 %; Platelet Count 197 k/uL (150-450); RBC 5.22 m/uL (3.80-5.40); RDW 14.1 % (11.5-15.5); WBC 6.4 k/uL (3.8-10.6)
[2018-03-03 14:50] LABS: Albumin 3.7 g/dL (3.5-5.0); Calcium 9.3 mg/dL (8.4-10.2); Magnesium 1.8 mg/dL (1.6-2.3); Potassium 4.6 mmol/L (3.5-5.1); Total Bilirubin 0.5 mg/dL (0.2-1.3); Total Protein 6.6 g/dL (6.3-8.2)
[2018-03-03] MEDS ORDERED: INSULIN REGULAR 100 UNIT/ML VIAL IV ONE ×2 (15:01→15:22)
[2018-03-03] MEDS ORDERED: SODIUM CHLORIDE 0.9% 1,000 ML IV STA (15:01)
[2018-03-03 15:04] LABS: Creatine Kinase MB 0.9 ng/mL (0.0-2.4); Troponin I 0.027 ng/mL (0.000-0.034)
--- NOTE | 2018-03-03 15:27 | XR ---
EXAMINATION TYPE: XR chest 2V DATE OF EXAM: 03/03/2018 COMPARISON: 02/16/2018 HISTORY: Hyperglycemia TECHNIQUE: Frontal and lateral views of the chest are obtained. FINDINGS: Heart is normal. Lungs are clear of consolidation. There are sternal wires. Ossific angles are clear. There is spurring in the thoracic spine. There is mild coarsening of the lung markings. IMPRESSION: Mild pulmonary fibrosis. No active cardiopulmonary disease. No change.
[2018-03-03] MEDS ORDERED: NALOXONE 0.4 MG/ML 1 ML VIAL IV PRN (16:40)
[2018-03-03] MEDS ORDERED: IPRATROPIUM-ALBUTEROL 3 ML NEB INHALATION PRN (16:42)
--- NOTE | 2018-03-03 16:52 | CT ---
EXAMINATION TYPE: CT brain wo con DATE OF EXAM: 03/03/2018 COMPARISON: None HISTORY: hyperglycemia, fall x1 day ago CT DLP: 1244.4 mGycm Automated exposure control for dose reduction was used. FINDINGS: There is some cerebral cortical atrophy. There is enlargement of the ventricles. There is no mass eff ect nor midline shift. There is no evidence of intracranial hemorrhage. Calvarium is intact. IMPRESSION: CEREBRAL ATROPHY AND HYDROCEPHALUS. NO ACUTE INTRACRANIAL ABNORMALITY.
[2018-03-03 18:08] LABS: Glucose,Whole Blood 235 mg/dL (75-99)
[2018-03-03 18:34] LABS: Glucose,Whole Blood 249 mg/dL (75-99)
[2018-03-03] MEDS: SODIUM CHLORIDE 0.9% 1,000 ML IV SCH (18:38)
[2018-03-03 18:45] LABS: Appearance,Urine Clear (Clear); Bilirubin,Urine Negative (Negative); Blood,Urine Trace (Negative); Color,Urine Yellow; Glucose,Urine (UA) 4+ (Negative); Ketones,Urine Negative (Negative); Leukocyte Esterase,Urine Trace (Negative); Mucus,Urine Rare /hpf; Nitrite,Urine Negative (Negative); Protein,Urine Negative (Negative); RBC,Urine 1 /hpf (0-5); Specific Gravity,Urine 1.031 (1.001-1.035); Squamous Epithelial Cell,Urine 2 /hpf (0-4); Urobilinogen,Urine <2.0 mg/dL (<2.0); WBC,Urine 4 /hpf (0-5)
[2018-03-03] MEDS: INSULIN ASPART 100 UNIT/ML 1 ML 10 ML VIAL SQ SCH ×2 (18:49→21:24)
[2018-03-03 18:50] LABS: Amphetamine Screen,Urine Not Detected (NotDetected); Barbiturate Screen,Urine Not Detected (NotDetected); Benzodiazepines Screen,Urine Not Detected (NotDetected); Cocaine Screen,Urine Not Detected (NotDetected); Methadone Screen, Urine Not Detected (NotDetected); Opiate Screen,Urine Not Detected (NotDetected); Oxycodone Screen, Urine Not Detected (NotDetected); Phencyclidine Screen,Urine Not Detected (NotDetected); Tricyclic Antidepressant,Urine Not Detected (NotDetected); Urn Cannabinoid Scrn Not Detected (NotDetected)
[2018-03-03] MEDS: ONDANSETRON 4 MG/2 ML VIAL IVP PRN (18:53)
[2018-03-03] MEDS: SYMBICORT 160-4.5 MCG INHALER INHALATION SCH (19:09)
[2018-03-03 20:34] LABS: Glucose,Whole Blood 252 mg/dL (75-99)
[2018-03-03] MEDS ORDERED: METOPROLOL TARTRATE 50 MG TAB PO SCH (21:00)
[2018-03-03] MEDS ORDERED: METOPROLOL TARTRATE 25 MG TAB PO STA (21:17)
[2018-03-03] MEDS: INSULIN DETEMIR 100 UNIT/ML 10 ML VIAL SQ SCH (21:24)
[2018-03-03] MEDS: ATORVASTATIN 80 MG TAB PO SCH (21:53)
[2018-03-03] MEDS ORDERED: LEVOFLOXACIN 500 MG TAB PO SCH (22:45)
--- NOTE | 2018-03-03 23:12 | HP ---
HISTORY AND PHYSICAL DATE OF SERVICE: 03/03/2018. I am covering for Dr. Shepard. CHIEF COMPLAINT: Uncontrolled blood sugars and cough. HISTORY OF PRESENT ILLNESS: This 72-year-old gentleman with a past medical history of multiple medical problems, including asthma, CAD, COPD, diabetes mellitus, hypertension, being followed by Srinath Shepard in the outpatient setting, was complaining of cough. The patient was also noted to have uncontrolled blood sugars. His sugars are more than 500. The patient was admitted for further evaluation and treatment. The patient also had polyuria and polydipsia. The patient is rather noncompliant with treatment. There is no history of fever, rigors. No headache, loss of consciousness, seizures. PAST MEDICAL HISTORY: History of CAD, COPD, diabetes, and hypertension. FAMILY HISTORY: Degenerative joint disease. MEDICATIONS: Prior to admission include: 1. Senna 8.6 p.o. daily. 2. Protonix 40 mg daily. 3. Lopressor 75 mg b.i.d. 4. Combivent 2 puffs q.i.d. p.r.n. 5. DuoNeb q.i.d. p.r.n. 6. Levemir 30 units subcu at bedtime. 7. NovoLog 70/30, 10 units subcu with meals t.i.d. 8. Plavix 75 mg. 9. Vitamin D3, 2000 daily. 10.Symbicort 0.5 two puffs b.i.d. 11.Lipitor 80 mg a.m. 12.Aspirin 325 mg p.o. daily. ALLERGIES: None. FAMILY HISTORY: No history of heart disease or strokes in the family. SOCIAL HISTORY: Previous history of smoking. No history of current smoking or alcohol intake. REVIEW OF SYSTEMS: ENT: No diminished vision. CARDIOVASCULAR: As mentioned. GI: No nausea. : No dysuria or hematuria. NERVOUS SYSTEM: No numbness or weakness. MUSCULOSKELETAL: As mentioned. HEMATOLOGY/ONCOLOGY: No anemia. CONSTITUTIONAL: As mentioned. PSYCHIATRY: As mentioned earlier. PHYSICAL EXAMINATION: Pulse 85, blood pressure 180/94, respirations 18, temperature 97.8, pulse ox 98% on room air. HEENT: Conjunctivae normal. Oral mucosa moist. NECK: No jugular venous distention. No lymphadenopathy. CARDIOVASCULAR: S1 and S2 muffled. LUNGS: Breath sounds diminished in the bases. Few scattered rhonchi and crackles. ABDOMEN: Soft, nontender. NERVOUS SYSTEM: No focal deficits. LABS: WBC 6.3, hemoglobin 15.6, glucose noted. Creatinine 1.13. ASSESSMENT: 1. Diabetes mellitus type 2, uncontrolled. 2. Chronic obstructive pulmonary disease acute exacerbation with acute purulent tracheobronchitis. 3. Increased creatinine with chronic kidney disease stage III. 4. Diabetes mellitus type 2. 5. Asthma. 6. History of coronary artery disease, coronary artery bypass grafting. 7. Chronic obstructive pulmonary disease. 8. Hypertension. 9. History of myocardial infarction. 10.History of degenerative joint disease. 11.History of coronary artery disease with stent. 12.Remote history of nicotine dependence. RECOMMENDATIONS AND DISCUSSION: In this 72-year-old woman who presented with multiple complex issues, at this time we will continue current management and symptomatic treatment. Accu-Cheks with meals and at bedtime. Blood sugars are trending down. There is no evidence of ketosis. I would recommend optimize bronchodilator treatment, empiric antibiotics for bronchitis. Otherwise continue to monitor. Importance of compliance is stressed. Possible diabetic education. Home medications reconciled. Further recommendations to follow. Dr. Shepard will follow. MMODL / IJN: [id number] /
[2018-03-03 23:30] VITALS: BMI 29.2
[2018-03-04 02:03] LABS: Glucose,Whole Blood 210 mg/dL (75-99)
[2018-03-04] MEDS: SODIUM CHLORIDE 0.9% 1,000 ML IV SCH ×2 (05:40→17:52)
[2018-03-04] MEDS ORDERED: PNEUMOCOCCAL VACC-PNEUMOVAX 23 25 MCG/0.5 ML VIAL IM ONE (05:43)
[2018-03-04] MEDS ORDERED: INFLUENZA VACCINE (6 MOS+) 60 MCG/0.5 ML SYRINGE IM ONE (05:43)
[2018-03-04] MEDS: SYMBICORT 160-4.5 MCG INHALER INHALATION SCH ×2 (06:50→19:02)
[2018-03-04] MEDS: IPRATROPIUM-ALBUTEROL 3 ML NEB INHALATION SCH ×4 (06:50→19:02)
[2018-03-04 07:08] LABS: Glucose,Whole Blood 178 mg/dL (75-99)
[2018-03-04] MEDS ORDERED: IPRATROPIUM-ALBUTEROL 3 ML NEB INHALATION SCH (08:00)
[2018-03-04] MEDS: ASPIRIN 325 MG TAB PO SCH (08:14)
[2018-03-04] MEDS: METOPROLOL TARTRATE 25 MG TAB PO SCH ×2 (08:14→20:15)
[2018-03-04] MEDS: PANTOPRAZOLE 40 MG TABLET PO SCH (08:15)
[2018-03-04] MEDS: CLOPIDOGREL 75 MG TAB PO SCH (08:15)
[2018-03-04] MEDS: SENNOSIDES 8.6 MG TAB PO SCH (08:15)
[2018-03-04] MEDS: CHOLECALCIFEROL 1,000 UNIT TAB PO SCH (08:15)
[2018-03-04] MEDS: INSULIN ASPART 100 UNIT/ML 1 ML 10 ML VIAL SQ SCH ×4 (08:19→21:35)
[2018-03-04 10:43] LABS: Hemoglobin A1C 13.8 % (4.0-6.0)
[2018-03-04 11:59] LABS: Glucose,Whole Blood 306 mg/dL (75-99)
--- NOTE | 2018-03-04 15:09 | P.PN ---
Subjective Progress Note Date: 03/04/18 72-year-old female who originally presented to the emergency room secondary to severe hyperglycemia with blood sugars in the 500s. The patient was also having some confusion initially upon presentation to the hospital, which has resolved. The patient was placed on insulin drip which has been discontinued. She is on a NovoLog sliding scale in addition to Levemir 30 units at night. Blood sugars today ranging from 178-306. Patient is tolerating by mouth intake. She denies nausea or vomiting. Vital signs are stable. Objective - Vital Signs Vital signs: Vital Signs Temp 97.5 F L 03/04/18 05:52 Pulse 64 03/04/18 11:01 Resp 16 03/04/18 05:52 BP 147/66 03/04/18 05:52 Pulse Ox 97 03/04/18 05:52 Intake & Output 03/03/18 03/04/18 03/04/18 18:59 06:59 18:59 Output Total 100 Balance -100 Weight 68.039 kg 68 kg Output: Urine 100 Other: Voiding Method Toilet Toilet # Voids 0 - Exam GENERAL: This is a 72-year-old female in no apparent distress at the time of examination. Pleasant and cooperative. HEENT: Head is atraumatic, normocephalic. Sclerae anicteric. Conjunctivae are clear. Mucus membranes of the mouth are moist. Neck is supple. RESPIRATORY: Clear to ausculation. No wheezes, rales, or rhonchi. No use of accessory muscles. Patient maintaining oxygen saturation greater than 92% CARDIOVASCULAR: Regular rate and rhythm. S1 and S2 noted. No JVD noted. No S3 or S4 noted. GASTROINTESTINAL: No distention noted. Abdomen soft and round. Normal active bowel sounds auscultated x 4 quadrants. No pain or tenderness noted upon palpation. INTEGUMENTARY: No cyanosis. No jaundice. No rashes noted. No cellulitis noted. EXTREMITIES: 2+ peripheral pulses. No evidence of peripheral edema. No calf tenderness noted. NEUROLOGIC: Cranial nerves II-XII intact. PSYCHIATRIC: Awake, alert, and oriented X 3. Appropriate affect. - Labs CBC & Chem 7: 03/05/18 08:22 03/05/18 08:22 Labs: Abnormal Lab Results - Last 24 Hours (Table) 03/03/18 03/03/18 03/03/18 Range/Units 14:30 14:30 18:05 Sodium 132 L (137-145) mmol/L BUN 22 H (7-17) mg/dL Creatinine 1.13 H (0.52-1.04) mg/dL Glucose 550 H* (74-99) mg/dL POC Glucose (mg/dL) 235 H (75-99) mg/dL Hemoglobin A1c 13.8 H (4.0-6.0) % Alkaline Phosphatase 163 H (38-126) U/L Urine Glucose (UA) (Negative) Urine Blood (Negative) Ur Leukocyte Esterase (Negative) Urine Mucus (None) /hpf 03/03/18 03/03/18 03/03/18 Range/Units 18:23 18:32 20:32 Sodium (137-145) mmol/L BUN (7-17) mg/dL Creatinine (0.52-1.04) mg/dL Glucose (74-99) mg/dL POC Glucose (mg/dL) 249 H 252 H (75-99) mg/dL Hemoglobin A1c (4.0-6.0) % Alkaline Phosphatase (38-126) U/L Urine Glucose (UA) 4+ H (Negative) Urine Blood Trace H (Negative) Ur Leukocyte Esterase Trace H (Negative) Urine Mucus Rare H (None) /hpf 03/04/18 03/04/18 03/04/18 Range/Units 02:01 07:05 11:54 Sodium (137-145) mmol/L BUN (7-17) mg/dL Creatinine (0.52-1.04) mg/dL Glucose (74-99) mg/dL POC Glucose (mg/dL) 210 H 178 H 306 H (75-99) mg/dL Hemoglobin A1c (4.0-6.0) % Alkaline Phosphatase (38-126) U/L Urine Glucose (UA) (Negative) Urine Blood (Negative) Ur Leukocyte Esterase (Negative) Urine Mucus (None) /hpf Assessment and Plan Plan: ASSESSMENT: Hyperglycemia, BS 500s, secondary to uncontrolled diabetes History of diabetes mellitus, type II, hemoglobin A1c 13.8 Metabolic encephalopathy, secondary to severe hyperglycemia, resolved Chronic obstructive pulmonary disease, no evidence of acute exacerbation Acute purulent tracheobronchitis History of coronary artery bypass graft with VELARDE to the LAD Hypertension Hyperlipidemia Carotid artery disease with previous right endarterectomy Medical noncompliance PLAN: Continue NovoLog sliding scale. Continue Levemir 30 units at at bedtime Resume patient's home dose of 70/30 10 units with meals Dietitian and flat grinder operator on consult for uncontrolled diabetes PT/OT consulted for placement evaluation Continue Levaquin Home meds as appropriate Monitor labs GI prophylaxis: Protonix 40 mg PO Daily DVT prophylaxis: SCDs to bilateral lower extremities Monitor vital signs and address as appropriate Discharge planning: Patients daughter is requesting subacute rehab. Requesting [facility]. Further recommendations pending patient's course Nurse practitioner note has been reviewed by physician. Signing provider agrees with the documented findings, assessment, and plan of care.
[2018-03-04 16:33] LABS: Glucose,Whole Blood 325 mg/dL (75-99)
[2018-03-04] MEDS: INSULN ASP PRT/INSULIN ASPART 100 UNIT/ML 10 ML VIAL SQ SCH (17:52)
[2018-03-04] MEDS: ATORVASTATIN 80 MG TAB PO SCH (20:15)
[2018-03-04] MEDS: LEVOFLOXACIN 250 MG TAB PO SCH (20:16)
[2018-03-04 20:48] LABS: Glucose,Whole Blood 365 mg/dL (75-99)
[2018-03-04] MEDS: INSULIN DETEMIR 100 UNIT/ML 10 ML VIAL SQ SCH (21:36)
[2018-03-05 02:23] LABS: Glucose,Whole Blood 245 mg/dL (75-99)
[2018-03-05] MEDS: SODIUM CHLORIDE 0.9% 1,000 ML IV SCH ×2 (05:21→17:59)
[2018-03-05] MEDS: SYMBICORT 160-4.5 MCG INHALER INHALATION SCH ×2 (06:47→19:17)
[2018-03-05] MEDS: IPRATROPIUM-ALBUTEROL 3 ML NEB INHALATION SCH ×4 (06:47→19:18)
[2018-03-05 07:31] LABS: Glucose,Whole Blood 178 mg/dL (75-99)
[2018-03-05] MEDS: INSULIN ASPART 100 UNIT/ML 1 ML 10 ML VIAL SQ SCH ×4 (08:06→20:48)
[2018-03-05] MEDS: INSULN ASP PRT/INSULIN ASPART 100 UNIT/ML 10 ML VIAL SQ SCH ×3 (08:06→17:58)
[2018-03-05] MEDS: ASPIRIN 325 MG TAB PO SCH (08:07)
[2018-03-05] MEDS: PANTOPRAZOLE 40 MG TABLET PO SCH (08:07)
[2018-03-05] MEDS: METOPROLOL TARTRATE 25 MG TAB PO SCH ×2 (08:07→20:48)
[2018-03-05] MEDS: CLOPIDOGREL 75 MG TAB PO SCH (08:07)
[2018-03-05] MEDS: SENNOSIDES 8.6 MG TAB PO SCH (08:08)
[2018-03-05 09:04] LABS: Basophils % (A) 0 %; Eosinophils # (A) 0.2 k/uL (0-0.7); Eosinophils % (A) 2 %; HCT 43.7 % (34.0-46.0); HGB 14.1 gm/dL (11.4-16.0); Lymphocytes # (A) 1.5 k/uL (1.0-4.8); Lymphocytes % (A) 18 %; MCH 29.7 pg (25.0-35.0); MCHC 32.2 g/dL (31.0-37.0); MCV 92.1 fL (80.0-100.0); Mean Platelet Volume 7.7; Monocytes # (A) 0.4 k/uL (0-1.0); Monocytes % (A) 5 %; Neutrophils # (A) 5.8 k/uL (1.3-7.7); Neutrophils % (A) 73 %; Platelet Count 188 k/uL (150-450); RBC 4.75 m/uL (3.80-5.40); RDW 14.1 % (11.5-15.5)
[2018-03-05 09:19] LABS: Potassium 4.4 mmol/L (3.5-5.1)
--- NOTE | 2018-03-05 10:25 | P.PN ---
Subjective Progress Note Date: 03/05/18 03/04/2018 72-year-old female who originally presented to the emergency room secondary to severe hyperglycemia with blood sugars in the 500s. The patient was also having some confusion initially upon presentation to the hospital, which has resolved. The patient was placed on insulin drip which has been discontinued. She is on a NovoLog sliding scale in addition to Levemir 30 units at night. Blood sugars today ranging from 178-306. Patient is tolerating by mouth intake. She denies nausea or vomiting. Vital signs are stable. 03/05/2018 Patient seen and examined at the bedside with Dr. Shepard. Patient denies chest pain. Denies shortness of breath. She was restarted on her home insulin regimen yesterday. However, she remains hyperglycemic. Recent blood sugars ranging from 178-365. Patient's family is requesting subacute rehab at the time of discharge. Physical therapy was consulted and worked with patient who recommended subacute rehab at the time of discharge. Objective - Vital Signs Vital signs: Vital Signs Temp 97.2 F L 03/05/18 05:53 Pulse 68 03/05/18 06:58 Resp 20 03/05/18 05:53 BP 136/69 03/05/18 05:53 Pulse Ox 93 L 03/05/18 05:53 Intake & Output 03/04/18 03/05/18 03/05/18 18:59 06:59 18:59 Intake Total 600 640 Output Total 200 Balance 400 640 Intake: IV 640 Sodium Chloride 0.9% 1, 640 000 ml @ 80 mls/hr IV . [id number] [facility] Rx#:[id number] Oral 600 Output: Urine 200 Other: Voiding Method Toilet # Voids 1 3 - Exam GENERAL: This is a 72-year-old female in no apparent distress at the time of examination. Pleasant and cooperative. HEENT: Head is atraumatic, normocephalic. Sclerae anicteric. Conjunctivae are clear. Mucus membranes of the mouth are moist. Neck is supple. RESPIRATORY: Clear to ausculation. No wheezes, rales, or rhonchi. No use of accessory muscles. Patient maintaining oxygen saturation greater than 92% CARDIOVASCULAR: Regular rate and rhythm. S1 and S2 noted. No JVD noted. No S3 or S4 noted. GASTROINTESTINAL: No distention noted. Abdomen soft and round. Normal active bowel sounds auscultated x 4 quadrants. No pain or tenderness noted upon palpation. INTEGUMENTARY: No cyanosis. No jaundice. No rashes noted. No cellulitis noted. EXTREMITIES: 2+ peripheral pulses. No evidence of peripheral edema. No calf tenderness noted. NEUROLOGIC: Cranial nerves II-XII intact. PSYCHIATRIC: Awake, alert, and oriented X 3. Appropriate affect. - Labs CBC & Chem 7: 03/05/18 08:22 03/05/18 08:22 Labs: Abnormal Lab Results - Last 24 Hours (Table) 03/03/18 03/04/18 03/04/18 Range/Units 14:30 11:54 16:30 BUN (7-17) mg/dL Creatinine (0.52-1.04) mg/dL Glucose (74-99) mg/dL POC Glucose (mg/dL) 306 H 325 H (75-99) mg/dL Hemoglobin A1c 13.8 H (4.0-6.0) % 03/04/18 03/05/18 03/05/18 Range/Units 20:46 02:22 07:09 BUN (7-17) mg/dL Creatinine (0.52-1.04) mg/dL Glucose (74-99) mg/dL POC Glucose (mg/dL) 365 H 245 H 178 H (75-99) mg/dL Hemoglobin A1c (4.0-6.0) % 03/05/18 Range/Units 08:22 BUN 19 H (7-17) mg/dL Creatinine 1.10 H (0.52-1.04) mg/dL Glucose 223 H (74-99) mg/dL POC Glucose (mg/dL) (75-99) mg/dL Hemoglobin A1c (4.0-6.0) % Assessment and Plan Plan: ASSESSMENT: Hyperglycemia, BS 500s, secondary to uncontrolled diabetes History of diabetes mellitus, type II, hemoglobin A1c 13.8 Metabolic encephalopathy, secondary to severe hyperglycemia, resolved Chronic obstructive pulmonary disease, no evidence of acute exacerbation Acute purulent tracheobronchitis History of coronary artery bypass graft with VELARDE to the LAD Hypertension Hyperlipidemia Carotid artery disease with previous right endarterectomy Medical noncompliance PLAN: Continue NovoLog sliding scale. Increase Levemir to 40 units at HS Increase patient's home dose of 70/30 from 10 to 15 units with meals Dietitian and certified diabetes educator on consult for uncontrolled diabetes PT/OT Continue Levaquin Home meds as appropriate Monitor labs GI prophylaxis: Protonix 40 mg PO Daily DVT prophylaxis: SCDs to bilateral lower extremities Monitor vital signs and address as appropriate Discharge planning: Patients daughter is requesting subacute rehab. Requesting [facility] [place]. Further recommendations pending patient's course Nurse practitioner note has been reviewed by physician. Signing provider agrees with the documented findings, assessment, and plan of care.
[2018-03-05] MEDS: CHOLECALCIFEROL 1,000 UNIT TAB PO SCH (11:22)
[2018-03-05 11:34] LABS: Glucose,Whole Blood 187 mg/dL (75-99)
[2018-03-05 17:25] LABS: Glucose,Whole Blood 224 mg/dL (75-99)
[2018-03-05] MEDS: ONDANSETRON 4 MG/2 ML VIAL IVP PRN (19:41)
[2018-03-05 20:31] LABS: Glucose,Whole Blood 215 mg/dL (75-99)
[2018-03-05] MEDS: ATORVASTATIN 80 MG TAB PO SCH (20:48)
[2018-03-05] MEDS: LEVOFLOXACIN 250 MG TAB PO SCH (20:48)
[2018-03-05] MEDS ORDERED: INSULIN DETEMIR 100 UNIT/ML 10 ML VIAL SQ SCH (21:00)
[2018-03-06 02:46] LABS: Glucose,Whole Blood 101 mg/dL (75-99)
[2018-03-06 05:11] LABS: Glucose,Whole Blood 83 mg/dL (75-99)
[2018-03-06] MEDS: IPRATROPIUM-ALBUTEROL 3 ML NEB INHALATION SCH ×3 (07:17→16:13)
[2018-03-06] MEDS: SYMBICORT 160-4.5 MCG INHALER INHALATION SCH (07:17)
[2018-03-06] MEDS: INSULIN ASPART 100 UNIT/ML 1 ML 10 ML VIAL SQ SCH ×2 (07:26→12:38)
[2018-03-06 07:27] LABS: Glucose,Whole Blood 112 mg/dL (75-99)
[2018-03-06 07:43] VITALS: RESP 18
[2018-03-06] MEDS: SODIUM CHLORIDE 0.9% 1,000 ML IV SCH (08:22)
[2018-03-06] MEDS: ASPIRIN 325 MG TAB PO SCH (08:23)
[2018-03-06] MEDS: CLOPIDOGREL 75 MG TAB PO SCH (08:23)
[2018-03-06] MEDS: PANTOPRAZOLE 40 MG TABLET PO SCH (08:23)
[2018-03-06] MEDS: METOPROLOL TARTRATE 25 MG TAB PO SCH (08:23)
[2018-03-06] MEDS: SENNOSIDES 8.6 MG TAB PO SCH (08:23)
[2018-03-06] MEDS: INSULN ASP PRT/INSULIN ASPART 100 UNIT/ML 10 ML VIAL SQ SCH ×2 (08:25→12:38)
[2018-03-06 09:22] LABS: Basophils % (A) 0 %; Eosinophils # (A) 0.2 k/uL (0-0.7); Eosinophils % (A) 3 %; HCT 41.1 % (34.0-46.0); HGB 13.3 gm/dL (11.4-16.0); Lymphocytes # (A) 1.2 k/uL (1.0-4.8); Lymphocytes % (A) 18 %; MCHC 32.2 g/dL (31.0-37.0); Mean Platelet Volume 7.6; Monocytes # (A) 0.4 k/uL (0-1.0); Monocytes % (A) 6 %; Neutrophils # (A) 4.5 k/uL (1.3-7.7); Neutrophils % (A) 71 %; Platelet Count 178 k/uL (150-450); RBC 4.42 m/uL (3.80-5.40); RDW 14.2 % (11.5-15.5); WBC 6.3 k/uL (3.8-10.6)
[2018-03-06 09:30] LABS: Calcium 8.9 mg/dL (8.4-10.2); Potassium 4.5 mmol/L (3.5-5.1)
[2018-03-06 10:41] VITALS: BP 126/63; PULSE 62; TEMP 98.6
--- NOTE | 2018-03-06 10:52 | P.DS ---
Providers Date of admission: 03/03/18 16:44 Expected date of discharge: 03/06/18 Attending physician: Srinath Shepard Primary care physician: Srinath Shepard [facility] Course: 72-year-old female who originally presented to the emergency room secondary to severe hyperglycemia with blood sugars in the 500s. The patient was also having some confusion initially upon presentation to the hospital, which has resolved. The patient was placed on insulin drip which has been discontinued. Her home dose of Levemir and 70/30 were resumed. Her blood sugars remained elevated. Adjustments were made to the patient's regimen and blood sugars have been better controlled. The patient was also recently treated for acute purulent tracheobronchitis outpatient basis. She will remain on Levaquin for 5 days following discharge from the hospital. The patient remains weak overall and debilitated. Physical therapy was consulted and worked with patient during hospitalization. Physical therapy recommended subacute rehab at the time of discharge. The patient was deemed stable for discharge to subacute rehab today. She is to follow up with Dr. Shepard one week after discharged from subacute rehab. DISCHARGE DIAGNOSIS: Hyperglycemia, BS 500s, secondary to uncontrolled diabetes History of diabetes mellitus, type II, hemoglobin A1c 13.8 Metabolic encephalopathy, secondary to severe hyperglycemia, resolved Chronic obstructive pulmonary disease, no evidence of acute exacerbation Acute purulent tracheobronchitis History of coronary artery bypass graft with VELARDE to the LAD Hypertension Hyperlipidemia Carotid artery disease with previous right endarterectomy Medical noncompliance Nurse practitioner note has been reviewed by physician. Signing provider agrees with the documented findings, assessment, and plan of care. Patient Condition at Discharge: Stable Plan - Discharge Summary Discharge Rx Participant: No New Discharge Prescriptions: New Insulin Detemir [Levemir] 40 unit SQ HS syr Insuln Asp Prt/Insulin Aspart [NovoLOG MIX 70-30 VIAL] 15 unit SQ AC-TID vial Levofloxacin [Levaquin] 250 mg PO Q24H #5 tab Continue Cholecalciferol [Vitamin D3] 2,000 unit PO DAILY Budesonide-Formot 160-4.5 Mcg [Symbicort 160-4.5 Mcg Inhaler] 2 puff INHALATION RT-BID Ipratropium/Albuterol Sulfate [Combivent Respimat Inhaler] 2 puff INHALATION RT-QID PRN PRN Reason: Shortness Of Breath Aspirin 325 mg PO DAILY Ipratropium-Albuterol Nebulize [Duoneb 0.5 mg-3 mg/3 ml Soln] 3 ml INHALATION RT-QID PRN PRN Reason: sob Clopidogrel [Plavix] 75 mg PO DAILY tab Pantoprazole [Protonix] 40 mg PO AC-BRKFST tablet. Atorvastatin [Lipitor] 80 mg PO HS Metoprolol Tartrate [Lopressor] 75 mg PO BID Sennosides [Senna] 8.6 mg PO DAILY Discontinued Insulin Aspart Protam & Aspart [NovoLOG MIX 70-30 Flexpen] 10 units SQ AC-TID Insulin Detemir [Levemir] 30 unit SQ HS syr Discharge Medication List Budesonide-Formot 160-4.5 Mcg [Symbicort 160-4.5 Mcg Inhaler] 2 puff INHALATION RT-BID 01/19/17 [History] Cholecalciferol [Vitamin D3] 2,000 unit PO DAILY 01/19/17 [History] Ipratropium/Albuterol Sulfate [Combivent Respimat Inhaler] 2 puff INHALATION RT- QID PRN 01/19/17 [History] Aspirin 325 mg PO DAILY 04/09/17 [History] Ipratropium-Albuterol Nebulize [Duoneb 0.5 mg-3 mg/3 ml Soln] 3 ml INHALATION RT -QID PRN 04/12/17 [History] Clopidogrel [Plavix] 75 mg PO DAILY tab 04/19/17 [Rx] Pantoprazole [Protonix] 40 mg PO AC-BRKFST tablet. 04/19/17 [Rx] Atorvastatin [Lipitor] 80 mg PO HS 09/12/17 [History] Metoprolol Tartrate [Lopressor] 75 mg PO BID 09/12/17 [History] Sennosides [Senna] 8.6 mg PO DAILY 09/12/17 [History] Insulin Detemir [Levemir] 40 unit SQ HS syr 03/06/18 [Rx] Insuln Asp Prt/Insulin Aspart [NovoLOG MIX 70-30 VIAL] 15 unit SQ AC-TID vial 03/06/18 [Rx] Levofloxacin [Levaquin] 250 mg PO Q24H #5 tab 03/06/18 [Rx] Follow up Appointment(s)/Referral(s): Srinath Shepard DO [Primary Care Provider] - [facility], [NON-STAFF] - As Needed Discharge Disposition: TRANSFER TO SNF/ECF
[2018-03-06] MEDS: CHOLECALCIFEROL 1,000 UNIT TAB PO SCH (12:03)
[2018-03-06 12:18] LABS: Glucose,Whole Blood 170 mg/dL (75-99)
[2018-03-06] MEDS ORDERED: PNEUMOCOCCAL VACC-PNEUMOVAX 23 25 MCG/0.5 ML VIAL IM ONE (15:07)
[2018-03-06] MEDS ORDERED: INFLUENZA VACCINE (6 MOS+) 60 MCG/0.5 ML SYRINGE IM ONE (15:07)
== END 2018-03-06 16:40 | DRG 637 ==
LOC: EC 14:10 → 4MS4W 16:44
PROVIDERS: ADMIT Family Medicine; ATTEND Family Medicine
DX: E11.65 Type 2 diabetes mellitus with hyperglycemia (principal); G93.41 Metabolic encephalopathy; F05 Delirium due to known physiological condition; J44.1 Chronic obstructive pulmonary disease with (acute) exacerbation; J44.0 Chronic obstructive pulmonary disease with (acute) lower respiratory infection; E11.22 Type 2 diabetes mellitus with diabetic chronic kidney disease; J20.9 Acute bronchitis, unspecified; E86.0 Dehydration; N18.3 Chronic kidney disease, stage 3 (moderate); Z23 Encounter for immunization; I12.9 Hypertensive chronic kidney disease with stage 1 through stage 4 chronic kidney disease, or unspecified chronic kidney disease; I25.10 Atherosclerotic heart disease of native coronary artery without angina pectoris; E78.5 Hyperlipidemia, unspecified; M19.91 Primary osteoarthritis, unspecified site; I25.2 Old myocardial infarction; Z91.19 Patient's noncompliance with other medical treatment and regimen; Z79.82 Long term (current) use of aspirin; Z79.51 Long term (current) use of inhaled steroids; Z79.02 Long term (current) use of antithrombotics/antiplatelets; Z79.4 Long term (current) use of insulin; Z79.899 Other long term (current) drug therapy; Z95.1 Presence of aortocoronary bypass graft; Z95.5 Presence of coronary angioplasty implant and graft; Z87.891 Personal history of nicotine dependence; Z86.79 Personal history of other diseases of the circulatory system; Z90.710 Acquired absence of both cervix and uterus; Z82.49 Family history of ischemic heart disease and other diseases of the circulatory system
CPT/HCPCS: 36415; 70450; 71046; 72125; 80048; 80053; 80306; 81001; 82009; 82140; 82150; 82550; 82553; 83036; 83690; 83735; 84484; 85025; 90686; 90732; 93005; 94640; 96360; 96361; 99284; 99285

== ENCOUNTER 2018-05-19 16:06 | Inpatient (IN) | payer MEDICARE ==
[2018-05-19] MEDS ORDERED: SODIUM CHLORIDE 0.9% 500 ML 500 ML IV ONE (16:29)
--- NOTE | 2018-05-19 16:35 | ED ---
General Adult HPI - General Chief complaint: Altered Mental Status Stated complaint: Hyperglycemic Time Seen by Provider: 05/19/18 16:10 Source: EMS, RN notes reviewed Mode of arrival: ambulatory Limitations: altered mental status - History of Present Illness Initial comments: This is a 73-year-old female who presents emergency department with past medical history significant for dementia and diabetes. Patient comes in today because the son found her head down and in her stupid and when she awoke he thought she was altered compared to her baseline. Son is not in the room no one else is in the room when the patient is a very poor historian. Patient herself does not know why she is here and thinks it's 1989. Patient denies any pain currently she denies any difficulty breathing she denies any nausea she denies any recent fever chills or cough. When the son arrives we will get some further history - Related Data Home Medications Medication Instructions Recorded Confirmed Budesonide-Formot 160-4.5 Mcg 2 puff INHALATION RT-BID 01/19/17 05/19/18 [Symbicort 160-4.5 Mcg Inhaler] Cholecalciferol [Vitamin D3] 2,000 unit PO DAILY 01/19/17 05/19/18 Metoprolol Tartrate [Lopressor] 75 mg PO DAILY 09/12/17 05/19/18 Furosemide [Lasix] 40 mg PO DAILY 05/19/18 05/19/18 Allergies Allergy/AdvReac Type Severity Reaction Status Date / Time No Known Allergies Allergy Verified 05/19/18 17:22 Review of Systems ROS Statement: Those systems with pertinent positive or pertinent negative responses have been documented in the HPI. ROS Other: All systems not noted in ROS Statement are negative. Past Medical History Past Medical History: Asthma, Coronary Artery Disease (CAD), COPD, Dementia, Diabetes Mellitus, GERD/Reflux, Hyperlipidemia, Hypertension, Memory Impairment , Myocardial Infarction ([place]), Osteoarthritis (OA), Renal Disease Additional Past Medical History / Comment(s): CKD stage 3, poorly-controlled DM (medical noncompliance), COPD FEV1 of 57% predicted, carotid artery disease, UTIs, chronic back pain, forgetful. Last Myocardial Infarction Date:: 2009 History of Any Multi-Drug Resistant Organisms: None Reported Past Surgical History: Appendectomy, Coronary Bypass/CABG, Heart Catheterization With Stent, Hysterectomy Additional Past Surgical History / Comment(s): 04/12/17 CABG 1 vessel w/ VELARDE to LAD - previous stent to RCA. Drug-eluting stent placed to the RCA in 2009, right carotid endarterectomy in 2011, colonoscopy. Past Anesthesia/Blood Transfusion Reactions: No Reported Reaction Date of Last Stent Placement:: 2009 Past Psychological History: Depression Smoking Status: Former smoker Past Alcohol Use History: None Reported Past Drug Use History: None Reported - Past Family History Mother Family Medical History: No Reported History Father Family Medical History: Coronary Artery Disease (CAD) General Exam - General Exam Comments Initial Comments: GENERAL: Patient is well-developed and well-nourished. Patient is nontoxic and well- hydrated and is in no acute distress. ENT: Neck is soft and supple. No significant lymphadenopathy is noted. Oropharynx is clear. Moist mucous membranes. Neck has full range of motion without eliciting any pain. EYES: The sclera were anicteric and conjunctiva were pink and moist. Extraocular movements were intact and pupils were equal round and reactive to light. Eyelids were unremarkable. PULMONARY: Unlabored respirations. Good breath sounds bilaterally. No audible rales rhonchi or wheezing was noted. CARDIOVASCULAR: There is a regular rate and rhythm without any murmurs gallops or rubs. ABDOMEN: Soft and nontender with normal bowel sounds. No palpable organomegaly was noted. There is no palpable pulsatile mass. SKIN: Skin is clear with no lesions or rashes and otherwise unremarkable. NEUROLOGIC: Patient is alert and oriented 2. Patient thinks it's 1990. Cranial nerves II through XII are grossly intact. Motor and sensory are also intact. Normal speech, volume and content. Symmetrical smile. MUSCULOSKELETAL: Normal extremities with adequate strength and full range of motion. LYMPHATICS: No significant lymphadenopathy is noted PSYCHIATRIC: Normal psychiatric evaluation. Limitations: altered mental status Course Vital Signs 05/19/18 05/19/18 05/19/18 16:18 17:30 19:00 Temperature 98.7 F Pulse Rate 71 83 78 Respiratory 18 18 18 Rate Blood Pressure 126/62 148/80 160/90 O2 Sat by Pulse 93 L 95 95 Oximetry Medical Decision Making - Medical Decision Making EKG shows normal sinus rhythm at 74 bpm MD interval is 204 QRS is 74 Q-T intervals 42 QTC is 446. Patient's EKG shows no ST segment elevation Chest x-ray showed no acute abnormality. I spoke with Dr. Green he wanted the patient admitted admitted the patient wrote admitting orders. - Lab Data Result diagrams: 05/19/18 16:34 05/19/18 16:34 Lab Results 05/19/18 05/19/18 05/19/18 Range/Units 16:34 16:34 16:34 WBC 7.6 (3.8-10.6) k/uL RBC 4.78 (3.80-5.40) m/uL Hgb 14.4 (11.4-16.0) gm/dL Hct 43.6 (34.0-46.0) % MCV 91.3 (80.0-100.0) fL MCH 30.1 (25.0-35.0) pg MCHC 33.0 (31.0-37.0) g/dL RDW 14.1 (11.5-15.5) % Plt Count 235 (150-450) k/uL Neutrophils % 74 % Lymphocytes % 17 % Monocytes % 4 % Eosinophils % 3 % Basophils % 1 % Neutrophils # 5.6 (1.3-7.7) k/uL Lymphocytes # 1.3 (1.0-4.8) k/uL Monocytes # 0.3 (0-1.0) k/uL Eosinophils # 0.2 (0-0.7) k/uL Basophils # 0.0 (0-0.2) k/uL PT (9.0-12.0) sec INR (<1.2) APTT (22.0-30.0) sec Sodium 136 L (137-145) mmol/L Potassium 4.5 (3.5-5.1) mmol/L Chloride 96 L (98-107) mmol/L Carbon Dioxide 30 (22-30) mmol/L Anion Gap 10 mmol/L BUN 34 H (7-17) mg/dL Creatinine 1.51 H (0.52-1.04) mg/dL Est GFR (CKD-EPI)AfAm 39 (>60 ml/min/1.73 sqM) Est GFR (CKD-EPI)NonAf 34 (>60 ml/min/1.73 sqM) Glucose 430 H (74-99) mg/dL POC Glucose (mg/dL) (75-99) mg/dL POC Glu Planetarium Technician ID Plasma Lactic Acid John (0.7-2.0) mmol/L Calcium 9.4 (8.4-10.2) mg/dL Total Bilirubin 0.8 (0.2-1.3) mg/dL AST 14 (14-36) U/L ALT 17 (9-52) U/L Alkaline Phosphatase 168 H (38-126) U/L Total Creatine Kinase 38 (30-135) U/L CK-MB (CK-2) 0.7 (0.0-2.4) ng/mL CK-MB (CK-2) Rel Index 1.8 Troponin I <0.012 (0.000-0.034) ng/mL Total Protein 6.4 (6.3-8.2) g/dL Albumin 3.7 (3.5-5.0) g/dL Urine Color Urine Appearance (Clear) Urine pH (5.0-8.0) Ur Specific [place] (1.001-1.035) Urine Protein (Negative) Urine Glucose (UA) (Negative) Urine Ketones (Negative) Urine Blood (Negative) Urine Nitrite (Negative) Urine Bilirubin (Negative) Urine Urobilinogen (<2.0) mg/dL Ur Leukocyte Esterase (Negative) Urine RBC (0-5) /hpf Urine WBC (0-5) /hpf Ur Squamous Epith Cells (0-4) /hpf Urine Bacteria (None) /hpf Hyaline Casts (0-2) /lpf Urine Mucus (None) /hpf Urine Opiates Screen (NotDetected) Ur Oxycodone Screen (NotDetected) Urine Methadone Screen (NotDetected) Ur Propoxyphene Screen (NotDetected) Ur Barbiturates Screen (NotDetected) U Tricyclic Antidepress (NotDetected) Ur Phencyclidine Scrn (NotDetected) Ur Amphetamines Screen (NotDetected) U Methamphetamines Scrn (NotDetected) U Benzodiazepines Scrn (NotDetected) Urine Cocaine Screen (NotDetected) U Marijuana (THC) Screen (NotDetected) Acetone, Qual Negative (Negative) 05/19/18 05/19/18 05/19/18 Range/Units 16:34 16:34 16:45 WBC (3.8-10.6) k/uL RBC (3.80-5.40) m/uL Hgb (11.4-16.0) gm/dL Hct (34.0-46.0) % MCV (80.0-100.0) fL MCH (25.0-35.0) pg MCHC (31.0-37.0) g/dL RDW (11.5-15.5) % Plt Count (150-450) k/uL Neutrophils % % Lymphocytes % % Monocytes % % Eosinophils % % Basophils % % Neutrophils # (1.3-7.7) k/uL Lymphocytes # (1.0-4.8) k/uL Monocytes # (0-1.0) k/uL Eosinophils # (0-0.7) k/uL Basophils # (0-0.2) k/uL PT 11.0 (9.0-12.0) sec INR 1.0 (<1.2) APTT 24.3 (22.0-30.0) sec Sodium (137-145) mmol/L Potassium (3.5-5.1) mmol/L Chloride (98-107) mmol/L Carbon Dioxide (22-30) mmol/L Anion Gap mmol/L BUN (7-17) mg/dL Creatinine (0.52-1.04) mg/dL Est GFR (CKD-EPI)AfAm (>60 ml/min/1.73 sqM) Est GFR (CKD-EPI)NonAf (>60 ml/min/1.73 sqM) Glucose (74-99) mg/dL POC Glucose (mg/dL) 415 H (75-99) mg/dL POC Glu Planetarium Technician ID Cristina Medellin Plasma Lactic Acid John 1.9 (0.7-2.0) mmol/L Calcium (8.4-10.2) mg/dL Total Bilirubin (0.2-1.3) mg/dL AST (14-36) U/L ALT (9-52) U/L Alkaline Phosphatase (38-126) U/L Total Creatine Kinase (30-135) U/L CK-MB (CK-2) (0.0-2.4) ng/mL CK-MB (CK-2) Rel Index Troponin I (0.000-0.034) ng/mL Total Protein (6.3-8.2) g/dL Albumin (3.5-5.0) g/dL Urine Color Urine Appearance (Clear) Urine pH (5.0-8.0) Ur Specific [place] (1.001-1.035) Urine Protein (Negative) Urine Glucose (UA) (Negative) Urine Ketones (Negative) Urine Blood (Negative) Urine Nitrite (Negative) Urine Bilirubin (Negative) Urine Urobilinogen (<2.0) mg/dL Ur Leukocyte Esterase (Negative) Urine RBC (0-5) /hpf Urine WBC (0-5) /hpf Ur Squamous Epith Cells (0-4) /hpf Urine Bacteria (None) /hpf Hyaline Casts (0-2) /lpf Urine Mucus (None) /hpf Urine Opiates Screen (NotDetected) Ur Oxycodone Screen (NotDetected) Urine Methadone Screen (NotDetected) Ur Propoxyphene Screen (NotDetected) Ur Barbiturates Screen (NotDetected) U Tricyclic Antidepress (NotDetected) Ur Phencyclidine Scrn (NotDetected) Ur Amphetamines Screen (NotDetected) U Methamphetamines Scrn (NotDetected) U Benzodiazepines Scrn (NotDetected) Urine Cocaine Screen (NotDetected) U Marijuana (THC) Screen (NotDetected) Acetone, Qual (Negative) 05/19/18 05/19/18 Range/Units 16:56 18:57 WBC (3.8-10.6) k/uL RBC (3.80-5.40) m/uL Hgb (11.4-16.0) gm/dL Hct (34.0-46.0) % MCV (80.0-100.0) fL MCH (25.0-35.0) pg MCHC (31.0-37.0) g/dL RDW (11.5-15.5) % Plt Count (150-450) k/uL Neutrophils % % Lymphocytes % % Monocytes % % Eosinophils % % Basophils % % Neutrophils # (1.3-7.7) k/uL Lymphocytes # (1.0-4.8) k/uL Monocytes # (0-1.0) k/uL Eosinophils # (0-0.7) k/uL Basophils # (0-0.2) k/uL PT (9.0-12.0) sec INR (<1.2) APTT (22.0-30.0) sec Sodium (137-145) mmol/L Potassium (3.5-5.1) mmol/L Chloride (98-107) mmol/L Carbon Dioxide (22-30) mmol/L Anion Gap mmol/L BUN (7-17) mg/dL Creatinine (0.52-1.04) mg/dL Est GFR (CKD-EPI)AfAm (>60 ml/min/1.73 sqM) Est GFR (CKD-EPI)NonAf (>60 ml/min/1.73 sqM) Glucose (74-99) mg/dL POC Glucose (mg/dL) 440 H (75-99) mg/dL POC Glu Planetarium Technician ID Cristina Medellin Plasma Lactic Acid John (0.7-2.0) mmol/L Calcium (8.4-10.2) mg/dL Total Bilirubin (0.2-1.3) mg/dL AST (14-36) U/L ALT (9-52) U/L Alkaline Phosphatase (38-126) U/L Total Creatine Kinase (30-135) U/L CK-MB (CK-2) (0.0-2.4) ng/mL CK-MB (CK-2) Rel Index Troponin I (0.000-0.034) ng/mL Total Protein (6.3-8.2) g/dL Albumin (3.5-5.0) g/dL Urine Color Light Yellow Urine Appearance Clear (Clear) Urine pH 5.0 (5.0-8.0) Ur Specific [place] 1.008 (1.001-1.035) Urine Protein Negative (Negative) Urine Glucose (UA) 3+ H (Negative) Urine Ketones Negative (Negative) Urine Blood Negative (Negative) Urine Nitrite Negative (Negative) Urine Bilirubin Negative (Negative) Urine Urobilinogen <2.0 (<2.0) mg/dL Ur Leukocyte Esterase Moderate H (Negative) Urine RBC 1 (0-5) /hpf Urine WBC 8 H (0-5) /hpf Ur Squamous Epith Cells <1 (0-4) /hpf Urine Bacteria Rare H (None) /hpf Hyaline Casts 1 (0-2) /lpf Urine Mucus Rare H (None) /hpf Urine Opiates Screen Not Detected (NotDetected) Ur Oxycodone Screen Not Detected (NotDetected) Urine Methadone Screen Not Detected (NotDetected) Ur Propoxyphene Screen Not Detected (NotDetected) Ur Barbiturates Screen Not Detected (NotDetected) U Tricyclic Antidepress Not Detected (NotDetected) Ur Phencyclidine Scrn Not Detected (NotDetected) Ur Amphetamines Screen Not Detected (NotDetected) U Methamphetamines Scrn Not Detected (NotDetected) U Benzodiazepines Scrn Not Detected (NotDetected) Urine Cocaine Screen Not Detected (NotDetected) U Marijuana (THC) Screen Not Detected (NotDetected) Acetone, Qual (Negative) Disposition Clinical Impression: Altered mental state, Hyperglycemia Disposition: ADMITTED IP TO THIS HOSP Referrals: None,Stated [REFERRING] - 1-2 days Time of Disposition: 19:10
[2018-05-19 16:58] LABS: Basophils % (A) 1 %; Eosinophils # (A) 0.2 k/uL (0-0.7); Eosinophils % (A) 3 %; HCT 43.6 % (34.0-46.0); HGB 14.4 gm/dL (11.4-16.0); Lymphocytes # (A) 1.3 k/uL (1.0-4.8); Lymphocytes % (A) 17 %; MCH 30.1 pg (25.0-35.0); MCV 91.3 fL (80.0-100.0); Mean Platelet Volume 7.6; Monocytes # (A) 0.3 k/uL (0-1.0); Monocytes % (A) 4 %; Neutrophils # (A) 5.6 k/uL (1.3-7.7); Neutrophils % (A) 74 %; Platelet Count 235 k/uL (150-450); RBC 4.78 m/uL (3.80-5.40); RDW 14.1 % (11.5-15.5); WBC 7.6 k/uL (3.8-10.6)
[2018-05-19 17:08] LABS: ALT 17 U/L (9-52); AST 14 U/L (14-36); Albumin 3.7 g/dL (3.5-5.0); Alkaline Phosphatase 168 U/L (38-126); Anion Gap 10 mmol/L; Blood Urea Nitrogen 34 mg/dL (7-17); Calcium 9.4 mg/dL (8.4-10.2); Carbon Dioxide 30 mmol/L (22-30); Chloride 96 mmol/L (98-107); Glucose 430 mg/dL (74-99); Potassium 4.5 mmol/L (3.5-5.1); Sodium 136 mmol/L (137-145); Total Bilirubin 0.8 mg/dL (0.2-1.3); Total Protein 6.4 g/dL (6.3-8.2)
[2018-05-19 17:09] LABS: Partial Thromboplastin Time 24.3 sec (22.0-30.0)
[2018-05-19 17:12] LABS: Creatine Kinase 38 U/L (30-135)
--- NOTE | 2018-05-19 17:14 | XR ---
EXAMINATION TYPE: XR chest 2V DATE OF EXAM: 05/19/2018 COMPARISON: 03/03/2018 HISTORY: Difficulty breathing TECHNIQUE: Frontal and lateral views of the chest are obtained. FINDINGS: There is no heart failure nor confluent pneumonic infiltrate. Thoracic aorta is atheromato us. There are sternal wires. Costophrenic angles are clear. There are chest leads. IMPRESSION: No active cardiopulmonary disease. Normal heart. No change.
[2018-05-19 17:26] LABS: Creatine Kinase MB 0.7 ng/mL (0.0-2.4); Troponin I <0.012 ng/mL (0.000-0.034)
[2018-05-19 17:50] LABS: Appearance,Urine Clear (Clear); Bacteria,Urine Rare /hpf; Bilirubin,Urine Negative (Negative); Blood,Urine Negative (Negative); Color,Urine Light Yellow; Glucose,Urine (UA) 3+ (Negative); Hyaline Casts,Urine 1 /lpf (0-2); Ketones,Urine Negative (Negative); Leukocyte Esterase,Urine Moderate (Negative); Mucus,Urine Rare /hpf; Nitrite,Urine Negative (Negative); Protein,Urine Negative (Negative); RBC,Urine 1 /hpf (0-5); Specific Gravity,Urine 1.008 (1.001-1.035); Squamous Epithelial Cell,Urine <1 /hpf (0-4); Urobilinogen,Urine <2.0 mg/dL (<2.0); WBC,Urine 8 /hpf (0-5)
[2018-05-19 17:54] LABS: Amphetamine Screen,Urine Not Detected (NotDetected); Cocaine Screen,Urine Not Detected (NotDetected); Opiate Screen,Urine Not Detected (NotDetected); Phencyclidine Screen,Urine Not Detected (NotDetected); Urn Cannabinoid Scrn Not Detected (NotDetected)
[2018-05-19 17:55] LABS: Barbiturate Screen,Urine Not Detected (NotDetected); Benzodiazepines Screen,Urine Not Detected (NotDetected); Methadone Screen, Urine Not Detected (NotDetected); Oxycodone Screen, Urine Not Detected (NotDetected); Tricyclic Antidepressant,Urine Not Detected (NotDetected)
[2018-05-19] MEDS ORDERED: INSULIN ASPART 100 UNIT/ML 1 ML 10 ML VIAL SQ ONE (18:24)
[2018-05-19 18:35] LABS: Glucose,Whole Blood 415 mg/dL (75-99)
[2018-05-19 19:01] LABS: Glucose,Whole Blood 440 mg/dL (75-99)
[2018-05-19] MEDS ORDERED: SODIUM CHLORIDE 0.9% 1,000 ML IV ONE (20:35)
[2018-05-19 20:42] LABS: Glucose,Whole Blood 350 mg/dL (75-99)
[2018-05-19 23:29] LABS: Glucose,Whole Blood 294 mg/dL (75-99)
[2018-05-20] MEDS ORDERED: INSULIN ASPART 100 UNIT/ML 1 ML 10 ML VIAL SQ ONE (01:11)
[2018-05-20] MEDS: SYMBICORT 160-4.5 MCG INHALER INHALATION SCH ×2 (07:32→19:17)
[2018-05-20 07:36] LABS: Glucose,Whole Blood 267 mg/dL (75-99)
[2018-05-20] MEDS: FUROSEMIDE 40 MG TAB PO SCH (09:13)
[2018-05-20] MEDS: METOPROLOL TARTRATE 50 MG TAB PO SCH (09:13)
[2018-05-20] MEDS: CHOLECALCIFEROL 1,000 UNIT TAB PO SCH (09:13)
[2018-05-20] MEDS: INSULIN ASPART 100 UNIT/ML 1 ML 10 ML VIAL SQ SCH ×6 (09:13→21:21)
--- NOTE | 2018-05-20 09:28 | CT ---
EXAMINATION TYPE: CT brain wo con DATE OF EXAM: 05/20/2018 COMPARISON: 03/03/2018 HISTORY: altered mental status CT DLP: 1165 mGycm Automated exposure control for dose reduction was used. TECHNIQUE: CT scan of the head is performed without contrast. FINDINGS: There is no acute intracranial hemorrhage or midline shift identified. There is diffuse v entricular and sulcal prominence consistent with diffuse age-related cerebral atrophy. There is low- attenuation in the periventricular white matter consistent with chronic small vessel ischemic change. Very scant mucosal thickening is seen within the ethmoid sinuses and right maxillary sinus. The janneth bes are intact and the remaining visualized sinuses are clear. IMPRESSION: No acute intracranial hemorrhage or midline shift. There is diffuse age-related cerebra l atrophy and chronic small vessel ischemic change noted.
--- NOTE | 2018-05-20 09:31 | US ---
EXAMINATION TYPE: US carotid duplex BILAT DATE OF EXAM: 05/20/2018 COMPARISON: Carotid ultrasound June 08, 2017 CLINICAL HISTORY: stroke. No HTN. No hx of stroke. Altered mental status. EXAM MEASUREMENTS: RIGHT: Peak Systolic Velocity (PSV) cm/sec ----- Right CCA: 73.5 ----- Right ICA: 88.6 ----- Right ECA: 160.8 ICA/CCA ratio: 1.2 RIGHT: End Diastole cm/sec ----- Right CCA: 14.2 ----- Right ICA: 17.1 ----- Right ECA: 11.0 LEFT: Peak Systolic Velocity (PSV) cm/sec ----- Left CCA: 96.4 ----- Left ICA: 112.1 ----- Left ECA: 158.9 ICA/CCA ratio: 1.2 LEFT: End Diastole cm/sec ----- Left CCA: 15.0 ----- Left ICA: 20.2 ----- Left ECA: 0.0 VERTEBRALS (direction of flow): Right Vertebral: Antegrade Left Vertebral: Antegrade Rhythm: Normal grayscale images show atherosclerotic change throughout the mid to distal right commo n carotid artery with more focal moderate plaque at right carotid bulb, there is peripheral plaque in the left common carotid artery with more focal plaque at left carotid bulb. Velocity measurements an d ratios remain within normal limits in the bilateral internal carotid arteries. IMPRESSION: Moderate to severe bilateral plaque felt worse on the left versus right side, stenosis a pproaching 50% on left side is felt present. Consider CTA or MRA of the neck to further evaluate and characterize. Criteria for Assigning % of Stenosis / Diameter reduction (Estimation based on the indirect measurements of the internal carotid artery velocities (ICA PSV). 1. Normal (no stenosis)=ICA PSV < 125 cm/s: ratio < 2.0: ICA EDV<40 cm/s. 2. Less than 50% stenosis=ICA PSV < 125 cm/s: ratio < 2.0: ICA EDV<40 cm/s. 3. 50 to 69% stenosis=ICA PSV of 125 to 230 cm/s: ration 2.0 ? 4.0: ICA EDV 40-100 cm/s. 4. Greater than 70% stenosis to near occlusion= ICA PSV > 230 cm/s: ratio > 4.0: ICA EDV > 100 cm/s. 5. Near occlusion= ICA PSV velocities may be low or undetectable: variable ratio and ICA EDV. 6. Total occlusion=unable to detect flow.
[2018-05-20] MEDS ORDERED: IPRATROPIUM-ALBUTEROL 3 ML NEB INHALATION PRN (10:04)
[2018-05-20] MEDS ORDERED: ASPIRIN 81 MG PO SCH (10:15)
--- NOTE | 2018-05-20 10:15 | P.HPIM ---
History of Present Illness H&P Date: 05/20/18 Chief Complaint: altered mental status, hyperglycemia 73-year-old female with a past medical history significant for coronary artery disease, diabetes mellitus, and COPD, who was brought to the ER via EMS for altered mental status. Her son apparently found her at home and she was confused and not at her baseline. The patient has a long standing history of medical noncompliance, specifically with her diabetes. She was recently seen outpatient by Dr. Shepard and had told him she quit taking all her medications. She was educated on the importance of taking them and reports she did start taking her insulin again since that appointment. Her blood sugar was found to be in the 400s in the emergency room. Chest x-ray completed in the emergency room was negative for an acute process. Laboratory data upon admission reveals white count 7.6. Hemoglobin 14.4. Platelet count 235. Sodium 136. Potassium 4.5. BUN 34. Creatinine 1.51. Glucose 130. Lactic acid 1.9. The patient was admitted to the hospital under the care of Dr. Shepard. REVIEW OF SYSTEMS: Those systems with pertinent positive or pertinent negative responses have been documented in the HPI PHYSICAL EXAM: GENERAL: This is a 73-year-old female in no apparent distress at the time of examination. Pleasant and cooperative. HEENT: Head is atraumatic, normocephalic. Pupils are equal, round, and reactive to light. Sclerae anicteric. Conjunctivae are clear. Mucus membranes of the mouth are moist. Neck is supple. RESPIRATORY: Clear to auscultation. No wheezes, rales, or rhonchi. No use of accessory muscles. Patient maintaining oxygen saturation greater than 92%. CARDIOVASCULAR: Regular rate and rhythm. S1 and S2 noted. No systolic or diastolic murmur auscultated. No JVD noted. No S3 or S4 noted. GASTROINTESTINAL: No distention noted. Abdomen soft and round. Normal active bowel sounds auscultated x 4 quadrants. No pain or tenderness noted upon palpation. INTEGUMENTARY: No cyanosis. No jaundice. No rashes noted. No cellulitis noted. EXTREMITIES: 2+ peripheral pulses. No evidence of peripheral edema. No calf tenderness noted. NEUROLOGIC: Cranial nerves II-XII intact. PSYCHIATRIC: Awake, alert, and oriented X 3. ASSESSMENT: Hyperglycemia, secondary to uncontrolled diabetes Metabolic encephalopathy, secondary to above Diabetes mellitus, type II Pyuria, possible UTI, urine culture pending CKD, stage III Chronic obstructive pulmonary disease, no evidence of acute exacerbation History of coronary artery bypass graft with VELARDE to the LAD Hypertension Hyperlipidemia Carotid artery disease with previous right carotid endarterectomy Medical noncompliance Obesity: BMI 35.5 PLAN: public health educator on consult. Monitor blood glucose AC/HS. Obtain home medication list and resume home meds as appropriate. Monitor vital signs and address as appropriate Discharge planning: Patient to return home when stable. Patient lives at home with her son who manages her medications. Further recommendations pending patient's course Nurse practitioner note has been reviewed by physician. Signing provider agrees with the documented findings, assessment, and plan of care. Past Medical History Past Medical History: Asthma, Coronary Artery Disease (CAD), COPD, Dementia, Diabetes Mellitus, GERD/Reflux, Hyperlipidemia, Hypertension, Memory Impairment , Myocardial Infarction ([place]), Osteoarthritis ([place]), Renal Disease Additional Past Medical History / Comment(s): CKD stage 3, poorly-controlled DM (medical noncompliance), COPD FEV1 of 57% predicted, carotid artery disease, UTIs, chronic back pain, forgetful. Last Myocardial Infarction Date:: 2009 History of Any Multi-Drug Resistant Organisms: None Reported Past Surgical History: Appendectomy, Coronary Bypass/CABG, Heart Catheterization With Stent, Hysterectomy Additional Past Surgical History / Comment(s): 04/12/17 CABG 1 vessel w/ VELARDE to LAD - previous stent to RCA. Drug-eluting stent placed to the RCA in 2009, right carotid endarterectomy in 2011, colonoscopy. Past Anesthesia/Blood Transfusion Reactions: No Reported Reaction Date of Last Stent Placement:: 2009 Past Psychological History: Depression Additional Psychological History / Comment(s): Pt resides with her son, Antonio. Pt. uses a walker to ambulate. States she doesn't manage her diabetes well at home. She manages her own medications. She no longer drives, her son takes her to appointments. Her daughter Stephanie is her DPOA - no advance directives on file. Asked patient to have family bring copy in. Smoking Status: Former smoker Past Alcohol Use History: None Reported Additional Past Alcohol Use History / Comment(s): Unsure of when she quit smoking. Past Drug Use History: None Reported Additional Drug Use History / Comment(s): . - Past Family History Mother Family Medical History: No Reported History Father Family Medical History: Coronary Artery Disease (CAD) Medications and Allergies Home Medications Medication Instructions Recorded Confirmed Type Budesonide-Formot 160-4.5 Mcg 2 puff INHALATION RT-BID 01/19/17 05/19/18 History [Symbicort 160-4.5 Mcg Inhaler] Cholecalciferol [Vitamin D3] 2,000 unit PO DAILY 01/19/17 05/19/18 History Furosemide [Lasix] 40 mg PO DAILY 05/19/18 05/19/18 History Albuterol Inhaler [Ventolin Hfa 1 - 2 puff INHALATION RT-Q6H PRN 05/20/18 History Inhaler] Albuterol Nebulized [Ventolin 2.5 mg INHALATION RT-Q4H PRN 05/20/18 05/20/18 History Nebulized] Atorvastatin [Lipitor] 80 mg PO HS 05/20/18 05/20/18 History Clopidogrel [Plavix] 75 mg PO DAILY 05/20/18 05/20/18 History INSULIN LISPRO (HumaLOG) [HumaLOG] 10 units SQ AC-TID 05/20/18 05/20/18 History Ibuprofen [Motrin] 800 mg PO Q6H PRN 05/20/18 05/20/18 History Insulin Detemir [Levemir Flextouch] 70 units SQ HS 05/20/18 05/20/18 History Ipratropium/Albuterol Sulfate 1 puff INHALATION RT-QID 05/20/18 05/20/18 History [Combivent Respimat Inhaler] Metoprolol Tartrate [Lopressor] 75 mg PO DAILY 05/20/18 05/20/18 History Pantoprazole Sodium 40 mg PO DAILY 05/20/18 05/20/18 History Allergies Allergy/AdvReac Type Severity Reaction Status Date / Time No Known Allergies Allergy Verified 05/19/18 17:22 Physical Exam Vitals: Vital Signs Temp Pulse Pulse Resp BP BP Pulse Ox 05/20/18 05:50 97.7 F 71 20 151/79 99 05/19/18 23:20 98 F 69 20 128/77 99 05/19/18 21:00 98.0 F 75 18 135/56 97 05/19/18 19:00 78 18 160/90 95 05/19/18 17:30 83 18 148/80 95 05/19/18 16:18 98.7 F 71 18 126/62 93 L Intake and Output 05/19/18 05/20/18 05/20/18 22:59 06:59 14:59 Intake Total 0 Balance 0 Intake: Oral 0 Other: # Voids 3 Weight 82.418 kg 82.418 kg Results CBC & Chem 7: 05/19/18 16:34 05/19/18 16:34 Labs: Abnormal Lab Results - Last 24 Hours (Table) 05/19/18 05/19/18 05/19/18 Range/Units 16:34 16:45 16:56 Sodium 136 L (137-145) mmol/L Chloride 96 L (98-107) mmol/L BUN 34 H (7-17) mg/dL Creatinine 1.51 H (0.52-1.04) mg/dL Glucose 430 H (74-99) mg/dL POC Glucose (mg/dL) 415 H (75-99) mg/dL Alkaline Phosphatase 168 H (38-126) U/L Urine Glucose (UA) 3+ H (Negative) Ur Leukocyte Esterase Moderate H (Negative) Urine WBC 8 H (0-5) /hpf Urine Bacteria Rare H (None) /hpf Urine Mucus Rare H (None) /hpf 05/19/18 05/19/18 05/19/18 Range/Units 18:57 20:39 23:22 Sodium (137-145) mmol/L Chloride (98-107) mmol/L BUN (7-17) mg/dL Creatinine (0.52-1.04) mg/dL Glucose (74-99) mg/dL POC Glucose (mg/dL) 440 H 350 H 294 H (75-99) mg/dL Alkaline Phosphatase (38-126) U/L Urine Glucose (UA) (Negative) Ur Leukocyte Esterase (Negative) Urine WBC (0-5) /hpf Urine Bacteria (None) /hpf Urine Mucus (None) /hpf 05/20/18 Range/Units 07:33 Sodium (137-145) mmol/L Chloride (98-107) mmol/L BUN (7-17) mg/dL Creatinine (0.52-1.04) mg/dL Glucose (74-99) mg/dL POC Glucose (mg/dL) 267 H (75-99) mg/dL Alkaline Phosphatase (38-126) U/L Urine Glucose (UA) (Negative) Ur Leukocyte Esterase (Negative) Urine WBC (0-5) /hpf Urine Bacteria (None) /hpf Urine Mucus (None) /hpf Thrombosis Risk Factor Assmnt - Choose All That Apply Any of the Below Risk Factors Present?: Yes Each Factor Represents 1 point: Obesity (BMI >25) Other Risk Factors: Yes Each Risk Factor Represents 3 Points: Age 75 years or older Thrombosis Risk Factor Assessment Total Risk Factor Score: 4 Thrombosis Risk Factor Assessment Level: Moderate Risk
--- NOTE | 2018-05-20 10:17 | HP ---
HISTORY AND PHYSICAL I am covering for Dr. Shepard. DATE OF SERVICE: 05/19/2018 CHIEF COMPLAINT: Change in mental status. HISTORY OF PRESENT ILLNESS: This 73-year-old woman with a past medical history of multiple medical problems including history of asthma, CAD, COPD, dementia, diabetes, GERD, hypertension, hyperlipidemia, history of myocardial infarction, being followed by Dr. Shepard in the outpatient setting was admitted with change in mental status. The son found her down in her soup and the patient was found to have change in mental status. Patient taken to [facility] and was admitted for further evaluation and treatment. Initial evaluation showed some dehydration, suspected UTI. The patient was admitted to the hospital for further evaluation and treatment. There is no history of any fever , rigors or chills at this time. Patient is slightly more coherent at this time but unable to give a clear cut history. Most of the history taken from my discussion with staff and review of chart at this time. PAST MEDICAL HISTORY: History of asthma, CAD, COPD, dementia, diabetes, GERD, hypertension, hyperlipidemia, memory impairment, history of DJD, history of CAD, CABG, stent. MEDICATIONS: Prior to admission home medications are: 1. Lopressor 75 mg b.i.d. 2. Lasix 40 mg daily. 3. Vitamin D3 2000. 4. Symbicort 160/4.5 two puffs b.i.d. ALLERGIES: None. FAMILY HISTORY: Family history, social history, review of systems could not be taken at length because of the change in mental status. PHYSICAL EXAM: Patient is conscious and confused. Pulse 69, blood pressure 128/70, respiration 22, temperature is 98 degrees. Pulse ox 99% on 2 L. HEENT is conjunctivae normal. Oral mucosa moist. NECK is no jugular venous distention. No carotid bruit. No lymph node enlargement. Cardiovascular system: S1, S2. RESPIRATORY: Breath sounds diminished in the bases. No rhonchi. No crackles. ABDOMEN: Soft, nontender. LEGS are no edema. No swelling. CENTRAL NERVOUS SYSTEM: higher functions as mentioned earlier. Moves all four extremities. Mild diffuse weakness. LYMPHATICS: No lymph nodes palpable in the neck, axillae or groin. SKIN no ulcer, rash, no bleeding. LAB STUDIES: WBC 7.6, sodium 130, potassium ntd creatinine 1.5 and glucose 430. ASSESSMENT: 1. Change in mental status, possibly acute metabolic encephalopathy and urinary tract infection. 2. Rule out transient ischemic attack. 3. Diabetes mellitus type 2 uncontrolled. 4. Increased creatinine with acute renal failure with dehydration. 5. History of asthma. 6. Coronary artery disease. 7. Chronic obstructive pulmonary disease. 8. Diabetes mellitus type 2. 9. Gastroesophageal reflux disease. 10.Hypertension. 11.Hyperlipidemia. 12.History of myocardial infarction. 13.History of degenerative joint disease. 14.History of chronic kidney disease stage III. 15.Coronary artery disease/coronary artery bypass grafting stent. 16.History of depression. RECOMMENDATIONS AND DISCUSSION: In this 73-year-old woman who presented with multiple complex medical issues, we will monitor the patient closely. Continue the current medications, management and symptomatic treatment. We will initiate the home medication. Monitor closely. IV fluids. I would also recommend a CT scan of the brain and also recommend complete neurovascular workup. I would also recommend empiric antibiotics also. The prognosis extremely guarded because of multiple complex medical issues. Further recommendations to follow. Dr. Shepard will follow. JOSE ML / HAMILTONN: [id number] / BRIDGER
[2018-05-20 11:43] LABS: Hemoglobin A1C 13.5 % (4.0-6.0)
[2018-05-20 11:58] LABS: Glucose,Whole Blood 360 mg/dL (75-99)
[2018-05-20 12:11] VITALS: BMI 35.4
[2018-05-20] MEDS: CLOPIDOGREL 75 MG TAB PO SCH (12:24)
[2018-05-20] MEDS: SENNOSIDES 8.6 MG TAB PO SCH (12:24)
[2018-05-20] MEDS: PANTOPRAZOLE 40 MG TABLET PO SCH (12:24)
[2018-05-20] MEDS ORDERED: INSULN ASP PRT/INSULIN ASPART 100 UNIT/ML 10 ML VIAL SQ SCH (12:30)
[2018-05-20] MEDS: IPRATROPIUM-ALBUTEROL 3 ML NEB INHALATION SCH ×3 (13:24→19:20)
[2018-05-20 16:48] LABS: Glucose,Whole Blood 339 mg/dL (75-99)
[2018-05-20] MEDS: ATORVASTATIN 80 MG TAB PO SCH (20:47)
[2018-05-20 21:00] LABS: Glucose,Whole Blood 305 mg/dL (75-99)
[2018-05-20] MEDS ORDERED: INSULIN DETEMIR 100 UNIT/ML 10 ML VIAL SQ SCH (21:00)
[2018-05-20] MEDS: INSULIN DETEMIR 100 UNIT/ML 10 ML VIAL SQ SCH (21:21)
[2018-05-21 07:09] LABS: Glucose,Whole Blood 175 mg/dL (75-99)
[2018-05-21] MEDS: INSULIN ASPART 100 UNIT/ML 1 ML 10 ML VIAL SQ SCH ×7 (07:57→21:14)
[2018-05-21] MEDS: METOPROLOL TARTRATE 50 MG TAB PO SCH (07:58)
[2018-05-21] MEDS: CLOPIDOGREL 75 MG TAB PO SCH (07:58)
[2018-05-21] MEDS: FUROSEMIDE 40 MG TAB PO SCH (07:58)
[2018-05-21] MEDS: CHOLECALCIFEROL 1,000 UNIT TAB PO SCH (07:58)
[2018-05-21] MEDS: PANTOPRAZOLE 40 MG TABLET PO SCH (07:58)
[2018-05-21] MEDS: SENNOSIDES 8.6 MG TAB PO SCH (07:59)
--- NOTE | 2018-05-21 08:42 | P.PN ---
Subjective Progress Note Date: 05/21/18 73-year-old female with a past medical history significant for coronary artery disease, diabetes mellitus, and COPD, who was brought to the ER via EMS for altered mental status. Her son apparently found her at home and she was confused and not at her baseline. The patient has a long standing history of medical noncompliance, specifically with her diabetes. She was recently seen outpatient by Dr. Shepard and had told him she quit taking all her medications. She was educated on the importance of taking them and reports she did start taking her insulin again since that appointment. Her blood sugar was found to be in the 400s in the emergency room. Chest x-ray completed in the emergency room was negative for an acute process. Laboratory data upon admission reveals white count 7.6. Hemoglobin 14.4. Platelet count 235. Sodium 136. Potassium 4.5. BUN 34. Creatinine 1.51. Glucose 130. Lactic acid 1.9. The patient was admitted to the hospital under the care of Dr. Shepard. 05/21/2018 Patient examined at the bedside. Mentation is back to patients baseline. She reports she has not been OOB since admission. PT/OT consult placed. Blood sugar this morning is 175. Urine culture is pending. She remains on ceftriaxone. PHYSICAL EXAM: GENERAL: This is a 73-year-old female in no apparent distress at the time of examination. Pleasant and cooperative. HEENT: Head is atraumatic, normocephalic. Pupils are equal, round, and reactive to light. Sclerae anicteric. Conjunctivae are clear. Mucus membranes of the mouth are moist. Neck is supple. RESPIRATORY: Clear to auscultation. No wheezes, rales, or rhonchi. No use of accessory muscles. Patient maintaining oxygen saturation greater than 92%. CARDIOVASCULAR: Regular rate and rhythm. S1 and S2 noted. No systolic or diastolic murmur auscultated. No JVD noted. No S3 or S4 noted. GASTROINTESTINAL: No distention noted. Abdomen soft and round. Normal active bowel sounds auscultated x 4 quadrants. No pain or tenderness noted upon palpation. INTEGUMENTARY: No cyanosis. No jaundice. No rashes noted. No cellulitis noted. EXTREMITIES: 2+ peripheral pulses. No evidence of peripheral edema. No calf tenderness noted. NEUROLOGIC: Cranial nerves II-XII intact. PSYCHIATRIC: Awake, alert, and oriented X 3. ASSESSMENT: Hyperglycemia, secondary to uncontrolled diabetes Metabolic encephalopathy, secondary to above, resolved Diabetes mellitus, type II Pyuria, possible UTI, urine culture pending CKD, stage III Chronic obstructive pulmonary disease, no evidence of acute exacerbation History of coronary artery bypass graft with VELARDE to the LAD Hypertension Hyperlipidemia Carotid artery disease with previous right carotid endarterectomy Medical noncompliance Obesity: BMI 35.5 PLAN: coding educator on consult. Continue to monitor blood sugars throughout the day. Will make adjustments to insulin regimen as needed. Continue antibiotics. Await results of urine culture. Anticipate discharge tomorrow. Patient would like to return home with home care. will consult PT/OT for evaluation to determine if patient will require MAYTE. Nurse practitioner note has been reviewed by physician. Signing provider agrees with the documented findings, assessment, and plan of care. Objective - Vital Signs Vital signs: Vital Signs Temp 98.0 F 05/21/18 07:00 Pulse 80 05/21/18 07:00 Resp 20 05/21/18 07:00 BP 150/77 05/21/18 07:00 Pulse Ox 95 05/21/18 07:00 Intake & Output 05/20/18 05/21/18 05/21/18 18:59 06:59 18:59 Intake Total 240 100 Balance 240 100 Weight 82.418 kg 82.418 kg Intake: Oral 240 100 Other: Voiding Method Bedside Commode Bedside Commode Incontinent Incontinent # Voids 1 - Labs CBC & Chem 7: 05/19/18 16:34 05/19/18 16:34 Labs: Abnormal Lab Results - Last 24 Hours (Table) 05/19/18 05/20/18 05/20/18 Range/Units 16:34 11:55 16:44 POC Glucose (mg/dL) 360 H 339 H (75-99) mg/dL Hemoglobin A1c 13.5 H (4.0-6.0) % 05/20/18 05/21/18 Range/Units 20:56 06:48 POC Glucose (mg/dL) 305 H 175 H (75-99) mg/dL Hemoglobin A1c (4.0-6.0) % Microbiology - Last 24 Hours (Table) 05/20/18 01:45 Blood Culture - Preliminary Blood No Growth after 24 hours 05/19/18 16:56 Urine Culture - Preliminary Urine,Clean Catch
[2018-05-21] MEDS: SYMBICORT 160-4.5 MCG INHALER INHALATION SCH ×2 (09:14→19:37)
[2018-05-21] MEDS: IPRATROPIUM-ALBUTEROL 3 ML NEB INHALATION SCH ×4 (09:14→19:37)
[2018-05-21 10:32] LABS: Calcium 9.3 mg/dL (8.4-10.2); Potassium 3.9 mmol/L (3.5-5.1)
[2018-05-21 10:49] LABS: Basophils % (A) 0 %; Eosinophils # (A) 0.2 k/uL (0-0.7); Eosinophils % (A) 3 %; HCT 42.6 % (34.0-46.0); HGB 13.8 gm/dL (11.4-16.0); Lymphocytes # (A) 1.1 k/uL (1.0-4.8); Lymphocytes % (A) 13 %; MCH 29.8 pg (25.0-35.0); MCHC 32.5 g/dL (31.0-37.0); MCV 91.7 fL (80.0-100.0); Mean Platelet Volume 7.6; Monocytes # (A) 0.3 k/uL (0-1.0); Monocytes % (A) 4 %; Neutrophils # (A) 6.7 k/uL (1.3-7.7); Neutrophils % (A) 79 %; Platelet Count 240 k/uL (150-450); RBC 4.64 m/uL (3.80-5.40); RDW 14.3 % (11.5-15.5); WBC 8.5 k/uL (3.8-10.6)
[2018-05-21 12:13] LABS: Glucose,Whole Blood 267 mg/dL (75-99)
--- NOTE | 2018-05-21 13:22 | ECHOF ---
Referral Reason:Stroke MEASUREMENTS -------- HEIGHT: 152.4 cm WEIGHT: 82.1 kg BP: 128/77 RVIDd: 2.6 cm (< 3.3) IVSd: 1.2 cm (0.6 - 1.1) LVIDd: 2.6 cm (3.9 - 5.3) LVPWd: 1.2 cm (0.6 - 1.1) IVSs: 1.5 cm LVIDs: 1.8 cm LVPWs: 1.5 cm LAESV Index (A-L): 37.86 ml/m Ao Diam: 3.1 cm (2.0 - 3.7) AV Cusp: 1.4 cm (1.5 - 2.6) LA Diam: 4.0 cm (2.7 - 3.8) MV E Farhad: 0.89 m/s MV DecT: 652 ms MV A Farhad: 1.73 m/s MV E/A Ratio: 0.52 RAP: 5.00 mmHg RVSP: 9.15 mmHg FINDINGS -------- Sinus rhythm. This was a technically adequate study. The left ventricular size is normal. There is mild concentric left ventricular hypertrophy. Overa ll left ventricular systolic function is normal with, an EF between 55 - 60 %. The right ventricle is normal in size and function. LA is moderately dilated 34-39 ml/m2 The right atrium is normal in size. There is mild to moderate aortic valve sclerosis. There is no evidence of aortic regurgitation. T here is no evidence of aortic stenosis. Mild mitral regurgitation is present. Normally functioning bioprosthetic mitral valve. Trace tricuspid regurgitation present. Right ventricular systolic pressure is normal at < 35 mmHg. There is no evidence of pulmonary hypertension. The pulmonic valve was not well visualized. The aortic root size is normal. Normal inferior vena cava with normal inspiratory collapse consistent with estimated right atrial pre ssure of 5 mmHg. There is no pericardial effusion. CONCLUSIONS -------- 1. Sinus rhythm. 2. This was a technically adequate study. 3. The left ventricular size is normal. 4. There is mild concentric left ventricular hypertrophy. 5. Overall left ventricular systolic function is normal with, an EF between 55 - 60 %. 6. LA is moderately dilated 34-39 ml/m2 7. There is mild to moderate aortic valve sclerosis. 8. Mild mitral regurgitation is present. 9. Normally functioning bioprosthetic mitral valve. 10. Trace tricuspid regurgitation present. 11. Right ventricular systolic pressure is normal at < 35 mmHg. 12. There is no evidence of pulmonary hypertension. 13. The pulmonic valve was not well visualized. 14. The aortic root size is normal. 15. There is no pericardial effusion. FITTER UP: Aristides Bolanos RDCS
[2018-05-21 17:32] LABS: Glucose,Whole Blood 205 mg/dL (75-99)
[2018-05-21 20:46] LABS: Glucose,Whole Blood 228 mg/dL (75-99)
[2018-05-21] MEDS: ATORVASTATIN 80 MG TAB PO SCH (21:14)
[2018-05-21] MEDS: INSULIN DETEMIR 100 UNIT/ML 10 ML VIAL SQ SCH (21:14)
[2018-05-22 07:08] LABS: Glucose,Whole Blood 153 mg/dL (75-99)
[2018-05-22] MEDS: INSULIN ASPART 100 UNIT/ML 1 ML 10 ML VIAL SQ SCH ×4 (08:07→12:47)
[2018-05-22] MEDS: CLOPIDOGREL 75 MG TAB PO SCH (08:08)
[2018-05-22] MEDS: SENNOSIDES 8.6 MG TAB PO SCH (08:08)
[2018-05-22] MEDS: PANTOPRAZOLE 40 MG TABLET PO SCH (08:08)
[2018-05-22] MEDS: METOPROLOL TARTRATE 50 MG TAB PO SCH (08:08)
[2018-05-22] MEDS: CHOLECALCIFEROL 1,000 UNIT TAB PO SCH (08:08)
[2018-05-22] MEDS: FUROSEMIDE 40 MG TAB PO SCH (08:08)
[2018-05-22] MEDS: IPRATROPIUM-ALBUTEROL 3 ML NEB INHALATION SCH ×2 (08:59→12:37)
[2018-05-22] MEDS: SYMBICORT 160-4.5 MCG INHALER INHALATION SCH (08:59)
[2018-05-22 09:21] LABS: Basophils % (A) 0 %; Eosinophils # (A) 0.3 k/uL (0-0.7); Eosinophils % (A) 3 %; HCT 45.8 % (34.0-46.0); HGB 15.2 gm/dL (11.4-16.0); Lymphocytes # (A) 1.2 k/uL (1.0-4.8); Lymphocytes % (A) 15 %; MCH 30.5 pg (25.0-35.0); MCHC 33.3 g/dL (31.0-37.0); MCV 91.5 fL (80.0-100.0); Mean Platelet Volume 7.4; Monocytes # (A) 0.4 k/uL (0-1.0); Monocytes % (A) 4 %; Neutrophils # (A) 6.5 k/uL (1.3-7.7); Neutrophils % (A) 77 %; Platelet Count 228 k/uL (150-450); RDW 14.3 % (11.5-15.5); WBC 8.5 k/uL (3.8-10.6)
[2018-05-22 09:39] LABS: Calcium 9.6 mg/dL (8.4-10.2); Potassium 4.1 mmol/L (3.5-5.1)
[2018-05-22 09:43] VITALS: BP 159/80; PULSE 92; RESP 18; TEMP 97.9
--- NOTE | 2018-05-22 09:44 | P.DS ---
Providers Date of admission: 05/19/18 19:10 Expected date of discharge: 05/22/18 Attending physician: Srinath Shepard Primary care physician: Srinath Shepard [facility] Course: 73-year-old female with a past medical history significant for coronary artery disease, diabetes mellitus, and COPD, who was brought to the ER via EMS for altered mental status. Her son apparently found her at home and she was confused and not at her baseline. The patient has a long standing history of medical noncompliance, specifically with her diabetes. She was recently seen outpatient by Dr. Shepard and had told him she quit taking all her medications. She was educated on the importance of taking them and reports she did start taking her insulin again since that appointment. Her blood sugar was found to be in the 400s in the emergency room. Chest x-ray completed in the emergency room was negative for an acute process. Laboratory data upon admission reveals white count 7.6. Hemoglobin 14.4. Platelet count 235. Sodium 136. Potassium 4.5. BUN 34. Creatinine 1.51. Glucose 130. Lactic acid 1.9. The patient was admitted to the hospital under the care of Dr. Shepard. 05/21/2018 Patient examined at the bedside. Mentation is back to patients baseline. She reports she has not been OOB since admission. PT/OT consult placed. Blood sugar this morning is 175. Urine culture is pending. She remains on ceftriaxone. 05/22/2018 Patient examined at the bedside. She remains very weak and debilitated. Physical therapy worked with patient yesterday and recommends subacute rehab. Patients mentation is back to her baseline. Vital signs are stable. She denies pain or discomfort. Denies shortness of breath or chest pain. She is stable for discharge to [facility] today. ASSESSMENT: Hyperglycemia, secondary to uncontrolled diabetes Metabolic encephalopathy, secondary to above, resolved Diabetes mellitus, type II Urinary tract infection, culture positive for gram negative bacilli CKD, stage III Chronic obstructive pulmonary disease, no evidence of acute exacerbation History of coronary artery bypass graft with VELARDE to the LAD Hypertension Hyperlipidemia Carotid artery disease with previous right carotid endarterectomy Medical noncompliance Obesity: BMI 35.5 Nurse practitioner note has been reviewed by physician. Signing provider agrees with the documented findings, assessment, and plan of care. Patient Condition at Discharge: Stable Plan - Discharge Summary New Discharge Prescriptions: New Insulin Aspart [NovoLOG (formulary)] 15 unit SQ AC-TID vial Continue Cholecalciferol [Vitamin D3] 2,000 unit PO DAILY Budesonide-Formot 160-4.5 Mcg [Symbicort 160-4.5 Mcg Inhaler] 2 puff INHALATION RT-BID Furosemide [Lasix] 40 mg PO DAILY Ipratropium/Albuterol Sulfate [Combivent Respimat Inhaler] 1 puff INHALATION RT-QID Albuterol Nebulized [Ventolin Nebulized] 2.5 mg INHALATION RT-Q4H PRN PRN Reason: Shortness Of Breath Albuterol Inhaler [Ventolin Hfa Inhaler] 1 - 2 puff INHALATION RT-Q6H PRN PRN Reason: Shortness Of Breath Pantoprazole Sodium 40 mg PO DAILY Insulin Detemir [Levemir Flextouch] 70 units SQ HS Clopidogrel [Plavix] 75 mg PO DAILY Atorvastatin [Lipitor] 80 mg PO HS Metoprolol Tartrate [Lopressor] 75 mg PO DAILY Ibuprofen [Motrin] 800 mg PO Q6H PRN PRN Reason: Pain Discontinued INSULIN LISPRO (HumaLOG) [HumaLOG] 10 units SQ AC-TID Discharge Medication List Budesonide-Formot 160-4.5 Mcg [Symbicort 160-4.5 Mcg Inhaler] 2 puff INHALATION RT-BID 01/19/17 [History] Cholecalciferol [Vitamin D3] 2,000 unit PO DAILY 01/19/17 [History] Furosemide [Lasix] 40 mg PO DAILY 05/19/18 [History] Albuterol Inhaler [Ventolin Hfa Inhaler] 1 - 2 puff INHALATION RT-Q6H PRN [History] Albuterol Nebulized [Ventolin Nebulized] 2.5 mg INHALATION RT-Q4H PRN 05/20/18 [ History] Atorvastatin [Lipitor] 80 mg PO HS 05/20/18 [History] Clopidogrel [Plavix] 75 mg PO DAILY 05/20/18 [History] Ibuprofen [Motrin] 800 mg PO Q6H PRN 05/20/18 [History] Insulin Detemir [Levemir Flextouch] 70 units SQ HS 05/20/18 [History] Ipratropium/Albuterol Sulfate [Combivent Respimat Inhaler] 1 puff INHALATION RT- QID 05/20/18 [History] Metoprolol Tartrate [Lopressor] 75 mg PO DAILY 05/20/18 [History] Pantoprazole Sodium 40 mg PO DAILY 05/20/18 [History] Insulin Aspart [NovoLOG (formulary)] 15 unit SQ AC-TID vial 05/22/18 [Rx] Follow up Appointment(s)/Referral(s): Srinath Shepard DO [Primary Care Provider] - 1 Week [facility], [NON-STAFF] - None,Stated [REFERRING] - 1-2 days Activity/Diet/Wound Care/Special Instructions: For [employer] to fill glucometer and supplies, an account will need to be set up by family. [employer] contact number is [phone].
[2018-05-22 12:03] LABS: Glucose,Whole Blood 297 mg/dL (75-99)
== END 2018-05-22 13:41 | DRG 637 ==
LOC: EC 16:06 → 4MS4W 19:10
PROVIDERS: ADMIT Family Medicine; ATTEND Family Medicine
DX: E11.65 Type 2 diabetes mellitus with hyperglycemia (principal); G93.41 Metabolic encephalopathy; N17.9 Acute kidney failure, unspecified; N39.0 Urinary tract infection, site not specified; E86.0 Dehydration; J44.9 Chronic obstructive pulmonary disease, unspecified; E11.22 Type 2 diabetes mellitus with diabetic chronic kidney disease; F03.90 Unspecified dementia, unspecified severity, without behavioral disturbance, psychotic disturbance, mood disturbance, and anxiety; N18.3 Chronic kidney disease, stage 3 (moderate); I12.9 Hypertensive chronic kidney disease with stage 1 through stage 4 chronic kidney disease, or unspecified chronic kidney disease; K21.9 Gastro-esophageal reflux disease without esophagitis; E78.5 Hyperlipidemia, unspecified; I25.10 Atherosclerotic heart disease of native coronary artery without angina pectoris; G89.29 Other chronic pain; M54.9 Dorsalgia, unspecified; I25.2 Old myocardial infarction; M19.90 Unspecified osteoarthritis, unspecified site; E66.9 Obesity, unspecified; Z68.35 Body mass index [BMI] 35.0-35.9, adult; Z91.19 Patient's noncompliance with other medical treatment and regimen; Z79.51 Long term (current) use of inhaled steroids; Z79.899 Other long term (current) drug therapy; Z79.4 Long term (current) use of insulin; Z79.02 Long term (current) use of antithrombotics/antiplatelets; Z95.1 Presence of aortocoronary bypass graft; Z95.5 Presence of coronary angioplasty implant and graft; Z90.710 Acquired absence of both cervix and uterus; Z90.49 Acquired absence of other specified parts of digestive tract; Z86.79 Personal history of other diseases of the circulatory system; Z87.891 Personal history of nicotine dependence; Z87.440 Personal history of urinary (tract) infections; Z86.59 Personal history of other mental and behavioral disorders; Z82.49 Family history of ischemic heart disease and other diseases of the circulatory system
CPT/HCPCS: 36415; 70450; 71046; 80048; 80053; 80306; 81001; 82009; 82550; 82553; 83036; 83605; 84484; 85025; 85610; 85730; 87040; 87077; 87086; 87186; 93005; 93306; 93880; 94640; 96360; 96361; 99285

== ENCOUNTER 2018-07-22 14:26 | Emergency (ER) | payer MEDICARE ==
--- NOTE | 2018-07-22 14:46 | ED ---
General Adult HPI - General Stated complaint: Confused Time Seen by Provider: 07/22/18 14:30 Source: patient, EMS, RN notes reviewed Mode of arrival: EMS Limitations: altered mental status - History of Present Illness Initial comments: Patient is a pleasant 73-year-old female presenting to the emergency department with reported decreased or unresponsive episode. History is limited. Patient is a poor historian. EMS states patient's son was present however was agitated and left the scene. Unclear onset. Patient was originally called for unresponsiveness. When EMS arrived patient was responsive however altered and remains so at this point. Patient has no specific complaints. - Related Data Home Medications Medication Instructions Recorded Confirmed Budesonide-Formot 160-4.5 Mcg 2 puff INHALATION RT-BID 01/19/17 07/22/18 [Symbicort 160-4.5 Mcg Inhaler] Furosemide [Lasix] 40 mg PO DAILY 05/19/18 07/22/18 Albuterol Inhaler [Ventolin Hfa 1 - 2 puff INHALATION RT-Q6H PRN 05/20/18 07/22/18 Inhaler] Albuterol Nebulized [Ventolin 2.5 mg INHALATION RT-Q4H PRN 05/20/18 07/22/18 Nebulized] Atorvastatin [Lipitor] 80 mg PO HS 05/20/18 07/22/18 Clopidogrel [Plavix] 75 mg PO DAILY 05/20/18 07/22/18 Insulin Detemir [Levemir Flextouch] 70 units SQ HS 05/20/18 07/22/18 Ipratropium/Albuterol Sulfate 1 puff INHALATION RT-QID 05/20/18 07/22/18 [Combivent Respimat Inhaler] Metoprolol Tartrate [Lopressor] 75 mg PO DAILY 05/20/18 07/22/18 Pantoprazole Sodium 40 mg PO DAILY 05/20/18 07/22/18 Gabapentin [Neurontin] 100 mg PO BID 07/22/18 07/22/18 INSULIN LISPRO (humaLOG) [humaLOG] 25 unit SQ AC-TID 07/22/18 07/22/18 Ranitidine HCl 150 mg PO DAILY 07/22/18 07/22/18 Sennosides/Docusate Sodium [Makeda 1 tab PO BID PRN 07/22/18 07/22/18 Colace] Allergies Allergy/AdvReac Type Severity Reaction Status Date / Time No Known Allergies Allergy Verified 07/22/18 15:40 Review of Systems ROS Statement: Those systems with pertinent positive or pertinent negative responses have been documented in the HPI. ROS Other: All systems not noted in ROS Statement are negative. Constitutional: Denies: fever Eyes: Denies: eye pain ENT: Denies: ear pain Respiratory: Denies: cough Cardiovascular: Denies: chest pain Endocrine: Denies: fatigue Gastrointestinal: Reports: nausea. Denies: abdominal pain Genitourinary: Denies: dysuria Musculoskeletal: Denies: back pain Skin: Denies: rash Neurological: Denies: headache, weakness Past Medical History Past Medical History: Asthma, Coronary Artery Disease (CAD), COPD, Dementia, Diabetes Mellitus, GERD/Reflux, Hyperlipidemia, Hypertension, Memory Impairment, Myocardial Infarction (MS), Osteoarthritis (OA), Renal Disease Additional Past Medical History / Comment(s): CKD stage 3, poorly-controlled DM (medical noncompliance), COPD FEV1 of 57% predicted, carotid artery disease, UTIs, chronic back pain, forgetful. Last Myocardial Infarction Date:: 2009 History of Any Multi-Drug Resistant Organisms: None Reported Past Surgical History: Appendectomy, Coronary Bypass/CABG, Heart Catheterization With Stent, Hysterectomy Additional Past Surgical History / Comment(s): 04/12/17 CABG 1 vessel w/ VELARDE to LAD - previous stent to RCA. Drug-eluting stent placed to the RCA in 2009, right carotid endarterectomy in 2011, colonoscopy. Past Anesthesia/Blood Transfusion Reactions: No Reported Reaction Date of Last Stent Placement:: 2009 Past Psychological History: Depression Additional Psychological History / Comment(s): Pt resides with her son, Antonio. Pt. uses a walker to ambulate. States she doesn't manage her diabetes well at home. She manages her own medications. She no longer drives, her son takes her to appointments. Her daughter Stephanie is her DPOA - no advance directives on file. Asked patient to have family bring copy in. Smoking Status: Former smoker Past Alcohol Use History: None Reported Additional Past Alcohol Use History / Comment(s): Unsure of when she quit smoking. Past Drug Use History: None Reported Additional Drug Use History / Comment(s): . - Past Family History Mother Family Medical History: No Reported History Father Family Medical History: Coronary Artery Disease (CAD) General Exam Limitations: altered mental status General appearance: alert, in no apparent distress Head exam: Present: atraumatic Eye exam: Present: normal appearance, PERRL, EOMI ENT exam: Present: normal oropharynx Neck exam: Present: normal inspection Respiratory exam: Present: normal lung sounds bilaterally Cardiovascular Exam: Present: regular rate, normal rhythm GI/Abdominal exam: Present: soft. Absent: tenderness Extremities exam: Present: normal inspection. Absent: pedal edema, calf tenderness Neurological exam: Present: alert, altered, CN II-XII intact Expanded Neurological exam: Present: protecting the airway Patient oriented to: Present: person (Patient is oriented to first name however not last name.), place. Absent: time Speech: Present: fluid speech Cranial nerves: EOM's Intact: Normal, Facial Sensation: Normal Sensory exam: Upper Extremity Light Touch: Normal, Lower Extremity Light Touch: Normal Motor strength exam: RUE: 5, LUE: 5, RLE: 2/1, LLE: 4 Eye Response: (4) open spontaneously Motor Response: (6) obeys commands Verbal Response: (4) confused conversation Psychiatric exam: Present: normal affect, normal mood Skin exam: Present: normal color Course Vital Signs 07/22/18 14:40 Temperature 99.5 F Pulse Rate 116 H Respiratory 18 Rate Blood Pressure 143/84 O2 Sat by Pulse 98 Oximetry - Reevaluation(s) Reevaluation #1: 07/22/18 14:43 Case was discussed with Dr. barnes who feels patient is not a TPA candidate. Onset is unknown. Exact diagnosis unclear at this point. He will look at the films. 07/22/18 14:46 Patient is not oriented to her last name. Patient is only able to be identified because her name is on a sticker inside of her trashcan that she brought with her. 07/22/18 16:34 Case was again discussed with Dr. Barnes who did review the films. He states no TPA and no need for embolization. He does recommend transfer to [facility]. He does recommend aspirin and 300 mg of Plavix. He states patient will need neurology and vascular consults. 07/22/18 16:45 Patient reevaluated and unchanged nursing staff did attempt to contact family without success. 07/22/18 17:06 Dr. Shepard was notified. Case was also discussed with Dr. Ocasio who will accept for Dr. Ham. At [facility]. Patient will be transferred secondary to no neurology available at her facility. EKG Findings - EKG Comments: EKG Findings:: Sinus tachycardia 1:15. GA 176. QRS 82. QT 334. QTC 462. Normal axis. Inferior Q waves. Septal Q waves. Nonspecific ST-T. Medical Decision Making - Lab Data Result diagrams: 07/22/18 14:51 07/22/18 14:51 Lab Results 07/22/18 07/22/18 07/22/18 Range/Units 04:02 14:51 14:51 WBC 8.3 (3.8-10.6) k/uL RBC 4.79 (3.80-5.40) m/uL Hgb 14.3 (11.4-16.0) gm/dL Hct 44.0 (34.0-46.0) % MCV 91.8 (80.0-100.0) fL MCH 29.9 (25.0-35.0) pg MCHC 32.6 (31.0-37.0) g/dL RDW 14.4 (11.5-15.5) % Plt Count 198 (150-450) k/uL Neutrophils % 88 % Lymphocytes % 5 % Monocytes % 5 % Eosinophils % 1 % Basophils % 1 % Neutrophils # 7.3 (1.3-7.7) k/uL Lymphocytes # 0.4 L (1.0-4.8) k/uL Monocytes # 0.4 (0-1.0) k/uL Eosinophils # 0.1 (0-0.7) k/uL Basophils # 0.1 (0-0.2) k/uL PT (9.0-12.0) sec INR (<1.2) APTT (22.0-30.0) sec Sodium 138 (137-145) mmol/L Potassium 4.7 (3.5-5.1) mmol/L Chloride 102 (98-107) mmol/L Carbon Dioxide 28 (22-30) mmol/L Anion Gap 8 mmol/L BUN 28 H (7-17) mg/dL Creatinine 1.14 H (0.52-1.04) mg/dL Est GFR (CKD-EPI)AfAm 55 (>60 ml/min/1.73 sqM) Est GFR (CKD-EPI)NonAf 47 (>60 ml/min/1.73 sqM) Glucose 191 H (74-99) mg/dL Calcium 9.5 (8.4-10.2) mg/dL Total Bilirubin 1.1 (0.2-1.3) mg/dL AST 22 (14-36) U/L ALT 25 (9-52) U/L Alkaline Phosphatase 179 H (38-126) U/L Troponin I (0.000-0.034) ng/mL Total Protein 7.5 (6.3-8.2) g/dL Albumin 4.3 (3.5-5.0) g/dL Urine Color Light Yellow Urine Appearance Cloudy H (Clear) Urine pH 7.5 (5.0-8.0) Ur Specific Lilly 1.027 (1.001-1.035) Urine Protein 1+ H (Negative) Urine Glucose (UA) 1+ H (Negative) Urine Ketones Negative (Negative) Urine Blood Negative (Negative) Urine Nitrite Positive H (Negative) Urine Bilirubin Negative (Negative) Urine Urobilinogen <2.0 (<2.0) mg/dL Ur Leukocyte Esterase Negative (Negative) Urine RBC 2 (0-5) /hpf Urine WBC 6 H (0-5) /hpf Ur Squamous Epith Cells <1 (0-4) /hpf Urine Mucus Rare H (None) /hpf 07/22/18 07/22/18 Range/Units 14:51 14:51 WBC (3.8-10.6) k/uL RBC (3.80-5.40) m/uL Hgb (11.4-16.0) gm/dL Hct (34.0-46.0) % MCV (80.0-100.0) fL MCH (25.0-35.0) pg MCHC (31.0-37.0) g/dL RDW (11.5-15.5) % Plt Count (150-450) k/uL Neutrophils % % Lymphocytes % % Monocytes % % Eosinophils % % Basophils % % Neutrophils # (1.3-7.7) k/uL Lymphocytes # (1.0-4.8) k/uL Monocytes # (0-1.0) k/uL Eosinophils # (0-0.7) k/uL Basophils # (0-0.2) k/uL PT 11.0 (9.0-12.0) sec INR 1.0 (<1.2) APTT 26.2 (22.0-30.0) sec Sodium (137-145) mmol/L Potassium (3.5-5.1) mmol/L Chloride (98-107) mmol/L Carbon Dioxide (22-30) mmol/L Anion Gap mmol/L BUN (7-17) mg/dL Creatinine (0.52-1.04) mg/dL Est GFR (CKD-EPI)AfAm (>60 ml/min/1.73 sqM) Est GFR (CKD-EPI)NonAf (>60 ml/min/1.73 sqM) Glucose (74-99) mg/dL Calcium (8.4-10.2) mg/dL Total Bilirubin (0.2-1.3) mg/dL AST (14-36) U/L ALT (9-52) U/L Alkaline Phosphatase (38-126) U/L Troponin I 0.018 (0.000-0.034) ng/mL Total Protein (6.3-8.2) g/dL Albumin (3.5-5.0) g/dL Urine Color Urine Appearance (Clear) Urine pH (5.0-8.0) Ur Specific Lilly (1.001-1.035) Urine Protein (Negative) Urine Glucose (UA) (Negative) Urine Ketones (Negative) Urine Blood (Negative) Urine Nitrite (Negative) Urine Bilirubin (Negative) Urine Urobilinogen (<2.0) mg/dL Ur Leukocyte Esterase (Negative) Urine RBC (0-5) /hpf Urine WBC (0-5) /hpf Ur Squamous Epith Cells (0-4) /hpf Urine Mucus (None) /hpf - Radiology Data Radiology results: report reviewed (Computed tomography scan of the brain does not reveal acute abnormality. There is moderate atrophy and chronic small vessel changes. CT angios of the brain and neck does show 70% diameter reduction 70% left ICA. 50% right ICA.), image reviewed (Two-view chest x-ray shows no acute process.) Disposition Clinical Impression: CVA (cerebral vascular accident) Disposition: OTHER INSTITUTION NOT DEFINED Is patient prescribed a controlled substance at d/c from ED?: No Referrals: Srinath Shepard DO [Primary Care Provider] - 1-2 days Time of Disposition: 16:36 - Out of Hospital Transfer - Req. Specs Out of Hospital Transfer - Requested Specifics: Other Emergency Center
[2018-07-22 15:13] LABS: Partial Thromboplastin Time 26.2 sec (22.0-30.0)
[2018-07-22 15:16] LABS: Albumin 4.3 g/dL (3.5-5.0); Calcium 9.5 mg/dL (8.4-10.2); Potassium 4.7 mmol/L (3.5-5.1); Total Bilirubin 1.1 mg/dL (0.2-1.3); Total Protein 7.5 g/dL (6.3-8.2)
--- NOTE | 2018-07-22 15:24 | CT ---
EXAMINATION TYPE: CT brain wo con for TPA DATE OF EXAM: 07/22/2018 HISTORY: Leg weakness and confusion. CT DLP: 1161 mGycm. Automated Exposure Control for Dose Reduction was Utilized. TECHNIQUE: CT scan of the head is performed without contrast. COMPARISON: CT brain May 20, 2018 FINDINGS: There is no acute intracranial hemorrhage or midline shift identified. There is diffuse v entricular and sulcal prominence consistent with diffuse age-related cerebral atrophy. There is low- attenuation in the periventricular white matter consistent with chronic small vessel ischemic change. Vascular calcifications distal internal carotid arteries bilaterally is redemonstrated. The globes are intact and the visualized sinuses are clear. IMPRESSION: No acute intracranial hemorrhage or midline shift. There is moderate diffuse age-relate d cerebral atrophy and moderate to advanced chronic small vessel ischemic change noted.
[2018-07-22 15:26] LABS: Basophils # (A) 0.1 k/uL (0-0.2); Basophils % (A) 1 %; Eosinophils # (A) 0.1 k/uL (0-0.7); Eosinophils % (A) 1 %; HGB 14.3 gm/dL (11.4-16.0); Lymphocytes # (A) 0.4 k/uL (1.0-4.8); Lymphocytes % (A) 5 %; MCH 29.9 pg (25.0-35.0); MCHC 32.6 g/dL (31.0-37.0); MCV 91.8 fL (80.0-100.0); Mean Platelet Volume 7.1; Monocytes # (A) 0.4 k/uL (0-1.0); Monocytes % (A) 5 %; Neutrophils # (A) 7.3 k/uL (1.3-7.7); Neutrophils % (A) 88 %; Platelet Count 198 k/uL (150-450); RBC 4.79 m/uL (3.80-5.40); RDW 14.4 % (11.5-15.5); WBC 8.3 k/uL (3.8-10.6)
--- NOTE | 2018-07-22 15:36 | CT ---
EXAMINATION TYPE: CT angio head neck DATE OF EXAM: 07/22/2018 COMPARISON: 12/11/2011 HISTORY: Confusion and weakness. CT DLP: 466.8 mGycm CONTRAST: Performed with IV Contrast, patient injected with 65 mL of Isovue 370. Combination Contrast CTA cervical carotids and [place] CTA cervical carotids with 3-D recons truction Contrast CTA of the cervical carotids was performed 3-D reconstruction imaging obtained at a separate workstation. Right carotid system: Mild plaque is seen of the right common carotid artery. There is mild soft lat[place] que plaque also noted at the carotid bulb and proximal ICA. Estimated diameter reduction of 50%. EC A is patent. Right vertebral artery appears unremarkable. Left carotid system: Mild plaque is seen of the left common carotid artery. There is moderately jesi re calcified plaque also noted at the carotid bulb and proximal ICA. Estimated diameter reduction of slightly greater than 70%. ECA is patent. Left vertebral artery appears unremarkable. IMPRESSION: 1. Estimated diameter reduction of slightly greater than 70% left ICA. 2. Approximate 50% diameter reduction right ICA. CTA [place] with 3-D reconstruction Contrast CTA of the [place] was performed 3-D reconstruction imaging obtained at a separate workstation. Vertebrobasilar system as well as intracranial portions of the internal carotid arteries and their ma richard tributaries are patent. I do not see evidence for sizable aneurysm or vascular malformation. Pl ease note MRI provides greater sensitivity and specificity. Visualized brain appears grossly unremar kable. IMPRESSION: 1. No significant abnormality.
[2018-07-22 16:18] LABS: Appearance,Urine Cloudy (Clear); Bilirubin,Urine Negative (Negative); Blood,Urine Negative (Negative); Color,Urine Light Yellow; Glucose,Urine (UA) 1+ (Negative); Ketones,Urine Negative (Negative); Leukocyte Esterase,Urine Negative (Negative); Mucus,Urine Rare /hpf; Nitrite,Urine Positive (Negative); PH, Urine 7.5 (5.0-8.0); Protein,Urine 1+ (Negative); RBC,Urine 2 /hpf (0-5); Specific Gravity,Urine 1.027 (1.001-1.035); Squamous Epithelial Cell,Urine <1 /hpf (0-4); Urobilinogen,Urine <2.0 mg/dL (<2.0); WBC,Urine 6 /hpf (0-5)
--- NOTE | 2018-07-22 16:28 | XR ---
EXAMINATION TYPE: XR chest 2V DATE OF EXAM: 07/22/2018 COMPARISON: 05/19/2018 HISTORY: Shortness of breath TECHNIQUE: Frontal and lateral views of the chest are obtained. FINDINGS: Scattered senescent parenchymal changes noted. Hyperinflation compatible with COPD. No evidence for infiltrate. No evidence for atelectasis. Heart size is stable. Pulmonary venous congestion without overt failure. Mediastinal structures are stable and grossly unremarkable. No evidence for hilar prominence. Degenerative changes dorsal spine. IMPRESSION: 1. No evidence for acute pulmonary disease.
[2018-07-22] MEDS ORDERED: CLOPIDOGREL 75 MG TAB PO STA (17:06)
[2018-07-22] MEDS ORDERED: ASPIRIN 81 MG PO STA (17:06)
[2018-07-22 17:20] VITALS: BP 160/97; PULSE 105; RESP 19; TEMP 98.5
== END 2018-07-22 18:02 | disposition other institution (70) ==
LOC: EC 14:26
DX: I63.9 Cerebral infarction, unspecified (principal); J44.9 Chronic obstructive pulmonary disease, unspecified; F03.90 Unspecified dementia, unspecified severity, without behavioral disturbance, psychotic disturbance, mood disturbance, and anxiety; I25.10 Atherosclerotic heart disease of native coronary artery without angina pectoris; K21.9 Gastro-esophageal reflux disease without esophagitis; E78.5 Hyperlipidemia, unspecified; I25.2 Old myocardial infarction; E11.22 Type 2 diabetes mellitus with diabetic chronic kidney disease; I12.9 Hypertensive chronic kidney disease with stage 1 through stage 4 chronic kidney disease, or unspecified chronic kidney disease; N18.3 Chronic kidney disease, stage 3 (moderate); Z87.891 Personal history of nicotine dependence; Z79.51 Long term (current) use of inhaled steroids; Z79.4 Long term (current) use of insulin; Z79.01 Long term (current) use of anticoagulants; Z79.899 Other long term (current) drug therapy; Z95.1 Presence of aortocoronary bypass graft; Z95.5 Presence of coronary angioplasty implant and graft
CPT/HCPCS: 99285; 36415; 93005; 80053; 84484; 85025; 85610; 85730; 81001; 71046; 70496; 70450; 70498; Q9967